=== PATIENT | male | born 1950 | race Caucasian/White ===

== ENCOUNTER 2017-09-15 08:22 | Inpatient (IN) | payer MEDICARE, OTHER ==
[2017-09-15] VITALS (14 sets, daily range): BP systolic 97–122; BP diastolic 41–81; PULSE 80–102; RESP 16–24; TEMP 98.3; O2SAT 91–99
[~2017-09-15] VITALS: Ht 172.7 cm; Wt 63.8 kg
[2017-09-15] MEDS ORDERED: SODIUM CHLORIDE 0.9% FLUSH 10 ML FLUSH IVF PRN (09:00)
[2017-09-15] MEDS ORDERED: methylPREDNISolone SOD SUCC 125 MG/2 ML VIAL IV PUSH ONE (09:00)
[2017-09-15] MEDS: RESP: ALBUTEROL 2.5 MG/3 ML NEB (SCH) INH ×2 (09:00→09:15)
[2017-09-15] MEDS ORDERED: RESP: ALBUTEROL 2.5 MG/IPRATROPIUM 0.5 MG NEB (SCH) INH ONE (09:00)
--- NOTE | 2017-09-15 09:21 | PD ---
HPI Chief Complaint: Respiratory Symptoms Time Seen by Provider: 08:40 Travel History International Travel<30 days: No Contact w/Intl Traveler<30days: No Traveled to known affect area: No History of Present Illness HPI This is a 67-year-old male with a history of emphysema, presents today with complaints of shortness of breath and wheezing 2 days. The patient denies any fevers, chills. He states that he's had associated cough. He states he coughed so much that at times he gets "blood-tinged sputum". He denies any fevers, chills. He states in the past he was told he had emphysema. He denies any history of intubation. There are no other complaints at the time of my examination. [facility] Past Medical History Diminished Hearing: Yes Respiratory: Yes Past Surgical History Tonsillectomy: Yes Social History Alcohol Use: No Tobacco Use: No (QUITE JUL 2017) Substance Use: No Allergies-Medications (Allergen,Severity, Reaction): Coded Allergies: No Known Allergies (Unverified Allergy, Unknown, 09/15/17) Reported Meds & Prescriptions Reported Meds & Active Scripts Active No Active Prescriptions or Reported Medications Review of Systems Except as stated in HPI: all other systems reviewed are Neg General / Constitutional: No: Fever, Chills HENT: No: Headaches, Lightheadedness, Neck Pain Cardiovascular: No: Chest Pain or Discomfort, Palpitations Respiratory: Positive: Cough, Shortness of Breath, Wheezing Gastrointestinal: No: Nausea, Vomiting, Abdominal Pain Musculoskeletal: No: Weakness, Pain Neurologic: No: Weakness, Dizziness, Syncope Physical Exam Narrative GENERAL: Well-developed well-nourished male in no acute respiratory distress. SKIN: Focused skin assessment warm/dry. HEAD: Atraumatic. Normocephalic. EYES: Pupils equal and round. No scleral icterus. No injection or drainage. ENT: No nasal bleeding or discharge. Mucous membranes pink and moist. NECK: Trachea midline. Supple. CARDIOVASCULAR: Regular rate and rhythm. No murmur appreciated. RESPIRATORY: Bilateral wheezing at the bilateral lung bases. Breath sounds equal bilaterally. No Rales. GASTROINTESTINAL: Abdomen soft, non-tender, nondistended. Hepatic and splenic margins not palpable. MUSCULOSKELETAL: No obvious deformities. No clubbing. No cyanosis. No edema. NEUROLOGICAL: Awake and alert. No obvious cranial nerve deficits. Motor grossly within normal limits. Normal speech. Data Data Last Documented VS Vital Signs Date Time Temp Pulse Resp B/P (MAP) Pulse Ox O2 Delivery O2 Flow Rate FiO2 09/15/17 10:00 80 16 107/55 (72) 95 Nasal Cannula 2.00 Orders Orders Electrocardiogram (09/15/17 ) Iv Access Insert/Monitor (09/15/17 08:47) Ecg Monitoring (09/15/17 08:47) Oximetry (09/15/17 08:47) Oxygen Administration (09/15/17 08:47) Chest, Single Ap (09/15/17 08:47) Sodium Chloride 0.9% Flush (Ns Flush) (09/15/17 09:00) Methylprednisolone So Succ Inj (Solumedr (09/15/17 09:00) Albuterol-Ipratropium Neb (Duoneb Neb) (09/15/17 09:00) Albuterol Neb (Albuterol Neb) (09/15/17 09:00) Complete Blood Count With Diff (09/15/17 09:35) Comprehensive Metabolic Panel (09/15/17 09:35) Ckmb (Isoenzyme) Profile (09/15/17 09:35) Troponin I (09/15/17 09:35) Blood Culture (09/15/17 09:35) Ct Thorax/ Chest W Iv Contrast (09/15/17 09:35) Iohexol 350 Inj (Omnipaque 350 Inj) (09/15/17 10:50) Place In Observation (09/15/17 ) Vital Signs (Adult) Q4H (09/15/17 13:04) Activity Oob With Assistance (09/15/17 13:04) Intake + Output ESTHELA.QSHIFT (09/15/17 13:04) Diet Heart Healthy (09/15/17 Lunch) Sodium Chloride 0.9% Flush (Ns Flush) (09/15/17 13:15) Sodium Chloride 0.9% Flush (Ns Flush) (09/15/17 21:00) Acetaminophen (Tylenol) (09/15/17 13:15) Temazepam (Restoril) (09/15/17 13:15) Basic Metabolic Panel (Bmp) (09/16/17 06:00) Complete Blood Count With Diff (09/16/17 06:00) Pt Request For Service (09/15/17 13:04) Case Management Consult (09/15/17 13:04) Enoxaparin Inj (Lovenox Inj) (09/15/17 13:15) Scd Bilateral/Knee High ESTHELA.BID (09/15/17 13:04) Teddy Bilateral/Knee High ESTHELA.QSHIFT (09/15/17 13:04) Naloxone Inj (Narcan Inj) (09/15/17 13:15) Docusate Sodium-Senna (Abigail-Colace) (09/15/17 21:00) Magnesium Hydroxide Liq (Milk Of Magnesi (09/15/17 13:15) Sennosides (Senokot) (09/15/17 13:15) Bisacodyl Supp (Dulcolax Supp) (09/15/17 13:15) Lactulose Liq (Lactulose Liq) (09/15/17 13:15) Consult Pulmonology (09/15/17 ) Consult Medical Oncology (09/15/17 ) Consult Palliative Care (09/15/17 ) Methylprednisolone So Succ Inj (Solumedr (09/15/17 14:00) Albuterol-Ipratropium Neb (Duoneb Neb) (09/15/17 14:00) Albuterol-Ipratropium Neb (Duoneb Neb) (09/15/17 13:15) Acetamin-Hydrocod 325-5 Mg ([place] 5-325 (09/15/17 13:15) Echo 2d Comp With Doppler (09/15/17 ) Levofloxacin 750 Mg Premix Inj (Levaquin (09/15/17 13:15) Sputum Culture And Gram Stain (09/15/17 13:11) Admit Order (Ed Use Only) (09/15/17 13:13) Labs Laboratory Tests Test 09/15/17 09:45 White Blood Count 11.5 TH/MM3 Red Blood Count 4.42 MIL/MM3 Hemoglobin 12.9 GM/DL Hematocrit 38.2 % Mean Corpuscular Volume 86.3 FL Mean Corpuscular Hemoglobin 29.2 PG Mean Corpuscular Hemoglobin Concent 33.9 % Red Cell Distribution Width 13.1 % Platelet Count 394 TH/MM3 Mean Platelet Volume 7.1 FL Neutrophils (%) (Auto) 83.2 % Lymphocytes (%) (Auto) 8.8 % Monocytes (%) (Auto) 6.4 % Eosinophils (%) (Auto) 1.2 % Basophils (%) (Auto) 0.4 % Neutrophils # (Auto) 9.6 TH/MM3 Lymphocytes # (Auto) 1.0 TH/MM3 Monocytes # (Auto) 0.7 TH/MM3 Eosinophils # (Auto) 0.1 TH/MM3 Basophils # (Auto) 0.0 TH/MM3 CBC Comment DIFF FINAL Differential Comment Blood Urea Nitrogen 16 MG/DL Creatinine 1.01 MG/DL Random Glucose 98 MG/DL Total Protein 7.7 GM/DL Albumin 2.8 GM/DL Calcium Level 8.7 MG/DL Alkaline Phosphatase 82 U/L Aspartate Amino Transf (AST/SGOT) 20 U/L Alanine Aminotransferase (ALT/SGPT) 12 U/L Total Bilirubin 0.4 MG/DL Sodium Level 137 MEQ/L Potassium Level 4.1 MEQ/L Chloride Level 104 MEQ/L Carbon Dioxide Level 26.3 MEQ/L Anion Gap 7 MEQ/L Estimat Glomerular Filtration Rate 73 ML/MIN Total Creatine Kinase 31 U/L Troponin I LESS THAN 0.02 NG/ML MDM Medical Decision Making Medical Screen Exam Complete: Yes Emergency Medical Condition: Yes Differential Diagnosis COPD versus pneumonia versus bronchitis versus pneumothorax Narrative Course [age]-old male who presents today with shortness of breath wheezing and weakness. The patient has a history of emphysema. Patient had audible wheezing on his lungs bilaterally worse on the left than on the right. X-ray showed a right hilar mass. CT scan was ordered which showed a hilar mass that was 6 x 5 cm with what appears to be metastatic disease in both lungs. The patient is still symptomatic despite having nebulizer treatments and Solu- Medrol. I informed the patient of findings on the CT scan and told him we would initiate the workup here in the hospital. He was agreeable and amenable to being admitted. Diagnosis Primary Impression: right hilar mass with diffuse pulmonary metastatic infiltrates. Additional Impressions: COPD exacerbation Pleural effusion Pericardial effusion History of tobacco use Admitting Information Admitting Physician Requests: Observation Scripts No Active Prescriptions or Reported Meds Zeus Espino MD Sep 15, 2017 09:21
--- NOTE | 2017-09-15 09:23 | RADRPT ---
EXAM DATE/TIME: 09/15/2017 09:03 [facility] COMPARISON: No previous studies available for comparison. INDICATIONS : Patient states shortness of breath. MEDICAL HISTORY : None. SURGICAL HISTORY : None. ENCOUNTER: Initial ACUITY: 1 day PAIN SCORE: 0/10 LOCATION: Bilateral chest FINDINGS: Bilateral patchy nearly nodular opacities throughout the mid to lower lung zones. This appears more c onfluent in the right perihilar region. Cardiomediasti contours are within normal limits. Bony thorax is intact. CONCLUSION: Diffuse mid to lower lung zone bilateral patchy nodular opacities, more confluent in the right perihi lar region. Differential considerations include metastatic disease versus atypical/diffuse infection. CT examination may be performed for better characterization. Helder Cabral MD on September 15, 2017 at 9:19 Board Certified Radiologist. This report was verified electronically.
[2017-09-15 10:10] LABS: AUTOMATED NEUTROPHIL # 9.6 TH/MM3 (1.8-7.7); BASOPHIL % 0.4 % (0.0-2.0); EOSINOPHIL # 0.1 TH/MM3 (0-0.4); EOSINOPHIL % 1.2 % (0.0-4.0); HEMATOCRIT 38.2 % (39.0-51.0); HEMO FLAGS DIFF FINAL; LYMPH % 8.8 % (9.0-44.0); MEAN CELL VOLUME 86.3 FL (80.0-100.0); MEAN CORPUSCULAR HEMOGLOBIN 29.2 PG (27.0-34.0); MEAN CORPUSCULAR HGB CONC 33.9 % (32.0-36.0); MONO % 6.4 % (0.0-8.0); NEUT % 83.2 % (16.0-70.0); PLATELET COUNT 394 TH/MM3 (150-450); RED BLOOD COUNT 4.42 MIL/MM3 (4.50-5.90); RED CELL DISTRIBUTION WIDTH 13.1 % (11.6-17.2); WHITE BLOOD COUNT 11.5 TH/MM3 (4.0-11.0)
[2017-09-15 10:24] LABS: ALT (GPT) 12 U/L (12-78); ANION GAP 7 MEQ/L (5-15); AST (GOT) 20 U/L (15-37); BICARBONATE 26.3 MEQ/L (21.0-32.0); BLOOD UREA NITROGEN 16 MG/DL (7-18); CHLORIDE 104 MEQ/L (98-107); GLOMERULAR FILTRATION RATE 73 ML/MIN (>89); POTASSIUM 4.1 MEQ/L (3.5-5.1); SODIUM (NA) 137 MEQ/L (136-145)
[2017-09-15 10:28] LABS: ALKALINE PHOSPHATASE 82 U/L (45-117); TOTAL BILIRUBIN ADULT 0.4 MG/DL (0.2-1.0)
[2017-09-15 10:29] LABS: CREATINE KINASE 31 U/L (39-308)
[2017-09-15] MEDS ORDERED: IOHEXOL 350 MG/ML 10 ML VIAL (for RAD DIAG) IVCONTRAST ONE (10:50)
--- NOTE | 2017-09-15 11:18 | RADRPT ---
EXAM DATE/TIME: 09/15/2017 10:38 [facility] COMPARISON: CHEST SINGLE AP, September 15, 2017, 9:03. INDICATIONS : Shortness of breath. IV CONTRAST: 75 cc Omnipaque 350 (iohexol) IV RADIATION DOSE: 5.1 CTDIvol (mGy) MEDICAL HISTORY : None SURGICAL HISTORY : Tonsillectomy. ENCOUNTER: Initial ACUITY: 1 day PAIN SCALE: 0/10 LOCATION: Bilateral chest TECHNIQUE: Volumetric scanning of the chest was performed. Using automated exposure control and adjustment of t he mA and/or kV according to patient size, radiation dose was kept as low as reasonably achievable to obtain optimal diagnostic quality images. DICOM format image data is available electronically for review and comparison. Follow-up recommendations for detected pulmonary nodules are based at a minimum on nodule size and pa tient risk factors according to Fleischner Society Guidelines. FINDINGS: LUNGS: There is a 6.6 x 5.8 cm right hilar mass with associated mass effect on the right middle lobe bronchu s. There are numerous bilateral lung masses consistent with diffuse metastatic disease. Moderate uppe r lobe predominant centrilobular emphysema. PLEURA: Trace right-sided pleural effusion. MEDIASTINUM: Prominent mediastinal adenopathy. Large anterior carinal node measuring up to 3.2 cm. Subcarinal node measuring up to 3.4 cm. Small to moderate sized pericardial effusion measuring up to 1.8 cm. Central pulmonary arteries are patent. AXILLAE: Within normal limits. No lymphadenopathy. SKELETAL: No definite focal lytic or blastic bony lesions. MISCELLANEOUS: No adrenal mass. Partially imaged cysts in the left kidney. CONCLUSION: 1. 6.6 x 5.8 cm right hilar mass with associated mediastinal adenopathy and diffuse bilateral pulmona ry metastatic disease. 2. Trace right-sided pleural effusion and small to moderate sized pericardial effusion. Helder Cabral MD on September 15, 2017 at 11:04 Board Certified Radiologist. This report was verified electronically.
--- NOTE | 2017-09-15 12:16 | EKG ---
Date Performed: 09/15/2017 Time Performed: 08:45:56 PTAGE: 67 years EKG: Sinus rhythm POSSIBLE RIGHT ATRIAL ENLARGEMENT LOW QRS VOLTAGE IN EXTREMITY LEADS BORDERLINE ECG NO PREVIOUS TRACING DOCTOR: Rashard Maguire Interpretating Date/Time 09/15/2017 12:13:03
[2017-09-15] MEDS ORDERED: MAGNESIUM HYDROXIDE SUSP 30 ML CUP PO PRN (13:15)
[2017-09-15] MEDS ORDERED: SODIUM CHLORIDE 0.9% FLUSH 10 ML FLUSH IV FLUSH PRN (13:15)
[2017-09-15] MEDS ORDERED: ACETAMINOPHEN 325 MG TAB PO PRN (13:15)
[2017-09-15] MEDS ORDERED: RESP: ALBUTEROL 2.5 MG/IPRATROPIUM 0.5 MG NEB (PRN) NEB (13:15)
[2017-09-15] MEDS ORDERED: BISACODYL 10 MG SUPP RECTAL PRN (13:15)
[2017-09-15] MEDS ORDERED: SENNOSIDES 8.6 MG TAB PO PRN (13:15)
[2017-09-15] MEDS ORDERED: LACTULOSE SYRUP 20 GM/30 ML CUP PO PRN (13:15)
[2017-09-15] MEDS ORDERED: NALOXONE HCL 0.4 MG/ML AMP IV PUSH PRN (13:15)
[2017-09-15] MEDS ORDERED: ACETAMINOPHEN/HYDROcodone 325 MG/5 MG TAB PO PRN (13:15)
[2017-09-15] MEDS ORDERED: ENOXAPARIN SODIUM 40 MG/0.4 ML SYRINGE SQ SCH (13:15)
--- NOTE | 2017-09-15 13:20 | HHI.HP ---
HPI Service [facility] Primary Care Physician No Primary Care Physician Admission Diagnosis Diagnoses: Chief Complaint: cough, shortness of breath Travel History International Travel<30 Days: No Contact w/Intl Traveler <30 Da: No Traveled to Known Affected Are: No History of Present Illness Written by Penny Esteban, acting as scribe for Dr. Schwartz on 09/15/17 at 13: 06. 67-year-old male with history of tobacco use presents with over a 1 month history of cough and shortness of breath. The patient has a long tobacco use history, smokes 1.5 PPD since age 15, however quit August 17 after his cough worsened. He reports cough productive of clear to yellow sputum, and has noticed some blood tinged sputum after hacking excessively. He believes he's also lost some weight but cannot quantify how much. He has felt generally weak and tired. Denies any fevers or chills, chest pain, palpitations, abdominal pain , nausea/vomiting, diarrhea/constipation, or urinary complaints. He does not have a PCP as he recently moved from the [facility] 3 months ago. He does not take any medications on a regular basis. Denies any family history of cancer. He has no other medical complaints to report at this time. Review of Systems Except as stated in HPI: all other systems reviewed are Neg Past Family Social History Past Medical History Denies any significant medical problems Past Surgical History Tonsillectomy Reported Medications No Active Prescriptions or Reported Medications Allergies: Coded Allergies: No Known Allergies (Unverified Allergy, Unknown, 09/15/17) Active Ordered Medications Current Medications Medications (Trade) Dose Ordered Sig/Gabriele Route Start Time Stop Time Status Last Admin (NS Flush) 2 ml UNSCH PRN IVF 09/15/17 09:00 09/15/17 09:00 Family History Denies any family history of lung cancer. Father with polio, age 55 Mother fairly healthy, age 92 Social History Smoked tobacco since age 15, 1.5 PPD, quit smoking 08/17/17 Denies any alcohol or illicit drug use Physical Exam Vital Signs Vital Signs Date Time Temp Pulse Resp B/P (MAP) Pulse Ox O2 Delivery O2 Flow Rate FiO2 09/15/17 10:00 80 16 107/55 (72) 95 Nasal Cannula 2.00 09/15/17 09:38 99 Nasal Cannula 2.00 09/15/17 09:00 82 20 103/64 (77) 96 Nasal Cannula 2.00 09/15/17 08:50 92 24 107/65 (79) 96 Room Air 09/15/17 08:49 Nasal Cannula 2.00 09/15/17 08:49 97 Room Air 09/15/17 08:26 102 18 106/81 (89) 91 Physical Exam GENERAL: Well-developed, well-nourished male patient in [facility]. SKIN: Warm and dry. HEAD: Atraumatic. Normocephalic. EYES: Pupils equal and round. No scleral icterus. No injection or drainage. ENT: No nasal bleeding or discharge. Mucous membranes pink and moist. NECK: Trachea midline. No JVD. CARDIOVASCULAR: Regular rate and rhythm. No murmur appreciated. RESPIRATORY: No accessory muscle use. Clear to auscultation. Breath sounds equal bilaterally. GASTROINTESTINAL: Abdomen soft, non-tender, nondistended. Hepatic and splenic margins not palpable. MUSCULOSKELETAL: Extremities without clubbing, cyanosis, or edema. No obvious deformities. NEUROLOGICAL: Awake and alert. No obvious cranial nerve deficits. Motor grossly within normal limits. 5/5 muscle strength in the arms and legs. Bilateral Patellar DTRs 2+. Normal speech. PSYCHIATRIC: Appropriate mood and affect; insight and judgment normal. Laboratory Laboratory Tests Test 09/15/17 09:45 White Blood Count 11.5 Red Blood Count 4.42 Hemoglobin 12.9 Hematocrit 38.2 Mean Corpuscular Volume 86.3 Mean Corpuscular Hemoglobin 29.2 Mean Corpuscular Hemoglobin Concent 33.9 Red Cell Distribution Width 13.1 Platelet Count 394 Mean Platelet Volume 7.1 Neutrophils (%) (Auto) 83.2 Lymphocytes (%) (Auto) 8.8 Monocytes (%) (Auto) 6.4 Eosinophils (%) (Auto) 1.2 Basophils (%) (Auto) 0.4 Neutrophils # (Auto) 9.6 Lymphocytes # (Auto) 1.0 Monocytes # (Auto) 0.7 Eosinophils # (Auto) 0.1 Basophils # (Auto) 0.0 CBC Comment DIFF FINAL Differential Comment Blood Urea Nitrogen 16 Creatinine 1.01 Random Glucose 98 Total Protein 7.7 Albumin 2.8 Calcium Level 8.7 Alkaline Phosphatase 82 Aspartate Amino Transf (AST/SGOT) 20 Alanine Aminotransferase (ALT/SGPT) 12 Total Bilirubin 0.4 Sodium Level 137 Potassium Level 4.1 Chloride Level 104 Carbon Dioxide Level 26.3 Anion Gap 7 Estimat Glomerular Filtration Rate 73 Total Creatine Kinase 31 Troponin I LESS THAN 0.02 Date/Time Source Procedure Growth Status 09/15/17 09:50 Blood Peripheral Aerobic Blood Culture Pending Received 09/15/17 09:50 Blood Peripheral Anaerobic Blood Culture Pending Received Result Diagram: 09/15/[id number] Imaging Last Impressions Chest CT 09/15/17934 Signed Impressions: Service Date/Time: Friday, September 15, 2017 10:38 - CONCLUSION: 1. 6.6 x 5.8 cm right hilar mass with associated mediastinal adenopathy and diffuse bilateral pulmonary metastatic disease. 2. Trace right-sided pleural effusion and small to moderate sized pericardial effusion. Helder Cabral MD Chest X-Ray 09/15/1747 Signed Impressions: Service Date/Time: Friday, September 15, 2017 09:03 - CONCLUSION: Diffuse mid to lower lung zone bilateral patchy nodular opacities, more confluent in the right perihilar region. Differential considerations include metastatic disease versus atypical/diffuse infection. CT examination may be performed for better characterization. MD Lizbeth Urban VTE Risk Assessment Caprini VTE Risk Assessment: Mod/High Risk (score >= 2) Caprini Risk Assessment Model Point Value = 1 Point Value = 2 Point Value = 3 Point Value = 5 Age 41-60 Minor surgery BMI > 25 kg/m2 Swollen legs Varicose veins or History of unexplained or recurrent spontaneous Oral contraceptives or hormone replacement Sepsis (< 1 month) Serious lung disease, including pneumonia (< 1 month) Abnormal pulmonary function Acute myocardial infarction Congestive heart failure (< 1 month) History of inflammatory bowel disease Medical patient at bed rest Age 61-74 Arthroscopic surgery Major open surgery (> 45 min) Laparoscopic surgery (> 45 min) Malignancy Confined to bed (> 72 hours) Immobilizing plaster cast Central venous access Age >= 75 History of VTE Family history of VTE Factor V Leiden Prothrombin [id number] Lupus anticoagulant Anticardiolipin antibodies Elevated serum homocysteine Heparin-induced thrombocytopenia Other congenital or acquired thrombophilia Stroke (< 1 month) Elective arthroplasty Hip, pelvis, or leg fracture Acute spinal cord injury (< 1 month) Prophylaxis Regimen Total Risk Factor Score Risk Level Prophylaxis Regimen 0-1 Low Early ambulation 2 Moderate Order ONE of the following: *Sequential Compression Device (SCD) *Heparin 5000 units SQ BID 3-4 Higher Order ONE of the following medications: *Heparin 5000 units SQ TID *Enoxaparin/Lovenox 40 mg SQ daily (WT < 150 kg, CrCl > 30 mL/min) *Enoxaparin/Lovenox 30 mg SQ daily (WT < 150 kg, CrCl > 10-29 mL/min) *Enoxaparin/Lovenox 30 mg SQ BID (WT < 150 kg, CrCl > 30 mL/min) AND/OR *Sequential Compression Device (SCD) 5 or more Highest Order ONE of the following medications: *Heparin 5000 units SQ TID (Preferred with Epidurals) *Enoxaparin/Lovenox 40 mg SQ daily (WT < 150 kg, CrCl > 30 mL/min) *Enoxaparin/Lovenox 30 mg SQ daily (WT < 150 kg, CrCl > 10-29 mL/min) *Enoxaparin/Lovenox 30 mg SQ BID (WT < 150 kg, CrCl > 30 mL/min) AND *Sequential Compression Device (SCD) Assessment and Plan Problem List: (1) Lung mass ICD Code: R91.8 - Other nonspecific abnormal finding of lung field (2) Lung metastasis ICD Code: C78.00 - Secondary malignant neoplasm of unspecified lung (3) COPD exacerbation ICD Code: J44.1 - Chronic obstructive pulmonary disease with (acute) exacerbation (4) Pneumonia ICD Code: J18.9 - Pneumonia, unspecified organism (5) Pericardial effusion ICD Code: I31.3 - Pericardial effusion (noninflammatory) Status: Acute (6) History of tobacco use ICD Code: Z87.891 - Personal history of nicotine dependence Assessment and Plan 67-year-old male with history of tobacco use presents with over a 1 month history of cough and shortness of breath. Lung Mass with Metastases: +tobacco use, 1.5 PPD x [address] images reviewed showed 6.6 x 5.8cm right hilar mass with associated mediastinal adenopathy and diffuse bilateral pulmonary metastatic disease; trace right pleural effusion; small-mod pericardial effusion. -Consult palliative care to assist with goals of care -Consult pulmonary -Consult oncology Suspected Community Acquired Pneumonia: patient with leukocytosis WBC 11.5, tachycardia HR 102, and productive cough. CXR images reviewed, showed diffuse mid to lower lung bilateral patchy nodular opacities. -Start on antibiotics with IV Levaquin -Check sputum and blood cultures -O2 as needed COPD Exacerbation: CXR and CT chest images reviewed as above. S/p IV Solumedrol 125mg x1 in the ED. -Continue duonebs q6h gabriele and prn -Continue steroids with IV Solumedrol Pericardial Effusion: Chest CT images showed small to moderate sized pericardial effusion. Suspect secondary to metastases vs infection. -Check echocardiogram -Continue antibiotics as above -Monitor BP Tobacco Use: reportedly quit smoking on 08/17/17. -counseled on continuing tobacco cessation DVT Prophylaxis: teds/SCDs, avoid chemoprophylaxis for now as patient may need biopsy This note was transcribed by PATRICIA Cruz . I, Dr. Felicity Schwartz personally performed the history, physical exam, and medical decision making; and confirmed the accuracy of the information in the transcribed note. Authenticated by Dr. Felicity Schwartz on 09/15/17 at 13:06. Discussed Condition With Patient, ER Penny Lopez PA-C Sep 15, 2017 13:20 Felicity Schwartz MD Sep 16, 2017 07:35
[2017-09-15] MEDS: RESP: ALBUTEROL 2.5 MG/IPRATROPIUM 0.5 MG NEB (SCH) NEB ×2 (13:36→19:45)
[2017-09-15] MEDS: LEVOFLOXACIN 750 MG PREMIX INJ 150 ML IV SCH (15:01)
--- NOTE | 2017-09-15 16:09 | PD.CONS ---
Consult Service Palliative Care Consult Requested By Dr. Schwartz Primary Care Physician No Primary Care Physician Reason for Consultation a. To assist with evaluation and management of symptoms including: dyspnea , cough b. To assist medical decision maker(s) with: better understanding of current medical conditions; weighing benefits/burdens of medical treatment options; making medical treatment decisions. HPI History of Present Illness This 67-year-old patient presented to the ED 09/15/17 with complaints of shortness of breath and wheezing 2 days. He denied fevers, chills. He also reported a cough. He reports coughing so much that he gets "blood-tinged sputum ". He indicated in the past he's been told he has emphysema. No prior intubations. He also indicated feeling generally weak and tired. No chest pain , palpitations, abdominal pain nausea vomiting, diarrhea/constipation or urinary complaints. He reports he does not have a primary care provider as he recently moved here from [facility] about 3 months ago. * ED course: CXR notable for right hilar mass CT scan = 6 x 5 cm hilar mass with what appears to be metastatic disease in both lungs. Patient treated with nebulizers, Solu-Medrol still wheezing despite treatments. CT scan findings were discussed by ED physician with patient who agreed to proceed with further workup and admission. * Pulmonary consulted. Consult pending at time of my chart review. Oncology consulted, consult pending at time of my chart review. Palliative care consulted to assist with clarification of goals of treatment. * Patient started on treatment for suspected CAP; leukocytosis 11.5, and productive cough. IV Levaquin initiated, cultures pending. * CT chest shows small to moderate size pericardial effusion suspected to be secondary to metastasis versus infection//echocardiogram pending Patient seen in the ED room present at bedside. Alert and oriented, pleasant and appropriate. Appears to have good insight and understanding. Still awaiting pulmonology, oncology consult. ROS essentially negative at this time except for wheezing, cough which she endorses has gotten better during his course thus far. Endorses feeling of generalized fatigue and weakness for about the past 1 month. Also endorses generalized decreased appetite maybe 6 months or so though no weight loss that he is noticed. Intermittent cough; more so in the past 1 month with sputum at times, he initially thought this was " just a bronchitis " Otherwise no GI complaints, no urinary complaints. . Function/Cognitive Trajectory Lives at home with his independent with ADLs no cognitive or functional deficits Review of Systems Constitutional: COMPLAINS OF: Fatigue (1 month), Change in appetite (slight decrease), Generalized weakness, DENIES: Fever, Weight loss, Chills, Pain Eyes: DENIES: Blurred vision, Vision loss Ears, nose, mouth, throat: DENIES: Vertigo, Oral lesions, Throat pain, Hoarseness, Sinus Pain Respiratory: COMPLAINS OF: Cough (1 month), Wheezing (few days), Hemoptysis ( intermittent for a few days), Sputum production, Shortness of breath, DENIES: Apneas Cardiovascular: COMPLAINS OF: Dyspnea on Exertion, DENIES: Chest pain, Palpitations, Syncope, Lower Extremity Edema, Orthopnea Gastrointestinal: DENIES: Abdominal pain, Constipation, Diarrhea, Nausea, Vomiting, Difficulty Swallowing Genitourinary: DENIES: Urinary frequency, Urinary incontinence, Urgency, Hematuria, Dysuria Musculoskeletal: DENIES: Muscle aches, Joint Swelling, Back pain Integumentary: DENIES: Rash Hematologic/Lymphatics: DENIES: Bruising Neurologic: DENIES: Headache Past Family Social History Coded Allergies: No Known Allergies (Unverified Allergy, Unknown, 09/15/17) Past Medical History Emphysema . Past Surgical History Tonsillectomy Reported Medications None . Current Medications Medications (Trade) Dose Ordered Sig/Gabriele Route Start Time Stop Time Status Last Admin (NS Flush) 2 ml UNSCH PRN IV FLUSH 09/15/17 13:15 (NS Flush) 2 ml BID IV FLUSH 09/15/17 21:00 (Tylenol) 650 mg Q4H PRN PO 09/15/17 13:15 (Restoril) 15 mg HS PRN PO 09/15/17 21:00 (Lovenox Inj) 40 mg Q24H SQ 09/15/17 13:15 Future Hold (Narcan Inj) 0.4 mg UNSCH PRN IV PUSH 09/15/17 13:15 (Abigail-Colace) 1 tab BID PO 09/15/17 21:00 (Milk Of Magnesia Liq) 30 ml Q12H PRN PO 09/15/17 13:15 (Senokot) 17.2 mg Q12H PRN PO 09/15/17 13:15 (Dulcolax Supp) 10 mg DAILY PRN RECTAL 09/15/17 13:15 (Lactulose Liq) 30 ml DAILY PRN PO 09/15/17 13:15 (SoluMEDROL INJ) 40 mg Q8H IV PUSH 09/15/17 17:00 (Duoneb Neb) 1 ampule Q6HR WHILE AWAKE NEB NEB 09/15/17 14:00 09/15/17 13:36 (Duoneb Neb) 1 ampule Q2HR NEB PRN NEB 09/15/17 13:15 ([place] 5-325 Mg) 1 tab Q6H PRN PO 09/15/17 13:15 Levofloxacin/ Dextrose 150 ml @ 100 mls/hr Q24H IV 09/15/17 14:00 09/15/17 15:01 Family History Denies any family history of lung cancer. Father with polio, age 55 Mother lived until age 92 Substance Use Tobacco: smoked 1.5 PPD since age 15,Quit smoking July 2017 Alcohol: None Prescription med abuse: None Illicits: None . Psychosocial History Originally from [place], and [place] area moved to [place] about 3 years ago. 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 . Has several children who live in various places around the country. Spiritual/Cultural Factors Yazidi, no particular local affiliation would appreciate convenience visit from speech therapist/pharmacist technician Living Will: Never completed Health Care Surrogate: Never completed Durable Power of Design Engineer Agricultural Equipment: Never completed Ethical and Legal Issues Patient is currently capacitated and able to make his own decisions. He is supported by his who would be appropriate legal proxy should he become incapacitated. Physical Exam Vital Signs Date Time Temp Pulse Resp B/P (MAP) Pulse Ox O2 Delivery O2 Flow Rate FiO2 09/15/17 14:58 92 18 102/64 (77) 93 09/15/17 10:00 80 16 107/55 (72) 95 Nasal Cannula 2.00 09/15/17 09:38 99 Nasal Cannula 2.00 09/15/17 09:00 82 20 103/64 (77) 96 Nasal Cannula 2.00 09/15/17 08:50 92 24 107/65 (79) 96 Room Air 09/15/17 08:49 Nasal Cannula 2.00 09/15/17 08:49 97 Room Air 09/15/17 08:26 102 18 106/81 (89) 91 Exam CONSTITUTIONAL/GENERAL: Thin male, in no apparent distress. TUBES/LINES/DRAINS: Peripheral IV upper extremity, nasal cannula O2 SKIN: No jaundice, rashes, or lesions. No wounds seen anteriorly. Skin warm, dry HEAD: Atraumatic. Normocephalic. EYES: Pupils equal and round and reactive.+ Glasses in place .Extraocular motions intact. No scleral icterus. No injection or drainage. Fundi not examined. ENT: Hearing grossly normal. Nose without bleeding or purulent drainage. Throat without visible erythema, exudates, masses, or lesions. NECK: Trachea midline. Supple, nontender. No palpable thyroid enlargement or nodularity. CARDIOVASCULAR: Regular rate and rhythm without murmur. No JVD. Peripheral pulses symmetric. No peripheral edema. RESPIRATORY/CHEST: Symmetric, unlabored respirations. On 2 L nasal cannula. Clear to auscultation. Breath sounds equal bilaterally. GASTROINTESTINAL: Abdomen soft, non-tender, nondistended. No hepato-splenomegaly , or palpable masses. No guarding. Bowel sounds present. GENITOURINARY: Without palpable bladder distension. MUSCULOSKELETAL: Extremities without clubbing, cyanosis, or edema. No joint tenderness or effusion noted. No calf tenderness. LYMPHATICS: No palpable cervical or supraclavicular adenopathy. NEUROLOGICAL: Awake and alert. Oriented 3. Appropriate, appears to have good insight. Motor and sensory grossly within normal limits. Follows commands. Cognitively sharp. Moves all extremities. PSYCHIATRIC: No obvious anxiety/depression. no apparent hallucinations or other psychotic thought process. Diagnostic Tests Laboratory Laboratory Tests Test 09/15/17 09:45 White Blood Count 11.5 TH/MM3 (4.0-11.0) Red Blood Count 4.42 MIL/MM3 (4.50-5.90) Hemoglobin 12.9 GM/DL (13.0-17.0) Hematocrit 38.2 % (39.0-51.0) Mean Corpuscular Volume 86.3 FL (80.0-100.0) Mean Corpuscular Hemoglobin 29.2 PG (27.0-34.0) Mean Corpuscular Hemoglobin Concent 33.9 % (32.0-36.0) Red Cell Distribution Width 13.1 % (11.6-17.2) Platelet Count 394 TH/MM3 (150-450) Mean Platelet Volume 7.1 FL (7.0-11.0) Neutrophils (%) (Auto) 83.2 % (16.0-70.0) Lymphocytes (%) (Auto) 8.8 % (9.0-44.0) Monocytes (%) (Auto) 6.4 % (0.0-8.0) Eosinophils (%) (Auto) 1.2 % (0.0-4.0) Basophils (%) (Auto) 0.4 % (0.0-2.0) Neutrophils # (Auto) 9.6 TH/MM3 (1.8-7.7) Lymphocytes # (Auto) 1.0 TH/MM3 (1.0-4.8) Monocytes # (Auto) 0.7 TH/MM3 (0-0.9) Eosinophils # (Auto) 0.1 TH/MM3 (0-0.4) Basophils # (Auto) 0.0 TH/MM3 (0-0.2) CBC Comment DIFF FINAL Differential Comment Blood Urea Nitrogen 16 MG/DL (7-18) Creatinine 1.01 MG/DL (0.60-1.30) Random Glucose 98 MG/DL (74-106) Total Protein 7.7 GM/DL (6.4-8.2) Albumin 2.8 GM/DL (3.4-5.0) Calcium Level 8.7 MG/DL (8.5-10.1) Alkaline Phosphatase 82 U/L (45-117) Aspartate Amino Transf (AST/SGOT) 20 U/L (15-37) Alanine Aminotransferase (ALT/SGPT) 12 U/L (12-78) Total Bilirubin 0.4 MG/DL (0.2-1.0) Sodium Level 137 MEQ/L (136-145) Potassium Level 4.1 MEQ/L (3.5-5.1) Chloride Level 104 MEQ/L (98-107) Carbon Dioxide Level 26.3 MEQ/L (21.0-32.0) Anion Gap 7 MEQ/L (5-15) Estimat Glomerular Filtration Rate 73 ML/MIN (>89) Total Creatine Kinase 31 U/L (39-308) Troponin I LESS THAN 0.02 NG/ML Result Diagram: 09/15/17 0945 09/15/17 0945 Microbiology Microbiology Date/Time Source Procedure Growth Status 09/15/17 09:50 Blood Peripheral Aerobic Blood Culture Pending Received 09/15/17 09:50 Blood Peripheral Anaerobic Blood Culture Pending Received 09/15/17 09:45 Blood Peripheral Aerobic Blood Culture Pending Received 09/15/17 09:45 Blood Peripheral Anaerobic Blood Culture Pending Received Imaging Last Impressions Chest CT 09/15/1735 Signed Impressions: Service Date/Time: Friday, September 15, 2017 10:38 - CONCLUSION: 1. 6.6 x 5.8 cm right hilar mass with associated mediastinal adenopathy and diffuse bilateral pulmonary metastatic disease. 2. Trace right-sided pleural effusion and small to moderate sized pericardial effusion. Helder Cabral MD Chest X-Ray 09/15/17 0847 Signed Impressions: Service Date/Time: Friday, September 15, 2017 09:03 - CONCLUSION: Diffuse mid to lower lung zone bilateral patchy nodular opacities, more confluent in the right perihilar region. Differential considerations include metastatic disease versus atypical/diffuse infection. CT examination may be performed for better characterization. Helder Cabral MD Patient/Family Conference Present at Family Conference: patient, Family Conference Time (mins): 25 Family Conference Location: Bedside Issues Discussed: Met with patient and his at bedside, discussion included the following: * Palliative care role, purpose, approach * Additional medical, psychosocial, and spiritual history * Patients general health, functional status, in the months leading up to the current hospitalization * Patient/family understanding of the current medical problems * Patient/family understanding of prognosis--further prognostication depending oncology workup; review of potential treatment options or potential limitations such as chemotherapy, radiation, pending staging etc. per oncology * Patients goals of care as best understood from advance directives and/or conversations and/or values * Current medical treatment options and benefits/burdens of those options-- review of potential diagnostics going forward including additional imaging, possible biopsy, additional lab work etc.--Pt amenable to continuing diagnostic workup to obtain confirmatory diagnosis before making decisions. * Questions answered to the best of my ability * Palliative care contact information provided . Assessment and Plan Disease Oriented Problem List: (1) Pleural effusion (2) Pericardial effusion (3) History of tobacco use (4) Lung mass (5) Pneumonia (6) Lung metastasis Symptom Scale: (1) Dyspnea (2) Fatigue Pertinent Non-Medical Issues Psychosocial:Originally from [place], [facility] area moved to [place] about 3 years ago. 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 . Has several children who live in various places around the country. Spiritual: Yazidi, no particular local affiliation. Would like convenience fish hatchery superintendent/speech therapist visitation Legal:Patient is currently capacitated and able to make his own decisions. He is supported by his who would be appropriate legal proxy should he become incapacitated. Palliative will offer to assist patient with advanced directives during hospital course should he desire. Ethical issues impacting care: No ethical issues identified Important Contacts Abigail Silva [phone] . Prognosis This patient denies any significant medical history, may have been told he had emphysema at one point. He is admitted with large lung mass further diagnostics pending, multiple other nodules likely metastatic. Further prognostication pending oncology workup. . Code Status: Full Code Plan * Legal decision maker:Patient is currently capacitated and able to make his own decisions. He is supported by his who would be appropriate legal proxy should he become incapacitated. Palliative will offer to assist patient with advanced directives during hospital course should he desire. * Goals: Goals at this time are aggressive; patient wishes to pursue further diagnostic workup to determine cancer/treatment options. Further decisions to be made pending diagnoses. * CODE STATUS: * SYMPTOMS: --Dyspnea/wheezing- resented with significant wheezing and dyspnea; has resolved during ER course after multiple nebulizer treatments as well as IV steroid--new findings of 6 cm hilar mass. Oncology consultation and further diagnostics pending. Currently breathing comfortably and no distress. Will continue to evaluate. --Cough-interment cough for a month or so most recently productive of blood- tinged sputum at times, plus wheezing, +CAP, new malignancy findings --Generalized weakness/fatigue-reports a feeling of generalized weakness over the past 1 month and feeling overall "tired ". Likely secondary to disease process. Still able to complete ADLs, prop maker etc. * Palliative care will continue to follow during hospital course as condition evolves, to assist patient/decision-maker with understanding of medical conditions, weighing benefits/burdens of treatment options, for clarification of goals of treatment. Additionally will assist with any symptoms of palliative concern . Time Spent Total Floor Time (mins): 50 (chart review, PE, meeting w pt/) Thank you for the opportunity to participate in the care of Mr. Ricardo. Attestation To help prompt me to consider important information that might be impacting today's encounter and assessment, information from prior notes written by myself or my colleagues may have been "brought forward" into today's note. My signature on this note, however, is an attestation that I personally performed the exam, history, and/or decision-making noted today, and, unless otherwise indicated, the interactions with patient, family, and staff as well as the review of records all occurred today. I also attest that the listed assessment and stated plan reflect my best clinical judgment today based on the combination of historical information, prior notes, and today's exam/ interactions. When time spent is documented, it refers only to time spent today by the signer, or if indicated, combined time spent today by collaborating physician/nurse practitioner. Romana Nguyễn Sep 15, 2017 16:09
[2017-09-15] MEDS: methylPREDNISolone SOD SUCC 40 MG/1 ML VIAL IV PUSH SCH ×2 (17:18→23:55)
--- NOTE | 2017-09-15 17:34 | ECHRPT ---
Indication: rule out pericardial eff CONCLUSIONS The left ventricular systolic function is low normal with an estimated ejection fraction in the rang e of 50- 55%. Normal left ventricular size. Mild mitral valve regurgitation. No aortic valve regurgitation. There is mild tricuspid valve regurgitation. The estimated pulmonary arterial pressure is 41.6 mmHg. Pericardial effusion 1.9 cm. No physiologic signs tamponade BP: / HR: Rhythm: MEASUREMENTS (Male / Female) Normal Values Technical Quality:Good 2D ECHO LV Diastolic Diameter PLAX 3.5 cm 4.2 - 5.9 / 3.9 - 5.3 cm LV Systolic Diameter PLAX 2.7 cm IVS Diastolic Thickness 1.0 cm 0.6 - 1.0 / 0.6 - 0.9 cm LVPW Diastolic Thickness 0.7 cm 0.6 - 1.0 / 0.6 - 0.9 cm LV Relative Wall Thickness 0.5 RV Internal Dim ED PLAX 2.3 cm M-MODE Aortic Root Diameter MM 3.3 cm LA Systolic Diameter MM 4.4 cm LA Ao Ratio MM 1.3 AV Cusp Separation MM 2.3 cm DOPPLER Mitral E Point Velocity 56.3 cm/s Mitral A Point Velocity 95.8 cm/s Mitral E to A Ratio 0.6 LV E' Lateral Velocity 7.7 cm/s Mitral E to LV E' Lateral Ratio 7.3 LV E' Septal Velocity 5.8 cm/s Mitral E to LV E' Septal Ratio 9.8 TR Peak Velocity 281.0 cm/s TR Peak Gradient 31.6 mmHg Right Atrial Pressure 10.0 mmHg Pulmonary Artery Systolic Pressu 41.6 mmHg Right Ventricular Systolic Press 41.6 mmHg FINDINGS LEFT VENTRICLE The left ventricular systolic function is low normal with an estimated ejection fraction in the rang e of 50- 55%. Normal left ventricular size. RIGHT VENTRICLE Normal right ventricular size and systolic function. LEFT ATRIUM The left atrial size is normal. RIGHT ATRIUM The right atrial size is normal. ATRIAL SEPTUM Normal atrial septal thickness without atrial level shunting by limited color doppler interrogation. AORTA The aortic root and proximal ascending aorta are normal in size on limited imaging. MITRAL VALVE Structurally normal mitral valve. Mild mitral valve regurgitation. AORTIC VALVE Trileaflet aortic valve. No aortic valve regurgitation. TRICUSPID VALVE Structurally normal tricuspid valve. There is mild tricuspid valve regurgitation. The estimated pulmonary arterial pressure is 41.6 mmHg. PULMONARY VALVE No pulmonary valve regurgitation or stenosis. VESSELS The inferior vena cava is normal in size. PERICARDIUM pericardial effusion 1.9 cm Jona Seymour MD (Electronically Signed) Final Date:15 September 2017 17:33
[2017-09-15 20:51] LABS: APTT (PATIENT) 28.3 SEC (24.3-30.1); INTERNATIONAL NORMALIZED RATIO 1.1 RATIO; PROTHROMBIN TIME - PATIENT 12.2 SEC (9.8-11.6)
[2017-09-15] MEDS: SODIUM CHLORIDE 0.9% FLUSH 10 ML FLUSH IV FLUSH SCH (21:00)
[2017-09-15] MEDS ORDERED: TEMAZEPAM 15 MG CAP PO PRN (21:00)
[2017-09-15] MEDS: DOCUSATE SODIUM 50 MG/SENNA 8.6 MG TAB PO SCH (21:00)
[2017-09-16] VITALS (12 sets, daily range): BP systolic 96–124; BP diastolic 57–77; PULSE 67–100; RESP 16–20; TEMP 97.3–97.7; O2SAT 92–98
[2017-09-16 06:54] LABS: AUTOMATED NEUTROPHIL # 20.3 TH/MM3 (1.8-7.7); BASOPHIL % 0.1 % (0.0-2.0); HEMATOCRIT 36.8 % (39.0-51.0); HEMO FLAGS DIFF FINAL; LYMPH % 3.7 % (9.0-44.0); LYMPHOCYTE # 0.8 TH/MM3 (1.0-4.8); MEAN CELL VOLUME 86.8 FL (80.0-100.0); MEAN CORPUSCULAR HEMOGLOBIN 28.7 PG (27.0-34.0); MONO % 0.9 % (0.0-8.0); NEUT % 95.3 % (16.0-70.0); PLATELET COUNT 405 TH/MM3 (150-450); RED BLOOD COUNT 4.24 MIL/MM3 (4.50-5.90); RED CELL DISTRIBUTION WIDTH 13.2 % (11.6-17.2); WHITE BLOOD COUNT 21.3 TH/MM3 (4.0-11.0)
--- NOTE | 2017-09-16 07:07 | MB ---
cc: SCOTTIE JUAN M.D. DATE OF CONSULTATION 09/15/2017 REASON FOR CONSULTATION Consult requested by [facility] hospitalist for evaluation of right hilar mass. HISTORY OF PRESENT ILLNESS Onesimo is a 67-year-old male. He has a history of COPD that was diagnosed six years ago, but he is not on any medications. He also has a history of heavy cigarette smoking. He used to smoke cigarettes one and a half packs a day since she was a teen. However, he quit about a month ago when he started having cough. He stated that the cough was getting worse. Lately he noticed hemoptysis also. The patient does not have any primary doctor locally. He moved to this area from [place] three years ago. The patient went online and was trying to find a lung doctor. He called Dr. Leland Bettencourt's office to get an appointment, however with his symptoms, he was advised that he should report to the emergency room. The patient came into the emergency room complaining of cough and hemoptysis. He underwent a CT scan of the chest which showed a 6.6 x 5.8 cm right hilar mass with associated mass effect on the right middle lobe bronchus. There were numerous bilateral lung masses consistent with diffuse metastatic disease noted. There is moderate upper lobe predominant essentially lobular emphysema noted. There is a trace of right sided pleural effusion noted. He also has prominent mediastinal lymphadenopathy. The large anterior carinal node measuring up to 3.2 cm, subcarinal lymph node measuring up to 3.4 cm, and a small to moderate size pericardial effusion measuring up to 1.8 cm. There are no adrenal gland masses noted. The visualized skeletal does not show any bone lesions. The patient is admitted to the hospital. I have been asked to see the patient for further evaluation. The patient's appetite is good. He is not losing weight. He denies any headaches or dizziness. He denies any bone pain. He has been complaining of a hacking cough with shortness of breath and lately he is noticing a blood tinged sputum and a really hacking cough. The rest of the review of systems is negative. PAST MEDICAL HISTORY COPD diagnosed six years ago. PAST SURGICAL HISTORY Tonsillectomy during childhood. ALLERGIES None MEDICATIONS Prior to the current hospital admission, none. FAMILY HISTORY Father from complication of polio. Mother from natural causes in her 80s. The patient does not have any brothers. She has one sisters, six sons and one daughter all alive and well except one of the sons from a motor vehicle accident. SOCIAL HISTORY The patient is , lives with his . He used to smoke cigarettes one and a half packs a day since he was a teen, quit about a month ago. Does not drink alcohol. 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 Denies any asbestos exposure. He used to live in [place] and moved to [place] about three years ago. PHYSICAL EXAM This is a well-developed, well-nourished white male in no apparent distress. VITAL SIGNS: Heart rate is 92, blood pressure is 118/71, O2 saturation 94% on room air. HEENT: PERRLA, EOMI, anicteric. No oral lesions are noted. NECK: No lymphadenopathy noted. LUNGS: Clear. No wheezing, rhonchi or rales. HEART: Regular rate and rhythm. ABDOMEN: Abdomen is soft and nontender. No hepatosplenomegaly. EXTREMITIES: No pedal edema. NEUROLOGIC: Awake, alert, and oriented times three. SKIN: No significant lesions are noted. LABORATORY DATA CBC showed a white count of 11.5, hemoglobin 12.9, hematocrit 38.2, platelet count is 394. Comprehensive metabolic profile is normal except GFR is 73 and albumin is 2.8. ASSESSMENT 1. A 6.6 x 5.8 cm right hilar mass with extensive mediastinal lymphadenopathy and bilateral multiple lung masses consistent with a diffuse metastatic disease until proven otherwise. 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 2. History of heavy cigarette smoking, quit last month. 3. History of COPD not on any medications. PLAN I have reviewed his available records and I had an extensive discussion with the patient regarding my clinical suspicion of stage IV bronchogenic carcinoma. We discussed that we need to get the biopsy to establish a tissue diagnosis to come up with a treatment plan which will be the chemotherapy. Given that he has bilateral masses in both lungs, he is not a candidate for any surgery or radiation treatment. We also discussed that if this turned out to be non-small cell lung cancer, then we will order the biomarkers and see if he is a candidate for any biological oral therapy. If he does not have any biomarkers, then we will treat him with palliative chemotherapy. However, if this turned out to be small cell lung cancer, then he will be treated with chemotherapy, carboplatin and etoposide. I will get an MRI of the brain to evaluate for any brain metastasis. I will consult interventional radiologist for CT-guided core needle biopsy of the right hilar mass to establish the tissue diagnosis. After the biopsy, the patient could be discharged to home and I can follow up in our office to discuss further treatment plan. The patient has asked several questions in the presence of his nurse. We had a very long talk. We discussed about two options, one is supportive care with hospice. The second option is chemotherapy or biological therapy. The patient stated that most likely his children will push him into the treatment. At this time, we will wait to establish the diagnosis of lung cancer and the type of lung cancer before we go into further details about the treatment. The patient agreed with that. His was not present at this time. But I will speak to her and the rest of the family when the patient will come to our office to discuss biopsy results. The patient most likely will need a PET scan as an outpatient for further staging of lung cancer. Thank you for asking my opinion. MD ALEXANDRA Mccormick/CAITLYN /7:26 PM /6:50 AM JOE
[2017-09-16] MEDS: RESP: ALBUTEROL 2.5 MG/IPRATROPIUM 0.5 MG NEB (SCH) NEB ×3 (07:47→19:27)
--- NOTE | 2017-09-16 07:51 | MB ---
cc: JASON NUR DATE OF CONSULTATION 09/15/[address] Hernandez REASON FOR CONSULTATION COPD and lung mass. HISTORY OF PRESENT ILLNESS Onesimo Silva is a 67-year-old pleasant male who has not seen a physician for a long period of time. He came to the hospital with worsening of his cough going on for one month. He has blood tinged sputum production. Did not have fever or chills. No night sweat. He has lost some weight. Because of this, he was brought to the hospital. He had a CT scan of the chest done which shows 6.6 x 5.8 cm right hilar mass and he has mediastinal diffuse bilateral pulmonary metastatic disease with a trace of pleural effusion. CBC showed a WBC count of 11.5, hemoglobin 12.9, hematocrit 38.1, MCV 86, platelet count 394, his INR is pending. Sodium 137, potassium 4.1, chloride 104, CO2 26, BUN 16, creatinine 1.01, calcium 8.7. PAST MEDICAL HISTORY Unremarkable. MEDICATIONS He is currently takin. Solu-Medrol 40 mg q8-hour 2. Restoril 15 mg at night time 3. Albuterol/Atrovent nebulizer treatment 4. Levaquin 750 mg a day ALLERGIES NO KNOWN DRUG ALLERGIES. SOCIAL HISTORY He is . He used to work before. He is retired. He has a long history of smoking most of his life one and a half packs a day and quit one month ago. FAMILY HISTORY He had seven children, one in a motor vehicle accident. REVIEW OF SYSTEMS He has lost some weight. No fever or chills. No night sweats. No DVT or pulmonary embolism. No seizure, stroke or epilepsy. PHYSICAL EXAM Physical examination reveals a thinly built elderly male not in any acute distress. VITAL SIGNS: His blood pressure is 118/71, heart rate is 72, respirations 24. HEENT: Pupils are equal and reactive to light. He has bilateral cataracts. Oral mucosa and nasal mucosa normal. NECK: JVP not raised. CHEST: Equal bilaterally. Has had hyperresonant chest. No rhonchi. CARDIOVASCULAR: S1 and S2 normal. ABDOMEN: Soft, nondistended. Bowel sounds are present. EXTREMITIES: No edema. IMPRESSION 1. Multiple lung masses with multiple mets. 2. Lung mass with multiple masses likely metastatic disease. 3. Small pleural effusion. 4. COPD and emphysema. 5. Weight loss PLAN I discussed with the patient he is scheduled for CT-guided lung biopsy. We will review the result of that and check his pulmonary function study. Palliative Care is also consulted. Further treatment will dependent upon the course in the hospital. Thank you Dr. Hernandez for this consultation. MD FLORENTIN Turner/CAITLYN /8:17 PM /7:38 AM
--- NOTE | 2017-09-16 08:42 | HHI.PR ---
Subjective Remarks This is a pleasant 67 y/o Male with history of Tobacco dependence, who came with cough and shortness of breath, found with a 6.6 x 5.8 cm right hilar mass extensive to mediastinal lymphadenopathy and bilateral multiple lung masses consistent with diffuse metastatic disease until proven otherwise, consistent with IV Bronchogenic Carcinoma, Oncology and internet marketing specialist following, ordered biomarkers, palliative care consult, evaluation for brain metastasis, CT guided core needle biopsy, PET scan as outpatient. Objective Vital Signs Date Time Temp Pulse Resp B/P (MAP) Pulse Ox O2 Delivery O2 Flow Rate FiO2 09/16/17 05:10 97.3 77 16 109/63 (78) 93 09/16/17 04:07 86 09/16/17 00:16 88 09/16/17 00:00 97.6 67 18 124/77 (93) 98 09/15/17 20:30 97 09/15/17 20:00 98.3 98 16 110/66 (81) 99 09/15/17 19:45 95 21 09/15/17 18:05 09/15/17 17:00 92 24 118/71 (87) 94 Room Air 09/15/17 16:00 18 114/71 (85) 93 Room Air 09/15/17 15:00 92 97/60 (72) 93 Room Air 09/15/17 14:58 92 18 102/64 (77) 93 09/15/17 14:00 122/76 (91) 09/15/17 10:00 80 16 107/55 (72) 95 Nasal Cannula 2.00 09/15/17 09:38 99 Nasal Cannula 2.00 09/15/17 09:00 82 20 103/64 (77) 96 Nasal Cannula 2.00 09/15/17 08:50 92 24 107/65 (79) 96 Room Air 09/15/17 08:49 Nasal Cannula 2.00 09/15/17 08:49 97 Room Air I/O 09/15/17 09/15/17 09/15/17 09/16/17 09/16/17 09/16/17 07:00 15:00 23:00 07:00 15:00 23:00 # Voids 1 2 Result Diagram: 09/16/17 0508 09/16/17 0508 Imaging Last Impressions Chest CT 09/15/17 0943 Signed Impressions: Service Date/Time: Friday, September 15, 2017 10:38 - CONCLUSION: 1. 6.6 x 5.8 cm right hilar mass with associated mediastinal adenopathy and diffuse bilateral pulmonary metastatic disease. 2. Trace right-sided pleural effusion and small to moderate sized pericardial effusion. Helder Cabral MD Chest X-Ray 09/15/17 0847 Signed Impressions: Service Date/Time: Friday, September 15, 2017 09:03 - CONCLUSION: Diffuse mid to lower lung zone bilateral patchy nodular opacities, more confluent in the right perihilar region. Differential considerations include metastatic disease versus atypical/diffuse infection. CT examination may be performed for better characterization. Helder Cabral MD Procedures Lung biopsy Other Results Laboratory Tests Test 09/15/17 09:45 09/15/17 20:05 09/16/17 05:08 Blood Urea Nitrogen 16 MG/DL 23 MG/DL Creatinine 1.01 MG/DL 1.02 MG/DL Random Glucose 98 MG/DL 128 MG/DL Total Protein 7.7 GM/DL Albumin 2.8 GM/DL Calcium Level 8.7 MG/DL 9.3 MG/DL Alkaline Phosphatase 82 U/L Aspartate Amino Transf (AST/SGOT) 20 U/L Alanine Aminotransferase (ALT/SGPT) 12 U/L Total Bilirubin 0.4 MG/DL Sodium Level 137 MEQ/L 134 MEQ/L Potassium Level 4.1 MEQ/L 4.0 MEQ/L Chloride Level 104 MEQ/L 101 MEQ/L Carbon Dioxide Level 26.3 MEQ/L 22.0 MEQ/L Total Creatine Kinase 31 U/L Troponin I LESS THAN 0.02 NG/ML Prothrombin Time 12.2 SEC Prothromb Time International Ratio 1.1 RATIO Activated Partial Thromboplast Time 28.3 SEC White Blood Count 21.3 TH/MM3 Red Blood Count 4.24 MIL/MM3 Hemoglobin 12.1 GM/DL Hematocrit 36.8 % Mean Corpuscular Volume 86.8 FL Mean Corpuscular Hemoglobin 28.7 PG Mean Corpuscular Hemoglobin Concent 33.0 % Red Cell Distribution Width 13.2 % Platelet Count 405 TH/MM3 Mean Platelet Volume 7.7 FL Neutrophils (%) (Auto) 95.3 % Lymphocytes (%) (Auto) 3.7 % Monocytes (%) (Auto) 0.9 % Eosinophils (%) (Auto) 0.0 % Basophils (%) (Auto) 0.1 % Neutrophils # (Auto) 20.3 TH/MM3 Lymphocytes # (Auto) 0.8 TH/MM3 Monocytes # (Auto) 0.2 TH/MM3 Eosinophils # (Auto) 0.0 TH/MM3 Basophils # (Auto) 0.0 TH/MM3 CBC Comment DIFF FINAL Differential Comment Anion Gap 11 MEQ/L Estimat Glomerular Filtration Rate 73 ML/MIN Objective Remarks GENERAL: Well-developed, well-nourished male patient in NAD. SKIN: Warm and dry. HEAD: Atraumatic. Normocephalic. EYES: Pupils equal and round. No scleral icterus. No injection or drainage. ENT: No nasal bleeding or discharge. Mucous membranes pink and moist. NECK: Trachea midline. No JVD. CARDIOVASCULAR: Regular rate and rhythm. No murmur appreciated. RESPIRATORY: No accessory muscle use. Clear to auscultation. Breath sounds equal bilaterally. GASTROINTESTINAL: Abdomen soft, non-tender, nondistended. Hepatic and splenic margins not palpable. MUSCULOSKELETAL: Extremities without clubbing, cyanosis, or edema. No obvious deformities. NEUROLOGICAL: Awake and alert. No obvious cranial nerve deficits. Motor grossly within normal limits. 5/5 muscle strength in the arms and legs. Bilateral Patellar DTRs 2+. Normal speech. PSYCHIATRIC: Appropriate mood and affect; insight and judgment normal. Medications and IVs Current Medications Medications (Trade) Dose Ordered Sig/Gabriele Route Start Time Stop Time Status Last Admin (NS Flush) 2 ml UNSCH PRN IV FLUSH 09/15/17 13:15 (NS Flush) 2 ml BID IV FLUSH 09/15/17 21:00 09/15/17 21:00 (Tylenol) 650 mg Q4H PRN PO 09/15/17 13:15 (Restoril) 15 mg HS PRN PO 09/15/17 21:00 (Lovenox Inj) 40 mg Q24H SQ 09/15/17 13:15 Future Hold (Narcan Inj) 0.4 mg UNSCH PRN IV PUSH 09/15/17 13:15 (Abigail-Colace) 1 tab BID PO 09/15/17 21:00 (Milk Of Magnesia Liq) 30 ml Q12H PRN PO 09/15/17 13:15 (Senokot) 17.2 mg Q12H PRN PO 09/15/17 13:15 (Dulcolax Supp) 10 mg DAILY PRN RECTAL 09/15/17 13:15 (Lactulose Liq) 30 ml DAILY PRN PO 09/15/17 13:15 (SoluMEDROL INJ) 40 mg Q8H IV PUSH 09/15/17 17:00 09/15/17 23:55 (Duoneb Neb) 1 ampule Q6HR WHILE AWAKE NEB NEB 09/15/17 14:00 09/16/17 07:47 (Duoneb Neb) 1 ampule Q2HR NEB PRN NEB 09/15/17 13:15 ([place] 5-325 Mg) 1 tab Q6H PRN PO 09/15/17 13:15 Levofloxacin/ Dextrose 150 ml @ 100 mls/hr Q24H IV 09/15/17 14:00 09/15/17 15:01 A/P Assessment and Plan 67-year-old male with history of tobacco use presents with over a 1 month history of cough and shortness of breath. Lung Mass with Metastases: +tobacco use, 1.5 PPD x [address] images reviewed showed 6.6 x 5.8cm right hilar mass with associated mediastinal adenopathy and diffuse bilateral pulmonary metastatic disease; trace right pleural effusion; small-mod pericardial effusion. -Status post Brain MRI no mets, asked by online banking specialist to follow this Friday09/19/17 to arrange for PET scan internet marketing specialist following will continue as outpatient, status post Lung Biopsy. stable no Pneumothorax. Suspected Community Acquired Pneumonia: patient with leukocytosis WBC 11.5, tachycardia HR 102, and productive cough. CXR images reviewed, showed diffuse mid to lower lung bilateral patchy nodular opacities. -Continue by mouth antibiotics complete five days and steroids titrated dosages. COPD Exacerbation: CXR and CT chest images reviewed as above. S/p IV Solumedrol 125mg x1 in the ED. -Improving continue steroids as outpatient and antibiotics, bronchodilators. Pericardial Effusion: Chest CT images showed small to moderate sized pericardial effusion. Suspect secondary to metastases vs infection. Tobacco Use: reportedly quit smoking on 08/17/17. -counseled on continuing tobacco cessation DVT Prophylaxis: teds/SCD Discharge Planning Expected by tomorrow. Harley Avelar MD Sep 16, 2017 08:42
[2017-09-16] MEDS: DOCUSATE SODIUM 50 MG/SENNA 8.6 MG TAB PO SCH ×2 (09:00→20:18)
[2017-09-16] MEDS: SODIUM CHLORIDE 0.9% FLUSH 10 ML FLUSH IV FLUSH SCH ×2 (09:00→20:18)
[2017-09-16] MEDS: methylPREDNISolone SOD SUCC 40 MG/1 ML VIAL IV PUSH SCH ×2 (09:05→17:43)
[2017-09-16] MEDS ORDERED: GADODIAMIDE PF 287 MG/ML 5 ML VIAL (for RAD MRI) IV PUSH ONE (11:22)
--- NOTE | 2017-09-16 12:15 | RADRPT ---
EXAM DATE/TIME: 09/16/2017 11:12 [facility] COMPARISON: No previous studies available for comparison. INDICATIONS : Metastatic disease. CONTRAST: 12 cc Omniscan (gadodiamide) IV MEDICAL HISTORY : Carcinoma, lung. SURGICAL HISTORY : Tonsillectomy. ENCOUNTER: Initial ACUITY: 2 day PAIN SCORE: 0/10 LOCATION: head TECHNIQUE: Multiplanar, multisequence MRI of the brain was performed both prior to and following the administrat ion of paramagnetic contrast. FINDINGS: MRI of the brain is performed in sagittal, axial and coronal planes. The craniocervical junction and midline structures are unremarkable. Diffusion weighted images demonstrate no abnormality. There is n o evidence of acute cortical infarction, acute hemorrhage, mass effect or midline shift is seen. Post erior fossa structures are unremarkable. CONCLUSION: 1. No evidence of metastatic disease. Rashard Doyle MD on September 16, 2017 at 12:07 Board Certified Radiologist. This report was verified electronically.
--- NOTE | 2017-09-16 12:49 | PD.ONC.PN ---
Subjective Subjective Remarks Afebrile overnight. Patient resting in room in nad. Waiting to go down for CT guided biopsy. Objective Data Date Time Temp Pulse Resp B/P (MAP) Pulse Ox O2 Delivery O2 Flow Rate FiO2 09/16/17 09:03 97.7 93 16 101/60 (74) 94 09/16/17 08:00 88 09/16/17 05:10 97.3 77 16 109/63 (78) 93 09/16/17 04:07 86 09/16/17 00:16 88 09/16/17 00:00 97.6 67 18 124/77 (93) 98 09/15/17 20:30 97 09/15/17 20:00 98.3 98 16 110/66 (81) 99 09/15/17 19:45 95 21 09/15/17 18:05 09/15/17 17:00 92 24 118/71 (87) 94 Room Air 09/15/17 16:00 18 114/71 (85) 93 Room Air 09/15/17 15:00 92 97/60 (72) 93 Room Air 09/15/17 14:58 92 18 102/64 (77) 93 09/15/17 14:00 122/76 (91) Result Diagram: 09/16/17 0508 09/16/17 0508 Laboratory Results Laboratory Tests Test 09/15/17 20:05 09/16/17 05:08 Prothrombin Time 12.2 SEC Prothromb Time International Ratio 1.1 RATIO Activated Partial Thromboplast Time 28.3 SEC White Blood Count 21.3 TH/MM3 Red Blood Count 4.24 MIL/MM3 Hemoglobin 12.1 GM/DL Hematocrit 36.8 % Mean Corpuscular Volume 86.8 FL Mean Corpuscular Hemoglobin 28.7 PG Mean Corpuscular Hemoglobin Concent 33.0 % Red Cell Distribution Width 13.2 % Platelet Count 405 TH/MM3 Mean Platelet Volume 7.7 FL Neutrophils (%) (Auto) 95.3 % Lymphocytes (%) (Auto) 3.7 % Monocytes (%) (Auto) 0.9 % Eosinophils (%) (Auto) 0.0 % Basophils (%) (Auto) 0.1 % Neutrophils # (Auto) 20.3 TH/MM3 Lymphocytes # (Auto) 0.8 TH/MM3 Monocytes # (Auto) 0.2 TH/MM3 Eosinophils # (Auto) 0.0 TH/MM3 Basophils # (Auto) 0.0 TH/MM3 CBC Comment DIFF FINAL Differential Comment Blood Urea Nitrogen 23 MG/DL Creatinine 1.02 MG/DL Random Glucose 128 MG/DL Calcium Level 9.3 MG/DL Sodium Level 134 MEQ/L Potassium Level 4.0 MEQ/L Chloride Level 101 MEQ/L Carbon Dioxide Level 22.0 MEQ/L Anion Gap 11 MEQ/L Estimat Glomerular Filtration Rate 73 ML/MIN Culture Results Microbiology Date/Time Source Procedure Growth Status 09/15/17 09:50 Blood Peripheral Aerobic Blood Culture - Preliminary NO GROWTH IN 1 DAY Resulted 09/15/17 09:50 Blood Peripheral Anaerobic Blood Culture - Preliminary NO GROWTH IN 1 DAY Resulted 09/15/17 09:45 Blood Peripheral Aerobic Blood Culture - Preliminary NO GROWTH IN 1 DAY Resulted 09/15/17 09:45 Blood Peripheral Anaerobic Blood Culture - Preliminary NO GROWTH IN 1 DAY Resulted 09/16/17 06:30 Sputum Expectorated Sputum Gram Stain Pending Received 09/16/17 06:30 Sputum Expectorated Sputum Sputum Culture Pending Received Imaging Studies Last 24 hours Impressions Brain MRI 09/16/17 0000 Signed Impressions: Service Date/Time: Saturday, September 16, 2017 11:12 - CONCLUSION: 1. No evidence of metastatic disease. Rashard Doyle MD Administered Medications Medications (Trade) Dose Ordered Sig/Gabriele Route PRN Reason Start Time Stop Time Status Last Admin Dose Admin Sodium Chloride (NS Flush) 2 ml BID IV FLUSH 09/15/17 21:00 09/16/17 09:00 Methylprednisolone Sodium Succinate (SoluMEDROL INJ) 40 mg Q8H IV PUSH 09/15/17 17:00 09/16/17 09:05 Albuterol/ Ipratropium (Duoneb Neb) 1 ampule Q6HR WHILE AWAKE NEB NEB 09/15/17 14:00 09/16/17 07:47 Levofloxacin/ Dextrose 150 ml @ 100 mls/hr Q24H IV 09/15/17 14:00 09/15/17 15:01 Objective Remarks GENERAL: Middle aged male upright in bed in nad. SKIN: Warm and dry. HEAD: Normocephalic. EYES: No injection or drainage. NECK: Supple, trachea midline. CARDIOVASCULAR: Regular rate and rhythm RESPIRATORY: diminished at bases, anterior schmitz clear GASTROINTESTINAL: Abdomen soft, non-tender, nondistended. EXTREMITIES: No cyanosis NEUROLOGICAL: awake and alert, normal speech. Assessment/Plan Problem List: (1) Lung mass ICD Codes: R91.8 - Other nonspecific abnormal finding of lung field Plan: 09/16: going for CT guided lung biopsy and MRI brain today. fs faxed to new patient referrals for follow up. --6.6 x 5.8 cm right hilar mass with extensive mediastinal lymphadenopathy and bilateral multiple lung masses consistent with a diffuse metastatic disease until proven otherwise. --most likely consistent with stage IV bronchogenic carcinoma. --ok to d/c home after lung biopsy barring any complications Assessment 67y/o male with right hilar mass. h/o COPD diagnosed six years ago. Attending Statement wants to go home MRI brain = no mets Had bx today. Tolerated well he is stable. again had lot of questions which i answered. Clear to d/c appt to see me this friday to arrange PET scan for staging. The exam, history, and the medical decision-making described in the above note were completed with the assistance of the mid-level provider. I reviewed and agree with the findings presented. I attest that I had a [id number] encounter with the patient on the same day, and personally performed and documented my assessment and findings in the medical record. Marlys Sloan Sep 16, 2017 12:49 Sridhar Willams MD Sep 16, 2017 20:40
--- NOTE | 2017-09-16 13:01 | HHI.HCPN ---
Reason for visit a. To assist with evaluation and management of symptoms including: dyspnea , cough b. To assist medical decision maker(s) with: better understanding of current medical conditions; weighing benefits/burdens of medical treatment options; making medical treatment decisions. Subjective/Interval History Pt seen today to follow-up on comfort, goals. Oncology evaluated yesterday, as well as pulmonology. Further diagnostics pending, planned for CT-guided biopsy today. Further CT imaging for staging etc. plan for outpatient, patient to follow-up with oncology. oncology notes suspects stage IV bronchogenic carcinoma. Due to bilateral masses in both lungs, he is not a candidate for any surgery or radiation treatment. if is non-small cell lung cancer, then plan to obtain biomarkers and see if he is a candidate for any biological oral therapy. If he does not have any biomarkers, then oncology can treat him with palliative chemotherapy. However, if this turned out to be small cell lung cancer, then could be treated with chemotherapy ,carboplatin and etoposide. Possible discharge today or tomorrow after biopsy. Pulmonology following, continue medical management further treatments pending oncology workup. Patient stable overnight continues to tolerate nasal cannula O2. WBC up likely secondary to steroids. Patient seen in room as oncology PA completing exam in visit today. Patient is alert, oriented and appropriate. Pleasant. Good insight to current clinical course and pending diagnostics. He has questions about if he should seek a second opinion outpt, which was recommended by his sister who works in healthcare, advise that he can absolutely seek other opinions, and those providers would submit records requests here. Recommend if he does so, to pursue quickly as to not diminish potential time for effectiveness of possible treatments. He expresses he is still not certain if he would proceed with any treatment at all, advise he wait further prognostication from oncology regarding possible benefits of chemotherapy. Alternatively explore with him that if he is not amenable to pursuing chemotherapy or aggressive treatments then at that point he can request hospice services to ensure that his disease process symptoms are managed as the disease will be expected to progress and hospice can ensure comfort and end-of-life. Additionally explore with him advance directive, healthcare surrogate, 5 wishes. He indicates he and his have been thinking about working on a will etc. that they actually had gotten down to do any of these things. Explore with him HCS designation, CODE STATUS and what a living will can designate in terms of his wishes; no decisions made at this time though he is going to discuss with his . Upon exploration of CODE STATUS and what resuscitation entails and risks/benefits/limitations; he understands he would remain a full code by default is not ready to make any decisions at this time. He has palliative contact information indicates he will update his and they will call if they have any further questions. . Advance Directives Living Will: Never completed Health Care Surrogate: Never completed Durable Power of Sheet Metal Contractor: Never completed Objective Vital Signs Date Time Temp Pulse Resp B/P (MAP) Pulse Ox O2 Delivery O2 Flow Rate FiO2 09/16/17 09:03 97.7 93 16 101/60 (74) 94 09/16/17 08:00 88 09/16/17 05:10 97.3 77 16 109/63 (78) 93 09/16/17 04:07 86 09/16/17 00:16 88 09/16/17 00:00 97.6 67 18 124/77 (93) 98 09/15/17 20:30 97 09/15/17 20:00 98.3 98 16 110/66 (81) 99 09/15/17 19:45 95 21 09/15/17 18:05 09/15/17 17:00 92 24 118/71 (87) 94 Room Air 09/15/17 16:00 18 114/71 (85) 93 Room Air 09/15/17 15:00 92 97/60 (72) 93 Room Air 09/15/17 14:58 92 18 102/64 (77) 93 09/15/17 14:00 122/76 (91) Intake & Output 09/16/17 09/16/17 07:00 19:00 # Voids 2 Physical Exam CONSTITUTIONAL/GENERAL: Thin male, in no apparent distress. Up in chair at bedside TUBES/LINES/DRAINS: Peripheral IV upper extremity, nasal cannula O2 SKIN: No jaundice, rashes, or lesions. No wounds seen anteriorly. Skin warm, dry CARDIOVASCULAR: Regular rate and rhythm without murmur. Peripheral pulses symmetric. No peripheral edema. RESPIRATORY/CHEST: Symmetric, unlabored respirations. On 2 L nasal cannula. Clear to auscultation. Breath sounds equal bilaterally. GASTROINTESTINAL: Abdomen soft,flat, non-tender, nondistended. No hepato- splenomegaly, or palpable masses. Bowel sounds present. GENITOURINARY: Without palpable bladder distension. LYMPHATICS: No palpable cervical or supraclavicular adenopathy. NEUROLOGICAL: Awake and alert. Oriented 3. Appropriate, appears to have good insight. Motor and sensory grossly within normal limits. Follows commands. Cognitively sharp. Moves all extremities. PSYCHIATRIC: No obvious anxiety/depression. no apparent hallucinations or other psychotic thought process. Diagnostic Tests Laboratory Laboratory Tests Test 09/15/17 09:45 09/15/17 20:05 09/16/17 05:08 White Blood Count 11.5 TH/MM3 (4.0-11.0) 21.3 TH/MM3 (4.0-11.0) Red Blood Count 4.42 MIL/MM3 (4.50-5.90) 4.24 MIL/MM3 (4.50-5.90) Hemoglobin 12.9 GM/DL (13.0-17.0) 12.1 GM/DL (13.0-17.0) Hematocrit 38.2 % (39.0-51.0) 36.8 % (39.0-51.0) Mean Corpuscular Volume 86.3 FL (80.0-100.0) 86.8 FL (80.0-100.0) Mean Corpuscular Hemoglobin 29.2 PG (27.0-34.0) 28.7 PG (27.0-34.0) Mean Corpuscular Hemoglobin Concent 33.9 % (32.0-36.0) 33.0 % (32.0-36.0) Red Cell Distribution Width 13.1 % (11.6-17.2) 13.2 % (11.6-17.2) Platelet Count 394 TH/MM3 (150-450) 405 TH/MM3 (150-450) Mean Platelet Volume 7.1 FL (7.0-11.0) 7.7 FL (7.0-11.0) Neutrophils (%) (Auto) 83.2 % (16.0-70.0) 95.3 % (16.0-70.0) Lymphocytes (%) (Auto) 8.8 % (9.0-44.0) 3.7 % (9.0-44.0) Monocytes (%) (Auto) 6.4 % (0.0-8.0) 0.9 % (0.0-8.0) Eosinophils (%) (Auto) 1.2 % (0.0-4.0) 0.0 % (0.0-4.0) Basophils (%) (Auto) 0.4 % (0.0-2.0) 0.1 % (0.0-2.0) Neutrophils # (Auto) 9.6 TH/MM3 (1.8-7.7) 20.3 TH/MM3 (1.8-7.7) Lymphocytes # (Auto) 1.0 TH/MM3 (1.0-4.8) 0.8 TH/MM3 (1.0-4.8) Monocytes # (Auto) 0.7 TH/MM3 (0-0.9) 0.2 TH/MM3 (0-0.9) Eosinophils # (Auto) 0.1 TH/MM3 (0-0.4) 0.0 TH/MM3 (0-0.4) Basophils # (Auto) 0.0 TH/MM3 (0-0.2) 0.0 TH/MM3 (0-0.2) CBC Comment DIFF FINAL DIFF FINAL Differential Comment Blood Urea Nitrogen 16 MG/DL (7-18) 23 MG/DL (7-18) Creatinine 1.01 MG/DL (0.60-1.30) 1.02 MG/DL (0.60-1.30) Random Glucose 98 MG/DL (74-106) 128 MG/DL (74-106) Total Protein 7.7 GM/DL (6.4-8.2) Albumin 2.8 GM/DL (3.4-5.0) Calcium Level 8.7 MG/DL (8.5-10.1) 9.3 MG/DL (8.5-10.1) Alkaline Phosphatase 82 U/L (45-117) Aspartate Amino Transf (AST/SGOT) 20 U/L (15-37) Alanine Aminotransferase (ALT/SGPT) 12 U/L (12-78) Total Bilirubin 0.4 MG/DL (0.2-1.0) Sodium Level 137 MEQ/L (136-145) 134 MEQ/L (136-145) Potassium Level 4.1 MEQ/L (3.5-5.1) 4.0 MEQ/L (3.5-5.1) Chloride Level 104 MEQ/L (98-107) 101 MEQ/L (98-107) Carbon Dioxide Level 26.3 MEQ/L (21.0-32.0) 22.0 MEQ/L (21.0-32.0) Anion Gap 7 MEQ/L (5-15) 11 MEQ/L (5-15) Estimat Glomerular Filtration Rate 73 ML/MIN (>89) 73 ML/MIN (>89) Total Creatine Kinase 31 U/L (39-308) Troponin I LESS THAN 0.02 NG/ML Prothrombin Time 12.2 SEC (9.8-11.6) Prothromb Time International Ratio 1.1 RATIO Activated Partial Thromboplast Time 28.3 SEC (24.3-30.1) Result Diagram: 09/16/17 0508 09/16/17 0508 Microbiology Microbiology Date/Time Source Procedure Growth Status 09/15/17 09:50 Blood Peripheral Aerobic Blood Culture - Preliminary NO GROWTH IN 1 DAY Resulted 09/15/17 09:50 Blood Peripheral Anaerobic Blood Culture - Preliminary NO GROWTH IN 1 DAY Resulted 09/15/17 09:45 Blood Peripheral Aerobic Blood Culture - Preliminary NO GROWTH IN 1 DAY Resulted 09/15/17 09:45 Blood Peripheral Anaerobic Blood Culture - Preliminary NO GROWTH IN 1 DAY Resulted 09/16/17 06:30 Sputum Expectorated Sputum Gram Stain Pending Received 09/16/17 06:30 Sputum Expectorated Sputum Sputum Culture Pending Received Assessment and Plan Disease Oriented Problem List: (1) Pleural effusion (2) Pericardial effusion (3) History of tobacco use (4) Lung mass (5) Pneumonia (6) Lung metastasis Symptom Scale: (1) Dyspnea (2) Fatigue Pertinent Non-Medical Issues Psychosocial:Originally from [place], and [place] area moved to [place] about 3 years ago. 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 . Has several children who live in various places around the country. Spiritual: Adventism, no particular local affiliation. Would like convenience emergency detail driver/buying intern visitation Legal:Patient is currently capacitated and able to make his own decisions. He is supported by his who would be appropriate legal proxy should he become incapacitated. Palliative will offer to assist patient with advanced directives during hospital course should he desire. Ethical issues impacting care: No ethical issues identified Important Contacts Abigail Silva [phone] . Prognosis This patient denies any significant medical history, may have been told he had emphysema at one point. He is admitted with large lung mass further diagnostics pending, multiple other nodules likely metastatic. Further prognostication pending oncology workup. . Code Status: Full Code Plan * Legal decision maker:Patient is currently capacitated and able to make his own decisions. He is supported by his who would be appropriate legal proxy should he become incapacitated. Palliative has offered assistance with advanced directives, he will review documents and discuss with his . * Goals: Goals at this time are aggressive; patient wishes to pursue further diagnostic workup to determine cancer/treatment options. Further decisions to be made pending bx/diagnoses. * CODE STATUS: Full code * SYMPTOMS: --Dyspnea/wheezing- resented with significant wheezing and dyspnea; has resolved during ER course after multiple nebulizer treatments as well as IV steroid--new findings of 6 cm hilar mass. Oncology consultation and further diagnostics pending. Currently breathing comfortably and no distress. Will continue to evaluate. --Cough-interment cough for a month or so most recently productive of blood- tinged sputum at times, plus wheezing, +CAP, new malignancy findings --Generalized weakness/fatigue-reports a feeling of generalized weakness over the past 1 month and feeling overall "tired ". Likely secondary to disease process. 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 * Palliative care will continue to follow during hospital course as condition evolves, to assist patient/decision-maker with understanding of medical conditions, weighing benefits/burdens of treatment options, for clarification of goals of treatment. Additionally will assist with any symptoms of palliative concern . Time Spent Total Floor Time (mins): 30 (PE, chart review, discussion with oncology PATRICIA Sloan) Attestation To help prompt me to consider important information that might be impacting today's encounter and assessment, information from prior notes written by myself or my colleagues may have been "brought forward" into today's note. My signature on this note, however, is an attestation that I personally performed the exam, history, and/or decision-making noted today, and, unless otherwise indicated, the interactions with patient, family, and staff as well as the review of records all occurred today. I also attest that the listed assessment and stated plan reflect my best clinical judgment today based on the combination of historical information, prior notes, and today's exam/ interactions. When time spent is documented, it refers only to time spent today by the signer, or if indicated, combined time spent today by collaborating physician/nurse practitioner. Romana Nguyễn Sep 16, 2017 13:01
[2017-09-16] MEDS ORDERED: LIDOCAINE 1%/EPINEPHrine 1:100,000 SOLN 20 ML VIAL ONE (13:52)
[2017-09-16] MEDS ORDERED: MIDAZOLAM HCL 2 MG/2 ML VIAL ONE (14:25)
--- NOTE | 2017-09-16 15:20 | RADRPT ---
EXAM DATE/TIME: 09/16/2017 15:02 [facility] COMPARISON: No previous studies available for comparison. INDICATIONS : Post right lung biopsy. Evaluate for pneumothorax MEDICAL HISTORY : Metastatic disease. Carcinoma, lung. SURGICAL HISTORY : Tonsillectomy. ENCOUNTER: Initial ACUITY: 1 day PAIN SCORE: 0/10 LOCATION: Right chest FINDINGS: There is no evidence of pneumothorax status post right lung biopsy. Extensive pulmonary masses are ag ain noted bilaterally. Underlying emphysematous changes are also again noted. The heart is stable. CONCLUSION: No pneumothorax status post right lung biopsy. Kehinde Echevarria MD on September 16, 2017 at 15:18 Board Certified Radiologist. This report was verified electronically.
--- NOTE | 2017-09-16 16:42 | RADRPT ---
EXAM DATE/TIME: 09/16/2017 14:28 [facility] COMPARISON: No previous studies available for comparison. INDICATIONS : Right lung mass. SEDATION TIME: 10 minutes BIOPSY SITE: Right lower lobe MEDICATION(S): 1.) 2 mg midazolam (Versed) IV 2.) 100 mcg fentanyl (Sublimaze) IV DEVICE(S): 1.) 20 gauge Temno core biopsy needle 6cm MEDICAL HISTORY : Smoker, lung masses SURGICAL HISTORY : None. ENCOUNTER: Initial ACUITY: 1 day PAIN SCORE: 0/10 LOCATION: Right lung A total of one core specimen(s) were obtained and sent to the laboratory for pathologic evaluation. PROCEDURE: 1. CT guided lung biopsy. 2. Conscious sedation with continuous EKG and oximetry monitoring. Prior to the procedure informed consent was obtained. Any appropriate prior imaging studies were rev iewed. Using automated exposure control and adjustment of the mA and/or kV according to patient size, radiation dose was kept as low as reasonably achievable to obtain optimal diagnostic quality images. DICOM format image data is available electronically for review and comparison. The site was prepped in a sterile fashion. Full sterile technique was used, including cap, mask, aminata rile gloves and gown and a large sterile sheet. Hand hygiene and 2% chlorhexidine and/or betadine/al cohol prep was utilized per protocol for cutaneous antisepsis. The skin and subcutaneous tissues wer e infiltrated with local anesthetic solution. With CT guidance the previously identified target was localized. Biopsy was performed using the presc ribed needle as above. Adequate hemostasis was obtained with compression at the puncture site. Follow-up CT scan reveals no pneumothorax. Conscious sedation was performed with the prescribed dosages and duration as above in the presence of an independent trained radiology nurse to assist in the monitoring of the patient. EKG and oximetry remained stable throughout the procedure. The patient tolerated the procedure well and there were no complications. The patient was sent to Radiology Outpatient Unit in stable condition. CONCLUSION: Uncomplicated CT guided biopsy. Kehinde Echevarria MD on September 16, 2017 at 16:40 Board Certified Radiologist. This report was verified electronically.
[2017-09-16] MEDS: LEVOFLOXACIN 750 MG PREMIX INJ 150 ML IV SCH (17:43)
--- NOTE | 2017-09-16 19:48 | HHI.PR ---
Subjective Remarks 67 YOWm with lung mass multiple lesions Had CT Guided ling bx Feels well Denies sob Objective Vital Signs Vital Signs Date Time Temp Pulse Resp B/P (MAP) Pulse Ox O2 Delivery O2 Flow Rate FiO2 09/16/17 17:36 97.6 94 16 100/60 (73) 94 09/16/17 15:43 92 20 96/57 (70) 93 09/16/17 15:13 97.6 96 20 115/63 (80) 92 09/16/17 13:43 97.6 90 16 114/67 (83) 93 09/16/17 09:03 97.7 93 16 101/60 (74) 94 09/16/17 08:00 88 09/16/17 05:10 97.3 77 16 109/63 (78) 93 09/16/17 04:07 86 09/16/17 00:16 88 09/16/17 00:00 97.6 67 18 124/77 (93) 98 09/15/17 20:30 97 09/15/17 20:00 98.3 98 16 110/66 (81) 99 I/O 09/15/17 09/15/17 09/15/17 09/16/17 09/16/17 09/16/17 07:00 15:00 23:00 07:00 15:00 23:00 Intake Total 720 ml Balance 720 ml Intake Oral 720 ml # Voids 1 2 4 # Bowel Movements 1 Result Diagram: 09/16/17 0508 09/16/17 0508 Objective Remarks GENERAL: Thin built wm,NAD SKIN: Warm and dry. HEAD: Normocephalic. EYES: No scleral icterus. No injection or drainage. NECK: Supple, trachea midline. No JVD or lymphadenopathy. CARDIOVASCULAR: Regular rate and rhythm without murmurs, gallops, or rubs. RESPIRATORY: Breath sounds equal bilaterally. No accessory muscle use. GASTROINTESTINAL: Abdomen soft, non-tender, nondistended. MUSCULOSKELETAL: No cyanosis, or edema. BACK: Nontender without obvious deformity. No CVA tenderness. A/P Assessment and Plan Lung mass, multiple mets COPD Wt loss Pl eff small PLAN: Check Lung bx result PFT Cont Abx Aerosol Abiel Kirkland MD Sep 16, 2017 19:48
[2017-09-17] VITALS: BP 91/54; PULSE 78; RESP 17; TEMP 97.7; O2SAT 93
[2017-09-17] MEDS: methylPREDNISolone SOD SUCC 40 MG/1 ML VIAL IV PUSH SCH ×2 (00:19→08:20)
[2017-09-17 04:00] VITALS: BP 91/58; PULSE 79; RESP 18; TEMP 97.7; O2SAT 93
[2017-09-17 07:47] VITALS: BP 101/71; PULSE 77; RESP 18; TEMP 97.7; O2SAT 92
[2017-09-17 08:05] VITALS: O2SAT 96
[2017-09-17] MEDS: RESP: ALBUTEROL 2.5 MG/IPRATROPIUM 0.5 MG NEB (SCH) NEB (08:05)
[2017-09-17] MEDS: DOCUSATE SODIUM 50 MG/SENNA 8.6 MG TAB PO SCH (08:14)
[2017-09-17 08:16] VITALS: PULSE 83
[2017-09-17] MEDS: SODIUM CHLORIDE 0.9% FLUSH 10 ML FLUSH IV FLUSH SCH (08:22)
--- NOTE | 2017-09-17 11:42 | HHI.PR ---
Subjective Remarks This is a pleasant 67 y/o Male with history of Tobacco dependence, who came with cough and shortness of breath, found with a 6.6 x 5.8 cm right hilar mass extensive to mediastinal lymphadenopathy and bilateral multiple lung masses consistent with diffuse metastatic disease until proven otherwise, consistent with IV Bronchogenic Carcinoma, Oncology and field identification specialist following, ordered biomarkers, palliative care consult, evaluation for brain metastasis, CT guided core needle biopsy, PET scan as outpatient. 09/17: stable in his bedroom, discussed with nurse Miss Elias patient ready for discharge, no nausea, vomit or diarrhea will optimize respiratory therapy Objective Vital Signs Date Time Temp Pulse Resp B/P (MAP) Pulse Ox O2 Delivery O2 Flow Rate FiO2 09/17/17 08:16 83 09/17/17 08:05 96 21 09/17/17 07:47 97.7 77 18 101/71 (81) 92 09/17/17 04:00 97.7 79 18 91/58 (69) 93 09/17/17 00:00 97.7 78 17 91/54 (66) 93 09/16/17 20:18 100 09/16/17 20:00 97.3 91 18 100/65 (77) 94 09/16/17 17:36 97.6 94 16 100/60 (73) 94 09/16/17 15:43 92 20 96/57 (70) 93 09/16/17 15:13 97.6 96 20 115/63 (80) 92 09/16/17 13:43 97.6 90 16 114/67 (83) 93 I/O 09/16/17 09/16/17 09/16/17 09/17/17 09/17/17 09/17/17 07:00 15:00 23:00 07:00 15:00 23:00 Intake Total 720 ml 480 ml Balance 720 ml 480 ml Intake Oral 720 ml 480 ml # Voids 2 4 2 # Bowel Movements 1 Result Diagram: 09/16/17 0508 09/16/17 0508 Imaging Last Impressions Chest X-Ray 09/16/17 0000 Signed Impressions: Service Date/Time: Saturday, September 16, 2017 15:02 - CONCLUSION: No pneumothorax status post right lung biopsy. Kehinde Echevarria MD Brain MRI 09/16/17 0000 Signed Impressions: Service Date/Time: Saturday, September 16, 2017 11:12 - CONCLUSION: 1. No evidence of metastatic disease. Rashard Doyle MD Chest CT 09/15/17 0935 Signed Impressions: Service Date/Time: Friday, September 15, 2017 10:38 - CONCLUSION: 1. 6.6 x 5.8 cm right hilar mass with associated mediastinal adenopathy and diffuse bilateral pulmonary metastatic disease. 2. Trace right-sided pleural effusion and small to moderate sized pericardial effusion. Helder Cabral MD Lung Biopsy CT 09/15/17 0000 Signed Impressions: Service Date/Time: Saturday, September 16, 2017 14:28 - CONCLUSION: Uncomplicated CT guided biopsy. Kehinde Echevarria MD Procedures Lung biopsy Other Results Laboratory Tests Test 09/15/17 09:45 09/15/17 20:05 09/16/17 05:08 Blood Urea Nitrogen 16 MG/DL 23 MG/DL Creatinine 1.01 MG/DL 1.02 MG/DL Random Glucose 98 MG/DL 128 MG/DL Total Protein 7.7 GM/DL Albumin 2.8 GM/DL Calcium Level 8.7 MG/DL 9.3 MG/DL Alkaline Phosphatase 82 U/L Aspartate Amino Transf (AST/SGOT) 20 U/L Alanine Aminotransferase (ALT/SGPT) 12 U/L Total Bilirubin 0.4 MG/DL Sodium Level 137 MEQ/L 134 MEQ/L Potassium Level 4.1 MEQ/L 4.0 MEQ/L Chloride Level 104 MEQ/L 101 MEQ/L Carbon Dioxide Level 26.3 MEQ/L 22.0 MEQ/L Total Creatine Kinase 31 U/L Troponin I LESS THAN 0.02 NG/ML Prothrombin Time 12.2 SEC Prothromb Time International Ratio 1.1 RATIO Activated Partial Thromboplast Time 28.3 SEC White Blood Count 21.3 TH/MM3 Red Blood Count 4.24 MIL/MM3 Hemoglobin 12.1 GM/DL Hematocrit 36.8 % Mean Corpuscular Volume 86.8 FL Mean Corpuscular Hemoglobin 28.7 PG Mean Corpuscular Hemoglobin Concent 33.0 % Red Cell Distribution Width 13.2 % Platelet Count 405 TH/MM3 Mean Platelet Volume 7.7 FL Neutrophils (%) (Auto) 95.3 % Lymphocytes (%) (Auto) 3.7 % Monocytes (%) (Auto) 0.9 % Eosinophils (%) (Auto) 0.0 % Basophils (%) (Auto) 0.1 % Neutrophils # (Auto) 20.3 TH/MM3 Lymphocytes # (Auto) 0.8 TH/MM3 Monocytes # (Auto) 0.2 TH/MM3 Eosinophils # (Auto) 0.0 TH/MM3 Basophils # (Auto) 0.0 TH/MM3 CBC Comment DIFF FINAL Differential Comment Anion Gap 11 MEQ/L Estimat Glomerular Filtration Rate 73 ML/MIN Objective Remarks GENERAL: Well-developed, well-nourished male patient in NAD. SKIN: Warm and dry. HEAD: Atraumatic. Normocephalic. EYES: Pupils equal and round. No scleral icterus. No injection or drainage. ENT: No nasal bleeding or discharge. Mucous membranes pink and moist. NECK: Trachea midline. No JVD. CARDIOVASCULAR: Regular rate and rhythm. No murmur appreciated. RESPIRATORY: No accessory muscle use. Clear to auscultation. Breath sounds equal bilaterally. GASTROINTESTINAL: Abdomen soft, non-tender, nondistended. Hepatic and splenic margins not palpable. MUSCULOSKELETAL: Extremities without clubbing, cyanosis, or edema. No obvious deformities. NEUROLOGICAL: Awake and alert. No obvious cranial nerve deficits. Motor grossly within normal limits. 5/5 muscle strength in the arms and legs. Bilateral Patellar DTRs 2+. Normal speech. PSYCHIATRIC: Appropriate mood and affect; insight and judgment normal. Medications and IVs Current Medications Medications (Trade) Dose Ordered Sig/Gabriele Route Start Time Stop Time Status Last Admin (NS Flush) 2 ml UNSCH PRN IV FLUSH 09/15/17 13:15 (NS Flush) 2 ml BID IV FLUSH 09/15/17 21:00 09/17/17 08:22 (Tylenol) 650 mg Q4H PRN PO 09/15/17 13:15 (Restoril) 15 mg HS PRN PO 09/15/17 21:00 (Lovenox Inj) 40 mg Q24H SQ 09/15/17 13:15 Future Hold (Narcan Inj) 0.4 mg UNSCH PRN IV PUSH 09/15/17 13:15 (Abigail-Colace) 1 tab BID PO 09/15/17 21:00 (Milk Of Magnesia Liq) 30 ml Q12H PRN PO 09/15/17 13:15 (Senokot) 17.2 mg Q12H PRN PO 09/15/17 13:15 (Dulcolax Supp) 10 mg DAILY PRN RECTAL 09/15/17 13:15 (Lactulose Liq) 30 ml DAILY PRN PO 09/15/17 13:15 (SoluMEDROL INJ) 40 mg Q8H IV PUSH 09/15/17 17:00 09/17/17 08:20 (Duoneb Neb) 1 ampule Q6HR WHILE AWAKE NEB NEB 09/15/17 14:00 09/17/17 08:05 (Duoneb Neb) 1 ampule Q2HR NEB PRN NEB 09/15/17 13:15 ([place] 5-325 Mg) 1 tab Q6H PRN PO 09/15/17 13:15 Levofloxacin/ Dextrose 150 ml @ 100 mls/hr Q24H IV 09/15/17 14:00 09/16/17 17:43 A/P Assessment and Plan 67-year-old male with history of tobacco use presents with over a 1 month history of cough and shortness of breath. Lung Mass with Metastases: +tobacco use, 1.5 PPD x [address] images reviewed showed 6.6 x 5.8cm right hilar mass with associated mediastinal adenopathy and diffuse bilateral pulmonary metastatic disease; trace right pleural effusion; small-mod pericardial effusion. -Status post Brain MRI no mets, asked by delivery specialist to follow this Friday09/19/17 to arrange for PET scan field identification specialist following will continue as outpatient, status post Lung Biopsy. stable no Pneumothorax. Suspected Community Acquired Pneumonia: patient with leukocytosis WBC 11.5, tachycardia HR 102, and productive cough. CXR images reviewed, showed diffuse mid to lower lung bilateral patchy nodular opacities. -Continue by mouth antibiotics complete five days and steroids titrated dosages. COPD Exacerbation: CXR and CT chest images reviewed as above. S/p IV Solumedrol 125mg x1 in the ED. -Improving continue steroids as outpatient and antibiotics, bronchodilators. Pericardial Effusion: Chest CT images showed small to moderate sized pericardial effusion. Suspect secondary to metastases vs infection. Tobacco Use: reportedly quit smoking on 08/17/17. -counseled on continuing tobacco cessation DVT Prophylaxis: teds/SCD Discharge Planning Discharge today. Harley Avelar MD Sep 17, 2017 11:42
[2017-09-17] MEDS ORDERED: LEVA750T9 PO (11:46)
[2017-09-17] MEDS ORDERED: SYMB160A INH (11:46)
[2017-09-17] MEDS ORDERED: HYDR-3516 PO (11:46)
[2017-09-17] MEDS ORDERED: PRED20 PO (11:46)
--- NOTE | 2017-09-17 11:49 | HHI.DS ---
Discharge Summary Admission Date Sep 16, 2017 at 09:55 Discharge Date: Sep 17, 2017 Admitting Diagnosis (1) Lung mass ICD Code: R91.8 - Other nonspecific abnormal finding of lung field Diagnosis: Principal (2) Lung metastasis ICD Code: C78.00 - Secondary malignant neoplasm of unspecified lung Diagnosis: Principal (3) COPD exacerbation ICD Code: J44.1 - Chronic obstructive pulmonary disease with (acute) exacerbation Diagnosis: Principal (4) Pneumonia ICD Code: J18.9 - Pneumonia, unspecified organism Diagnosis: Principal (5) Pericardial effusion ICD Code: I31.3 - Pericardial effusion (noninflammatory) Diagnosis: Principal Status: Acute (6) History of tobacco use ICD Code: Z87.891 - Personal history of nicotine dependence Diagnosis: Principal Procedures LUNG BIOPSY Brief History - From Admission Written by Penny Esteban, acting as scribe for Dr. Schwartz on 09/15/17 at 13: 06. 67-year-old male with history of tobacco use presents with over a 1 month history of cough and shortness of breath. The patient has a long tobacco use history, smokes 1.5 PPD since age 15, however quit August 17 after his cough worsened. He reports cough productive of clear to yellow sputum, and has noticed some blood tinged sputum after hacking excessively. He believes he's also lost some weight but cannot quantify how much. He has felt generally weak and tired. Denies any fevers or chills, chest pain, palpitations, abdominal pain , nausea/vomiting, diarrhea/constipation, or urinary complaints. He does not have a PCP as he recently moved from the [facility] 3 months ago. He does not take any medications on a regular basis. Denies any family history of cancer. He has no other medical complaints to report at this time. CBC/BMP: 09/16/17 0508 09/16/17 0508 Significant Findings Laboratory Tests Test 09/15/17 09:45 09/15/17 20:05 09/16/17 05:08 White Blood Count 11.5 TH/MM3 (4.0-11.0) 21.3 TH/MM3 (4.0-11.0) Red Blood Count 4.42 MIL/MM3 (4.50-5.90) 4.24 MIL/MM3 (4.50-5.90) Hemoglobin 12.9 GM/DL (13.0-17.0) 12.1 GM/DL (13.0-17.0) Hematocrit 38.2 % (39.0-51.0) 36.8 % (39.0-51.0) Neutrophils (%) (Auto) 83.2 % (16.0-70.0) 95.3 % (16.0-70.0) Lymphocytes (%) (Auto) 8.8 % (9.0-44.0) 3.7 % (9.0-44.0) Neutrophils # (Auto) 9.6 TH/MM3 (1.8-7.7) 20.3 TH/MM3 (1.8-7.7) Albumin 2.8 GM/DL (3.4-5.0) Estimat Glomerular Filtration Rate 73 ML/MIN (>89) 73 ML/MIN (>89) Total Creatine Kinase 31 U/L (39-308) Troponin I LESS THAN 0.02 NG/ML Prothrombin Time 12.2 SEC (9.8-11.6) Lymphocytes # (Auto) 0.8 TH/MM3 (1.0-4.8) Blood Urea Nitrogen 23 MG/DL (7-18) Random Glucose 128 MG/DL (74-106) Sodium Level 134 MEQ/L (136-145) Imaging Last Impressions Chest X-Ray 09/16/17 0000 Signed Impressions: Service Date/Time: Saturday, September 16, 2017 15:02 - CONCLUSION: No pneumothorax status post right lung biopsy. Kehinde Echevarria MD Brain MRI 09/16/17 0000 Signed Impressions: Service Date/Time: Saturday, September 16, 2017 11:12 - CONCLUSION: 1. No evidence of metastatic disease. Rashard Doyle MD Chest CT 09/15/17 0935 Signed Impressions: Service Date/Time: Friday, September 15, 2017 10:38 - CONCLUSION: 1. 6.6 x 5.8 cm right hilar mass with associated mediastinal adenopathy and diffuse bilateral pulmonary metastatic disease. 2. Trace right-sided pleural effusion and small to moderate sized pericardial effusion. Helder Cabral MD Lung Biopsy CT 09/15/17 0000 Signed Impressions: Service Date/Time: Saturday, September 16, 2017 14:28 - CONCLUSION: Uncomplicated CT guided biopsy. Kehinde Echevarria MD PE at Discharge GENERAL: Well-developed, well-nourished male patient in NAD. SKIN: Warm and dry. HEAD: Atraumatic. Normocephalic. EYES: Pupils equal and round. No scleral icterus. No injection or drainage. ENT: No nasal bleeding or discharge. Mucous membranes pink and moist. NECK: Trachea midline. No JVD. CARDIOVASCULAR: Regular rate and rhythm. No murmur appreciated. RESPIRATORY: No accessory muscle use. Clear to auscultation. Breath sounds equal bilaterally. GASTROINTESTINAL: Abdomen soft, non-tender, nondistended. Hepatic and splenic margins not palpable. MUSCULOSKELETAL: Extremities without clubbing, cyanosis, or edema. No obvious deformities. NEUROLOGICAL: Awake and alert. No obvious cranial nerve deficits. Motor grossly within normal limits. 5/5 muscle strength in the arms and legs. Bilateral Patellar DTRs 2+. Normal speech. PSYCHIATRIC: Appropriate mood and affect; insight and judgment normal. Hospital Course This is a pleasant 67 y/o Male with history of Tobacco dependence, who came with cough and shortness of breath, found with a 6.6 x 5.8 cm right hilar mass extensive to mediastinal lymphadenopathy and bilateral multiple lung masses consistent with diffuse metastatic disease until proven otherwise, consistent with IV Bronchogenic Carcinoma, Oncology and compliance specialist following, ordered biomarkers, palliative care consult, evaluation for brain metastasis, CT guided core needle biopsy, PET scan as outpatient. 09/17: stable in his bedroom, discussed with nurse Jada patient ready for discharge, no nausea, vomit or diarrhea will optimize respiratory therapy Assessment and Plan 67-year-old male with history of tobacco use presents with over a 1 month history of cough and shortness of breath. Lung Mass with Metastases: +tobacco use, 1.5 PPD x [address] images reviewed showed 6.6 x 5.8cm right hilar mass with associated mediastinal adenopathy and diffuse bilateral pulmonary metastatic disease; trace right pleural effusion; small-mod pericardial effusion. -Status post Brain MRI no mets, asked by orientation & mobility specialist to follow this Friday09/19/17 to arrange for PET scan compliance specialist following will continue as outpatient, status post Lung Biopsy. stable no Pneumothorax. Suspected Community Acquired Pneumonia: patient with leukocytosis WBC 11.5, tachycardia HR 102, and productive cough. CXR images reviewed, showed diffuse mid to lower lung bilateral patchy nodular opacities. -Continue by mouth antibiotics complete five days and steroids titrated dosages. COPD Exacerbation: CXR and CT chest images reviewed as above. S/p IV Solumedrol 125mg x1 in the ED. -Improving continue steroids as outpatient and antibiotics, bronchodilators. Pericardial Effusion: Chest CT images showed small to moderate sized pericardial effusion. Suspect secondary to metastases vs infection. Tobacco Use: reportedly quit smoking on 08/17/17. -counseled on continuing tobacco cessation DVT Prophylaxis: teds/SCD Discharge Planning Discharge today. Pt Condition on Discharge: Stable Discharge Disposition: Discharge Home Discharge Time: <= 30 minutes Discharge Instructions DIET: Follow Instructions for: As Tolerated, No Restrictions Activities you can perform: Regular-No Restrictions Harley Avelar MD Sep 17, 2017 11:49
--- NOTE | 2017-09-17 12:44 | PD.ONC.PN ---
Subjective Subjective Remarks Pt seen and examined earlier this morning Afebrile Excited to be going home today No acute complaints Objective Data Date Time Temp Pulse Resp B/P (MAP) Pulse Ox O2 Delivery O2 Flow Rate FiO2 09/17/17 08:16 83 09/17/17 08:05 96 21 09/17/17 07:47 97.7 77 18 101/71 (81) 92 09/17/17 04:00 97.7 79 18 91/58 (69) 93 09/17/17 00:00 97.7 78 17 91/54 (66) 93 09/16/17 20:18 100 09/16/17 20:00 97.3 91 18 100/65 (77) 94 09/16/17 17:36 97.6 94 16 100/60 (73) 94 09/16/17 15:43 92 20 96/57 (70) 93 09/16/17 15:13 97.6 96 20 115/63 (80) 92 09/16/17 13:43 97.6 90 16 114/67 (83) 93 09/17/17 09/17/17 09/17/17 07:00 15:00 23:00 Intake Total 480 ml Balance 480 ml Result Diagram: 09/16/17 0508 09/16/17 0508 Culture Results Microbiology Date/Time Source Procedure Growth Status 09/15/17 09:50 Blood Peripheral Aerobic Blood Culture - Preliminary NO GROWTH IN 2 DAYS Resulted 09/15/17 09:50 Blood Peripheral Anaerobic Blood Culture - Preliminary NO GROWTH IN 2 DAYS Resulted 09/15/17 09:45 Blood Peripheral Aerobic Blood Culture - Preliminary NO GROWTH IN 2 DAYS Resulted 09/15/17 09:45 Blood Peripheral Anaerobic Blood Culture - Preliminary NO GROWTH IN 2 DAYS Resulted Objective Remarks GENERAL: Middle aged male packing his things in his room in no acute distress. SKIN: Warm and dry. HEAD: Normocephalic. EYES: No injection or drainage. NECK: Supple, trachea midline. CARDIOVASCULAR: Regular rate and rhythm RESPIRATORY: diminished at bases, anterior schmitz clear GASTROINTESTINAL: Abdomen soft, non-tender, nondistended. EXTREMITIES: No cyanosis NEUROLOGICAL: Awake and alert, normal speech. Assessment/Plan Problem List: (1) Lung mass ICD Codes: R91.8 - Other nonspecific abnormal finding of lung field Plan: 09/17: OK for discharge from oncology standpoint. Discussed with NPR, pt to have followup on Friday this week. --6.6 x 5.8 cm right hilar mass with extensive mediastinal lymphadenopathy and bilateral multiple lung masses consistent with a diffuse metastatic disease until proven otherwise. --most likely consistent with stage IV bronchogenic carcinoma. --ok to d/c home after lung biopsy barring any complications Assessment 67y/o male with right hilar mass. h/o COPD diagnosed six years ago. Attending Statement No new complaints Wants to go home Stable After lung biopsy Patient is clear to discharge home I will see him in the office this Friday The exam, history, and the medical decision-making described in the above note were completed with the assistance of the mid-level provider. I reviewed and agree with the findings presented. I attest that I had a [id number] encounter with the patient on the same day, and personally performed and documented my assessment and findings in the medical record. Amna Gonsales Sep 17, 2017 12:44 Sridhar Willams MD Sep 17, 2017 23:49
--- NOTE | 2017-09-18 09:03 | RSPPFT ---
DATE OF PROCEDURE: 09/16/17 COMMENTS: Spirometry shows FVC of 2.3 at 62% of predicted, FEV1 of 1.3 at 46%, FEV1/FVC ratio is decreased. Flow is decreased at FEF 25, FEF 50, FEF 75 and FEF 25-75. There is no response after acutely inhaled bronchodilator treatment. Flow volume loop indicates an obstructive pattern. IMPRESSION: 1. Moderately severe obstructive lung disease. 2. No response after bronchodilator treatment.
== END 2017-09-17 12:17 | disposition home or self-care (01) | DRG 180 ==
LOC: NEPC 08:22 → NEDA 13:16 → HCIS 18:17 → OBSVTOIN 09-16 09:55
PROVIDERS: ADMIT Internal Medicine; ATTEND Internal Medicine
PROC: 0BBF3ZX Excision of Right Lower Lung Lobe, Percutaneous Approach, Diagnostic (ICD-10-PCS; principal; 2017-09-16)
DX: C34.31 Malignant neoplasm of lower lobe, right bronchus or lung (principal); J18.9 Pneumonia, unspecified organism; C78.01 Secondary malignant neoplasm of right lung; C78.02 Secondary malignant neoplasm of left lung; J44.0 Chronic obstructive pulmonary disease with (acute) lower respiratory infection; J90 Pleural effusion, not elsewhere classified; I31.3 Pericardial effusion (noninflammatory); J44.1 Chronic obstructive pulmonary disease with (acute) exacerbation; R04.2 Hemoptysis; H91.90 Unspecified hearing loss, unspecified ear; R63.4 Abnormal weight loss; Z68.21 Body mass index [BMI] 21.0-21.9, adult; Z87.891 Personal history of nicotine dependence
CPT/HCPCS: 32405; 70553; 71010; 71260; 77012; 80048; 80053; 82550; 84484; 85025; 85610; 85730; 87040; 87205; 88305; 88341; 88342; 93005; 93306; 94060; 94640; 94664; 96374; 96375; 96376; A9579; G0378; G8987-GP; G8988-GP; J1956; J2250; J2920; J2930; J3010; J7613; Q9967

== ENCOUNTER 2017-10-08 07:40 | Day surgery (SDC) | payer MEDICARE, OTHER ==
[~2017-10-08] VITALS: Ht 170.2 cm; Wt 63.6 kg
[~2017-10-08 07:40] MED LIST: HYDR-3516 PO; LEVA750T9 PO; PRED20 PO; SYMB160A INH
[2017-10-08 07:58] VITALS: O2SAT 85
[2017-10-08 08:01] VITALS: BP 89/62; PULSE 90; RESP 20; TEMP 97.8; O2SAT 90
[2017-10-08] MEDS ORDERED: ceFAZolin 2 GM PREMIX 50 ML - implanted port/tunneled catheter insertion IV SCH (08:45)
[2017-10-08] MEDS ORDERED: CHLORHEXIDINE GLUCONATE 2 % 1 PACK (2 CLOTHS) TOPICAL SCH (08:45)
[2017-10-08] MEDS ORDERED: VANCOMYCIN 1000 MG/NS 250 ML - implanted port/tunneled catheter IV SCH ×2 (08:45)
[2017-10-08] MEDS ORDERED: POVIDONE IODINE 5% (ANTISEPSIS KIT) 4 APPLICATIONS EACH NARE SCH (08:45)
[2017-10-08] MEDS ORDERED: SODIUM CHLORIDE 0.9% 1000 ML IV SCH (09:00)
[2017-10-08] MEDS ORDERED: LIDOCAINE 1%/EPINEPHrine 1:100,000 SOLN 20 ML VIAL ONE (09:09)
[2017-10-08] MEDS ORDERED: MIDAZOLAM HCL 2 MG/2 ML VIAL ONE (09:36)
[2017-10-08 10:15] VITALS: BP 100/67; PULSE 89; RESP 18; TEMP 97.5; O2SAT 92; O2SAT 93
--- NOTE | 2017-10-08 10:27 | PD.RAD ---
Post Procedure Progress Note Pre Procedure Diagnosis: (1) Lung mass Post Procedure Diagnosis: (1) Lung mass Procedure Date: Oct 08, 2017 Supervising Radiologist: Rashard Doyle Proceduralist/Assist: Dacia Browne, RT(R)(CV), Pilar Yost RT(R) Anesthesia: Conscious Sedation Plan of Activity Patient to Unit: ROPU Patient Condition: Good See PACS Report for procedural detail/treatment Central Venous Access Device Procedure 1 Right Internal Jugular Infusaport Placement single lumen Rashard Doyle MD Oct 08, 2017 10:27
[2017-10-08 10:30] VITALS: BP 96/64; PULSE 86; RESP 18; O2SAT 93
[2017-10-08] MEDS ORDERED: SODIUM CHLORIDE 0.9% FLUSH 5 ML FLUSH IVF PRN (10:30)
--- NOTE | 2017-10-08 10:38 | RADRPT ---
EXAM DATE/TIME: 10/08/2017 10:44 [facility] COMPARISON: No previous studies available for comparison. INDICATIONS : Patient presents with lung mass and in need of a port placement. MEDICAL HISTORY : COPD SURGICAL HISTORY : Tonsillectomy ENCOUNTER: Initial ACUITY: 1 month PAIN SCORE: 0/10 FLUORO TIME: 0.4 minutes IMAGE SERIES: 1 SEDATION TIME: 30 minutes ACCESS: Right internal jugular vein SEDATION: 1.) 1.5 mg midazolam (Versed) IV 2.) 50 mcg fentanyl (Sublimaze) IV Prophylactic antibiotics were administered with appropriate pre-procedure timing. Vancomycin within 2 hours of procedure, Ancef (or alternative) within 1 hour of procedure. DEVICE: 1. 8 [place] single lumen [id number] PROCEDURE : 1. Continuous pulse oximetry and EKG monitoring. 2. Intravenous conscious sedation. 3. Ultrasound guidance for venous access. 4. Fluoroscopic guided implantable central venous port placement. The patient was placed supine. The neck was prepped in sterile fashion. Full sterile technique was u sed, including cap, mask, sterile gloves and gown, and a large sterile sheet. Hand hygiene and 2% ch lorhexidine Betadine was utilized per protocol for cutaneous antisepsis with appropriate dry time for site. Sterile gel and sterile probe cover were utilized for ultrasound guidance. The skin and sub cutaneous tissues were infiltrated with local anesthetic solution. Under direct ultrasound guidance, central venous access was accomplished in the targeted vessel. The ultrasound images depicting access guidance were stored and saved to PACS for permanent record. A s ubcutaneous pocket was created using blunt dissection. The port was introduced to the pocket. The c atheter tubing was fed through a subcutaneous tunnel to the venotomy site. The catheter tubing was c ut to a suitable length and then was introduced through a valved Peel-Away sheath and positioned with catheter tubing tip at the cavo-atrial junction level. The pocket incision was closed with subcutic ular Vicryl suture. Steri-Strips were applied. The port was flushed and locked with heparin solutio n per protocol. Sterile dressing was applied to the site. The patient tolerated the procedure well. Conscious sedation was performed with the prescribed dosages and duration as above in the presence of an independent trained radiology nurse to assist in the monitoring of the patient. EKG and oximetry remained stable throughout the procedure. The patient tolerated the procedure well and there were no complications. The patient was sent to post anesthesia recovery in stable condition. CONCLUSION: Uncomplicated ultrasound and fluoroscopic guided implanted central venous port catheter placement as described in detail above. An 8 [place] Power port was placed. Rashard Doyle MD on October 08, 2017 at 10:36 Board Certified Radiologist. This report was verified electronically.
[2017-10-08 11:00] VITALS: BP 98/67; PULSE 88; RESP 18; O2SAT 91
[2017-10-09] MEDS ORDERED: ALBU0.08 NEB (12:59)
[2017-10-09] MEDS ORDERED: COMPRESSOR NEBU1 MIS (12:59)
[2017-10-09] MEDS ORDERED: MEDR4PAK PO (12:59)
[2017-10-09] MEDS ORDERED: NEBUKIT5 (12:59)
[2017-10-09] MEDS ORDERED: ALBU6.7H INH (13:04)
== END 2017-10-08 12:45 | disposition home or self-care (01) ==
LOC: HROP 07:40 → HRIP 07:43 → HROP 12:45
PROVIDERS: ATTEND Internal Medicine Hematology & Oncology
DX: C34.31 Malignant neoplasm of lower lobe, right bronchus or lung (principal); J44.9 Chronic obstructive pulmonary disease, unspecified
CPT/HCPCS: 36561; 76937; 77001; 99152; 99153; C1788; J0690; J1642; J2250; J3010; J3370; J7030; J7050

== ENCOUNTER 2017-10-08 12:52 | Inpatient (IN) | payer MEDICARE, OTHER ==
[~2017-10-08] VITALS: Ht 170.2 cm; Wt 63.4 kg
[2017-10-08] VITALS (7 sets, daily range): BP systolic 95–111; BP diastolic 56–62; PULSE 85–114; RESP 18–20; TEMP 97.8–98.7; O2SAT 92–94
--- NOTE | 2017-10-08 13:05 | PD ---
HPI Chief Complaint: Respiratory Symptoms Time Seen by Provider: 13:02 Travel History International Travel<30 days: No Contact w/Intl Traveler<30days: No Traveled to known affect area: No History of Present Illness HPI 67-year-old male patient with recent diagnosis of COPD, non-small cell lung cancer stage IV currently evaluated for chemotherapy, had his right chest port placed by interventional radiology today, was brought down to the ER by radiology nurse because they have noted upstairs that he is fairly short of breath with a saturation of 85%. Patient has no oxygen at home and states that he has been having some dyspnea on exertion recently and feeling more tired. He denies any fevers or any other issues. Modifying Factors: None Associated Signs & Symptoms: Shortness of breath, feeling tired, hypoxia Risk Factors: Lung cancer, recent port placement PFSH Past Medical History Autoimmune Disease: No Cancer: Yes (New diagnosis) Cardiovascular Problems: No Diabetes: No Diminished Hearing: Yes Endocrine: No Genitourinary: No Hiatal Hernia: No Immune Disorder: No Musculoskeletal: No Neurologic: No Psychiatric: No Reproductive: No Respiratory: Yes Sickle Cell Disease: No Thyroid Disease: No Past Surgical History Abdominal Surgery: No AICD: No Cardiac Surgery: No Ear Surgery: No Endocrine Surgery: No Eye Surgery: No Genitourinary Surgery: No Gynecologic Surgery: No Joint Replacement: No Oral Surgery: Yes (Tonsillectomy) Pacemaker: No Thoracic Surgery: No Tonsillectomy: Yes Social History Alcohol Use: No Tobacco Use: No (QUITE JUL 2017) Substance Use: No Allergies-Medications (Allergen,Severity, Reaction): Coded Allergies: No Known Allergies (Verified Allergy, Unknown, 10/08/17) Reported Meds & Prescriptions Reported Meds & Active Scripts Active Symbicort Inh (Budesonide/Formoterol Fumarate) 160-4.5 Mcg/Act Aero 1 Puff INH Q12HR Review of Systems Except as stated in HPI: all other systems reviewed are Neg Physical Exam Narrative GENERAL: Well-developed elderly white male patient currently in mild distress. Awake and oriented 3. SKIN: Focused skin assessment warm/dry. HEAD: Atraumatic. Normocephalic. EYES: Pupils equal and round. No scleral icterus. No injection or drainage. ENT: No nasal bleeding or discharge. Mucous membranes pink and moist. NECK: Trachea midline. No JVD. CARDIOVASCULAR: Regular rate and rhythm. No murmur appreciated. RESPIRATORY: Mild accessory muscle use. Wheezing throughout. Breath sounds equal bilaterally. GASTROINTESTINAL: Abdomen soft, non-tender, nondistended. Hepatic and splenic margins not palpable. MUSCULOSKELETAL: No obvious deformities. No clubbing. No cyanosis. No edema. NEUROLOGICAL: Awake and alert. No obvious cranial nerve deficits. Motor grossly within normal limits. Normal speech. PSYCHIATRIC: Appropriate mood and affect; insight and judgment normal. Data Data Last Documented VS Vital Signs Date Time Temp Pulse Resp B/P (MAP) Pulse Ox O2 Delivery O2 Flow Rate FiO2 10/08/17 13:14 92 Nasal Cannula 2.00 10/08/17 12:53 97.8 99 18 105/62 (76) Orders Orders Complete Blood Count With Diff (10/08/17 13:02) Comprehensive Metabolic Panel (10/08/17 13:02) B-Type Natriuretic Peptide (10/08/17 13:02) Act Partial Throm Time (Ptt) (10/08/17 13:02) Prothrombin Time / Inr (Pt) (10/08/17 13:02) Ckmb (Isoenzyme) Profile (10/08/17 13:02) Troponin I (10/08/17 13:02) Blood Culture (10/08/17 13:02) Iv Access Insert/Monitor (10/08/17 13:02) Electrocardiogram (10/08/17 13:02) Ecg Monitoring (10/08/17 13:02) Oximetry (10/08/17 13:02) Oxygen Administration (10/08/17 13:02) Chest, Single Ap (10/08/17 13:02) Sodium Chloride 0.9% Flush (Ns Flush) (10/08/17 13:15) Methylprednisolone So Succ Inj (Solumedr (10/08/17 13:15) Albuterol-Ipratropium Neb (Duoneb Neb) (10/08/17 13:15) Labs Laboratory Tests Test 10/08/17 13:30 White Blood Count 11.5 TH/MM3 Red Blood Count 4.11 MIL/MM3 Hemoglobin 12.0 GM/DL Hematocrit 35.7 % Mean Corpuscular Volume 86.8 FL Mean Corpuscular Hemoglobin 29.1 PG Mean Corpuscular Hemoglobin Concent 33.6 % Red Cell Distribution Width 13.6 % Platelet Count 449 TH/MM3 Mean Platelet Volume 7.2 FL Neutrophils (%) (Auto) 75.7 % Lymphocytes (%) (Auto) 13.6 % Monocytes (%) (Auto) 8.6 % Eosinophils (%) (Auto) 1.6 % Basophils (%) (Auto) 0.5 % Neutrophils # (Auto) 8.7 TH/MM3 Lymphocytes # (Auto) 1.6 TH/MM3 Monocytes # (Auto) 1.0 TH/MM3 Eosinophils # (Auto) 0.2 TH/MM3 Basophils # (Auto) 0.1 TH/MM3 CBC Comment DIFF FINAL Differential Comment Prothrombin Time 11.6 SEC Prothromb Time International Ratio 1.0 RATIO Activated Partial Thromboplast Time 27.4 SEC Blood Urea Nitrogen 15 MG/DL Creatinine 0.89 MG/DL Random Glucose 82 MG/DL Total Protein 6.9 GM/DL Albumin 2.3 GM/DL Calcium Level 8.5 MG/DL Alkaline Phosphatase 80 U/L Aspartate Amino Transf (AST/SGOT) 17 U/L Alanine Aminotransferase (ALT/SGPT) 16 U/L Total Bilirubin 0.2 MG/DL Sodium Level 137 MEQ/L Potassium Level 4.0 MEQ/L Chloride Level 104 MEQ/L Carbon Dioxide Level 24.8 MEQ/L Anion Gap 8 MEQ/L Estimat Glomerular Filtration Rate 85 ML/MIN Total Creatine Kinase 41 U/L Troponin I LESS THAN 0.02 NG/ML B-Type Natriuretic Peptide 16 PG/ML MDM Medical Decision Making Medical Screen Exam Complete: Yes Emergency Medical Condition: Yes Medical Record Reviewed: Yes Interpretation(s) EKG shows NSR, no ST elevation or depression, and no arrhythmias. No significant T-wave inversions. Laboratory Tests Test 10/08/17 13:30 White Blood Count 11.5 TH/MM3 (4.0-11.0) Red Blood Count 4.11 MIL/MM3 (4.50-5.90) Hemoglobin 12.0 GM/DL (13.0-17.0) Hematocrit 35.7 % (39.0-51.0) Neutrophils (%) (Auto) 75.7 % (16.0-70.0) Monocytes (%) (Auto) 8.6 % (0.0-8.0) Neutrophils # (Auto) 8.7 TH/MM3 (1.8-7.7) Monocytes # (Auto) 1.0 TH/MM3 (0-0.9) Albumin 2.3 GM/DL (3.4-5.0) Estimat Glomerular Filtration Rate 85 ML/MIN (>89) Troponin I LESS THAN 0.02 NG/ML Last 24 hours Impressions Chest X-Ray 10/08/17 1302 Signed Impressions: Service Date/Time: Friday, October 08, 2017 13:20 - CONCLUSION: Stable patchy basilar infiltrates and right hilar mass. New RIGHT IJ infusaport with tip overlies the SVC. Jerzy Bach MD Differential Diagnosis Shortness of breath, wheezing, hypoxia: Pneumonia versus pneumothorax versus CHF versus COPD exacerbation Narrative Course Appears that the port is in place on chest x-ray and there is a right hilar mass with findings unchanged from previous chest x-ray. Patient was given Solu- Medrol and nebulizers in the ER with some improvement symptoms at rest but becomes fairly symptomatic with walking with saturations in the mid 80s with walking. At this point, it does appear that he is doing well at home and symptoms of been worsening, my plan would be to admit him for further treatment. Case was discussed with Dr. Garcia for admission. Diagnosis Primary Impression: COPD exacerbation Additional Impressions: Dyspnea Lung mass Admitting Information Admitting Physician Requests: Admit Bakari Pascual MD Oct 08, 2017 13:05
[2017-10-08] MEDS: RESP: ALBUTEROL 2.5 MG/IPRATROPIUM 0.5 MG NEB (SCH) INH ×2 (13:12→13:13)
[2017-10-08] MEDS ORDERED: methylPREDNISolone SOD SUCC 125 MG/2 ML VIAL IV PUSH ONE (13:15)
[2017-10-08] MEDS ORDERED: SODIUM CHLORIDE 0.9% FLUSH 10 ML FLUSH IVF PRN (13:15)
[2017-10-08 13:51] LABS: AUTOMATED NEUTROPHIL # 8.7 TH/MM3 (1.8-7.7); BASOPHIL # 0.1 TH/MM3 (0-0.2); BASOPHIL % 0.5 % (0.0-2.0); EOSINOPHIL # 0.2 TH/MM3 (0-0.4); EOSINOPHIL % 1.6 % (0.0-4.0); HEMATOCRIT 35.7 % (39.0-51.0); HEMO FLAGS DIFF FINAL; LYMPH % 13.6 % (9.0-44.0); LYMPHOCYTE # 1.6 TH/MM3 (1.0-4.8); MEAN CELL VOLUME 86.8 FL (80.0-100.0); MEAN CORPUSCULAR HEMOGLOBIN 29.1 PG (27.0-34.0); MEAN CORPUSCULAR HGB CONC 33.6 % (32.0-36.0); MONO % 8.6 % (0.0-8.0); NEUT % 75.7 % (16.0-70.0); PLATELET COUNT 449 TH/MM3 (150-450); RED BLOOD COUNT 4.11 MIL/MM3 (4.50-5.90); RED CELL DISTRIBUTION WIDTH 13.6 % (11.6-17.2); WHITE BLOOD COUNT 11.5 TH/MM3 (4.0-11.0)
--- NOTE | 2017-10-08 13:57 | RADRPT ---
EXAM DATE/TIME: 10/08/2017 13:20 [facility] COMPARISON: No previous studies available for comparison. INDICATIONS : Short of breath, Right side infusaport. MEDICAL HISTORY : Carcinoma, lung. SURGICAL HISTORY : Infusaport right ENCOUNTER: Initial ACUITY: 1 day PAIN SCORE: 0/10 LOCATION: Bilateral chest FINDINGS: A single view of the chest demonstrates a 5.7 cm right hilar mass is unchanged. Stable patchy infilt rates in the lung bases. Right sided infusaport. The cardiomediastinal contours are unremarkable . Osseous structures are intact. CONCLUSION: Stable patchy basilar infiltrates and right hilar mass. New RIGHT IJ infusaport with tip overlies the SVC. Jerzy Bach MD on October 08, 2017 at 13:50 Board Certified Radiologist. This report was verified electronically.
[2017-10-08 13:59] LABS: APTT (PATIENT) 27.4 SEC (24.3-30.1); PROTHROMBIN TIME - PATIENT 11.6 SEC (9.8-11.6)
[2017-10-08 14:07] LABS: ALT (GPT) 16 U/L (12-78); ANION GAP 8 MEQ/L (5-15); AST (GOT) 17 U/L (15-37); BICARBONATE 24.8 MEQ/L (21.0-32.0); BLOOD UREA NITROGEN 15 MG/DL (7-18); CHLORIDE 104 MEQ/L (98-107); GLOMERULAR FILTRATION RATE 85 ML/MIN (>89); SODIUM (NA) 137 MEQ/L (136-145)
[2017-10-08 14:10] LABS: ALKALINE PHOSPHATASE 80 U/L (45-117); TOTAL BILIRUBIN ADULT 0.2 MG/DL (0.2-1.0)
[2017-10-08 14:23] LABS: CREATINE KINASE 41 U/L (39-308)
[2017-10-08] MEDS ORDERED: SODIUM CHLORIDE 0.9% FLUSH 10 ML FLUSH IV FLUSH PRN (16:00)
[2017-10-08] MEDS ORDERED: ONDANSETRON HCL 4 MG/2 ML VIAL IVP PRN (16:00)
[2017-10-08] MEDS ORDERED: LACTULOSE SYRUP 20 GM/30 ML CUP PO PRN (16:00)
[2017-10-08] MEDS ORDERED: SENNOSIDES 8.6 MG TAB PO PRN (16:00)
[2017-10-08] MEDS ORDERED: ACETAMINOPHEN 325 MG TAB PO PRN (16:00)
[2017-10-08] MEDS ORDERED: MAGNESIUM HYDROXIDE SUSP 30 ML CUP PO PRN (16:00)
[2017-10-08] MEDS ORDERED: NALOXONE HCL 0.4 MG/ML AMP IV PUSH PRN (16:00)
[2017-10-08] MEDS ORDERED: BISACODYL 10 MG SUPP RECTAL PRN (16:00)
[2017-10-08] MEDS ORDERED: RESP: ALBUTEROL 2.5 MG/3 ML NEB (PRN) NEB (16:30)
--- NOTE | 2017-10-08 17:23 | HHI.HP ---
[facility] Service [facility] Primary Care Physician No Primary Care Physician Admission Diagnosis lung cancer/worsening respiratory distress Diagnoses: Chief Complaint: Hypoxia and shortness of breathing Travel History International Travel<30 Days: No Contact w/Intl Traveler <30 Da: No Traveled to Known Affected Are: No History of Present Illness This is a 87-year-old male with a recent diagnosis of COPD and non-small cell lung cancer stage IV. Patient was discharged from the hospital about 22 days ago and he stated that he had gradual shortness of breathing that worsen drastically the last few days. 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 Patient then had a right port placement tdone today in radiology and he was found very be very dyspneic and hypoxic so was sent to the emergency department after the port placement. Patient stated that with oxygen his shortness of breathing has improved drastically. He also admits for the past few weeks having bloody sputum. Patient stated that he gets very short of breath just walking to the bathroom. He denies any fevers or chills. Positive for cough. Emergency department patient was given a nebulizer treatment for mild wheezing. All other review of system reviewed and negative. Past Family Social History Past Medical History Recent diagnosis of COPD, non-small cell lung cancer stage IV Past Surgical History Tonsillectomy Right port placement done today. Lung biopsy Reported Medications Symbicort Inh (Budesonide/Formoterol Fumarate) 160-4.5 Mcg/Act Aero 1 Puff INH Q12HR Allergies: Coded Allergies: No Known Allergies (Verified Allergy, Unknown, 10/08/17) Active Ordered Medications Current Medications Sodium Chloride (NS Flush) 2 ml UNSCH PRN IVF FLUSH AFTER USING IV ACCESS; Start 10/08/17 at 13:15; Stop 10/08/17 at 16:27; Status DC Methylprednisolone Sodium Succinate (SoluMEDROL INJ) 125 mg ONCE ONCE IV PUSH Last administered on 10/08/17t 13:35; Start 10/08/17 at 13:15; Stop 10/08/17 at 13:16; Status DC Albuterol/ Ipratropium (Duoneb Neb) 1 ampule Q15M INH Last administered on t 13:13; Start 10/08/17 at 13:15; Stop 10/08/17 at 13:31; Status DC Sodium Chloride (NS Flush) 2 ml UNSCH PRN IV FLUSH FLUSH AFTER USING IV ACCESS ; Start 10/08/17 at 16:00 Sodium Chloride (NS Flush) 2 ml BID IV FLUSH ; Start 10/08/17 at 21:00 Acetaminophen (Tylenol) 650 mg Q4H PRN PO TEMP > 100.4; Start 10/08/17 at 16: 00 Ondansetron HCl (Zofran Inj) 4 mg Q6H PRN IVP NAUSEA OR VOMITING; Start at 16:00 Naloxone HCl (Narcan Inj) 0.4 mg UNSCH PRN IV PUSH SEE LABEL COMMENTS; Start 10/08/17 at 16:00 Senna/Docusate Sodium (Abigail-Colace) 1 tab BID PO ; Start 10/08/17 at 21:00 Magnesium Hydroxide (Milk Of Magnesia Liq) 30 ml Q12H PRN PO Mild constipation ; Start 10/08/17 at 16:00 Sennosides (Senokot) 17.2 mg Q12H PRN PO Moderate constipation; Start at 16:00 Bisacodyl (Dulcolax Supp) 10 mg DAILY PRN RECTAL SEVERE CONSITIPATION; Start 10/08/17 at 16:00 Lactulose (Lactulose Liq) 30 ml DAILY PRN PO SEVERE CONSITIPATION; Start 10/08 at 16:00 Albuterol/ Ipratropium (Duoneb Neb) 1 ampule Q4HR NEB NEB ; Start 10/08/17 at 20:00 Albuterol Sulfate (Albuterol Neb) 2.5 mg Q8HR NEB PRN NEB SOB/wheezing; Start 10/08/17 at 16:30 Family History Denies any family history of lung cancer. Father with polio, age 55 Mother fairly healthy, age 92 Social History Smoked tobacco since age 15, 1.5 PPD, quit smoking 08/17/17 Denies any alcohol or illicit drug use Physical Exam Vital Signs Vital Signs Date Time Temp Pulse Resp B/P (MAP) Pulse Ox O2 Delivery O2 Flow Rate FiO2 11/22/17 16:19 85 18 104/59 (74) 92 Nasal Cannula 2.00 10/08/17 13:14 92 Nasal Cannula 2.00 10/08/17 13:06 92 Nasal Cannula 10/08/17 13:01 Nasal Cannula 2.00 10/08/17 12:53 97.8 99 18 105/62 (76) 94 Nasal Cannula 2.00 Physical Exam GENERAL: This is a well-nourished, well-developed patient, in no apparent distress. SKIN: Right port placement. HEAD: Atraumatic. Normocephalic. No temporal or scalp tenderness. EYES: Pupils equal round and reactive. Extraocular motions intact. No scleral icterus. No injection or drainage. ENT: Nose without bleeding, purulent drainage or septal hematoma. Throat without erythema, tonsillar hypertrophy or exudate. Uvula midline. Airway patent. NECK: Trachea midline. No JVD or lymphadenopathy. Supple, nontender, no meningeal signs. CARDIOVASCULAR: Regular rate and rhythm without murmurs, gallops, or rubs. RESPIRATORY: Clear to auscultation. Breath sounds equal bilaterally. No wheezes , rales, or rhonchi. GASTROINTESTINAL: Abdomen soft, non-tender, nondistended. No hepato-splenomegaly , or palpable masses. No guarding. MUSCULOSKELETAL: Extremities without clubbing, cyanosis, or edema. No joint tenderness, effusion, or edema noted. No calf tenderness. Negative Homans sign bilaterally. NEUROLOGICAL: Awake and alert. Cranial nerves II through XII intact. Motor and sensory grossly within normal limits. Five out of 5 muscle strength in all muscle groups. Normal speech. Laboratory Laboratory Tests Test 10/08/17 13:30 White Blood Count 11.5 Red Blood Count 4.11 Hemoglobin 12.0 Hematocrit 35.7 Mean Corpuscular Volume 86.8 Mean Corpuscular Hemoglobin 29.1 Mean Corpuscular Hemoglobin Concent 33.6 Red Cell Distribution Width 13.6 Platelet Count 449 Mean Platelet Volume 7.2 Neutrophils (%) (Auto) 75.7 Lymphocytes (%) (Auto) 13.6 Monocytes (%) (Auto) 8.6 Eosinophils (%) (Auto) 1.6 Basophils (%) (Auto) 0.5 Neutrophils # (Auto) 8.7 Lymphocytes # (Auto) 1.6 Monocytes # (Auto) 1.0 Eosinophils # (Auto) 0.2 Basophils # (Auto) 0.1 CBC Comment DIFF FINAL Differential Comment Prothrombin Time 11.6 Prothromb Time International Ratio 1.0 Activated Partial Thromboplast Time 27.4 Blood Urea Nitrogen 15 Creatinine 0.89 Random Glucose 82 Total Protein 6.9 Albumin 2.3 Calcium Level 8.5 Alkaline Phosphatase 80 Aspartate Amino Transf (AST/SGOT) 17 Alanine Aminotransferase (ALT/SGPT) 16 Total Bilirubin 0.2 Sodium Level 137 Potassium Level 4.0 Chloride Level 104 Carbon Dioxide Level 24.8 Anion Gap 8 Estimat Glomerular Filtration Rate 85 Total Creatine Kinase 41 Troponin I LESS THAN 0.02 B-Type Natriuretic Peptide 16 Date/Time Source Procedure Growth Status 10/08/17 13:30 Blood Peripheral Aerobic Blood Culture Pending Received 10/08/17 13:30 Blood Peripheral Anaerobic Blood Culture Pending Received Result Diagram: 10/08/17 1330 10/08/17 1330 Imaging Last Impressions Chest X-Ray 10/08/17 1302 Signed Impressions: Service Date/Time: Friday, October 08, 2017 13:20 - CONCLUSION: Stable patchy basilar infiltrates and right hilar mass. New RIGHT IJ infusaport with tip overlies the SVC. MD Lizbeth Mcbride VTE Risk Assessment Caprini VTE Risk Assessment: Mod/High Risk (score >= 2) Caprini Risk Assessment Model Point Value = 1 Point Value = 2 Point Value = 3 Point Value = 5 Age 41-60 Minor surgery BMI > 25 kg/m2 Swollen legs Varicose veins or History of unexplained or recurrent spontaneous Oral contraceptives or hormone replacement Sepsis (< 1 month) Serious lung disease, including pneumonia (< 1 month) Abnormal pulmonary function Acute myocardial infarction Congestive heart failure (< 1 month) History of inflammatory bowel disease Medical patient at bed rest Age 61-74 Arthroscopic surgery Major open surgery (> 45 min) Laparoscopic surgery (> 45 min) Malignancy Confined to bed (> 72 hours) Immobilizing plaster cast Central venous access Age >= 75 History of VTE Family history of VTE Factor V Leiden Prothrombin [id number] Lupus anticoagulant Anticardiolipin antibodies Elevated serum homocysteine Heparin-induced thrombocytopenia Other congenital or acquired thrombophilia Stroke (< 1 month) Elective arthroplasty Hip, pelvis, or leg fracture Acute spinal cord injury (< 1 month) Prophylaxis Regimen Total Risk Factor Score Risk Level Prophylaxis Regimen 0-1 Low Early ambulation 2 Moderate Order ONE of the following: *Sequential Compression Device (SCD) *Heparin 5000 units SQ BID 3-4 Higher Order ONE of the following medications: *Heparin 5000 units SQ TID *Enoxaparin/Lovenox 40 mg SQ daily (WT < 150 kg, CrCl > 30 mL/min) *Enoxaparin/Lovenox 30 mg SQ daily (WT < 150 kg, CrCl > 10-29 mL/min) *Enoxaparin/Lovenox 30 mg SQ BID (WT < 150 kg, CrCl > 30 mL/min) AND/OR *Sequential Compression Device (SCD) 5 or more Highest Order ONE of the following medications: *Heparin 5000 units SQ TID (Preferred with Epidurals) *Enoxaparin/Lovenox 40 mg SQ daily (WT < 150 kg, CrCl > 30 mL/min) *Enoxaparin/Lovenox 30 mg SQ daily (WT < 150 kg, CrCl > 10-29 mL/min) *Enoxaparin/Lovenox 30 mg SQ BID (WT < 150 kg, CrCl > 30 mL/min) AND *Sequential Compression Device (SCD) Assessment and Plan Assessment and Plan 67-year-old male with newly diagnosed COPD and stage IV small cell lung cancer whose presented with gradual increase in dyspnea Respiratory failure with hypoxia -Chest x-ray showed stable bibasilar infiltrate and right hilar mass. -Most likely symptoms are secondary to lung cancer. -Has drastic improvement in symptoms. -He will most likely need home oxygen. Will do a walk test. 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 Small cell lung cancer stage IV -Patient is currently seeing Dr. Willams. He had a port placement today. He scheduled for chemotherapy on Friday. Will consult his oncologist. Hemoptysis -This has been occurring the past few weeks. It has not worsened. -Most likely secondary to lung cancer. -Continue to monitor hemoglobin and clinically. COPD -Per ER physician he has some mild wheezing. During my clinical assessment there has been no wheezing in lungs are clear. -Will schedule duonebs. -Monitor clinically. DVT prophylaxis -Encourage ambulation. Discussed Condition With patient Physician Certification 2 Midnight Certification Type: Admission for Inpatient Services Order for Inpatient Services The services are ordered in accordance with Medicare regulations or non- Medicare payer requirements, as applicable. In the case of services not specified as inpatient-only, they are appropriately provided as inpatient services in accordance with the 2-midnight benchmark. Estimated LOS (days): 2 2 days is the estimated time the patient will need to remain in the hospital, assuming treatment plan goals are met and no additional complications. Post-Hospital Plan: Wendy Gabriel MD Oct 08, 2017 17:23
[2017-10-08] MEDS: RESP: ALBUTEROL 2.5 MG/IPRATROPIUM 0.5 MG NEB (SCH) NEB (20:06)
[2017-10-08] MEDS: SODIUM CHLORIDE 0.9% FLUSH 10 ML FLUSH IV FLUSH SCH (20:30)
[2017-10-08] MEDS: DOCUSATE SODIUM 50 MG/SENNA 8.6 MG TAB PO SCH (20:30)
[2017-10-09] VITALS (8 sets, daily range): BP systolic 92–99; BP diastolic 55–58; PULSE 87–102; RESP 18–20; TEMP 97.8–98.2; O2SAT 91–94
[2017-10-09] MEDS: RESP: ALBUTEROL 2.5 MG/IPRATROPIUM 0.5 MG NEB (SCH) NEB ×4 (00:21→13:29)
[2017-10-09 04:24] LABS: HEMATOCRIT 33.1 % (39.0-51.0); MEAN CELL VOLUME 85.8 FL (80.0-100.0); MEAN CORPUSCULAR HEMOGLOBIN 28.9 PG (27.0-34.0); MEAN CORPUSCULAR HGB CONC 33.7 % (32.0-36.0); PLATELET COUNT 442 TH/MM3 (150-450); RED BLOOD COUNT 3.86 MIL/MM3 (4.50-5.90); RED CELL DISTRIBUTION WIDTH 13.7 % (11.6-17.2); REVIEW FLAG FINAL; WHITE BLOOD COUNT 10.6 TH/MM3 (4.0-11.0)
[2017-10-09 04:47] LABS: POTASSIUM 3.8 MEQ/L (3.5-5.1)
[2017-10-09] MEDS: DOCUSATE SODIUM 50 MG/SENNA 8.6 MG TAB PO SCH (07:56)
[2017-10-09] MEDS: SODIUM CHLORIDE 0.9% FLUSH 10 ML FLUSH IV FLUSH SCH (07:56)
--- NOTE | 2017-10-09 10:46 | EKG ---
Date Performed: 10/08/2017 Time Performed: 13:27:49 PTAGE: 67 years EKG: Sinus rhythm LOW QRS VOLTAGE IN EXTREMITY LEADS BORDERLINE ECG PREVIOUS TRACING : 09/15/2017 08.45 DOCTOR: Jona Seymour Interpretating Date/Time 10/09/2017 10:44:47
--- NOTE | 2017-10-09 11:28 | MB ---
cc: MARIA DE JESUS TINEO DATE OF CONSULTATION: 10/08/2017 REASON FOR CONSULTATION: Patient with a with a diagnosis of lung cancer. She was admitted with dyspnea. HISTORY OF PRESENT ILLNESS: This is a 67-year-old male who has a history of chronic obstructive pulmonary disease. He has a longstanding history of tobacco abuse. He presented to the emergency room in early September. He with complaints of cough and hemoptysis. A CT scan of the chest showed a 6.6 x 5.8 cm of right hilar mass with associated mass effect on the right middle lobe bronchus. There were numerous bilateral lung masses consistent with diffuse metastatic disease. There was faint right-sided pleural effusion. He also have prominent mediastinal lymphadenopathy. The patient underwent a CT-guided biopsy of the lung mass. This confirmed invasive poorly differentiated adenocarcinoma consistent with lung primary. The patient was seen in the oncology clinic by my associated Dr. Willams. A PET scan was ordered for the patient, additionally biomolecular studies were ordered to test for EGFR mutation, alk. Mutation, BRAF mutation, PDL1 <<3:29>> . I reviewed the pathology results and the results from these tests have not been reported. According to the patient he was found to have molecular aberration and he will be treated with immunotherapy. However, I confirmed this on his pathology results or Dr. Willams notes. The patient was sedated, brought into the hospital for port placement. He has been progressively getting dyspneic over the past several days. 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 The patient is now being admitted to the hospital with COPD exacerbation. He has received breathing treatments and has been placed on supplemental oxygen. He is endorsing improvement in his symptoms. He currently appears comfortable. He denies any fevers or chills. He does not have any cough. He denies any chest pain. No hemoptysis. No abdominal pain. No lower extremity edema or pain. REVIEW OF SYSTEMS A comprehensive 14-point review of systems was completed which is negative except as described in history of present illness. PAST MEDICAL HISTORY: History of [id number] lung cancer stage IV Biopsy consistent with adenocarcinoma History of chronic obstructive pulmonary disease. Tobacco abuse. PAST SURGICAL HISTORY CT guided biopsy of the lung mass Tonsillectomy Port placement. MEDICATIONS Home medications were reviewed. 1. Symbacort. 2. Inpatient medications include; Senna 3. Colace. 4. DuoNeb's 5. Tylenol as needed 6. Zofran as needed 7. Milk of Magnesia 8. <<5:51>> 9. Lactulose as needed ALLERGIES He does not have a no known allergies. FAMILY HISTORY His father from complications of [place] of mother from natural causes in the 80s and does not have any brothers he has one sister [id number] daughter and they are all eye. SOCIAL HISTORY and lives with his . He has more than 50 pack-year smoking history. He quit approximately 2 months ago he does not drink alcohol. No illicit drug use. EOMI mental exposures. He moved to [place] from the [facility] approximately 3 years ago. PHYSICAL EXAMINATION VITAL SIGNS: Blood pressure is 111/56, pulse is in the 90s, temperature is 98.7, respiratory rate 16, O2 sats are 94% on 2 liters nasal cannula. IN GENERAL: Thin male in no apparent distress. HEAD, EYES, EARS, NOSE, AND THROAT: Pupils are equal, round, reactive to light. Extraocular movement. No oral thrush. No oral lesions. NECK: Neck is supple. No JVD, no bruits. No lymphadenopathy. CHEST: Chest is clear to auscultation bilaterally. CARDIOVASCULAR SYSTEM: S1, S2, regular rate and rhythm. ABDOMEN: Soft, nontender, nondistended. Bowel sounds are present. EXTREMITIES: Without any edema, erythema or cyanosis. SKIN: Without any petechiae lesion or bruises. NEUROLOGIC: No focal deficits. PSYCHIATRIC: Psychiatric mood and affect is appropriate. LABORATORY DATA WBCs 11.5, hemoglobin is 12, platelet count is 449 Serum chemistries show sodium of 137, potassium four, chloride 104, CO2 24.8, BUN is 15, creatinine is 0.89, calcium is 8.5, total bilirubin is 0.2 AST 17, ALT 69 phos is 80, total of 41, troponin is less 7.02, total protein 6.9, albumin is 2.3. Chest x-ray Was reviewed at this shows stable patchy basilar infiltrates and right hilar mass. Right IJ [id number] is in place. ASSESSMENT/PLAN This is a 67-year-old male who has a diagnosis of stage IV adenocarcinoma of the lung. He was brought into the hospital today for port placement. Subsequently he became acutely dyspneic. He is he was admitted to the hospital. 1. Acute respiratory distress with increasing oxygen requirement. He appears to be having COPD exacerbation due to lung cancer. This has likely effected his lung capacity. He is doing well after receiving breathing treatments. I would recommend a home O2 evaluation for this patient. He may require supplemental oxygen at home. There does not appear to be any pneumonia based on his x-ray. I would recommend continued treatment with Duoneb and steroids. It appears that the primary team has consulted with fig bar machine operator. Once his respiratory status improves and we have made arrangements for home oxygen (if needed after the walk test), he can be discharged from the hospital. 2. Small cell lung cancer stage IV-- he was scheduled to receive treatment beginning Friday. He will follow up with Dr. Willams. Thank you for allowing me to participate in the care of this patient. MD SB Justin/lakeshia /2:37 AM /10:40 AM JOE
[2017-10-09] MEDS ORDERED: methylPREDNISolone SOD SUCC 125 MG/2 ML VIAL IV PUSH ONE (11:45)
[2017-10-09] MEDS ORDERED: MEDR4PAK PO (12:59)
[2017-10-09] MEDS ORDERED: COMPRESSOR NEBU1 MIS (12:59)
[2017-10-09] MEDS ORDERED: NEBUKIT5 (12:59)
[2017-10-09] MEDS ORDERED: ALBU0.08 NEB (12:59)
--- NOTE | 2017-10-09 12:59 | HHI.DCPOC ---
Discharge Care Plan Diagnosis: (1) COPD exacerbation (2) Lung mass Goals to Promote Your Health * To prevent worsening of your condition and complications * To maintain your health at the optimal level Directions to Meet Your Goals Take your medications as prescribed Follow your dietary instruction Follow activity as directed Keep your appointments as scheduled Take your immunizations and boosters as scheduled If your symptoms worsen call your PCP, if no PCP go to Urgent Care Center or Emergency Room Smoking is Dangerous to Your Health. Avoid second hand smoke Call the 24-hour hour crisis hotline for domestic abuse at Kush Graham MD Oct 09, 2017 12:59
--- NOTE | 2017-10-09 13:03 | HHI.PR ---
Subjective Remarks No deterioration since last night. Patient states he feels well. Wants to go home. No shortness of breath today. Objective Vital Signs Date Time Temp Pulse Resp B/P (MAP) Pulse Ox O2 Delivery O2 Flow Rate FiO2 10/09/17 08:47 94 21 10/09/17 08:40 94 Nasal Cannula 1.00 10/09/17 08:17 97 10/09/17 07:44 98.2 100 20 96/58 (71) 93 10/09/17 05:35 93 Nasal Cannula 1.00 10/09/17 04:00 97.8 87 18 92/58 (69) 92 10/09/17 00:00 97.8 102 18 95/55 (68) 92 10/08/17 20:36 114 10/08/17 20:20 98.0 93 19 95/58 (70) 92 10/08/17 20:06 94 Nasal Cannula 2.00 10/08/17 18:21 98.7 94 20 111/56 (74) 94 10/08/17 18:07 10/08/17 16:19 85 18 104/59 (74) 92 Nasal Cannula 2.00 10/08/17 13:14 92 Nasal Cannula 2.00 10/08/17 13:06 92 Nasal Cannula I/O 10/08/17 10/08/17 10/08/17 10/09/17 10/09/17 10/09/17 07:00 15:00 23:00 07:00 15:00 23:00 Intake Total 591 ml Output Total 275 ml Balance 316 ml Intake Oral 591 ml Output Urine Total 275 ml # Voids 1 Result Diagram: 10/09/17 0335 10/09/17 0335 Objective Remarks no wheezing today, unlabored breathing, ambulating w/o difficulty A/P Assessment and Plan 67-year-old male with newly diagnosed COPD and stage IV small cell lung cancer whose presented with gradual increase in dyspnea Respiratory failure with hypoxia -Chest x-ray showed stable bibasilar infiltrate and right hilar mass. -Most likely symptoms are secondary to lung cancer. -Patient is essentially asymptomatic today with complete resolution. Past his walk test saturating at 94%. Small cell lung cancer stage IV -Follow up with oncology outpatient as scheduled treatment session for Friday. Hemoptysis -no recurrence, stable h/h. 2/2 lung cancer COPD -resolved clinically. will d/c on medrol dos clemente with albuterol and budesonide - stable for discharge from pulmonology standpoint. DVT prophylaxis -Encourage ambulation. Discussed Condition With patient Kush Graham MD Oct 09, 2017 13:03
[2017-10-09] MEDS ORDERED: ALBU6.7H INH (13:04)
--- NOTE | 2017-10-09 13:38 | MB ---
cc: JASON NUR HAMMAD DATE OF CONSULTATION: 10/09/2017 HISTORY Mr. Mcknight is a 67-year-old white male, lifelong smoker only quit smoking a few weeks ago when he presented to the emergency room September 15. He was short of breath and a chest x-ray at that time was abnormal CT scan revealed a right hilar mass and several pulmonary nodules. He had a lung biopsy which revealed adenocarcinoma and he is being seen by Dr. Willams now. He came in as an outpatient yesterday for a port placement and was hypoxic lying flat on the table, he was in the mid 80s. He was somewhat short of breath. He has been taking Symbicort 1 puff twice a day and had been stable since his discharge. He had no cough or congestion. No chest pain. He does have intermittent blood streaked sputum, probably from his underlying malignancy but was otherwise fairly asymptomatic. The procedure was completed but he was still hypoxic so he was referred to the emergency room. After several aerosol treatments. He was still dyspneic O2 saturations were still low and the 80s so he was admitted overnight. He feels much better today. No hemoptysis overnight no chest pain. He has been afebrile. O2 saturations now have been in the 90s and in fact he had an O2 walk test this morning, and he was still 94% on room air. PAST MEDICAL HISTORY: Past medical history and really has not seen doctors regularly but he has had no major prior illnesses. No prior history of lung disease until the recent diagnosis of emphysema. No prior cardiovascular history. PAST SURGICAL HISTORY: Tonsillectomy SOCIAL HISTORY living with his . Retired 50+ pack-year smoking history, quit last month. No alcohol use. ALLERGIES NO KNOWN DRUG ALLERGIES. MEDICATIONS medication at home with Symbicort. Current medications reviewed in the EMR. REVIEW OF SYSTEMS No chest pain. No swelling in his legs. No orthopnea or PND. He does have chronic dyspnea on exertion which had been stable until yesterday. PHYSICAL EXAMINATION VITAL SIGNS: Thin white male no distress at rest on room air sat 94% 98 degrees 96/58, pulse 90, respirations 18. HEAD, EYES, EARS, NOSE, AND THROAT: Sclerae anicteric. NECK: Neck veins are flat. CHEST: Diminished but clear. No wheezes, rales or congestion. HEART: Regular rhythm. No harsh murmur. EXTREMITIES: No edema or cyanosis. ASSESSMENT: Mr. Silva presented yesterday for an outpatient procedure and was desaturating. The patient has recovered remarkably overnight really just with aerosol therapy. He did receive one dose of Solu-Medrol in the ER. PLAN: I would suggest increasing his Symbicort to 2 puffs twice a day and making arrangements for a nebulizer with albuterol and Atrovent home at home for p.r.n. use. The patient at this point does not need oxygen based on the walk test. He is scheduled to see his oncologist on Friday to begin therapy. He will follow up with pulmonary as well for the underlying emphysema and if his breathing deteriorates prior to that I have suggested he returned to the emergency room. I also spoke to Dr. Graham the hospitalist who will arrange his discharge. R. MD KYLE Mckeon/lakeshia /12:08 PM /1:04 PM
[2017-10-09] MEDS ORDERED: methylPREDNISolone SOD SUCC 125 MG/2 ML VIAL IV PUSH SCH (21:00)
== END 2017-10-09 14:26 | disposition home or self-care (01) | DRG 190 ==
LOC: NEPC 12:52 → NEDA 15:49 → HCIN 17:57
PROVIDERS: ADMIT Hospitalist; ATTEND Hospitalist
DX: J44.1 Chronic obstructive pulmonary disease with (acute) exacerbation (principal); J96.91 Respiratory failure, unspecified with hypoxia; C78.00 Secondary malignant neoplasm of unspecified lung; C34.92 Malignant neoplasm of unspecified part of left bronchus or lung; C34.91 Malignant neoplasm of unspecified part of right bronchus or lung; R04.2 Hemoptysis; Z87.891 Personal history of nicotine dependence
CPT/HCPCS: 71010; 80048; 80053; 82550; 83880; 84484; 85025; 85027; 85610; 85730; 87040; 93005; 94620; 94640; 94664; 96374; J2930

== ENCOUNTER 2017-10-31 12:33 | Inpatient (IN) | payer MEDICARE, OTHER ==
[~2017-10-31] VITALS: Ht 170.2 cm; Wt 63.8 kg
[2017-10-31] VITALS (9 sets, daily range): BP systolic 103–154; BP diastolic 65–81; PULSE 66–107; RESP 18–24; TEMP 97.6–98.1; O2SAT 93–98
[~2017-10-31 12:33] MED LIST changes: +ALBU0.08 NEB; +ALBU6.7H INH; +COMPRESSOR NEBU1 MIS; -HYDR-3516 PO; -LEVA750T9 PO; +MEDR4PAK PO; +NEBUKIT5; -PRED20 PO
--- NOTE | 2017-10-31 12:57 | PD ---
HPI Chief Complaint: Respiratory Distress Time Seen by Provider: 12:49 Travel History International Travel<30 days: No Contact w/Intl Traveler<30days: No Traveled to known affect area: No History of Present Illness HPI 67-year-old male patient with history of lung cancer, COPD, presents to the ER today because he is having worsening dyspnea on exertion and shortness of breath over last few days. He has been using his inhalers without significant relief. He denies any fevers or any other issues. He was seen today by his oncologist and was sent in for PE study. Modifying Factors: None Associated Signs & Symptoms: Worsening shortness of breath, dyspnea on exertion Risk Factors: Lung cancer, COPD PFSH Past Medical History Autoimmune Disease: No Cancer: Yes (New diagnosis to lung) Cardiovascular Problems: No Chemotherapy: Yes (1 ROUND 10/13/17 ) COPD: Yes Diabetes: No Diminished Hearing: Yes Endocrine: No Genitourinary: No Hiatal Hernia: No Immune Disorder: No Implanted Vascular Access Dvce: Yes (RIGHT CHEST PORT) Musculoskeletal: No Neurologic: No Psychiatric: No Reproductive: No Respiratory: Yes (COPD, LUNG CA ) Sickle Cell Disease: No Thyroid Disease: No Past Surgical History Abdominal Surgery: No AICD: No Cardiac Surgery: No Ear Surgery: No Endocrine Surgery: No Eye Surgery: No Genitourinary Surgery: No Gynecologic Surgery: No Joint Replacement: No Oral Surgery: Yes Pacemaker: No Thoracic Surgery: No Tonsillectomy: Yes Social History Alcohol Use: No Tobacco Use: No (QUITE JUL 2017) Substance Use: No Allergies-Medications (Allergen,Severity, Reaction): Coded Allergies: No Known Allergies (Verified Allergy, Unknown, 10/08/17) Reported Meds & Prescriptions Reported Meds & Active Scripts Active Proventil Hfa 6.7 GM Inh (Albuterol Sulfate) 90 Mcg/Act Aer 2 Puff INH Q4-6H PRN Medrol Dosepak (Methylprednisolone) 4 Mg Dspk 4 Mg PO DIRECTED Per Pharmacist direction Albuterol Neb (Albuterol Sulfate) 2.5 Mg/3 Ml Neb 2.5 Mg NEB Q6HR PRN Compressor Nebulizer 1 Mis Mis Ea .ROUTE DIRECTED PRN every 6 hours as needed Nebulizer Kit/Tubing/Mout (N/A) 1 Kit Kit Kit .ROUTE DIRECTED PRN every 6 hours as needed for shortness of breath Symbicort Inh (Budesonide/Formoterol Fumarate) 160-4.5 Mcg/Act Aero 1 Puff INH Q12HR Review of Systems Except as stated in HPI: all other systems reviewed are Neg Physical Exam Narrative GENERAL: Well-developed thin elderly white male patient who is in mild respiratory distress at rest. SKIN: Focused skin assessment warm/dry. HEAD: Atraumatic. Normocephalic. EYES: Pupils equal and round. No scleral icterus. No injection or drainage. ENT: No nasal bleeding or discharge. Mucous membranes pink and moist. NECK: Trachea midline. No JVD. CARDIOVASCULAR: Regular rate and rhythm. No murmur appreciated. RESPIRATORY: Mild accessory muscle use. Bilateral wheezing. Breath sounds equal bilaterally. GASTROINTESTINAL: Abdomen soft, non-tender, nondistended. Hepatic and splenic margins not palpable. MUSCULOSKELETAL: No obvious deformities. No clubbing. No cyanosis. No edema. NEUROLOGICAL: Awake and alert. No obvious cranial nerve deficits. Motor grossly within normal limits. Normal speech. PSYCHIATRIC: Appropriate mood and affect; insight and judgment normal. Data Data Last Documented VS Vital Signs Date Time Temp Pulse Resp B/P (MAP) Pulse Ox O2 Delivery O2 Flow Rate FiO2 10/31/17 12:56 89 24 97 Nasal Cannula 3.50 10/31/17 12:56 125/74 (91) 10/31/17 12:36 97.9 Orders Orders Complete Blood Count With Diff (10/31/17 12:53) Comprehensive Metabolic Panel (10/31/17 12:53) B-Type Natriuretic Peptide (10/31/17 12:53) Act Partial Throm Time (Ptt) (10/31/17 12:53) Prothrombin Time / Inr (Pt) (10/31/17 12:53) Troponin I (10/31/17 12:53) Iv Access Insert/Monitor (10/31/17 12:53) Electrocardiogram (10/31/17 12:53) Ecg Monitoring (10/31/17 12:53) Oximetry (10/31/17 12:53) Oxygen Administration (10/31/17 12:53) Chest, Single Ap (10/31/17 12:53) Ct Pulmonary Angiogram (10/31/17 12:53) Sodium Chloride 0.9% Flush (Ns Flush) (10/31/17 13:00) Iohexol 350 Inj (Omnipaque 350 Inj) (10/31/17 14:14) Labs Laboratory Tests Test 10/31/17 13:01 White Blood Count 14.6 TH/MM3 Red Blood Count 5.01 MIL/MM3 Hemoglobin 14.3 GM/DL Hematocrit 43.6 % Mean Corpuscular Volume 87.0 FL Mean Corpuscular Hemoglobin 28.6 PG Mean Corpuscular Hemoglobin Concent 32.9 % Red Cell Distribution Width 15.0 % Platelet Count 415 TH/MM3 Mean Platelet Volume 7.1 FL Neutrophils (%) (Auto) 88.9 % Lymphocytes (%) (Auto) 5.6 % Monocytes (%) (Auto) 4.7 % Eosinophils (%) (Auto) 0.5 % Basophils (%) (Auto) 0.3 % Neutrophils # (Auto) 13.0 TH/MM3 Lymphocytes # (Auto) 0.8 TH/MM3 Monocytes # (Auto) 0.7 TH/MM3 Eosinophils # (Auto) 0.1 TH/MM3 Basophils # (Auto) 0.0 TH/MM3 CBC Comment DIFF FINAL Differential Comment Prothrombin Time 10.5 SEC Prothromb Time International Ratio 1.0 RATIO Activated Partial Thromboplast Time 24.9 SEC Blood Urea Nitrogen 13 MG/DL Creatinine 0.94 MG/DL Random Glucose 109 MG/DL Total Protein 7.4 GM/DL Albumin 2.9 GM/DL Calcium Level 9.1 MG/DL Alkaline Phosphatase 88 U/L Aspartate Amino Transf (AST/SGOT) 16 U/L Alanine Aminotransferase (ALT/SGPT) 16 U/L Total Bilirubin 0.3 MG/DL Sodium Level 134 MEQ/L Potassium Level 4.3 MEQ/L Chloride Level 101 MEQ/L Carbon Dioxide Level 25.8 MEQ/L Anion Gap 7 MEQ/L Estimat Glomerular Filtration Rate 80 ML/MIN Troponin I 0.08 NG/ML B-Type Natriuretic Peptide 24 PG/ML MDM Medical Decision Making Medical Screen Exam Complete: Yes Emergency Medical Condition: Yes Medical Record Reviewed: Yes Interpretation(s) EKG shows normal sinus rhythm at a rate of 80 bpm with no signs of acute ST-T elevations or depressions. Laboratory Tests Test 10/31/17 13:01 White Blood Count 14.6 TH/MM3 (4.0-11.0) Neutrophils (%) (Auto) 88.9 % (16.0-70.0) Lymphocytes (%) (Auto) 5.6 % (9.0-44.0) Neutrophils # (Auto) 13.0 TH/MM3 (1.8-7.7) Lymphocytes # (Auto) 0.8 TH/MM3 (1.0-4.8) Random Glucose 109 MG/DL (74-106) Albumin 2.9 GM/DL (3.4-5.0) Sodium Level 134 MEQ/L (136-145) Estimat Glomerular Filtration Rate 80 ML/MIN (>89) Troponin I 0.08 NG/ML (0.02-0.05) Last 24 hours Impressions Chest X-Ray 10/31/17 1253 Signed Impressions: Service Date/Time: Tuesday, October 31, 2017 13:26 - CONCLUSION: 1. Large right hilar mass with numerous metastatic lesions bilaterally. 2. Small right basilar effusion. 3. COPD changes. 4. Similar findings compared to previous. Benny Mandel MD CT Angiography 10/31/17 1253 Signed Impressions: Service Date/Time: Tuesday, October 31, 2017 13:51 - CONCLUSION: 1. No evidence of pulmonary embolism. 2. Diffuse bilateral lung metastatic disease with a large mass in the right hilar area. 3. Diffuse mediastinal and hilar adenopathy. 4. Small bilateral effusions. George Joseph MD Differential Diagnosis Shortness of breath, dyspnea on exertion: Worsening lung cancer versus COPD exacerbation versus pneumonia Narrative Course Patient was given Solu-Medrol and nebulizers. He did report feeling improved. However, he is quite tachypneic. Chest x-ray and CAT scan did not show any signs of acute processes. His troponins are mildly elevated. My plan would be to admit him for further evaluation. Case was discussed with Dr. Sarmiento for admission. Diagnosis Primary Impression: Dyspnea Additional Impressions: COPD exacerbation Elevated troponin Admitting Information Admitting Physician Requests: Admit Bakari Pascual MD Oct 31, 2017 12:57
[2017-10-31] MEDS ORDERED: SODIUM CHLORIDE 0.9% FLUSH 10 ML FLUSH IVF PRN (13:00)
[2017-10-31 13:27] LABS: BASOPHIL % 0.3 % (0.0-2.0); EOSINOPHIL # 0.1 TH/MM3 (0-0.4); EOSINOPHIL % 0.5 % (0.0-4.0); HEMATOCRIT 43.6 % (39.0-51.0); HEMO FLAGS DIFF FINAL; LYMPH % 5.6 % (9.0-44.0); LYMPHOCYTE # 0.8 TH/MM3 (1.0-4.8); MEAN CORPUSCULAR HEMOGLOBIN 28.6 PG (27.0-34.0); MEAN CORPUSCULAR HGB CONC 32.9 % (32.0-36.0); MONO % 4.7 % (0.0-8.0); NEUT % 88.9 % (16.0-70.0); PLATELET COUNT 415 TH/MM3 (150-450); RED BLOOD COUNT 5.01 MIL/MM3 (4.50-5.90); WHITE BLOOD COUNT 14.6 TH/MM3 (4.0-11.0)
[2017-10-31 13:30] LABS: APTT (PATIENT) 24.9 SEC (24.3-30.1); PROTHROMBIN TIME - PATIENT 10.5 SEC (9.8-11.6)
[2017-10-31 13:41] LABS: ALT (GPT) 16 U/L (12-78); ANION GAP 7 MEQ/L (5-15); AST (GOT) 16 U/L (15-37); BICARBONATE 25.8 MEQ/L (21.0-32.0); BLOOD UREA NITROGEN 13 MG/DL (7-18); CHLORIDE 101 MEQ/L (98-107); GLOMERULAR FILTRATION RATE 80 ML/MIN (>89); POTASSIUM 4.3 MEQ/L (3.5-5.1); SODIUM (NA) 134 MEQ/L (136-145)
[2017-10-31 13:44] LABS: ALKALINE PHOSPHATASE 88 U/L (45-117); TOTAL BILIRUBIN ADULT 0.3 MG/DL (0.2-1.0)
--- NOTE | 2017-10-31 13:45 | RADRPT ---
EXAM DATE/TIME: 10/31/2017 13:26 [facility] COMPARISON: CT THORAX W CONTRAST, September 15, 2017, 10:38. CT NEEDLE BIOPSY LUNG, RIGHT, September 16, 2017, 14:28 . CHEST SINGLE AP, October 08, 2017, 13:20. INDICATIONS : Short of breath MEDICAL HISTORY : Carcinoma, lung. Chronic obstructive pulmonary disease. SURGICAL HISTORY : Infusaport placement ENCOUNTER: Initial ACUITY: 1 day PAIN SCORE: 0/10 LOCATION: Bilateral chest FINDINGS: The heart is mildly enlarged. There is extensive bilateral infiltrate and a right hilar mass. There a re numerous other peripheral masses seen throughout the pulmonary parenchyma bilaterally. There is ad vanced COPD. These findings are similar to previous exam. The [id number] in excellent position The osseous structures are intact. CONCLUSION: 1. Large right hilar mass with numerous metastatic lesions bilaterally. 2. Small right basilar effusion. 3. COPD changes. 4. Similar findings compared to previous. Benny Mandel MD on October 31, 2017 at 13:38 Board Certified Radiologist. This report was verified electronically.
[2017-10-31] MEDS ORDERED: IOHEXOL 350 MG/ML 10 ML VIAL (for RAD DIAG) IVCONTRAST ONE (14:14)
--- NOTE | 2017-10-31 14:31 | RADRPT ---
EXAM DATE/TIME: 10/31/2017 13:51 [facility] COMPARISON: CHEST SINGLE AP, October 31, 2017, 13:26. INDICATIONS : Increasing shortness of breath for one week. IV CONTRAST: 75 cc Omnipaque 350 (iohexol) IV RADIATION DOSE: 7.58 CTDIvol (mGy) MEDICAL HISTORY : Chronic obstructive pulmonary disease. Hypertension. SURGICAL HISTORY : None. ENCOUNTER: Initial ACUITY: 1 day PAIN SCALE: 5/10 LOCATION: Bilateral chest TECHNIQUE: Volumetric scanning of the chest was performed using a pulmonary embolism protocol MIP images were re constructed. Using automated exposure control and adjustment of the mA and/or kV according to patien t size, radiation dose was kept as low as reasonably achievable to obtain optimal diagnostic quality images. DICOM format image data is available electronically for review and comparison. Follow-up recommendations for detected pulmonary nodules are based at a minimum on nodule size and pa tient risk factors according to Fleischner Society Guidelines. FINDINGS: PULMONARY ARTERIES: No filling defects are seen in the pulmonary arteries through the segmental level. LUNGS: There is severe bullous emphysema with a large mass in the right hilar region measuring nearly 7.2 x 5.4 cm. There are bilateral pulmonary nodules suspicious for bilateral lung metastatic disease. This is especially evident in both lung bases. PLEURAE: There are small bilateral pleural effusions. MEDIASTINUM: There is diffuse mediastinal and hilar adenopathy. MUSCULOSKELETAL: Within normal limits for patient age. MISCELLANEOUS: The visualized upper abdominal organs demonstrate no acute abnormality. CONCLUSION: 1. No evidence of pulmonary embolism. 2. Diffuse bilateral lung metastatic disease with a large mass in the right hilar area. 3. Diffuse mediastinal and hilar adenopathy. 4. Small bilateral effusions. George Joseph MD on October 31, 2017 at 14:25 Board Certified Radiologist. This report was verified electronically.
--- NOTE | 2017-10-31 15:03 | EKG ---
Date Performed: 10/31/2017 Time Performed: 12:57:31 PTAGE: 67 years EKG: Sinus rhythm LOW QRS VOLTAGE IN EXTREMITY LEADS BORDERLINE ECG PREVIOUS TRACING : 10/08/2017 13.27 No significant change from previous tracing noted. DOCTOR: Tigre Escobedo Interpretating Date/Time 10/31/2017 15:01:23
[2017-10-31] MEDS ORDERED: SODIUM CHLORIDE 0.9% FLUSH 10 ML FLUSH IV FLUSH PRN ×2 (15:30)
[2017-10-31] MEDS ORDERED: MORPHINE SULFATE 4 MG/ML INJ IV PUSH PRN ×3 (15:30)
[2017-10-31] MEDS ORDERED: LACTULOSE SYRUP 20 GM/30 ML CUP PO PRN (15:30)
[2017-10-31] MEDS ORDERED: oxyCODONE/ACETAMINOPHEN 5 MG/325 MG TAB PO PRN (15:30)
[2017-10-31] MEDS ORDERED: BISACODYL 10 MG SUPP RECTAL PRN (15:30)
[2017-10-31] MEDS ORDERED: ACETAMINOPHEN 325 MG TAB PO PRN ×2 (15:30)
[2017-10-31] MEDS ORDERED: oxyCODONE/ACETAMINOPHEN 10 MG/325 MG TAB PO PRN (15:30)
[2017-10-31] MEDS ORDERED: cloNIDine HCL 0.1 MG TAB PO PRN (15:30)
[2017-10-31] MEDS ORDERED: GLUCAGON 1 MG/ML VIAL OTHER PRN (15:30)
[2017-10-31] MEDS ORDERED: SENNOSIDES 8.6 MG TAB PO PRN (15:30)
[2017-10-31] MEDS ORDERED: DEXTROSE 50% IN WATER 50 ML VIAL(D50) IV PUSH PRN (15:30)
[2017-10-31] MEDS ORDERED: MAGNESIUM HYDROXIDE SUSP 30 ML CUP PO PRN (15:30)
[2017-10-31] MEDS ORDERED: RESP: ALBUTEROL 2.5 MG/3 ML NEB (PRN) INH (15:30)
[2017-10-31] MEDS ORDERED: ONDANSETRON HCL 4 MG/2 ML VIAL IVP PRN (15:30)
[2017-10-31] MEDS ORDERED: NALOXONE HCL 0.4 MG/ML AMP IV PUSH PRN (15:30)
[2017-10-31] MEDS ORDERED: PROCHLORPERAZINE 25 MG SUPP RECTAL PRN (15:30)
--- NOTE | 2017-10-31 15:46 | HHI.HP ---
HPI Service [facility] Hospitalists Primary Care Physician No Primary Care Physician Admission Diagnosis lung cancer/COPD exacerbation/elevated troponin Diagnoses: Chief Complaint: Shortness of breath Travel History International Travel<30 Days: No Contact w/Intl Traveler <30 Da: No Traveled to Known Affected Are: No History of Present Illness This is a 67-year-old male with a past medical history significant for COPD and lung cancer newly diagnosed who just completed his first round of immunotherapy 10/13/17 who presents to [facility] ED with complaints of worsening shortness of breath past few days with minimal exertion. Patient has been using his home bronchodilators without any relief. He reports tight nonproductive cough and a feeling of a lump in his chest. He denies any associated fever or chills. He denies any chest pain. He states he quit smoking in July. He does not use oxygen at home. He reports weight loss and decreased oral intake. He states he was given the name of a medication to help with his appetite but is not taking it. He cannot recall the name of medication. Patient was seen by his oncologist today and was sent in for a PE study. Review of Systems Constitutional: COMPLAINS OF: Fatigue, Weight loss, Change in appetite, DENIES : Diaphoretic episodes, Fever, Weight gain, Chills, Dizziness, Night Sweats Endocrine: DENIES: Heat/cold intolerance, Polydipsia, Polyuria, Polyphagia Eyes: DENIES: Blurred vision, Diplopia, Eye inflammation, Eye pain, Vision loss , Photosensitivity Ears, nose, mouth, throat: DENIES: Tinnitus, Hearing loss, Vertigo, Nasal discharge Respiratory: COMPLAINS OF: Cough, Wheezing, Sputum production, DENIES: Snoring , Hemoptysis Cardiovascular: DENIES: Chest pain, Palpitations, Syncope, Dyspnea on Exertion , PND Gastrointestinal: DENIES: Abdominal pain, Black stools, Bloody stools, Constipation Musculoskeletal: DENIES: Joint pain, Muscle aches, Stiffness, Joint Swelling, Back pain Integumentary: DENIES: Abnormal pigmentation, Nail changes, Pruritus, Rash Hematologic/lymphatic: DENIES: Bruising, Lymphadenopathy Immunologic/allergic: DENIES: Eczema, Urticaria Neurologic: DENIES: Abnormal gait, Headache, Localized weakness, Paresthesias, Seizures, Speech Problems, Tremor, Poor Balance Psychiatric: DENIES: Anxiety, Confusion, Mood changes, Depression, Hallucinations, Agitation, Suicidal Ideation, Homicidal Ideation Except as stated in HPI: all other systems reviewed are Neg Past Family Social History Past Medical History COPD Non-small cell lung cancer stage IV, newly diagnosed Past Surgical History Right port placement Tonsillectomy Lung biopsy Reported Medications Proventil Hfa 6.7 GM Inh (Albuterol Sulfate) 90 Mcg/Act Aer 2 Puff INH Q4-6H PRN Medrol Dosepak (Methylprednisolone) 4 Mg Dspk 4 Mg PO DIRECTED Per Pharmacist direction Albuterol Neb (Albuterol Sulfate) 2.5 Mg/3 Ml Neb 2.5 Mg NEB Q6HR PRN Compressor Nebulizer 1 Mis Mis Ea .ROUTE DIRECTED PRN every 6 hours as needed Nebulizer Kit/Tubing/Mout (N/A) 1 Kit Kit Kit .ROUTE DIRECTED PRN every 6 hours as needed for shortness of breath Symbicort Inh (Budesonide/Formoterol Fumarate) 160-4.5 Mcg/Act Aero 1 Puff INH Q12HR Allergies: Coded Allergies: No Known Allergies (Verified Allergy, Unknown, 10/08/17) Active Ordered Medications Current Medications Medications (Trade) Dose Ordered Sig/Gabriele Route Start Time Stop Time Status Last Admin (NS Flush) 2 ml UNSCH PRN IVF 10/31/17 13:00 Family History Father, age 55, polio Mother, fairly healthy, age 92 Social History History of tobacco use 1.5 PPD since the age of 15 recently quit in July. Denies any alcohol use or illicit drug use. Physical Exam Vital Signs Vital Signs Date Time Temp Pulse Resp B/P (MAP) Pulse Ox O2 Delivery O2 Flow Rate FiO2 10/31/17 12:56 89 24 97 Nasal Cannula 3.50 10/31/17 12:56 89 24 125/74 (91) 97 Nasal Cannula 3.50 10/31/17 12:54 97 Nasal Cannula 3.50 10/31/17 12:54 96 24 97 Nasal Cannula 3.50 10/31/17 12:49 96 24 125/75 (92) 10/31/17 12:36 97.9 107 18 107/67 (80) 93 Physical Exam GENERAL: This is a thin, cachectic male patient, in no apparent distress. Awake and alert. SKIN: No rashes, ecchymoses or lesions. Cool and dry. HEAD: Atraumatic. Normocephalic. No temporal or scalp tenderness. EYES: Pupils equal round and reactive. Extraocular motions intact. No scleral icterus. No injection or drainage. ENT: Nose without bleeding, purulent drainage or septal hematoma. Throat without erythema, tonsillar hypertrophy or exudate. Uvula midline. Airway patent. NECK: Trachea midline. No JVD or lymphadenopathy. Supple, nontender, no meningeal signs. CARDIOVASCULAR: Regular rate and rhythm without murmurs, gallops, or rubs. S1 and S2 no S3 or S4 no heave or thrill RESPIRATORY: Decreased air entry with diffuse rhonchi and wheezing. GASTROINTESTINAL: Abdomen soft, non-tender, nondistended. No hepato-splenomegaly , or palpable masses. No guarding. MUSCULOSKELETAL: Extremities without clubbing, cyanosis, or edema. No joint tenderness, effusion, or edema noted. No calf tenderness. NEUROLOGICAL: Awake and alert. Able to move all extremities. No focal neurologic findings appreciated. Normal speech. PSYCHIATRIC: Appropriate mood and affect. Appropriate insight and judgement. Laboratory Laboratory Tests Test 10/31/17 13:01 White Blood Count 14.6 Red Blood Count 5.01 Hemoglobin 14.3 Hematocrit 43.6 Mean Corpuscular Volume 87.0 Mean Corpuscular Hemoglobin 28.6 Mean Corpuscular Hemoglobin Concent 32.9 Red Cell Distribution Width 15.0 Platelet Count 415 Mean Platelet Volume 7.1 Neutrophils (%) (Auto) 88.9 Lymphocytes (%) (Auto) 5.6 Monocytes (%) (Auto) 4.7 Eosinophils (%) (Auto) 0.5 Basophils (%) (Auto) 0.3 Neutrophils # (Auto) 13.0 Lymphocytes # (Auto) 0.8 Monocytes # (Auto) 0.7 Eosinophils # (Auto) 0.1 Basophils # (Auto) 0.0 CBC Comment DIFF FINAL Differential Comment Prothrombin Time 10.5 Prothromb Time International Ratio 1.0 Activated Partial Thromboplast Time 24.9 Blood Urea Nitrogen 13 Creatinine 0.94 Random Glucose 109 Total Protein 7.4 Albumin 2.9 Calcium Level 9.1 Alkaline Phosphatase 88 Aspartate Amino Transf (AST/SGOT) 16 Alanine Aminotransferase (ALT/SGPT) 16 Total Bilirubin 0.3 Sodium Level 134 Potassium Level 4.3 Chloride Level 101 Carbon Dioxide Level 25.8 Anion Gap 7 Estimat Glomerular Filtration Rate 80 Troponin I 0.08 B-Type Natriuretic Peptide 24 Result Diagram: 10/31/17 1301 10/31/17 1301 Imaging Last Impressions Chest X-Ray 10/31/17 1253 Signed Impressions: Service Date/Time: Tuesday, October 31, 2017 13:26 - CONCLUSION: 1. Large right hilar mass with numerous metastatic lesions bilaterally. 2. Small right basilar effusion. 3. COPD changes. 4. Similar findings compared to previous. Benny Mandel MD CT Angiography 10/31/17 1253 Signed Impressions: Service Date/Time: Tuesday, October 31, 2017 13:51 - CONCLUSION: 1. No evidence of pulmonary embolism. 2. Diffuse bilateral lung metastatic disease with a large mass in the right hilar area. 3. Diffuse mediastinal and hilar adenopathy. 4. Small bilateral effusions. George Joseph MD Capdiannei VTE Risk Assessment Caprini VTE Risk Assessment: Mod/High Risk (score >= 2) Caprini Risk Assessment Model Point Value = 1 Point Value = 2 Point Value = 3 Point Value = 5 Age 41-60 Minor surgery BMI > 25 kg/m2 Swollen legs Varicose veins or History of unexplained or recurrent spontaneous Oral contraceptives or hormone replacement Sepsis (< 1 month) Serious lung disease, including pneumonia (< 1 month) Abnormal pulmonary function Acute myocardial infarction Congestive heart failure (< 1 month) History of inflammatory bowel disease Medical patient at bed rest Age 61-74 Arthroscopic surgery Major open surgery (> 45 min) Laparoscopic surgery (> 45 min) Malignancy Confined to bed (> 72 hours) Immobilizing plaster cast Central venous access Age >= 75 History of VTE Family history of VTE Factor V Leiden Prothrombin [id number] Lupus anticoagulant Anticardiolipin antibodies Elevated serum homocysteine Heparin-induced thrombocytopenia Other congenital or acquired thrombophilia Stroke (< 1 month) Elective arthroplasty Hip, pelvis, or leg fracture Acute spinal cord injury (< 1 month) Prophylaxis Regimen Total Risk Factor Score Risk Level Prophylaxis Regimen 0-1 Low Early ambulation 2 Moderate Order ONE of the following: *Sequential Compression Device (SCD) *Heparin 5000 units SQ BID 3-4 Higher Order ONE of the following medications: *Heparin 5000 units SQ TID *Enoxaparin/Lovenox 40 mg SQ daily (WT < 150 kg, CrCl > 30 mL/min) *Enoxaparin/Lovenox 30 mg SQ daily (WT < 150 kg, CrCl > 10-29 mL/min) *Enoxaparin/Lovenox 30 mg SQ BID (WT < 150 kg, CrCl > 30 mL/min) AND/OR *Sequential Compression Device (SCD) 5 or more Highest Order ONE of the following medications: *Heparin 5000 units SQ TID (Preferred with Epidurals) *Enoxaparin/Lovenox 40 mg SQ daily (WT < 150 kg, CrCl > 30 mL/min) *Enoxaparin/Lovenox 30 mg SQ daily (WT < 150 kg, CrCl > 10-29 mL/min) *Enoxaparin/Lovenox 30 mg SQ BID (WT < 150 kg, CrCl > 30 mL/min) AND *Sequential Compression Device (SCD) Assessment and Plan Assessment and Plan 67-year-old male with a past medical history significant for COPD and lung cancer newly diagnosed who just completed his first round of chemotherapy who presents to [facility] ED with complaints of worsening shortness of breath. Respiratory failure with hypoxia COPD exacerbation - CXR, images personally reviewed, large right hilar mass with numerous metastatic lesions bilaterally. Small right basilar effusion. COPD changes. - CTA negative for PE - BNP 24 - supplemental oxygen to maintain O2 sats >92% - IV Levaquin 750mg daily - IV methylprednisolone 60 mg every 6h - Duonebs scheduled - Guaifenesin ER 600mg BID - resume patients home dose of Symbicort - Consult patients health and safety instructor Dr. Bettencourt, appreciate assistance - PT/OT eval/tx - patient may need home oxygen walk test prior to discharge Elevated troponin - possibly due to demand ischemia - Troponin elevated at 0.08. Continue to trend cardiac enzymes. - continuous cardiac monitoring - IV Morphine prn chest pain - Consult cardiology, appreciate assistance - obtain echocardiogram Leukocytosis - Possible steroid reaction - afebrile - IV Levaquin - monitor CBC Non small cell lung cancer stage IV, recently diagnosed - MRI brain 09/16/17, no evidence of metastatic disease - pathology s/p lung bx 09/16/17 invasive poorly differentiated adenocarcinoma - s/p immunotherapy 10/13/17 - Consult patients oncologist Dr. Willams, appreciate assistance Hyperglycemia - No reported history of diabetes - accucheck and ISS while on IV steroids Decreased po intake Poor appetite - consult splicing machine operator automatic - Ensure TID DVT prophylaxis - Lovenox 40 mg subcutaneous The exam, history, and the medical decision-making described in the above note were completed with the assistance of the mid-level provider. I reviewed and agree with the findings presented. I attest that I had a [id number] encounter with the patient on the same day, and personally performed and documented my assessment and findings in the medical record. Patient seen and examined with physician assistant toddler teacher Code Status Full code Discussed Condition With Discussed with ED physician, patient, nursing staff Physician Certification 2 Midnight Certification Type: Admission for Inpatient Services Order for Inpatient Services The services are ordered in accordance with Medicare regulations or non- Medicare payer requirements, as applicable. In the case of services not specified as inpatient-only, they are appropriately provided as inpatient services in accordance with the 2-midnight benchmark. Estimated LOS (days): 3 3 days is the estimated time the patient will need to remain in the hospital, assuming treatment plan goals are met and no additional complications. Post-Hospital Plan: Not yet determined Neeta Hodges Oct 31, 2017 15:46 Leland Sarmiento DO Oct 31, 2017 18:08
[2017-10-31] MEDS: RESP: ALBUTEROL 2.5 MG/IPRATROPIUM 0.5 MG NEB (SCH) INH ×2 (15:47→22:15)
[2017-10-31] MEDS: INSULIN ASPART SUPPLEMENTAL SCALE SQ SCH ×2 (17:00→21:00)
[2017-10-31] MEDS ORDERED: ENOXAPARIN SODIUM 40 MG/0.4 ML SYRINGE SQ SCH (17:00)
--- NOTE | 2017-10-31 17:48 | MB ---
cc: WILMAN VERDE M.D. DATE OF CONSULTATION: 10/31/2017 REASON FOR CONSULTATION: Abnormal troponin level HISTORY OF PRESENT ILLNESS The patient is 67-year-old white male with a history of COPD, metastatic colon cancer who presented to the hospital with increasing shortness of breath. For the past 3 days his dyspnea has become especially severe. He is barely able to walk across the room without severe shortness of breath. He also notes wheezing and a nonproductive cough. The patient denies chest pain, dizziness, syncope, near-syncope, palpitations, pedal edema, paroxysmal nocturnal dyspnea, fevers. PAST MEDICAL HISTORY 1. COPD. 2. Lung cancer with extensive mediastinal lymphadenopathy. He is currently undergoing immunotherapy CARDIAC MEDICATIONS: His current cardiac medications. Lovenox 40 mg subcutaneously q.24 h ALLERGIES NO KNOWN DRUG ALLERGIES. FAMILY HISTORY There is no significant family history of early myocardial infarction. SOCIAL HISTORY The patient quit smoking about 3 months ago he denies alcohol abuse. REVIEW OF SYSTEMS Review of systems as in the history of present illness otherwise negative or noncontributory. He also denies headache, abdominal pain, melena, dyspepsia, bright red blood per rectum. PHYSICAL EXAMINATION: VITAL SIGNS: On physical examination his blood pressure 154/81 with a pulse of 66, respirations 18. IN GENERAL: He is a well-developed, thin white male in no acute distress. HEAD, EYES, EARS, NOSE, AND THROAT: Jugular venous pressure is normal. Carotid pulses are 2+ bilaterally and without bruits. CHEST: Examination of the chest reveals diminished breath sounds diffusely. There are also scattered expiratory wheezes CARDIAC: On cardiac examination he has a regular rhythm and rate without S3-S4 or murmur. ABDOMEN: On abdominal examination he has a soft, nontender abdomen. Bowel sounds are present. There is no definite hepatosplenomegaly. EXTREMITIES: Examination of extremities reveals no clubbing, cyanosis or edema. LABORATORY DATA: Laboratory data includes WBC 14.6, hemoglobin 14.3, platelets 415, potassium 4.3, BUN 13, creatinine 0.94, troponin 0.08, INR 1.0. RADIOLOGIC: Chest x-ray Shows large right hilar mass with numerous metastatic lesions bilaterally, small right basilar effusion. EKG shows sinus rhythm, low QRS voltage IMPRESSION Slightly abnormal troponin levels in this 67-year-old white male with a history of COPD, metastatic lung cancer. Overall I doubt the slight elevation in troponin is due to acute coronary syndrome. EKG shows no ST-segment or T-wave changes. He has had no chest pain symptoms. His only risk factor for coronary disease in his tobacco abuse. Overall he is also a poor candidate for aggressive invasive cardiac evaluation. Echocardiogram about 6 weeks ago was unremarkable. RECOMMENDATIONS 1. Conservative cardiac evaluation and management. 2. We will repeat his CK level in the morning. 3. Consider daily baby aspirin. MD LALA Mills/lakeshia /5:11 PM /5:41 PM MTDKali
[2017-10-31] MEDS: methylPREDNISolone SOD SUCC 125 MG/2 ML VIAL IV PUSH SCH ×2 (18:24→22:10)
[2017-10-31] MEDS: LEVOFLOXACIN 750 MG PREMIX INJ 150 ML IV SCH (18:25)
[2017-10-31] MEDS: SODIUM CHLOR 0.9% 1000 ML INJ 1,000 ML IV SCH (18:25)
[2017-10-31] MEDS ORDERED: ASPIRIN EC 81 MG TABEC PO SCH (18:30)
[2017-10-31] MEDS: DOCUSATE SODIUM 50 MG/SENNA 8.6 MG TAB PO SCH (21:00)
[2017-10-31] MEDS ORDERED: SODIUM CHLORIDE 0.9% FLUSH 10 ML FLUSH IV FLUSH SCH (21:00)
--- NOTE | 2017-10-31 21:33 | EKG ---
Date Performed: 10/31/2017 Time Performed: 16:13:37 PTAGE: 67 years EKG: SINUS TACHYCARDIA LOW QRS VOLTAGE IN EXTREMITY LEADS ABNORMAL RHYTHM ECG PREVIOUS TRACING : 10/31/2017 12.57 No significant change from previous tracing noted. DOCTOR: Tigre Escobedo Interpretating Date/Time 10/31/2017 21:31:08
--- NOTE | 2017-10-31 21:50 | MB ---
cc: LELAND GILL,SCOTTIE DESOUZA,AMANDA KIM M.D., M.D. DATE OF CONSULTATION: 10/31/17 DATE OF [address] Gill[address] REASON FOR CONS[address]. Gill requested a consultation regarding metastatic non-small cell lung cancer admitted for increasing shortness of breath. HISTORY OF PRESENT ILLNESS Mr. Silva is a 67-year-old man with a long history of COPD, severe emphysema, smoking [id number]-half pack a day since his teens. He is under the care of Dr. Leland Desouza. He presented with cough and hemoptysis. CT scan of the chest shows a 6.6 x 5.8 cm right hilar mass associated with mass effect of the right middle bronchus. He has evidence metastatic disease to the contralateral lung. He has bilateral lung nodules. Staging evaluation including a CT-PET shows evidence of metastatic disease to the liver. Lung biopsy on 09/16/2017 showed an invasive poorly-differentiated adenocarcinoma. Additional testing proved the lung cancer to be PD-L1 positive, ALK and EGFR were negative. The tumor cells were 90% PD-L1 positive which portends excellent response to the checkpoint inhibitor. Mr. Silva received one dose of his checkpoint inhibitor Keytruda. He tolerated treatment well. Staging evaluation showed negative metastatic disease of the brain. He had a PET scan that suggested liver metastatic disease. He was doing well until about three days ago when he developed progressive symptoms with shortness of breath. His coughing is no longer productive. He had difficulty even walking several feet. He was using inhalers without significant relief. He was seen by Dr. Leland Desouza earlier on in the week. He was given new inhalers and oral steroids. He was seen by Dr. Willams on the day of the admission. In light of his shortness of breath and the risk of pneumonitis from the checkpoint inhibitor, he was sent to the emergency room where he was subsequently admitted. CT angiogram in the emergency room showed no evidence of pulmonary embolism. He has diffuse bilateral metastatic disease with a large mass in his right hilar area. There is diffuse mediastinal hilar adenopathy. He has small bilateral effusions which on review of the previous CT scan in August appeared to be worse. He denies any fevers, chills or night sweats. He denies any chest pain. He was seen by Cardiology whose impression was that the slight increase in troponin I noted with no EKG changes. He recommended conservative management. Mr. Silva denies any sick contact. Denies any nausea or vomiting. He has had no changes in bowel habits, no urinary complaints. The rest of his review of systems is negative. PAST MEDICAL HISTORY 1. COPD. 2. Emphysema. 3. Metastatic non-small cell lung cancer PD-L1 positive tumor. PAST SURGICAL HISTORY 1. Tonsillectomy. 2. Port placement. 3. Lung biopsy. FAMILY HISTORY Father at age 55 from polio, mother is of old age at 92. SOCIAL HISTORY He is and lives with his . He smoked dsd-ate-[id number]-half pack a day since . He quit in October. Denies any alcohol or illicit drug use. ALLERGIES NO KNOWN DRUG ALLERGIES. CURRENT MEDICATIONS 1. Nicotine patch. 2. Abigail-Colace. 3. Symbicort. 4. Levofloxacin. 5. Lovenox. 6. Medrol. 7. Duo-Neb. PHYSICAL EXAMINATION VITAL SIGNS: Temperature 98.1, heart rate 95, respiratory rate 20, blood pressure 103/65, saturation 93%. GENERAL: Mr. Silva is a well-developed, cachectic appearing man. He is slender in build. HEAD, EYES, EARS, NOSE AND THROAT: His pupils are round and reactive to light and accommodation. Oropharynx is clear. NECK: Supple. LUNGS: With diminished breath sounds throughout. CARDIOVASCULAR: Reveals tachycardia. ABDOMEN: Benign. LOWER EXTREMITIES: With no edema. LABORATORY DATA Labs show mild leukocytosis, hemoglobin of 14.3, platelet count is normal, BUN of 13, creatinine 0.94, troponin-I 0.08, albumin is 2.9. ASSESSMENT AND PLAN Mr. Silva is a [id number]-man with severe COPD diagnosed with metastatic non-small cell lung cancer with a large right hilar mass. He has had progressive shortness of breath. He has developed now worsening pleural effusion bilaterally. Discussed with Mr. Silva our evaluation so far. He has a very good likelihood of response to the immunotherapy. Our goal is to treat reversible factors contributing to his exacerbation and worsening shortness of breath. Antibiotic therapy is initiated. He is on steroids and respiratory treatment to optimize treatment for his COPD. His rn float, Dr. Desouza, is consulted. We will consult as to the benefits of thoracentesis. He has developed fluid. Cultures could be obtained. I suspect this fluid is reactive effusion. It is difficult to asses if there is enough fluid that would improve his symptoms, his lung functions are marginal at baseline. Aspirin therapy is on hold until after possible thoracentesis. He has been given his low-molecular weight heparin. Additional doses will be placed on hold until after rule out procedure. We will defer to Dr. Desouza ultimately if this could be deferred for other maneuvers. Steroids in general abrogate the effect of the checkpoint inhibitor. Other laboratory evaluation including TSH, cortisol level will be checked. Other immune reactions are possible with checkpoint inhibitor. Amanda Wolf MD RAD/BJF /7:58 PM /8:12 PM
[2017-10-31] MEDS: guaiFENesin E.R. 600 MG TAB PO SCH (22:10)
[2017-10-31] MEDS: SODIUM CHLORIDE 0.9% FLUSH 10 ML FLUSH IV FLUSH SCH (22:11)
[2017-10-31] MEDS: BUDESONIDE-FORMOTEROL 160/4.5 MCG INHALER INH SCH (22:11)
[2017-11-01] VITALS (9 sets, daily range): BP systolic 91–109; BP diastolic 56–69; PULSE 81–108; RESP 16–20; TEMP 97.3–98.3; O2SAT 93–96
[2017-11-01] MEDS: SODIUM CHLOR 0.9% 1000 ML INJ 1,000 ML IV SCH ×2 (01:23→13:53)
[2017-11-01] MEDS: RESP: ALBUTEROL 2.5 MG/IPRATROPIUM 0.5 MG NEB (SCH) INH ×4 (01:25→12:10)
[2017-11-01] MEDS: methylPREDNISolone SOD SUCC 125 MG/2 ML VIAL IV PUSH SCH ×3 (06:24→20:00)
--- NOTE | 2017-11-01 06:45 | EKG ---
Date Performed: 10/31/2017 Time Performed: 23:01:34 PTAGE: 67 years EKG: Sinus rhythm LOW QRS VOLTAGE IN EXTREMITY LEADS BORDERLINE ECG PREVIOUS TRACING : 10/31/2017 16.13 No change from previous tracing noted. DOCTOR: Tigre Escobedo Interpretating Date/Time 11/01/2017 06:43:47
[2017-11-01] MEDS: INSULIN ASPART SUPPLEMENTAL SCALE SQ SCH ×4 (08:00→20:05)
[2017-11-01] MEDS: NICOTINE 21 MG/24 HR PATCH TD SCH (09:00)
[2017-11-01] MEDS: DOCUSATE SODIUM 50 MG/SENNA 8.6 MG TAB PO SCH ×2 (09:00→20:00)
[2017-11-01] MEDS: SODIUM CHLORIDE 0.9% FLUSH 10 ML FLUSH IV FLUSH SCH ×2 (09:00→20:02)
[2017-11-01] MEDS: BUDESONIDE-FORMOTEROL 160/4.5 MCG INHALER INH SCH ×2 (09:04→20:04)
[2017-11-01] MEDS: guaiFENesin E.R. 600 MG TAB PO SCH ×2 (09:04→19:59)
[2017-11-01] MEDS ORDERED: VENTAER INH (09:30)
[2017-11-01] MEDS ORDERED: PRED5TAB PO (09:30)
[2017-11-01] MEDS ORDERED: IPRASOL INH (09:30)
[2017-11-01 11:07] LABS: AUTOMATED NEUTROPHIL # 8.9 TH/MM3 (1.8-7.7); BASOPHIL % 0.1 % (0.0-2.0); HEMATOCRIT 40.8 % (39.0-51.0); HEMO FLAGS DIFF FINAL; LYMPH % 5.3 % (9.0-44.0); LYMPHOCYTE # 0.5 TH/MM3 (1.0-4.8); MEAN CELL VOLUME 87.7 FL (80.0-100.0); MEAN CORPUSCULAR HEMOGLOBIN 28.2 PG (27.0-34.0); MEAN CORPUSCULAR HGB CONC 32.1 % (32.0-36.0); MONO % 0.7 % (0.0-8.0); NEUT % 93.9 % (16.0-70.0); PLATELET COUNT 389 TH/MM3 (150-450); RED BLOOD COUNT 4.65 MIL/MM3 (4.50-5.90); RED CELL DISTRIBUTION WIDTH 15.7 % (11.6-17.2); WHITE BLOOD COUNT 9.5 TH/MM3 (4.0-11.0)
--- NOTE | 2017-11-01 11:13 | PD.CARD.PN ---
Subjective Subjective Remarks Dyspnea improving. No CP, dizziness, palpitations. Objective Medications No cardiac medications Current Medications Medications (Trade) Dose Ordered Sig/Gabriele Route Start Time Stop Time Status Last Admin (Catapres) 0.1 mg Q4H PRN PO 10/31/17 15:30 (NovoLOG SUPPLEMENTAL SCALE) 1 ACHS SLIDING SCALE SQ 10/31/17 17:00 (D50w (Vial) Inj) 50 ml UNSCH PRN IV PUSH 10/31/17 15:30 (Glucagon Inj) 1 mg UNSCH PRN OTHER 10/31/17 15:30 Sodium Chloride 1,000 ml @ 100 mls/hr Q10H IV 10/31/17 15:23 11/01/17 01:23 (Tylenol) 650 mg Q4H PRN PO 10/31/17 15:30 (Zofran Inj) 4 mg Q6H PRN IVP 10/31/17 15:30 (Compazine Supp) 25 mg Q12H PRN RECTAL 10/31/17 15:30 (Lovenox Inj) 40 mg Q24H SQ 10/31/17 17:00 Future hold 10/31/17 18:24 (Tylenol) 650 mg Q6H PRN PO 10/31/17 15:30 (Percocet 5-325 Mg) 1 tab Q6H PRN PO 10/31/17 15:30 (Percocet 10-325 Mg) 1 tab Q6H PRN PO 10/31/17 15:30 (Morphine Inj) 2 mg Q3H PRN IV PUSH 10/31/17 15:30 (Morphine Inj) 4 mg Q3H PRN IV PUSH 10/31/17 15:30 (Morphine Inj) 4 mg Q3H PRN IV PUSH 10/31/17 15:30 (Narcan Inj) 0.4 mg UNSCH PRN IV PUSH 10/31/17 15:30 (Abigail-Colace) 1 tab BID PO 10/31/17 21:00 (Milk Of Magnesia Liq) 30 ml Q12H PRN PO 10/31/17 15:30 (Senokot) 17.2 mg Q12H PRN PO 10/31/17 15:30 (Dulcolax Supp) 10 mg DAILY PRN RECTAL 10/31/17 15:30 (Lactulose Liq) 30 ml DAILY PRN PO 10/31/17 15:30 (NS Flush) 2 ml BID IV FLUSH 10/31/17 21:00 10/31/17 22:11 (NS Flush) 2 ml UNSCH PRN IV FLUSH 10/31/17 15:30 (Albuterol Neb) 2.5 mg Q2HR NEB PRN INH 10/31/17 15:30 (Symbicort 160-4.5 Mcg Inh) 2 puff Q12HR INH 10/31/17 21:00 11/01/17 09:04 (SoluMEDROL INJ) 60 mg Q6H IV PUSH 10/31/17 17:00 11/01/17 06:24 (Habitrol 21 Mg Patch.24 Hr) 1 patch DAILY TD 11/01/17 09:00 Levofloxacin/ Dextrose 150 ml @ 100 mls/hr Q24H IV 10/31/17 18:00 10/31/17 18:25 (Mucinex Er) 600 mg BID PO 10/31/17 21:00 11/01/17 09:04 (Ecotrin Ec) 81 mg DAILY PO 10/31/17 18:30 Future hold (Duoneb Neb) 1 ampule Q4HR WHILE AWAKE NEB INH 11/01/17 08:00 11/01/17 08:00 Vital Signs / I&O Vital Signs Date Time Temp Pulse Resp B/P (MAP) Pulse Ox O2 Delivery O2 Flow Rate FiO2 11/01/17 09:26 93 Nasal Cannula 2.00 11/01/17 08:30 Nasal Cannula 2.00 11/01/17 08:03 97.3 95 20 109/69 (82) 96 11/01/17 08:00 81 11/01/17 04:00 86 11/01/17 04:00 97.9 92 18 94/61 (72) 93 11/01/17 00:00 97.7 88 19 95/61 (72) 96 11/01/17 00:00 93 10/31/17 22:16 94 Nasal Cannula 2.00 10/31/17 20:00 107 10/31/17 20:00 97.6 105 20 120/70 (87) 93 10/31/17 17:30 98.1 95 20 103/65 (78) 93 10/31/17 15:53 66 18 154/81 (105) 98 Nasal Cannula 3.50 10/31/17 15:47 96 Nasal Cannula 3.00 10/31/17 12:56 89 24 97 Nasal Cannula 3.50 10/31/17 12:56 89 24 125/74 (91) 97 Nasal Cannula 3.50 10/31/17 12:54 97 Nasal Cannula 3.50 10/31/17 12:54 96 24 97 Nasal Cannula 3.50 10/31/17 12:49 96 24 125/75 (92) 10/31/17 12:36 97.9 107 18 107/67 (80) 93 I/O 10/31/17 10/31/17 10/31/17 11/01/17 11/01/17 11/01/17 07:00 15:00 23:00 07:00 15:00 23:00 Intake Total 150 ml 1240 ml Output Total 500 ml Balance 150 ml 740 ml Intake Oral 240 ml IV Total 150 ml 1000 ml Output Urine Total 500 ml # Bowel Movements 0 Physical Exam GENERAL: Well developed, thin. No acute distress. HEENT: Jugular venous pressure is normal. CHEST: Scattered expiratory wheezes. Diminished breath sounds diffusely. CARDIAC: Regular rate and rhythm without S3, S4, or murmur. ABDOMEN: Soft, nontender, no hepatosplenomegaly. Bowel sounds present. EXTREMITIES: No clubbing, cyanosis, or edema. Laboratory Laboratory Tests Test 10/31/17 13:01 10/31/17 15:48 11/01/17 09:34 White Blood Count 14.6 TH/MM3 9.5 TH/MM3 Red Blood Count 5.01 MIL/MM3 4.65 MIL/MM3 Hemoglobin 14.3 GM/DL 13.1 GM/DL Hematocrit 43.6 % 40.8 % Mean Corpuscular Volume 87.0 FL 87.7 FL Mean Corpuscular Hemoglobin 28.6 PG 28.2 PG Mean Corpuscular Hemoglobin Concent 32.9 % 32.1 % Red Cell Distribution Width 15.0 % 15.7 % Platelet Count 415 TH/MM3 389 TH/MM3 Mean Platelet Volume 7.1 FL 7.3 FL Neutrophils (%) (Auto) 88.9 % 93.9 % Lymphocytes (%) (Auto) 5.6 % 5.3 % Monocytes (%) (Auto) 4.7 % 0.7 % Eosinophils (%) (Auto) 0.5 % 0.0 % Basophils (%) (Auto) 0.3 % 0.1 % Neutrophils # (Auto) 13.0 TH/MM3 8.9 TH/MM3 Lymphocytes # (Auto) 0.8 TH/MM3 0.5 TH/MM3 Monocytes # (Auto) 0.7 TH/MM3 0.1 TH/MM3 Eosinophils # (Auto) 0.1 TH/MM3 0.0 TH/MM3 Basophils # (Auto) 0.0 TH/MM3 0.0 TH/MM3 CBC Comment DIFF FINAL DIFF FINAL Differential Comment Prothrombin Time 10.5 SEC Prothromb Time International Ratio 1.0 RATIO Activated Partial Thromboplast Time 24.9 SEC Blood Urea Nitrogen 13 MG/DL Creatinine 0.94 MG/DL Random Glucose 109 MG/DL Total Protein 7.4 GM/DL Albumin 2.9 GM/DL Calcium Level 9.1 MG/DL Alkaline Phosphatase 88 U/L Aspartate Amino Transf (AST/SGOT) 16 U/L Alanine Aminotransferase (ALT/SGPT) 16 U/L Total Bilirubin 0.3 MG/DL Sodium Level 134 MEQ/L Potassium Level 4.3 MEQ/L Chloride Level 101 MEQ/L Carbon Dioxide Level 25.8 MEQ/L Anion Gap 7 MEQ/L Estimat Glomerular Filtration Rate 80 ML/MIN Troponin I 0.08 NG/ML 0.08 NG/ML B-Type Natriuretic Peptide 24 PG/ML 28 PG/ML Total Creatine Kinase 39 U/L Imaging Last 24 hours Impressions Chest X-Ray 10/31/17 1253 Signed Impressions: Service Date/Time: Tuesday, October 31, 2017 13:26 - CONCLUSION: 1. Large right hilar mass with numerous metastatic lesions bilaterally. 2. Small right basilar effusion. 3. COPD changes. 4. Similar findings compared to previous. Benny Mandel MD CT Angiography 10/31/17 1253 Signed Impressions: Service Date/Time: Tuesday, October 31, 2017 13:51 - CONCLUSION: 1. No evidence of pulmonary embolism. 2. Diffuse bilateral lung metastatic disease with a large mass in the right hilar area. 3. Diffuse mediastinal and hilar adenopathy. 4. Small bilateral effusions. George Joseph MD Assessment and Plan Problem List: (1) Elevated troponin ICD Codes: R74.8 - Abnormal levels of other serum enzymes Status: Acute Plan: Cardiac status overall stable. Repeat troponin only 0.08, doubt due to ACS. EKG's unremarkable, with nondiagnostic inferior Q waves. Echo 09/16/17 unremarkable. No evidence for pericardial effusion on chest CT. REC no additional cardiac w/u at this time will f/u as needed Code Status full code Discussed Condition With patient Tigre Escobedo MD Nov 01, 2017 11:13
[2017-11-01 11:29] LABS: ALT (GPT) 12 U/L (12-78); ANION GAP 8 MEQ/L (5-15); AST (GOT) 13 U/L (15-37); BICARBONATE 26.8 MEQ/L (21.0-32.0); BLOOD UREA NITROGEN 12 MG/DL (7-18); CHLORIDE 105 MEQ/L (98-107); GLOMERULAR FILTRATION RATE 76 ML/MIN (>89); POTASSIUM 4.6 MEQ/L (3.5-5.1); SODIUM (NA) 140 MEQ/L (136-145)
[2017-11-01 11:38] LABS: ALKALINE PHOSPHATASE 73 U/L (45-117); FREE T4 1.25 NG/DL (0.76-1.46); TOTAL BILIRUBIN ADULT 0.3 MG/DL (0.2-1.0)
[2017-11-01 11:40] LABS: CREATINE KINASE 32 U/L (39-308)
--- NOTE | 2017-11-01 13:13 | PD.ONC.PN ---
Subjective Subjective Remarks Afebrile overnight Reports he is starting to breathe better Currently getting a breathing treatment Objective Data Date Time Temp Pulse Resp B/P (MAP) Pulse Ox O2 Delivery O2 Flow Rate FiO2 11/01/17 12:03 98.3 105 20 95/57 (70) 94 11/01/17 09:26 93 Nasal Cannula 2.00 11/01/17 08:30 Nasal Cannula 2.00 11/01/17 08:03 97.3 95 20 109/69 (82) 96 11/01/17 08:00 81 11/01/17 04:00 86 11/01/17 04:00 97.9 92 18 94/61 (72) 93 11/01/17 00:00 97.7 88 19 95/61 (72) 96 11/01/17 00:00 93 10/31/17 22:16 94 Nasal Cannula 2.00 10/31/17 20:00 107 10/31/17 20:00 97.6 105 20 120/70 (87) 93 10/31/17 17:30 98.1 95 20 103/65 (78) 93 10/31/17 15:53 66 18 154/81 (105) 98 Nasal Cannula 3.50 10/31/17 15:47 96 Nasal Cannula 3.00 11/01/17 11/01/17 11/01/17 07:00 15:00 23:00 Intake Total 1240 ml Output Total 500 ml Balance 740 ml Result Diagram: 11/01/17 0934 11/01/17 0934 Laboratory Results Laboratory Tests Test 10/31/17 13:01 10/31/17 15:48 11/01/17 09:34 White Blood Count 14.6 TH/MM3 9.5 TH/MM3 Red Blood Count 5.01 MIL/MM3 4.65 MIL/MM3 Hemoglobin 14.3 GM/DL 13.1 GM/DL Hematocrit 43.6 % 40.8 % Mean Corpuscular Volume 87.0 FL 87.7 FL Mean Corpuscular Hemoglobin 28.6 PG 28.2 PG Mean Corpuscular Hemoglobin Concent 32.9 % 32.1 % Red Cell Distribution Width 15.0 % 15.7 % Platelet Count 415 TH/MM3 389 TH/MM3 Mean Platelet Volume 7.1 FL 7.3 FL Neutrophils (%) (Auto) 88.9 % 93.9 % Lymphocytes (%) (Auto) 5.6 % 5.3 % Monocytes (%) (Auto) 4.7 % 0.7 % Eosinophils (%) (Auto) 0.5 % 0.0 % Basophils (%) (Auto) 0.3 % 0.1 % Neutrophils # (Auto) 13.0 TH/MM3 8.9 TH/MM3 Lymphocytes # (Auto) 0.8 TH/MM3 0.5 TH/MM3 Monocytes # (Auto) 0.7 TH/MM3 0.1 TH/MM3 Eosinophils # (Auto) 0.1 TH/MM3 0.0 TH/MM3 Basophils # (Auto) 0.0 TH/MM3 0.0 TH/MM3 CBC Comment DIFF FINAL DIFF FINAL Differential Comment Prothrombin Time 10.5 SEC Prothromb Time International Ratio 1.0 RATIO Activated Partial Thromboplast Time 24.9 SEC Blood Urea Nitrogen 13 MG/DL 12 MG/DL Creatinine 0.94 MG/DL 0.98 MG/DL Random Glucose 109 MG/DL 130 MG/DL Total Protein 7.4 GM/DL 6.7 GM/DL Albumin 2.9 GM/DL 2.6 GM/DL Calcium Level 9.1 MG/DL 8.9 MG/DL Alkaline Phosphatase 88 U/L 73 U/L Aspartate Amino Transf (AST/SGOT) 16 U/L 13 U/L Alanine Aminotransferase (ALT/SGPT) 16 U/L 12 U/L Total Bilirubin 0.3 MG/DL 0.3 MG/DL Sodium Level 134 MEQ/L 140 MEQ/L Potassium Level 4.3 MEQ/L 4.6 MEQ/L Chloride Level 101 MEQ/L 105 MEQ/L Carbon Dioxide Level 25.8 MEQ/L 26.8 MEQ/L Anion Gap 7 MEQ/L 8 MEQ/L Estimat Glomerular Filtration Rate 80 ML/MIN 76 ML/MIN Troponin I 0.08 NG/ML 0.08 NG/ML 0.04 NG/ML B-Type Natriuretic Peptide 24 PG/ML 28 PG/ML Total Creatine Kinase 39 U/L 32 U/L Phosphorus Level 3.8 MG/DL Magnesium Level 2.0 MG/DL Free Thyroxine 1.25 NG/DL Thyroid Stimulating Hormone 3rd Gen 0.672 uIU/ML Administered Medications Medications (Trade) Dose Ordered Sig/Gabriele Route PRN Reason Start Time Stop Time Status Last Admin Dose Admin Sodium Chloride 1,000 ml @ 100 mls/hr Q10H IV 12/15/17 15:23 11/01/17 01:23 Enoxaparin Sodium (Lovenox Inj) 40 mg Q24H SQ 10/31/17 17:00 Future hold 10/31/17 18:24 Sodium Chloride (NS Flush) 2 ml BID IV FLUSH 10/31/17 21:00 10/31/17 22:11 Budesonide/ Formoterol Fumarate (Symbicort 160-4.5 Mcg Inh) 2 puff Q12HR INH 10/31/17 21:00 11/01/17 09:04 Methylprednisolone Sodium Succinate (SoluMEDROL INJ) 60 mg Q6H IV PUSH 10/31/17 17:00 11/01/17 11:35 Levofloxacin/ Dextrose 150 ml @ 100 mls/hr Q24H IV 10/31/17 18:00 10/31/17 18:25 Guaifenesin (Mucinex Er) 600 mg BID PO 10/31/17 21:00 11/01/17 09:04 Albuterol/ Ipratropium (Duoneb Neb) 1 ampule Q4HR WHILE AWAKE NEB INH 11/01/17 08:00 11/01/17 12:10 Objective Remarks GENERAL: Older male resting in bed in no acute distress SKIN: Warm and dry. HEAD: Normocephalic. EYES: No injection or drainage. NECK: Supple, trachea midline. CARDIOVASCULAR: Regular rate and rhythm without murmurs. RESPIRATORY: Clear anteriorly. Breathing unlabored at rest. GASTROINTESTINAL: Abdomen soft, non-tender, nondistended. EXTREMITIES: No cyanosis. SCDs to bilateral lower extremities MUSCULOSKELETAL: Adequate muscle tone. NEUROLOGICAL: No obvious focal deficit. Awake, alert, and oriented x3. Assessment/Plan Problem List: (1) Non-small cell lung cancer (NSCLC) ICD Codes: C34.90 - Malignant neoplasm of unspecified part of unspecified bronchus or lung Plan: -- Developed progressive symptoms with shortness of breath 3 days prior to being admitted -- He was sent to the emergency room due to risk of pneumonitis from the checkpoint inhibitor -- CT angiogram showed small bilateral pleural effusion appearing worse from the CT scan in August -- Ultrasound for possible thoracentesis has been ordered and aspirin as well as low molecular weight heparin is on hold Hx/Workup: CT scan of the chest shows a 6.6 x 5.8 cm right hilar mass associated with mass effect of the right middle bronchus. He has evidence metastatic disease to the contralateral lung. He has bilateral lung nodules. Staging evaluation including a CT-PET shows evidence of metastatic disease to the liver. Lung biopsy on 09/16/2017 showed an invasive poorly-differentiated adenocarcinoma. Additional testing proved the lung cancer to be PD-L1 positive , ALK and EGFR were negative. The tumor cells were 90% PD-L1 positive which portends excellent response to the checkpoint inhibitor. He is s/p one dose of his checkpoint inhibitor Keytruda. (2) COPD exacerbation ICD Codes: J44.1 - Chronic obstructive pulmonary disease with (acute) exacerbation Plan: -- On Solu-Medrol, breathing treatments -- On Levaquin Assessment 67-year-old male with non-small cell lung cancer on immune checkpoint inhibitor Keytruda admitted for increasing shortness of breath Plan 1. Continue supportive care with breathing treatments, soluMedrol and Levaquin. 2. Await ultrasound with possible thoracentesis. 3. Plan to hold future targeted immunotherapy until he has recovered from this episode. Attending Statement The exam, history, and the medical decision-making described in the above note were completed with the assistance of the mid-level provider. I reviewed and agree with the findings presented. I attest that I had a [id number] encounter with the patient on the same day, and personally performed and documented my assessment and findings in the medical record. Pt seen and examined, still SOB but better. Discussed w/ radiology thoracentesis on R, R fluid more than left. Reviewed evaluation for culture and if exudative. Amna Gonsales Nov 01, 2017 13:13 Laura Wolf MD Nov 01, 2017 15:11
--- NOTE | 2017-11-01 14:50 | MB ---
cc: Linda DESOUZA M.D. DATE OF CONSULTATION: 11/01/2017. REASON FOR CONSULTATION: HISTORY OF PRESENT ILLNESS: Mr. Silva is a 67-year-old white male known to me, a lifelong smoker with severe COPD, pulmonary functions in the range of 35% to 40%. I recently met him for a hospitalization in early September for COPD exacerbation. 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 I saw him as an outpatient last week and made some adjustments in his bronchodilators, placed him on steroids but he presented to Dr. Willams's office yesterday and then was admitted because he was more short of breath. CT angiogram revealed no evidence of pulmonary embolism but he does have diffuse extensive bilateral metastatic disease along with pleural effusions with a small one on the left and a larger one on the right. This may be contributing to his dyspnea, although this could also be the underlying disease along with his emphysema. The patient does not appear to have any significant new infiltrates. As noted in the consultation by Dr. Wolf, the patient is on a checkpoint inhibitor immunotherapy for his lung cancer now and they can present with pneumonitis but they are usually very responsive to steroids, and he has been placed on those for his underlying COPD. At the time of this interview, the patient is comfortable at rest, O2 sats on 2 liters are 94%. He has had no cough or congestion. No purulent sputum or chest pain. No swelling in his legs. For review of his prior history and social history, please refer my prior notes. He has quit smoking. PHYSICAL EXAMINATION: GENERAL: A thin white male in no distress at rest. VITAL SIGNS: Afebrile. Blood pressure is 100/60, pulse is 100, respirations are 22 and he has an O2 sats 94% on 2 liters. There is no room air sat on presentation. NECK: Neck veins are flat. CHEST: Somewhat diminished at the right base, otherwise fairly clear. No rales or wheezes. CARDIAC: No harsh murmur. No audible S3. No pitting edema or cyanosis. Onesimo presents with increasing shortness of breath which certainly could be related to the effusions which are increasing compared to previous, particularly on the right. He does have underlying COPD of significance as well as fairly significant malignancy in his lung, but I think it is reasonable to drain the right pleural effusion which has already been scheduled with interventional radiology and then will see how he feels after that. If his breathing has improved with the bronchodilators and steroids along with draining the right, I think I would leave the left alone at this point, particularly because he does have very significant underlying COPD / emphysema with multiple bullae and is at increased risk of pneumothorax and persistent air leak. Further diagnostic and/or therapeutic range will depend on his response and ongoing clinical course. R. MD KYLE Mckeon/FILEMON /1:40 PM /2:35 PM
[2017-11-01] MEDS: RESP: IPRATROPIUM 0.5 MG/2.5 ML NEB NEB SCH ×2 (16:00→20:57)
--- NOTE | 2017-11-01 16:09 | RADRPT ---
EXAM DATE/TIME: 11/01/2017 15:34 [facility] COMPARISON: CT THORAX W CONTRAST, September 15, 2017, 10:38. CHEST SINGLE AP, October 31, 2017, 13:26. CHEST EXP IRATION ONLY, September 16, 2017, 15:02. INDICATIONS : Post right thoracentesis. MEDICAL HISTORY : Carcinoma, lung. Chronic obstructive pulmonary disease. SURGICAL HISTORY : Infusaport. ENCOUNTER: Subsequent ACUITY: 2 days PAIN SCORE: 0/10 LOCATION: Bilateral chest FINDINGS: No significant pneumothorax status post right-sided thoracentesis. Redemonstration of numerous bilate ral peripheral lung masses and right hilar mass. Interval development of likely small loculated left pleural effusion. Progression of airspace consolidation at the left lung base. The cardiomediastinal contours are stable. Remainder of the exam is unchanged. CONCLUSION: 1. No significant pneumothorax status post right pleural effusion. 2. Small left pleural effusion. 3. Progression of airspace disease in the left lung base, likely atelectasis. 4. Redemonstration of right hilar mass with diffuse bilateral lung masses. Helder Cabral MD on November 01, 2017 at 16:04 Board Certified Radiologist. This report was verified electronically.
--- NOTE | 2017-11-01 16:25 | HHI.PR ---
Subjective Remarks Follow-up hypoxia. He is breathing better status post thoracentesis. Discussed with RN Objective Vitals Vital Signs Date Time Temp Pulse Resp B/P (MAP) Pulse Ox O2 Delivery O2 Flow Rate FiO2 11/01/17 12:03 98.3 105 20 95/57 (70) 94 11/01/17 12:00 108 11/01/17 09:26 93 Nasal Cannula 2.00 11/01/17 08:30 Nasal Cannula 2.00 11/01/17 08:03 97.3 95 20 109/69 (82) 96 11/01/17 08:00 81 11/01/17 04:00 86 11/01/17 04:00 97.9 92 18 94/61 (72) 93 11/01/17 00:00 97.7 88 19 95/61 (72) 96 11/01/17 00:00 93 10/31/17 22:16 94 Nasal Cannula 2.00 10/31/17 20:00 107 10/31/17 20:00 97.6 105 20 120/70 (87) 93 10/31/17 17:30 98.1 95 20 103/65 (78) 93 I/O 10/31/17 10/31/17 10/31/17 11/01/17 11/01/17 11/01/17 07:00 15:00 23:00 07:00 15:00 23:00 Intake Total 150 ml 1240 ml 1000 ml Output Total 500 ml Balance 150 ml 740 ml 1000 ml Intake Oral 240 ml IV Total 150 ml 1000 ml 1000 ml Output Urine Total 500 ml # Bowel Movements 0 Result Diagram: 11/01/17 0934 11/01/17 0934 Imaging Last Impressions Chest X-Ray 10/31/17 1253 Signed Impressions: Service Date/Time: Tuesday, October 31, 2017 13:26 - CONCLUSION: 1. Large right hilar mass with numerous metastatic lesions bilaterally. 2. Small right basilar effusion. 3. COPD changes. 4. Similar findings compared to previous. Benny Mandel MD CT Angiography 10/31/17 1253 Signed Impressions: Service Date/Time: Tuesday, October 31, 2017 13:51 - CONCLUSION: 1. No evidence of pulmonary embolism. 2. Diffuse bilateral lung metastatic disease with a large mass in the right hilar area. 3. Diffuse mediastinal and hilar adenopathy. 4. Small bilateral effusions. George Joseph MD Objective Remarks GENERAL: This is a thin, cachectic male patient, in no apparent distress. Awake and alert. SKIN: No rashes, ecchymoses or lesions. Cool and dry. CARDIOVASCULAR: Regular rate and rhythm without murmurs, gallops, or rubs. S1 and S2 no S3 or S4 no heave or thrill RESPIRATORY: Decreased air entry left base with rhonchi on the right lung GASTROINTESTINAL: Abdomen soft, non-tender, nondistended. No guarding. MUSCULOSKELETAL: Extremities without clubbing, cyanosis, or edema. No joint tenderness, effusion, or edema noted. No calf tenderness. NEUROLOGICAL: Awake and alert. Able to move all extremities. No focal neurologic findings appreciated. Normal speech. Procedures Right thoracentesis A/P Problem List: (1) COPD exacerbation ICD Code: J44.1 - Chronic obstructive pulmonary disease with (acute) exacerbation (2) Dyspnea ICD Code: R06.00 - Dyspnea, unspecified (3) Elevated troponin ICD Code: R74.8 - Abnormal levels of other serum enzymes Status: Acute Assessment and Plan 67-year-old male with a past medical history significant for COPD and lung cancer newly diagnosed who just completed his first round of chemotherapy who presents to [facility] ED with complaints of worsening shortness of breath. Respiratory failure with hypoxia. Improving status post thoracentesis. Continue to wean oxygen and follow-up pleural fluid studies COPD exacerbation. Improving continue Levaquin, IV steroids. Oxygen walk test in the morning Elevated troponin due to demand ischemia. Denies anginal symptoms. Recent echocardiogram unremarkable. No further cardiac workup per cardiology Leukocytosis. Improving Non small cell lung cancer stage IV, recently diagnosed. Outpatient follow-up with oncology Hyperglycemia. Follow-up A1c DVT prophylaxis. Lovenox 40 mg subcutaneous after thoracentesis Discharge Planning Possible discharge in 1-2 days Yordy Nieto MD Nov 01, 2017 16:25
--- NOTE | 2017-11-01 16:40 | RADRPT ---
EXAM DATE/TIME: 11/01/2017 13:50 [facility] COMPARISON: CT NEEDLE BIOPSY LUNG, RIGHT, September 16, 2017, 14:28. INDICATIONS : Pleural effusion. MEDICAL HISTORY : Hypercholesterolemia. Chronic obstructive pulmonary disease. Dyspnea. Lung cancer. Chemotherapy. SURGICAL HISTORY : Tonsillectomy. Port placement. ENCOUNTER: Initial ACUITY: 2 weeks PAIN SCORE: 1/10 LOCATION: Right chest FLUID: Total volume of 900 cc of clear, yellow fluid was removed. Fluid was sent to lab for ordered studies. TECHNIQUE: 1. Ultrasound guidance for thoracentesis. 2. Thoracentesis. The risks, benefits, and alternatives to ultrasound guided thoracentesis were explained to the patien t in lay simple terms, including the risk of bleeding and infection. Written and verbal informed con sent was obtained. Appropriate area for thoracentesis was marked under ultrasound guidance with the patient in the uprig ht position. Overlying skin was prepped and draped in the usual sterile fashion and with local anest hetic, a dermatotomy was made with an 11 blade scalpel. A 6 [place] thoracentesis catheter was placed in the pleural space and fluid was removed. Catheter was then removed and a sterile dressing applie d. There were no immediate complications. The patient tolerated the procedure well and the left the ultrasound suite in stable condition. Chest radiograph is to be obtained. CONCLUSION: Uncomplicated ultrasound guided thoracentesis. Mansoor Meier MD on November 01, 2017 at 16:37 Board Certified Radiologist. This report was verified electronically.
[2017-11-01] MEDS ORDERED: LEVA750T9 PO (17:29)
[2017-11-01] MEDS ORDERED: PRED20 PO (17:30)
--- NOTE | 2017-11-01 17:30 | HHI.DCPOC ---
Discharge Care Plan Diagnosis: (1) COPD exacerbation Your Health Problems Are: Difficulty with ADL Exercise Tolerance Goals to Promote Your Health * To prevent worsening of your condition and complications * To maintain your health at the optimal level Directions to Meet Your Goals Take your medications as prescribed Follow your dietary instruction Follow activity as directed Keep your appointments as scheduled Take your immunizations and boosters as scheduled If your symptoms worsen call your PCP, if no PCP go to Urgent Care Center or Emergency Room Smoking is Dangerous to Your Health. Avoid second hand smoke Call the 24-hour hour crisis hotline for domestic abuse at Yordy Nieto MD Nov 01, 2017 17:30
[2017-11-01] MEDS ORDERED: OXYGENDME NAS.CANULA (17:31)
[2017-11-01] MEDS: LEVOFLOXACIN 750 MG PREMIX INJ 150 ML IV SCH (17:35)
[2017-11-01 17:36] LABS: TOTAL PROTEIN,PLEURAL FLUID 3.7 GM/DL
[2017-11-01 18:26] LABS: PLEURAL FLUID LYMPHS 15 %
[2017-11-02] VITALS: BP 99/63; PULSE 91; PULSE 93; RESP 16; TEMP 97.4; O2SAT 95
[2017-11-02 04:00] VITALS: BP 96/52; PULSE 84; RESP 17; TEMP 97.2; O2SAT 92
[2017-11-02 07:08] LABS: HEMATOCRIT 36.9 % (39.0-51.0); MEAN CELL VOLUME 86.6 FL (80.0-100.0); MEAN CORPUSCULAR HEMOGLOBIN 28.3 PG (27.0-34.0); MEAN CORPUSCULAR HGB CONC 32.7 % (32.0-36.0); PLATELET COUNT 378 TH/MM3 (150-450); RED BLOOD COUNT 4.26 MIL/MM3 (4.50-5.90); RED CELL DISTRIBUTION WIDTH 15.3 % (11.6-17.2); WHITE BLOOD COUNT 24.4 TH/MM3 (4.0-11.0)
[2017-11-02 07:12] LABS: HEMO FLAGS AUTO DIFF
[2017-11-02 08:00] VITALS: PULSE 77; O2SAT 92
[2017-11-02] MEDS: RESP: IPRATROPIUM 0.5 MG/2.5 ML NEB NEB SCH ×2 (08:00→12:02)
[2017-11-02] MEDS: INSULIN ASPART SUPPLEMENTAL SCALE SQ SCH ×2 (08:00→12:00)
[2017-11-02 08:04] VITALS: BP 94/52; PULSE 82; RESP 19; TEMP 97.6; O2SAT 94
[2017-11-02 08:17] LABS: BANDS 3 % (0-6); NEUTROPHIL # MANUAL DIFF 23.4 TH/MM3 (1.8-7.7); POLYS (SEG NEUTROPHILS) 93 % (16-70); WBC DIFF SAMPLE 100
[2017-11-02 08:18] LABS: PLATELET ESTIMATE SMEAR NORMAL (NORMAL); PLATELET MORPHOLOGY NORMAL (NORMAL); SCAN/DIFF FINAL DIFF MANUAL
[2017-11-02] MEDS: guaiFENesin E.R. 600 MG TAB PO SCH (08:19)
[2017-11-02] MEDS: methylPREDNISolone SOD SUCC 125 MG/2 ML VIAL IV PUSH SCH (08:20)
[2017-11-02] MEDS: NICOTINE 21 MG/24 HR PATCH TD SCH (08:20)
[2017-11-02] MEDS: DOCUSATE SODIUM 50 MG/SENNA 8.6 MG TAB PO SCH (08:20)
[2017-11-02] MEDS: SODIUM CHLORIDE 0.9% FLUSH 10 ML FLUSH IV FLUSH SCH (08:20)
[2017-11-02] MEDS: BUDESONIDE-FORMOTEROL 160/4.5 MCG INHALER INH SCH (08:21)
[2017-11-02] MEDS ORDERED: LEVOFLOXACIN 750 MG TAB PO SCH (09:00)
--- NOTE | 2017-11-02 10:36 | PD.ONC.PN ---
Subjective Subjective Remarks Ambulated in AM several times. 6 min walk without desaturation. Still gets tired. Wants to go home. Objective Data Date Time Temp Pulse Resp B/P (MAP) Pulse Ox O2 Delivery O2 Flow Rate FiO2 11/02/17 08:04 97.6 82 19 94/52 (66) 94 11/02/17 08:00 77 11/02/17 08:00 Room Air 11/02/17 04:00 84 11/02/17 04:00 Nasal Cannula 2.00 11/02/17 04:00 97.2 84 17 96/52 (67) 92 11/02/17 00:00 Nasal Cannula 2.00 11/02/17 00:00 93 11/02/17 00:00 97.4 91 16 99/63 (75) 95 11/01/17 21:00 93 Nasal Cannula 3.00 11/01/17 20:00 97.8 97 16 91/56 (68) 93 11/01/17 20:00 98 11/01/17 20:00 Nasal Cannula 2.00 11/01/17 12:03 98.3 105 20 95/57 (70) 94 11/01/17 12:00 108 11/02/17 11/02/17 11/02/17 07:00 15:00 23:00 Intake Total 720 ml Output Total 350 ml Balance 370 ml Result Diagram: 11/02/17 0650 11/01/17 0934 Laboratory Results Laboratory Tests Test 11/01/17 15:45 11/02/17 06:50 Pleural Fluid WBC 798 /MM3 Pleural Fluid RBC 1844 /MM3 Pleural Fluid Neutrophils 79 % Pleural Fluid Lymphocytes 15 % Pleural Fluid Monocytes 6 % Pleural Fluid Total Protein 3.7 GM/DL Pleural Fluid LDH 500 U/L Pleural Fluid Glucose 158 MG/DL White Blood Count 24.4 TH/MM3 Red Blood Count 4.26 MIL/MM3 Hemoglobin 12.0 GM/DL Hematocrit 36.9 % Mean Corpuscular Volume 86.6 FL Mean Corpuscular Hemoglobin 28.3 PG Mean Corpuscular Hemoglobin Concent 32.7 % Red Cell Distribution Width 15.3 % Platelet Count 378 TH/MM3 Mean Platelet Volume 7.2 FL CBC Comment AUTO DIFF Differential Total Cells Counted 100 Neutrophils % (Manual) 93 % Band Neutrophils % 3 % Lymphocytes % 2 % Monocytes % 2 % Neutrophils # (Manual) 23.4 TH/MM3 Differential Comment FINAL DIFF MANUAL Platelet Estimate NORMAL Platelet Morphology Comment NORMAL Culture Results Microbiology Date/Time Source Procedure Growth Status 11/01/17 15:45 Fluid Pleural Fluid Gram Stain - Final Resulted 11/01/17 15:45 Fluid Pleural Fluid Body Fluid Culture Pending Resulted Administered Medications Medications (Trade) Dose Ordered Sig/Gabriele Route PRN Reason Start Time Stop Time Status Last Admin Dose Admin Enoxaparin Sodium (Lovenox Inj) 40 mg Q24H SQ 10/31/17 17:00 Future hold 10/31/17 18:24 Sodium Chloride (NS Flush) 2 ml BID IV FLUSH 10/31/17 21:00 11/02/17 08:20 Budesonide/ Formoterol Fumarate (Symbicort 160-4.5 Mcg Inh) 2 puff Q12HR INH 10/31/17 21:00 11/02/17 08:21 Guaifenesin (Mucinex Er) 600 mg BID PO 10/31/17 21:00 11/02/17 08:19 Aspirin (Ecotrin Ec) 81 mg DAILY PO 10/31/17 18:30 Future hold 11/02/17 08:19 Methylprednisolone Sodium Succinate (SoluMEDROL INJ) 60 mg BID IV PUSH 11/01/17 21:00 11/02/17 08:20 Ipratropium [place] (Atrovent Neb) 0.5 mg QID NEB NEB 11/01/17 16:00 11/01/17 20:57 Levofloxacin (Levaquin) 750 mg DAILY PO 11/02/17 09:00 11/10/17 08:59 11/02/17 08:19 Objective Remarks GENERAL: Older male resting in bed in no acute distress SKIN: Warm and dry. HEAD: Normocephalic. EYES: No injection or drainage. NECK: Supple, trachea midline. CARDIOVASCULAR: Regular rate and rhythm without murmurs. RESPIRATORY: Diminished breath sounds through out. Breathing unlabored at rest. GASTROINTESTINAL: Abdomen soft, non-tender, nondistended. EXTREMITIES: No cyanosis. SCDs to bilateral lower extremities MUSCULOSKELETAL: Adequate muscle tone. NEUROLOGICAL: No obvious focal deficit. Awake, alert, and oriented x3. Assessment/Plan Problem List: (1) Non-small cell lung cancer (NSCLC) ICD Codes: C34.90 - Malignant neoplasm of unspecified part of unspecified bronchus or lung Plan: -- Developed progressive symptoms with shortness of breath 3 days prior to being admitted -- He was sent to the emergency room due to risk of pneumonitis from the checkpoint inhibitor -- CT angiogram showed small bilateral pleural effusion appearing worse from the CT scan in August -- Ultrasound for possible thoracentesis has been ordered and aspirin as well as low molecular weight heparin is on hold Hx/Workup: CT scan of the chest shows a 6.6 x 5.8 cm right hilar mass associated with mass effect of the right middle bronchus. He has evidence metastatic disease to the contralateral lung. He has bilateral lung nodules. Staging evaluation including a CT-PET shows evidence of metastatic disease to the liver. Lung biopsy on 09/16/2017 showed an invasive poorly-differentiated adenocarcinoma. Additional testing proved the lung cancer to be PD-L1 positive , ALK and EGFR were negative. The tumor cells were 90% PD-L1 positive which portends excellent response to the checkpoint inhibitor. He is s/p one dose of his checkpoint inhibitor Keytruda. 11/02/17. s/p thoracentesis. Response with breathing better. Culture from fluid negative. Suspect reaction to treatment. Disease progression too soon to tell with one dose of Keytruda. (2) COPD exacerbation ICD Codes: J44.1 - Chronic obstructive pulmonary disease with (acute) exacerbation Plan: -- On Solu-Medrol, breathing treatments -- On Levaquin 11/02/17. Cont respiratory tx per pulmonary. Assessment 67-year-old male with non-small cell lung cancer on immune checkpoint inhibitor Keytruda admitted for increasing shortness of breath Plan 1. Ok to DC from heme/onc standpoint 2. Appt for Keytruda tomorrow in clinic in place. 3. Respiratory tx per pulmonary. 4. Cont ASA per cardiology. Laura Wolf MD Nov 02, 2017 10:36
[2017-11-02 10:44] LABS: HEMOGLOBIN A1a 0.9 %; HEMOGLOBIN A1b 2.1 %; HEMOGLOBIN Ao 85.1 %; HEMOGLOBIN LA1C 1.9 %; HEMOGLOBIN P3 5.2 %
[2017-11-02 12:00] VITALS: PULSE 93
[2017-11-02 12:03] VITALS: BP 95/56; PULSE 87; RESP 20; TEMP 97.4; O2SAT 96
--- NOTE | 2017-11-02 13:49 | HHI.PR ---
Subjective Remarks Follow-up respiratory failure. He is feeling much better ambulating on room air. He wants to go home. Discussed with RN Objective Vitals Vital Signs Date Time Temp Pulse Resp B/P (MAP) Pulse Ox O2 Delivery O2 Flow Rate FiO2 11/02/17 12:03 97.4 87 20 95/56 (69) 96 11/02/17 12:00 93 11/02/17 08:04 97.6 82 19 94/52 (66) 94 11/02/17 08:00 77 11/02/17 08:00 Room Air 11/02/17 08:00 92 Nasal Cannula 11/02/17 04:00 84 11/02/17 04:00 Nasal Cannula 2.00 11/02/17 04:00 97.2 84 17 96/52 (67) 92 11/02/17 00:00 Nasal Cannula 2.00 11/02/17 00:00 93 11/02/17 00:00 97.4 91 16 99/63 (75) 95 11/01/17 21:00 93 Nasal Cannula 3.00 11/01/17 20:00 97.8 97 16 91/56 (68) 93 11/01/17 20:00 98 11/01/17 20:00 Nasal Cannula 2.00 I/O 11/01/17 11/01/17 11/01/17 11/02/17 11/02/17 11/02/17 07:00 15:00 23:00 07:00 15:00 23:00 Intake Total 1240 ml 1000 ml 488 ml 720 ml Output Total 500 ml 350 ml Balance 740 ml 1000 ml 488 ml 370 ml Intake Oral 240 ml 240 ml 720 ml IV Total 1000 ml 1000 ml 248 ml Output Urine Total 500 ml 350 ml # Voids 4 2 # Bowel Movements 0 0 Result Diagram: 11/02/17 0650 11/01/17 0934 Imaging Last Impressions Thoracentesis Ultrasound 11/01/17 0000 Signed Impressions: Service Date/Time: Wednesday, November 01, 2017 13:50 - CONCLUSION: Uncomplicated ultrasound guided thoracentesis. Mansoor Meier MD Chest X-Ray 11/01/17 0000 Signed Impressions: Service Date/Time: Wednesday, November 01, 2017 15:34 - CONCLUSION: 1. No significant pneumothorax status post right pleural effusion. 2. Small left pleural effusion. 3. Progression of airspace disease in the left lung base, likely atelectasis. 4. Redemonstration of right hilar mass with diffuse bilateral lung masses. Helder Cabral MD CT Angiography 10/31/17 1415 Signed Impressions: Service Date/Time: Tuesday, October 31, 2017 13:51 - CONCLUSION: 1. No evidence of pulmonary embolism. 2. Diffuse bilateral lung metastatic disease with a large mass in the right hilar area. 3. Diffuse mediastinal and hilar adenopathy. 4. Small bilateral effusions. George Joseph MD Objective Remarks GENERAL: This is a thin, cachectic male patient, in no apparent distress. On room air SKIN: No rashes, ecchymoses or lesions. Cool and dry. CARDIOVASCULAR: Regular rate and rhythm without murmurs, gallops, or rubs. S1 and S2 no S3 or S4 no heave or thrill RESPIRATORY: Decreased air entry left base GASTROINTESTINAL: Abdomen soft, non-tender, nondistended. No guarding. MUSCULOSKELETAL: Extremities without clubbing, cyanosis, or edema. No joint tenderness, effusion, or edema noted. No calf tenderness. NEUROLOGICAL: Awake and alert. Able to move all extremities. No focal neurologic findings appreciated. Normal speech. Procedures Right thoracentesis A/P Problem List: (1) COPD exacerbation ICD Code: J44.1 - Chronic obstructive pulmonary disease with (acute) exacerbation (2) Dyspnea ICD Code: R06.00 - Dyspnea, unspecified (3) Elevated troponin ICD Code: R74.8 - Abnormal levels of other serum enzymes Status: Acute Assessment and Plan 67-year-old male with a past medical history significant for COPD and lung cancer newly diagnosed who just completed his first round of chemotherapy who presents to [facility] ED with complaints of worsening shortness of breath. Respiratory failure with hypoxia. Resolved status post thoracentesis. Pleural fluid culture negative to date. Gram stain with no organism COPD exacerbation. Improving continue Levaquin, switch steroids to by mouth. Passed oxygen walk test. Elevated troponin due to demand ischemia. Denies anginal symptoms. Recent echocardiogram unremarkable. No further cardiac workup per cardiology Leukocytosis. Worse secondary to steroids. Clinically he is stable. Non small cell lung cancer stage IV, recently diagnosed. Outpatient follow-up with oncology Hyperglycemia. A1c 5.4 DVT prophylaxis. Lovenox 40 mg subcutaneous after thoracentesis Discharge Planning Discharge patient to home Condition on discharge: Improved Regular Diet as tolerated Ad Seda activity Rx written: Levaquin and prednisone Follow-up with primary care physician, oncology and pulmonary AbandYordy horvath MD Nov 02, 2017 13:49
--- NOTE | 2017-11-02 17:46 | MD ---
cc: Linda DESOUZA M.D. ADMISSION DATE: 10/31/2017 DISCHARGE DATE: 11/02/2017 HISTORY Mr. Silva is a 67-year-old white male who I met a few weeks ago with severe emphysema but also stage IV lung cancer, adenocarcinoma. He presented back to the emergency room after his initial treatment for his cancer. He is receiving immune modulators, a checkpoint inhibitor. Dr. Wolf saw him as well. His hospital course was uncomplicated. His CT scan did reveal a large right pleural effusion and a smaller left effusion. He had that fluid drained yesterday and they removed 900 mL of clear serous fluid which is exudative by exam. The cytology is pending. The culture is pending but the Gram stain is negative. He feels much better, would like to go home today. His O2 saturation on room air is running 92-96% and he passed a 6-minute walk test. A followup chest x-ray reveals patchy nodular infiltrates in both lungs known to be malignancy, clearing of the right pleural effusion, a small residual left effusion. He is comfortable, afebrile, respirations 18, O2 sat 96%. His chest is much clearer on the right. No rales or wheezes. No harsh murmur and no edema. Onesimo will be going home today. He has [facility]. I did explain to him that he has multiple causes for shortness of breath including his underlying emphysema, his cancer, possible recurrence of fluid as well as potential complications related to his immunotherapy. If he has progressive worsening dyspnea he will report back to the emergency room. He has a scheduled followup with me after the first of the year and of course he will be seeing his oncologist regularly as well. MD KYLE Patterson/KK /12:36 PM /5:37 PM
[2017-11-03] MEDS ORDERED: predniSONE 20 MG TAB PO SCH (09:00)
== END 2017-11-02 15:15 | disposition home or self-care (01) | DRG 190 ==
LOC: NEPC 12:33 → NEDA 15:20 → N04B 16:45
PROVIDERS: ADMIT Internal Medicine; ATTEND Internal Medicine
PROC: 0W993ZZ Drainage of Right Pleural Cavity, Percutaneous Approach (ICD-10-PCS; principal; 2017-11-01)
DX: J44.1 Chronic obstructive pulmonary disease with (acute) exacerbation (principal); J96.91 Respiratory failure, unspecified with hypoxia; C34.91 Malignant neoplasm of unspecified part of right bronchus or lung; I24.8 Other forms of acute ischemic heart disease; J91.0 Malignant pleural effusion; R73.9 Hyperglycemia, unspecified; R63.0 Anorexia; H91.90 Unspecified hearing loss, unspecified ear; Z87.891 Personal history of nicotine dependence
CPT/HCPCS: 32555; 71010; 71275; 80053; 82550; 82945; 82948; 83036; 83615; 83735; 83880; 84100; 84157; 84439; 84443; 84484; 85007; 85025; 85027; 85610; 85730; 87070; 87205; 88112; 88305; 89051; 93005; 94150; 94620; 94640; 94664; C1729; J1650; J1956; J2930; J7030; J7644; Q9967

== ENCOUNTER 2017-11-14 13:33 | Day surgery (SDC) | payer MEDICARE, OTHER ==
[~2017-11-14 13:33] MED LIST changes: -ALBU0.08 NEB; -ALBU6.7H INH; -COMPRESSOR NEBU1 MIS; +IPRASOL INH; +LEVA750T9 PO; -MEDR4PAK PO; -NEBUKIT5; +OXYGENDME NAS.CANULA; +PRED20 PO; +PRED5TAB PO; +VENTAER INH
--- NOTE | 2017-11-14 15:38 | PD.RAD ---
Post US Procedure Prog Note Pre Procedure Diagnosis: (1) Pleural effusion Post Procedure Diagnosis: (1) Pleural effusion Procedure Date: Nov 14, 2017 Supervising Radiologist: Marvel Graf Proceduralist/Assist: Mouna Alejandra RDMS Anesthesia: Local Plan of Activity Patient to Unit: [facility]OPU Patient Condition: Good See PACS Report for procedural detail/treatment Drainage Procedure Procedure 1 Imaging Guidance: Ultrasound Side: Right Procedure Type: Thoracentesis Procedure: Removal Drainage: Suction Fluid Description: Marvel Stanton MD Nov 14, 2017 15:38
[2017-11-14 16:02] VITALS: BP 90/62; PULSE 106; RESP 18; TEMP 97.7; O2SAT 92
--- NOTE | 2017-11-14 16:02 | RADRPT ---
EXAM DATE/TIME: 11/14/2017 15:07 [facility] COMPARISON: US GUIDED THORACENTESIS RIGHT, November 01, 2017, 13:50. INDICATIONS : Right pleural effusion. MEDICAL HISTORY : Hypercholesterolemia. Chronic obstructive pulmonary disease. Carcinoma, lung. Dyspnea. Pleural effusi on. SURGICAL HISTORY : Tonsillectomy. Port placement. Chemtherapy. Thoracentesis. ENCOUNTER: Subsequent ACUITY: 2 weeks PAIN SCORE: 0/10 LOCATION: Right chest FLUID: Total volume of 800 cc of dark yellow fluid was removed. Fluid was discarded. Thoracentesis was therapeutic only. TECHNIQUE: 1. Ultrasound guidance for thoracentesis. 2. Thoracentesis. The risks, benefits, and alternatives to ultrasound guided thoracentesis were explained to the patien t in lay simple terms, including the risk of bleeding and infection. Written and verbal informed con sent was obtained. Appropriate area for thoracentesis was marked under ultrasound guidance with the patient in the uprig ht position. Overlying skin was prepped and draped in the usual sterile fashion and with local anest hetic, a dermatotomy was made with an 11 blade scalpel. A 6 [place] thoracentesis catheter was placed in the pleural space and fluid was removed. Catheter was then removed and a sterile dressing applie d. There were no immediate complications. The patient tolerated the procedure well and the left the ultrasound suite in stable condition. Chest radiograph is to be obtained. CONCLUSION: Uncomplicated ultrasound guided thoracentesis. Marvel Graf MD on November 14, 2017 at 16:00 Board Certified Radiologist. This report was verified electronically.
[2017-11-14 16:15] VITALS: BP 92/53; PULSE 87; RESP 18; O2SAT 92
--- NOTE | 2017-11-14 16:17 | RADRPT ---
EXAM DATE/TIME: 11/14/2017 15:56 [facility] COMPARISON: CHEST EXPIRATION ONLY, November 01, 2017, 15:34. INDICATIONS : Post right side thoracentesis. MEDICAL HISTORY : Carcinoma, lung. Chronic obstructive pulmonary disease. Hypercholesterolemia. SURGICAL HISTORY : infusaport ENCOUNTER: Initial ACUITY: 1 day PAIN SCORE: 0/10 LOCATION: Bilateral chest FINDINGS: Right chest port is stable in position. Patchy bilateral perihilar and basilar airspace and interstit ial disease are again noted, slightly improved from prior exam. Visualized cardiac contours are gross ly stable. CONCLUSION: Stable to slightly improved appearance of the chest. Onesimo Real MD on November 14, 2017 at 16:13 Board Certified Radiologist. This report was verified electronically.
== END 2017-11-14 16:30 | disposition home or self-care (01) ==
LOC: HRAD 13:33 → HRIP 13:33 → HRAD 16:30
PROVIDERS: ATTEND Nurse Practitioner Family
DX: J90 Pleural effusion, not elsewhere classified (principal)
CPT/HCPCS: 32555; 71010; C1729

== ENCOUNTER 2017-11-17 10:45 | Inpatient (IN) | payer MEDICARE, OTHER ==
[~2017-11-17] VITALS: Ht 170.2 cm; Wt 61.8 kg
[2017-11-17 10:48] VITALS: BP 112/68; PULSE 122; RESP 22; TEMP 97.9; O2SAT 92
[2017-11-17 11:00] VITALS: BP 116/41; PULSE 114; RESP 24; O2SAT 93
[2017-11-17] MEDS ORDERED: RESP: ALBUTEROL 2.5 MG/IPRATROPIUM 0.5 MG NEB (SCH) INH ONE (11:00)
[2017-11-17] MEDS ORDERED: SODIUM CHLORIDE 0.9% FLUSH 10 ML FLUSH IVF PRN (11:00)
[2017-11-17] MEDS ORDERED: methylPREDNISolone SOD SUCC 125 MG/2 ML VIAL IV PUSH ONE (11:00)
--- NOTE | 2017-11-17 11:00 | PD ---
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 PFSH Past Medical History Asthma: No Autoimmune Disease: No Anxiety: No Depression: No Heart Rhythm Problems: No Cancer: Yes (New diagnosis to lung) Cardiovascular Problems: No High Cholesterol: Yes Chemotherapy: Yes (1 ROUND 10/13/17 ) Chest Pain: No Congestive Heart Failure: No COPD: Yes Diabetes: No Diminished Hearing: Yes Endocrine: No GERD: No Genitourinary: No Hiatal Hernia: No Immune Disorder: No Implanted Vascular Access Dvce: Yes (RIGHT CHEST PORT) Kidney Stones: No Musculoskeletal: No Neurologic: No Psychiatric: No Reproductive: No Respiratory: Yes (COPD, LUNG CA ) Radiation Therapy: No Renal Failure: No Sickle Cell Disease: No Thyroid Disease: No Ulcer: No Past Surgical History Abdominal Surgery: No AICD: No Cardiac Surgery: No Ear Surgery: No Endocrine Surgery: No Eye Surgery: No Genitourinary Surgery: No Gynecologic Surgery: No Joint Replacement: No Oral Surgery: Yes Pacemaker: No Thoracic Surgery: No Tonsillectomy: Yes Other Surgery: Yes (Tonsillectomy in childhood, port placement) Social History Alcohol Use: No Tobacco Use: No (QUITE JUL 2017) Substance Use: No Allergies-Medications (Allergen,Severity, Reaction): Coded Allergies: No Known Allergies (Verified Allergy, Unknown, 10/08/17) Reported Meds & Prescriptions Reported Meds & Active Scripts Active Oxygen (O2) Device Liter CELSO.CANULA CONTINUOUS Oxygen Concentrator Portable Gaseous 2 L/min via Nasal Canula Continuous For 99 months Symbicort Inh (Budesonide/Formoterol Fumarate) 160-4.5 Mcg/Act Aero 1 Puff INH Q12HR Reported Prednisone 5 Mg Tab 5 Mg PO DAILY start after prednisone 40 mg QD for 4 days Duoneb (Ipratropium-Albuterol Neb) 0.5-2.5 Mg/3 Ml Neb 1 Nebule INH Q6HR NEB Ventolin Hfa 18 GM Inh (Albuterol Sulfate) 90 Mcg/Act Aer 2 Puff INH Q4-6H PRN Review of Systems Except as stated in HPI: all other systems reviewed are Neg General / Constitutional: No: Fever Eyes: No: Visual changes HENT: No: Headaches Cardiovascular: No: Chest Pain or Discomfort Respiratory: Positive: Shortness of Breath Gastrointestinal: No: Abdominal Pain Genitourinary: No: Dysuria Musculoskeletal: No: Pain Skin: No Rash Neurologic: No: Weakness Psychiatric: No: Depression Endocrine: No: Polydipsia Hematologic/Lymphatic: No: Easy Bruising Physical Exam Narrative GENERAL: SKIN: Warm and dry. HEAD: Atraumatic. Normocephalic. EYES: Pupils equal and round. No scleral icterus. No injection or drainage. ENT: No nasal bleeding or discharge. Mucous membranes pink and moist. NECK: Trachea midline. No JVD. CARDIOVASCULAR: Regular rate and rhythm. RESPIRATORY: No accessory muscle use. TACHYPNEIC, 92% ON RA, WHEEZY THROUGHOUT LUNG BERNAL GASTROINTESTINAL: Abdomen soft, non-tender, nondistended. MUSCULOSKELETAL: Extremities without clubbing, cyanosis, or edema. No obvious deformities. NEUROLOGICAL: Awake and alert. No obvious cranial nerve deficits. Motor grossly within normal limits. Five out of 5 muscle strength in the arms and legs. Normal speech. PSYCHIATRIC: Appropriate mood and affect; insight and judgment normal. Data Data Last Documented VS Vital Signs Date Time Temp Pulse Resp B/P (MAP) Pulse Ox O2 Delivery O2 Flow Rate FiO2 11/17/17 11:50 112 27 90/63 (72) 96 Nasal Cannula 3.00 11/17/17 10:48 97.9 Orders Orders Complete Blood Count With Diff (11/17/17 11:00) Comprehensive Metabolic Panel (11/17/17 11:00) B-Type Natriuretic Peptide (11/17/17 11:00) Act Partial Throm Time (Ptt) (11/17/17 11:00) Prothrombin Time / Inr (Pt) (11/17/17 11:00) Troponin I (11/17/17 11:00) Iv Access Insert/Monitor (11/17/17 11:00) Electrocardiogram (11/17/17 11:00) Ecg Monitoring (11/17/17 11:00) Oximetry (11/17/17 11:00) Oxygen Administration (11/17/17 11:00) Chest, Single Ap (11/17/17 11:00) Sodium Chloride 0.9% Flush (Ns Flush) (11/17/17 11:00) Methylprednisolone So Succ Inj (Solumedr (11/17/17 11:00) Albuterol-Ipratropium Neb (Duoneb Neb) (11/17/17 11:00) Labs Laboratory Tests Test 11/17/17 11:08 White Blood Count 19.8 TH/MM3 Red Blood Count 4.68 MIL/MM3 Hemoglobin 13.2 GM/DL Hematocrit 40.2 % Mean Corpuscular Volume 85.9 FL Mean Corpuscular Hemoglobin 28.3 PG Mean Corpuscular Hemoglobin Concent 32.9 % Red Cell Distribution Width 15.1 % Platelet Count 334 TH/MM3 Mean Platelet Volume 6.9 FL Neutrophils (%) (Auto) 89.5 % Lymphocytes (%) (Auto) 4.3 % Monocytes (%) (Auto) 4.8 % Eosinophils (%) (Auto) 0.5 % Basophils (%) (Auto) 0.9 % Neutrophils # (Auto) 17.8 TH/MM3 Lymphocytes # (Auto) 0.9 TH/MM3 Monocytes # (Auto) 0.9 TH/MM3 Eosinophils # (Auto) 0.1 TH/MM3 Basophils # (Auto) 0.2 TH/MM3 CBC Comment DIFF FINAL Differential Comment Prothrombin Time 10.9 SEC Prothromb Time International Ratio 1.1 RATIO Activated Partial Thromboplast Time 25.4 SEC Blood Urea Nitrogen 16 MG/DL Creatinine 0.96 MG/DL Random Glucose 98 MG/DL Total Protein 6.8 GM/DL Albumin 2.4 GM/DL Calcium Level 8.5 MG/DL Alkaline Phosphatase 76 U/L Aspartate Amino Transf (AST/SGOT) 23 U/L Alanine Aminotransferase (ALT/SGPT) 13 U/L Total Bilirubin 0.6 MG/DL Sodium Level 136 MEQ/L Potassium Level 4.2 MEQ/L Chloride Level 101 MEQ/L Carbon Dioxide Level 24.2 MEQ/L Anion Gap 11 MEQ/L Estimat Glomerular Filtration Rate 78 ML/MIN Troponin I LESS THAN 0.02 NG/ML B-Type Natriuretic Peptide 49 PG/ML MDM Medical Decision Making Medical Screen Exam Complete: Yes Emergency Medical Condition: Yes Medical Record Reviewed: Yes Interpretation(s) SINUS TACHY 113, NO STEMI PATTERN, NORMAL INTERVALS Differential Diagnosis COPD V PLEUFAL EFFUSION V STAGE 4 LUNG CA Narrative Course PATIENT IS SCHEDULED TO HAVE LEFT PLEURAL EFFUSION DRAINED TOMORROW IN RADIOLOGY , HOWEVER DUE TO SOB WORSENING PT RETURNS TO ER. Diagnosis Primary Impression: COPD exacerbation Admitting Information Admitting Physician Requests: Observation Marko Jacobs MD Nov 17, 2017 11:00
[2017-11-17 11:24] LABS: AUTOMATED NEUTROPHIL # 17.8 TH/MM3 (1.8-7.7); BASOPHIL # 0.2 TH/MM3 (0-0.2); BASOPHIL % 0.9 % (0.0-2.0); EOSINOPHIL # 0.1 TH/MM3 (0-0.4); EOSINOPHIL % 0.5 % (0.0-4.0); HEMATOCRIT 40.2 % (39.0-51.0); HEMOGLOBIN 13.2 GM/DL (13.0-17.0); LYMPH % 4.3 % (9.0-44.0); LYMPHOCYTE # 0.9 TH/MM3 (1.0-4.8); MEAN CELL VOLUME 85.9 FL (80.0-100.0); MEAN CORPUSCULAR HEMOGLOBIN 28.3 PG (27.0-34.0); MEAN CORPUSCULAR HGB CONC 32.9 % (32.0-36.0); MEAN PLATELET VOLUME 6.9 FL (7.0-11.0); MONO % 4.8 % (0.0-8.0); MONOCYTE # 0.9 TH/MM3 (0-0.9); NEUT % 89.5 % (16.0-70.0); PLATELET COUNT 334 TH/MM3 (150-450); RED BLOOD COUNT 4.68 MIL/MM3 (4.50-5.90); RED CELL DISTRIBUTION WIDTH 15.1 % (11.6-17.2); WHITE BLOOD COUNT 19.8 TH/MM3 (4.0-11.0)
[2017-11-17 11:31] LABS: INTERNATIONAL NORMALIZED RATIO 1.1 RATIO; PROTHROMBIN TIME - PATIENT 10.9 SEC (9.8-11.6)
[2017-11-17 11:43] LABS: ALBUMIN 2.4 GM/DL (3.4-5.0); AST (GOT) 23 U/L (15-37); BICARBONATE 24.2 MEQ/L (21.0-32.0); BLOOD UREA NITROGEN 16 MG/DL (7-18); CALCIUM 8.5 MG/DL (8.5-10.1); CHLORIDE 101 MEQ/L (98-107); CREATININE 0.96 MG/DL (0.60-1.30); GLOMERULAR FILTRATION RATE 78 ML/MIN (>89); GLUCOSE,RANDOM 98 MG/DL (74-106); SODIUM (NA) 136 MEQ/L (136-145)
--- NOTE | 2017-11-17 11:43 | RADRPT ---
EXAM DATE/TIME: 11/17/2017 11:15 [facility] COMPARISON: CT PULMONARY ANGIOGRAM, October 31, 2017, 13:51. CHEST SINGLE AP, October 08, 2017, 13:20. CHEST EXPIRATION ONLY, November 14, 2017, 15:56. CHEST SINGLE AP, October 31, 2017, 13:26. INDICATIONS : Short of breath. MEDICAL HISTORY : Carcinoma, lung. Chronic obstructive pulmonary disease. Hypercholesterolemia. SURGICAL HISTORY : Infusaport. ENCOUNTER: Initial ACUITY: 4 - 6 days PAIN SCORE: 5/10 LOCATION: Bilateral chest FINDINGS: There is [id number] in place in the right chest with the tip overlying the SVC. The heart size is normal. There continues to be a masslike area seen in the right hilar region. There are multiple mass es areas of consolidation seen throughout both lungs. There is a mild left pleural effusion and a min imal right pleural effusion.. CONCLUSION: 1. Right hilar mass. 2. Widespread metastatic disease. 3. Bilateral effusions being greater on the left. Onesimo Carbajal MD on November 17, 2017 at 11:38 Board Certified Radiologist. This report was verified electronically.
[2017-11-17 11:44] LABS: ALT (GPT) 13 U/L (12-78)
[2017-11-17 11:48] LABS: ALKALINE PHOSPHATASE 76 U/L (45-117); TOTAL BILIRUBIN ADULT 0.6 MG/DL (0.2-1.0); TOTAL PROTEIN 6.8 GM/DL (6.4-8.2); TROPONIN I LESS THAN 0.02 NG/ML (0.02-0.05)
[2017-11-17 11:50] VITALS: BP 90/63; PULSE 112; RESP 27; O2SAT 96
[2017-11-17] MEDS ORDERED: NALOXONE HCL 0.4 MG/ML AMP IV PUSH PRN (12:30)
[2017-11-17] MEDS ORDERED: LACTULOSE SYRUP 20 GM/30 ML CUP PO PRN (12:30)
[2017-11-17] MEDS ORDERED: MAGNESIUM HYDROXIDE SUSP 30 ML CUP PO PRN (12:30)
[2017-11-17] MEDS ORDERED: BISACODYL 10 MG SUPP RECTAL PRN (12:30)
[2017-11-17] MEDS ORDERED: ONDANSETRON HCL 4 MG/2 ML VIAL IVP PRN (12:30)
[2017-11-17] MEDS ORDERED: SENNOSIDES 8.6 MG TAB PO PRN (12:30)
[2017-11-17] MEDS ORDERED: SODIUM CHLORIDE 0.9% FLUSH 10 ML FLUSH IV FLUSH PRN (12:30)
--- NOTE | 2017-11-17 13:51 | HHI.HP ---
HPI Service [facility] Primary Care Physician No Primary Care Physician Admission Diagnosis COPD EXACERBATION WITH HYPOXEMIA Diagnoses: Travel History International Travel<30 Days: No Contact w/Intl Traveler <30 Da: No Traveled to Known Affected Are: No History of Present Illness Pt is a 67 yr old male w PMHx of COPD, lung cancer stage IV known to Dr. Bettencourt, procurement representative and Dr. Griffith, oncologist, who presents in the emergency room with worsening shortness of breath. Patient states that he feels "I keep running out of air ". Patient had a thoracentesis on 11/14/17 on the right. He states that they drained about 600 cc at that time. He was told to call on Friday11/18/17 to schedule a thoracentesis on the left. After a couple of days he couldn't even walk 3 steps without feeling SOB. He has received immunotherapy about 3 weeks ago. He complains of wheezing and a dry cough whenever he gets up and moves around. He tells me that he did not qualify for home oxygen however he feels like he needs it. He denies any fevers or chills. He states that coughing makes his chest were hurt. He last saw Dr. Bettencourt a few weeks ago however he has an appointment with him in mid November. He denies any abdominal pain, nausea or vomiting, any burning with urination. He does have some urinary hesitancy but is able to use the restroom. Review of Systems Except as stated in HPI: all other systems reviewed are Neg Past Family Social History Past Medical History COPD, stage IV lung cancer Past Surgical History Right port placement, tonsillectomy, lung biopsy, thoracentesis 2 Reported Medications Reported Meds & Active Scripts Active Oxygen (O2) Device Liter CELSO.CANULA CONTINUOUS Oxygen Concentrator Portable Gaseous 2 L/min via Nasal Canula Continuous For 99 months Symbicort Inh (Budesonide/Formoterol Fumarate) 160-4.5 Mcg/Act Aero 1 Puff INH Q12HR Reported Prednisone 5 Mg Tab 5 Mg PO DAILY start after prednisone 40 mg QD for 4 days Duoneb (Ipratropium-Albuterol Neb) 0.5-2.5 Mg/3 Ml Neb 1 Nebule INH Q6HR NEB Ventolin Hfa 18 GM Inh (Albuterol Sulfate) 90 Mcg/Act Aer 2 Puff INH Q4-6H PRN Allergies: Coded Allergies: No Known Allergies (Verified Allergy, Unknown, 10/08/17) Family History Father had polio, mother was healthy but at age 92 Social History Quit smoking in July. [place] 17. Used to smoke 1.5 pack a day since the age of 15. Denies any illegal drug use or alcohol use. Physical Exam Vital Signs Vital Signs Date Time Temp Pulse Resp B/P (MAP) Pulse Ox O2 Delivery O2 Flow Rate FiO2 11/17/17 12:53 11/17/17 11:50 112 27 90/63 (72) 96 Nasal Cannula 3.00 11/17/17 11:03 98 Nasal Cannula 3.00 11/17/17 11:00 114 24 116/41 (66) 93 Nasal Cannula 3.00 11/17/17 10:56 92 Room Air 11/17/17 10:48 97.9 122 22 112/68 (83) 92 Room Air Physical Exam GENERAL: Cachectic male, laying in bed with nasal cannula in place. Call. SKIN: Cool and dry. HEAD: Atraumatic. Normocephalic. EYES: Pupils equal round and reactive. Extraocular motions intact. No scleral icterus. No injection or drainage. ENT: Nose without drainage. Airway patent. NECK: Trachea midline. No cervical lymphadenopathy. CARDIOVASCULAR: Mildly tachycardic however regular rate and rhythm no murmurs RESPIRATORY: Expiratory wheezes auscultated throughout. There are decreased lung sounds on the left compared to the right GASTROINTESTINAL: Abdomen soft, non-tender, nondistended. No guarding. MUSCULOSKELETAL: Extremities without edema. No joint tenderness, effusion, or edema noted. No calf tenderness. Negative Homans sign bilaterally. NEUROLOGICAL: Awake and alert. Cranial nerves II through XII intact. Motor and sensory grossly within normal limits. Five out of 5 muscle strength in all muscle groups. Normal speech. Laboratory Laboratory Tests Test 11/17/17 11:08 White Blood Count 19.8 Red Blood Count 4.68 Hemoglobin 13.2 Hematocrit 40.2 Mean Corpuscular Volume 85.9 Mean Corpuscular Hemoglobin 28.3 Mean Corpuscular Hemoglobin Concent 32.9 Red Cell Distribution Width 15.1 Platelet Count 334 Mean Platelet Volume 6.9 Neutrophils (%) (Auto) 89.5 Lymphocytes (%) (Auto) 4.3 Monocytes (%) (Auto) 4.8 Eosinophils (%) (Auto) 0.5 Basophils (%) (Auto) 0.9 Neutrophils # (Auto) 17.8 Lymphocytes # (Auto) 0.9 Monocytes # (Auto) 0.9 Eosinophils # (Auto) 0.1 Basophils # (Auto) 0.2 CBC Comment DIFF FINAL Differential Comment Prothrombin Time 10.9 Prothromb Time International Ratio 1.1 Activated Partial Thromboplast Time 25.4 Blood Urea Nitrogen 16 Creatinine 0.96 Random Glucose 98 Total Protein 6.8 Albumin 2.4 Calcium Level 8.5 Alkaline Phosphatase 76 Aspartate Amino Transf (AST/SGOT) 23 Alanine Aminotransferase (ALT/SGPT) 13 Total Bilirubin 0.6 Sodium Level 136 Potassium Level 4.2 Chloride Level 101 Carbon Dioxide Level 24.2 Anion Gap 11 Estimat Glomerular Filtration Rate 78 Troponin I LESS THAN 0.02 B-Type Natriuretic Peptide 49 Result Diagram: 11/17/17 1108 11/17/17 1108 Imaging Last Impressions Chest X-Ray 11/17/17 1100 Signed Impressions: Service Date/Time: Friday, November 17, 2017 11:15 - CONCLUSION: 1. Right hilar mass. 2. Widespread metastatic disease. 3. Bilateral effusions being greater on the left. MD Lizbeth Muñiz VTE Risk Assessment Capdiannei VTE Risk Assessment: Mod/High Risk (score >= 2) Caprini Risk Assessment Model Point Value = 1 Point Value = 2 Point Value = 3 Point Value = 5 Age 41-60 Minor surgery BMI > 25 kg/m2 Swollen legs Varicose veins or History of unexplained or recurrent spontaneous Oral contraceptives or hormone replacement Sepsis (< 1 month) Serious lung disease, including pneumonia (< 1 month) Abnormal pulmonary function Acute myocardial infarction Congestive heart failure (< 1 month) History of inflammatory bowel disease Medical patient at bed rest Age 61-74 Arthroscopic surgery Major open surgery (> 45 min) Laparoscopic surgery (> 45 min) Malignancy Confined to bed (> 72 hours) Immobilizing plaster cast Central venous access Age >= 75 History of VTE Family history of VTE Factor V Leiden Prothrombin 82302G Lupus anticoagulant Anticardiolipin antibodies Elevated serum homocysteine Heparin-induced thrombocytopenia Other congenital or acquired thrombophilia Stroke (< 1 month) Elective arthroplasty Hip, pelvis, or leg fracture Acute spinal cord injury (< 1 month) Prophylaxis Regimen Total Risk Factor Score Risk Level Prophylaxis Regimen 0-1 Low Early ambulation 2 Moderate Order ONE of the following: *Sequential Compression Device (SCD) *Heparin 5000 units SQ BID 3-4 Higher Order ONE of the following medications: *Heparin 5000 units SQ TID *Enoxaparin/Lovenox 40 mg SQ daily (WT < 150 kg, CrCl > 30 mL/min) *Enoxaparin/Lovenox 30 mg SQ daily (WT < 150 kg, CrCl > 10-29 mL/min) *Enoxaparin/Lovenox 30 mg SQ BID (WT < 150 kg, CrCl > 30 mL/min) AND/OR *Sequential Compression Device (SCD) 5 or more Highest Order ONE of the following medications: *Heparin 5000 units SQ TID (Preferred with Epidurals) *Enoxaparin/Lovenox 40 mg SQ daily (WT < 150 kg, CrCl > 30 mL/min) *Enoxaparin/Lovenox 30 mg SQ daily (WT < 150 kg, CrCl > 10-29 mL/min) *Enoxaparin/Lovenox 30 mg SQ BID (WT < 150 kg, CrCl > 30 mL/min) AND *Sequential Compression Device (SCD) Assessment and Plan Assessment and Plan COPD exacerbation/Stage IV lung cancer/pleural effusions: Patient presents with difficulty breathing with sats 92 on room air however patient states he feels very uncomfortable and has difficulty breathing. He had a thoracentesis done on 11/14/17 and they removed 600 mL's. Patient was instructed to call and make an appointment to drain the left side. Chest x-ray reviewed by me which showed metastatic disease in lung mass with effusion bilaterally R>L. I will check an ultrasound of the chest to see if patient has enough fluid to drain. If there is enough fluid, will consult IR for thoracentesis. INR 1.1. Patient is wheezing on exam, I will start him on scheduled DuoNeb treatments and as needed. I will start IV Solu-Medrol 40 mg IV every 6 hours and taper down. continue supplemental oxygen to maintain O2 sats 89-92% Pulm consulted, pt known to Dr. Bettencourt. Encourage use of IS q1hr while awake. Leukocytosis: most likely from his malignancy. No signs of infection. Monitor for fevers I had a discussion w patient regarding code status, he wishes to be DNR. He is nervous about what his will think. He tells me that he doesn't want to be a "burden" to his and he feels that his condition is worsening. I offered him a palliative care consult and pt is agreeable to this and wishes to speak w them regarding goals of care. DVT proph: lovenox Code Status Pt wishes to be DNR. Discussed Condition With ER physician and patient. Chiara Bishop MD Nov 17, 2017 13:51
[2017-11-17] MEDS ORDERED: RESP: ALBUTEROL 2.5 MG/IPRATROPIUM 0.5 MG NEB (PRN) NEB (14:00)
[2017-11-17] MEDS ORDERED: RESP: ALBUTEROL 2.5 MG/IPRATROPIUM 0.5 MG NEB (PRN) INH (14:15)
[2017-11-17] MEDS: ENOXAPARIN SODIUM 40 MG/0.4 ML SYRINGE SQ SCH (15:00)
[2017-11-17] MEDS: RESP: ALBUTEROL 2.5 MG/IPRATROPIUM 0.5 MG NEB (SCH) INH ×2 (15:21→20:26)
[2017-11-17 15:52] VITALS: BP 102/63; PULSE 110; RESP 19; TEMP 98.2; O2SAT 92
--- NOTE | 2017-11-17 16:35 | RADRPT ---
EXAM DATE/TIME: 11/17/2017 14:58 [facility] COMPARISON: No previous studies available for comparison. INDICATIONS : Right pleural effusion. MEDICAL HISTORY : Hypercholesterolemia. Chemtherapy. Chronic obstructive pulmonary disease. Carcinoma lung. Dyspnea. Pl eural effusion. SURGICAL HISTORY : Tonsillectomy. Port placement. Thoracentesis. ENCOUNTER: Subsequent ACUITY: 2 days PAIN SCORE: 1/10 LOCATION: Left chest MEASUREMENTS: SKIN TO PARIETAL PLEURA: 1.4 cm SKIN TO MAX SAFE DEPTH: 3.5 cm ESTIMATED FLUID VOLUME: 1118 cc FLUID COMPOSITION: simple FINDINGS: Pleural effusion as above. A cindy was placed on the skin surface superficial to the pleural fluid col lection. CONCLUSION: Pleural effusion marked. KObey Limon MD on November 17, 2017 at 16:33 Board Certified Radiologist. This report was verified electronically.
[2017-11-17] MEDS: LEVOFLOXACIN 500 MG TAB PO SCH (16:42)
--- NOTE | 2017-11-17 16:52 | MB ---
cc: JASON NUR DATE OF CONSULTATION 11/17/[address] Bishop. REASON FOR CONSULTATION Pulmonary management and pleural effusion. HISTORY OF THE PRESENT ILLNESS Mr. Silva is a 67-year-old male with metastatic adenocarcinoma of the lung stage IV. He has history of immunotherapy, follows with Dr. Bull and Dr. Wolf. He has history of pleural effusion, was seen by oncologist last week on Friday and was found to have pleural effusion. He had a right thoracentesis done, 600 cc of fluid was removed. He continues to have worsening of his shortness of breath. Has no cough or sputum production. No fever or chills. No night sweats. With these symptoms he came to the hospital. He had a chest x-ray done which shows he has right hilar mass, widespread metastatic disease and bilateral pleural effusions greater on the left than on the right. His CBC showed a WBC count of 19.8, hemoglobin 13.2, hematocrit 40.2, MCV 85, platelet count 334. His sodium is 136, potassium 4.2, chloride 101, CO2 24, BUN 16, creatinine 0.96. INR is 1.1. PAST MEDICAL HISTORY Significant for: 1. Metastatic adenocarcinoma of the lungs stage IV. 2. COPD. 3. Pleural effusion status post thoracentesis. MEDICATIONS He is currently takin. Solu-Medrol 40 mg q.6h. 2. Albuterol/Atrovent nebulizer treatment. 3. Lovenox 40 mg a day. ALLERGIES NO KNOWN DRUG ALLERGIES. SOCIAL HISTORY He is . He used to work before, he is retired. He has a long history of smoking most of his life, 1-1/2 packs a day. FAMILY HISTORY He has seven children, one in a motor vehicle accident. REVIEW OF SYSTEMS Feels weak and tired, has shortness of breath. Denies any weight loss. No hemoptysis. No DVT or pulmonary embolism. PHYSICAL EXAMINATION GENERAL: Elderly, frail male, mildly short of breath. VITAL SIGNS: Blood pressure 116/41, heart rate 114, respirations 20, temperature 97.9. HEENT: Examination pupils are equal and reactive to light. Oral mucosa, nasal mucosa normal. NECK: Supple. Jugular venous pulse is not raised. CHEST: He has basal rales. Slightly decreased breath sounds to the left base. CARDIOVASCULAR: S1-S2 normal. ABDOMEN: Benign. EXTREMITIES: No edema. IMPRESSION 1. Worsening of shortness of breath with bilateral pleural effusion. His pleural effusion on the left is rather small. He recently had a right thoracentesis done. 2. COPD. 3. Adenocarcinoma of the lung stage IV. PLAN We will get ultrasound of the chest. If he has significant effusion on the left he will need thoracentesis. Supplement his oxygen. Continue aerosol treatment. Continue IV steroids. I will also start him on Levaquin 500 milligrams a day. The patient is known to Dr. Leland Bettencourt who will follow him from tomorrow. Further treatment will depend on the course in the hospital. Thank you Dr. Bishop for this consultation. MD FLORENTIN Turner/SOY /2:41 PM /4:19 PM
--- NOTE | 2017-11-17 16:55 | PD.CONS ---
Consult Service Palliative Care . Consult Requested By Dr. Bishop . Primary Care Physician No Primary Care Physician . Reason for Consultation a. To assist with evaluation and management of symptoms including: Decreased appetite, debility, dyspnea b. To assist medical decision maker(s) with: better understanding of current medical conditions; weighing benefits/burdens of medical treatment options; making medical treatment decisions. . HPI History of Present Illness Mr. Silva is a 67-year-old male with COPD and newly diagnosed stage IV metastatic lung cancer who is known to Dr. Bettencourt (pulmonology) and Dr. Willams (oncology). He presented to [facility] ED on 11/17/2017 with complaints of progressively worsening shortness of breath s/p right-sided thoracentesis on with 600ml he moved. The patient stated he was told to call on Friday11/18/2017 to schedule a thoracentesis on the left but his shortness became so severe he came into the ED. Patient reported he becomes SOB after only a few steps and it feels like he is "running out of air." He endorsed wheezing and a dry cough. Patient received immunotherapy about 3 weeks ago. Of note, a CAT scan of the chest in August, showed a 6.6 x 5.8 cm right hilar mass with multiple bilateral lung masses as well as extensive mediastinal lymphadenopathy and a small precordial effusion; a lung biopsy showed poorly differentiated adenocarcinoma consistent with lung primary. Staging evaluation including CT-PET showed evidence of metastatic disease to the liver. Lung biopsy on 09/16/2017 showed an invasive poorly differentiated adenocarcinoma. Additional testing proved the lung cancer to be PD-L1 positive; ALK and EGFR were negative. The tumor cells were 90% PD-L1 positive and the patient was started on Keytruda. Status post thoracentesis on 11/02/2017 and 11/14/2017. Additional diagnostic data: = Pulse: 122, respirations 22, BP 112/68, oxygen saturation 92% on room air and oral temperature of 97.9 =WBC: 19.8, hemoglobin 13.2, hematocrit 40.2, platelets 334, neutrophils 89.5% =Sodium: 136, potassium 4.2, chloride 101, carbon dioxide 24.2, glucose 98, calcium 8.5 urine: 16, creatinine 0.96, GFR 78 total bilirubin: 0.6, AST 23, ALT 13, alkaline phosphatase 76 =Troponin: <0.02 =BNP: 49 =Total protein: 6.8, albumin 2.4 =PT: 10.9, INR 1.1, APTT 25.4 =Chest x-ray showing right hilar mass with widespread metastatic disease; bilateral effusions. Patient was wheezing on exam, started scheduled and PRN DuoNeb treatments and IV Solu-Medrol 40 mg every 6 hours with taper. Pulmonology was consulted. An ultrasound of the left chest showed approximately 1118 mL's of fluid; IR was consulted for thoracentesis tomorrow 11/18/2017. Patient was started on Levaquin as well. Dr. Bishop spoke with the patient about CODE STATUS. The patient indicated he wished to be a DNR but was concerned about what his would think. He stated he did not want to be a "burden" to his and he feels that his condition is worsening. Per agents request, Palliative Care was consulted to assist with symptom management and to discuss with the patient/family the benefits and burdens of his current illnesses and the options regarding future care. . Function/Cognitive Trajectory Patient with newly diagnosed stage IV metastatic lung cancer in August,. Patient's major complaint is progressively worsening dyspnea. He states he can only walk a few feet before becoming short of breath but he has not qualified for and home oxygen. Patient also reports a 40 pound weight loss in the past 3 months associated diminished appetite. . Review of Systems Constitutional: COMPLAINS OF: Fatigue, Weight loss (40 pound weight loss reported in the past 3 months), Change in appetite (diminished appetite), Generalized weakness Ears, nose, mouth, throat: DENIES: Hearing loss Respiratory: COMPLAINS OF: Cough (dry cough), Wheezing, Shortness of breath Cardiovascular: COMPLAINS OF: Dyspnea on Exertion (dyspnea with minimal exertion), DENIES: Chest pain Gastrointestinal: DENIES: Constipation, Diarrhea, Nausea Psychiatric: COMPLAINS OF: Anxiety Past Family Social History Coded Allergies: No Known Allergies (Verified Allergy, Unknown, 10/08/17) Past Medical History COPD Stage IV lung cancer . Past Surgical History Right port placement Tonsillectomy Lung biopsy Thoracentesis 2 . Reported Medications Prednisone 5 Mg Tab 5 Mg PO DAILY start after prednisone 40 mg QD for 4 days Duoneb (Ipratropium-Albuterol Neb) 0.5-2.5 Mg/3 Ml Neb 1 Nebule INH Q6HR NEB Ventolin Hfa 18 GM Inh (Albuterol Sulfate) 90 Mcg/Act Aer 2 Puff INH Q4-6H PRN . Current Medications Medications (Trade) Dose Ordered Sig/Gabriele Route Start Time Stop Time Status Last Admin (NS Flush) 2 ml UNSCH PRN IV FLUSH 11/17/17 12:30 (NS Flush) 2 ml BID IV FLUSH 11/17/17 21:00 (Zofran Inj) 4 mg Q6H PRN IVP 11/17/17 12:30 (Narcan Inj) 0.4 mg UNSCH PRN IV PUSH 11/17/17 12:30 (Abigail-Colace) 1 tab BID PO 11/17/17 21:00 (Milk Of Magnesia Liq) 30 ml Q12H PRN PO 11/17/17 12:30 (Senokot) 17.2 mg Q12H PRN PO 11/17/17 12:30 (Dulcolax Supp) 10 mg DAILY PRN RECTAL 11/17/17 12:30 (Lactulose Liq) 30 ml DAILY PRN PO 11/17/17 12:30 (Duoneb Neb) 1 ampule Q6HR NEB INH 11/17/17 16:00 11/17/17 15:21 (Lovenox Inj) 40 mg Q24H SQ 11/17/17 15:00 (Duoneb Neb) 1 ampule Q2HR NEB PRN INH 11/17/17 14:15 (SoluMEDROL INJ) 40 mg Q6H IV PUSH 11/17/17 17:00 (Levaquin) 500 mg DAILY PO 11/17/17 15:00 Family History Father at the age of 55 from complications related to polio. Mother from natural causes at age 92. . Substance Use Tobacco: Smoked 1.5 PPD since age 15,Quit smoking July 2017 Alcohol: None known Prescription med abuse: None known Illicits: None known . Psychosocial History Originally from [place], and [place] area moved to [place] about 3 years ago. 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 . Has several children (six sons and 1 daughter) who live in various places around the country ; one son in a motor vehicle accident. . Spiritual/Cultural Factors Jainism tiffanie . Living Will: Never completed Health Care Surrogate: Never completed Durable Power of Detailer: Never completed Health Care Surrogate(s): Never completed . Documented care wishes: Never completed . Today's verbally stated goals: Goals remain aggressive up to the point of cardiopulmonary resuscitation. Patient states he does not want to be a "burden"to his and he feels that his disease is progressing. Patient is requesting more information about his overall prognosis. He would like to weigh benefits vs. burdens of ongoing palliative treatment. . Family/friends goals: No family present. . Ethical and Legal Issues Patient is currently capacitated and able to make his own decisions. He is supported by his who would be appropriate legal proxy should he become incapacitated. . Physical Exam Vital Signs Date Time Temp Pulse Resp B/P (MAP) Pulse Ox O2 Delivery O2 Flow Rate FiO2 11/17/17 15:52 98.2 110 19 102/63 (76) 92 11/17/17 12:53 11/17/17 11:50 112 27 90/63 (72) 96 Nasal Cannula 3.00 11/17/17 11:03 98 Nasal Cannula 3.00 11/17/17 11:00 114 24 116/41 (66) 93 Nasal Cannula 3.00 11/17/17 10:56 92 Room Air 11/17/17 10:48 97.9 122 22 112/68 (83) 92 Room Air . Exam CONSTITUTIONAL/GENERAL: This is an adequately nourished patient, in no apparent distress. TUBES/LINES/DRAINS: Implanted VAD SKIN: No jaundice, rashes, or lesions. No wounds seen anteriorly. Skin temperature appropriate. Not diaphoretic. HEAD: Atraumatic. Normocephalic. EYES: Pupils equal and round and reactive. Extraocular motions intact. No scleral icterus. No injection or drainage. Fundi not examined. ENT: Hearing grossly normal. Nose without bleeding or purulent drainage. NECK: Trachea midline. Supple, nontender. No palpable thyroid enlargement or nodularity. CARDIOVASCULAR: Regular rate and rhythm without murmurs, gallops, or rubs. No JVD. Peripheral pulses symmetric. RESPIRATORY/CHEST: Symmetric, unlabored respirations. Breath sounds diminished bilaterally. + Wheezing. GASTROINTESTINAL: Abdomen soft, non-tender, nondistended. No hepato-splenomegaly , or palpable masses. No guarding. Bowel sounds present. GENITOURINARY: Without palpable bladder distension. MUSCULOSKELETAL: Extremities without clubbing, cyanosis, or edema. . No mottling or clubbing. LYMPHATICS: No palpable cervical or supraclavicular adenopathy. NEUROLOGICAL: Awake and alert. Motor and sensory grossly within normal limits. Follows commands. Cognitively sharp. Moves all extremities. PSYCHIATRIC: No obvious anxiety/depression. No apparent hallucinations or other psychotic thought process. . Diagnostic Tests Laboratory Laboratory Tests Test 11/17/17 11:08 White Blood Count 19.8 TH/MM3 (4.0-11.0) Red Blood Count 4.68 MIL/MM3 (4.50-5.90) Hemoglobin 13.2 GM/DL (13.0-17.0) Hematocrit 40.2 % (39.0-51.0) Mean Corpuscular Volume 85.9 FL (80.0-100.0) Mean Corpuscular Hemoglobin 28.3 PG (27.0-34.0) Mean Corpuscular Hemoglobin Concent 32.9 % (32.0-36.0) Red Cell Distribution Width 15.1 % (11.6-17.2) Platelet Count 334 TH/MM3 (150-450) Mean Platelet Volume 6.9 FL (7.0-11.0) Neutrophils (%) (Auto) 89.5 % (16.0-70.0) Lymphocytes (%) (Auto) 4.3 % (9.0-44.0) Monocytes (%) (Auto) 4.8 % (0.0-8.0) Eosinophils (%) (Auto) 0.5 % (0.0-4.0) Basophils (%) (Auto) 0.9 % (0.0-2.0) Neutrophils # (Auto) 17.8 TH/MM3 (1.8-7.7) Lymphocytes # (Auto) 0.9 TH/MM3 (1.0-4.8) Monocytes # (Auto) 0.9 TH/MM3 (0-0.9) Eosinophils # (Auto) 0.1 TH/MM3 (0-0.4) Basophils # (Auto) 0.2 TH/MM3 (0-0.2) CBC Comment DIFF FINAL Differential Comment Prothrombin Time 10.9 SEC (9.8-11.6) Prothromb Time International Ratio 1.1 RATIO Activated Partial Thromboplast Time 25.4 SEC (24.3-30.1) Blood Urea Nitrogen 16 MG/DL (7-18) Creatinine 0.96 MG/DL (0.60-1.30) Random Glucose 98 MG/DL (74-106) Total Protein 6.8 GM/DL (6.4-8.2) Albumin 2.4 GM/DL (3.4-5.0) Calcium Level 8.5 MG/DL (8.5-10.1) Alkaline Phosphatase 76 U/L (45-117) Aspartate Amino Transf (AST/SGOT) 23 U/L (15-37) Alanine Aminotransferase (ALT/SGPT) 13 U/L (12-78) Total Bilirubin 0.6 MG/DL (0.2-1.0) Sodium Level 136 MEQ/L (136-145) Potassium Level 4.2 MEQ/L (3.5-5.1) Chloride Level 101 MEQ/L (98-107) Carbon Dioxide Level 24.2 MEQ/L (21.0-32.0) Anion Gap 11 MEQ/L (5-15) Estimat Glomerular Filtration Rate 78 ML/MIN (>89) Troponin I LESS THAN 0.02 NG/ML B-Type Natriuretic Peptide 49 PG/ML (0-100) .. Result Diagram: 11/17/17 1108 11/17/17 1108 Imaging Last 72 hours Impressions Chest Ultrasound 11/17/17 1551 Signed Impressions: Service Date/Time: Friday, November 17, 2017 14:58 - CONCLUSION: Pleural effusion marked. K. Roland Limon MD Chest X-Ray 11/17/17 1100 Signed Impressions: Service Date/Time: Friday, November 17, 2017 11:15 - CONCLUSION: 1. Right hilar mass. 2. Widespread metastatic disease. 3. Bilateral effusions being greater on the left. Onesimo Carbajal MD . Patient/Family Conference Present at Family Conference: Spoke with patient at bedside. . Family Conference Location: Bedside Issues Discussed: * Palliative care role, purpose, approach * Additional medical, psychosocial, and spiritual history * Patients general health, functional status, and cognitive changes in the months leading up to the current hospitalization * Patient/family understanding of the current medical problems * Patient/family understanding of prognosis * Patients goals of care as best understood from advance directives and/or conversations and/or values * Current medical treatment options and benefits/burdens of those options * Likely scenarios comparing ongoing aggressive care with a transition to comfort measures only * Questions answered to the best of my ability * Palliative care contact information provided * . Assessment and Plan Disease Oriented Problem List: (1) Non-small cell carcinoma of lung, stage 4 (2) Leukocytosis (3) Pleural effusion (4) COPD (chronic obstructive pulmonary disease) (5) Pleural effusion Symptom Scale: (1) Dyspnea (2) Decrease in appetite (3) Debility Pertinent Non-Medical Issues Psychosocial:Originally from [place], and [place] area moved to [place] about 3 years ago. 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 . Has several children who live in various places around the country. Spiritual: Jainism, no particular local affiliation. Legal:Patient is currently capacitated and able to make his own decisions. He is supported by his who would be appropriate legal proxy should he become incapacitated. Palliative will offer to assist patient with advanced directives during hospital course should he desire. Ethical issues impacting care: No ethical issues identified . Important Contacts Abigail Silva, : [phone] . Prognosis Patient has stage IV metastatic non-small cell lung cancer that was diagnosed in August, on Keytruda. He has declined in the last 3 months as evidenced by a reported weight loss of 40 pounds, decreased appetite, debility and worsening dyspnea with minimal exertion. The patient has recurrent pleural effusions requiring multiple thoracentesis. Patient would be hospice appropriate if and/or when his medical treatment goals become comfort oriented. . Code Status: No Code Plan * NO CODE-DNR/DNI * Decision-making: Patient has insight and judgment related to his medical conditions and is therefore capacitated make his own decisions. He is supported by his who would be appropriate legal proxy should he become incapacitated. * Goals remain aggressive up to the point of cardiopulmonary resuscitation. Patient states he does not want to be a "burden"to his and he feels that his disease is progressing. Per patient's request, Palliative Care was consulted to assist with symptom management and to discuss with the family/ agents the benefits and burdens of his current illnesses and the options regarding future care. Patient is requesting more information about his overall prognosis. * Symptom management - dyspnea: Patient with newly diagnosed stage IV metastatic non-small cell lung cancer having worsening dyspnea with minimal exertion. Patient states he is only able to walk a few feet and feels like he can't catch his breath. Having recurrent pleural effusions requiring thoracentesis. Status post thoracentesis on 11/02/2017 and 11/14/2017. Started on scheduled and PRN DuoNeb treatments and IV Solu-Medrol 40 mg every 6 hours with taper. Pulmonology was consulted. An ultrasound of the left chest showed approximately 1118 mL's of fluid; IR was consulted for thoracentesis tomorrow 11/18/2017. Patient also started on Levaquin. * Symptom management - decreased appetite: Patient reporting decreased appetite with associated weight loss of 40 pounds in the past 3 months. He states he had been started on a medication to stimulate his appetite but he cannot remember what it was. Consider starting the patient on Megace 400mg PO daily to stimulate appetite, may increase up to 800 mg daily. Corticosteroids may so have beneficial effects on appetite and and overall well-being. * Palliative Care contact information was provided to the patient. * Palliative care will continue to follow this patient throughout his hospitalization to establish trust, assist with symptom management and clarification of medical treatment goals. . Thank you for the opportunity to participate in the care of Mr. Silva. . Attestation To help prompt me to consider important information that might be impacting today's encounter and assessment, information from prior notes written by myself or my colleagues may have been "brought forward" into today's note. My signature on this note, however, is an attestation that I personally performed the exam, history, and/or decision-making noted today, and, unless otherwise indicated, the interactions with patient, family, and staff as well as the review of records all occurred today. I also attest that the listed assessment and stated plan reflect my best clinical judgment today based on the combination of historical information, prior notes, and today's exam/ interactions. When time spent is documented, it refers only to time spent today by the signer, or if indicated, combined time spent today by collaborating physician/nurse practitioner. . Ronit Mckenzie Nov 17, 2017 16:55
[2017-11-17] MEDS: methylPREDNISolone SOD SUCC 40 MG/1 ML VIAL IV PUSH SCH (17:00)
[2017-11-17 19:32] VITALS: BP 106/66; PULSE 106; RESP 18; TEMP 98.3; O2SAT 94
[2017-11-17] MEDS: DOCUSATE SODIUM 50 MG/SENNA 8.6 MG TAB PO SCH ×2 (21:00→21:10)
[2017-11-17] MEDS: SODIUM CHLORIDE 0.9% FLUSH 10 ML FLUSH IV FLUSH SCH (21:10)
[2017-11-18] VITALS (12 sets, daily range): BP systolic 80–108; BP diastolic 48–72; PULSE 87–94; RESP 17–20; TEMP 96.1–98; O2SAT 94–98
[2017-11-18] MEDS: methylPREDNISolone SOD SUCC 40 MG/1 ML VIAL IV PUSH SCH ×5 (00:19→22:02)
[2017-11-18] MEDS: RESP: ALBUTEROL 2.5 MG/IPRATROPIUM 0.5 MG NEB (SCH) INH ×4 (02:53→20:29)
[2017-11-18 06:23] LABS: AUTOMATED NEUTROPHIL # 16.8 TH/MM3 (1.8-7.7); BASOPHIL % 0.1 % (0.0-2.0); HEMATOCRIT 35.6 % (39.0-51.0); HEMOGLOBIN 11.8 GM/DL (13.0-17.0); LYMPH % 2.8 % (9.0-44.0); LYMPHOCYTE # 0.5 TH/MM3 (1.0-4.8); MEAN CELL VOLUME 85.8 FL (80.0-100.0); MEAN CORPUSCULAR HEMOGLOBIN 28.4 PG (27.0-34.0); MEAN CORPUSCULAR HGB CONC 33.1 % (32.0-36.0); MEAN PLATELET VOLUME 6.9 FL (7.0-11.0); MONO % 1.1 % (0.0-8.0); MONOCYTE # 0.2 TH/MM3 (0-0.9); PLATELET COUNT 331 TH/MM3 (150-450); RED BLOOD COUNT 4.15 MIL/MM3 (4.50-5.90); RED CELL DISTRIBUTION WIDTH 15.2 % (11.6-17.2); WHITE BLOOD COUNT 17.5 TH/MM3 (4.0-11.0)
[2017-11-18 06:42] LABS: BICARBONATE 27.1 MEQ/L (21.0-32.0); CALCIUM 8.5 MG/DL (8.5-10.1); CREATININE 0.8 MG/DL (0.60-1.30)
[2017-11-18] MEDS: LEVOFLOXACIN 500 MG TAB PO SCH (08:45)
[2017-11-18] MEDS: DOCUSATE SODIUM 50 MG/SENNA 8.6 MG TAB PO SCH ×2 (08:45→22:02)
[2017-11-18] MEDS: SODIUM CHLORIDE 0.9% FLUSH 10 ML FLUSH IV FLUSH SCH ×2 (08:46→22:01)
--- NOTE | 2017-11-18 10:25 | RADRPT ---
EXAM DATE/TIME: 11/18/2017 10:01 [facility] COMPARISON: CHEST EXPIRATION ONLY, November 14, 2017, 15:56. INDICATIONS : Post left thoracentesis. MEDICAL HISTORY : Hypercholesterolemia. Chronic obstructive pulmonary disease. Dyspnea. Lung cancer. Chemotherapy. SURGICAL HISTORY : Tonsillectomy. Port placement. ENCOUNTER: Initial ACUITY: 1 day PAIN SCORE: 0/10 LOCATION: Left chest FINDINGS: The cardiac silhouette is normal in transverse diameter. [id number] is in place via right internal jugular approach with its tip in the superior vena cava. There is patchy alveolar disease bilaterall y compatible with edema or pneumonia. There has been no significant change when compared to the prior exam. Following left thoracentesis no pneumothorax is identified. There is significant reduction in the previously seen effusion. CONCLUSION: No evidence of pneumothorax following thoracentesis. Rashard Doyle MD on November 18, 2017 at 10:21 Board Certified Radiologist. This report was verified electronically.
--- NOTE | 2017-11-18 13:24 | RADRPT ---
EXAM DATE/TIME: 11/18/2017 09:02 [facility] COMPARISON: No previous studies available for comparison. INDICATIONS : Left pleural effusion. MEDICAL HISTORY : Hypercholesterolemia. Chronic obstructive pulmonary disease. Carcinoma, lung. Dyspnea. Pleural effusi on. SURGICAL HISTORY : Tonsillectomy. Port placement. Thoracentesis. Chemotherapy. ENCOUNTER: Subsequent ACUITY: 1 week PAIN SCORE: 0/10 LOCATION: Left chest FLUID: Total volume of 850 cc of dark yellow/dolly fluid was removed. Fluid was discarded. Thoracentesis was therapeutic only. TECHNIQUE: 1. Ultrasound guidance for thoracentesis. 2. Thoracentesis. The risks, benefits, and alternatives to ultrasound guided thoracentesis were explained to the patien t in lay simple terms, including the risk of bleeding and infection. Written and verbal informed con sent was obtained. Appropriate area for thoracentesis was marked under ultrasound guidance with the patient in the uprig ht position. Overlying skin was prepped and draped in the usual sterile fashion and with local anest hetic, a dermatotomy was made with an 11 blade scalpel. A 6 Bulgarian thoracentesis catheter was placed in the pleural space and fluid was removed. Catheter was then removed and a sterile dressing applie d. There were no immediate complications. The patient tolerated the procedure well and the left the ultrasound suite in stable condition. Chest radiograph is to be obtained. CONCLUSION: Uncomplicated ultrasound guided left thoracentesis. Kehinde Echevarria MD on November 18, 2017 at 13:22 Board Certified Radiologist. This report was verified electronically.
[2017-11-18] MEDS: ENOXAPARIN SODIUM 40 MG/0.4 ML SYRINGE SQ SCH (15:00)
--- NOTE | 2017-11-18 16:38 | HHI.HCPN ---
Reason for visit a. To assist with evaluation and management of symptoms including: Decreased appetite, debility, dyspnea b. To assist medical decision maker(s) with: better understanding of current medical conditions; weighing benefits/burdens of medical treatment options; making medical treatment decisions. . Subjective/Interval History Mr. Silva is a 67-year-old male with COPD and newly diagnosed stage IV metastatic lung cancer who is known to Dr. Bettencourt (pulmonology) and Dr. Willams (oncology). He presented to [facility] ED on 11/17/2017 with complaints of progressively worsening shortness of breath status post right-sided thoracentesis on 11/14/2017 with 600ml he moved. Patient has had recurrent pleural effusions requiring thoracentesis; the patient stated he was told to call on Friday11/18/2017 to schedule a thoracentesis on the left-5 but his shortness became so severe he to come to the ED. An ultrasound of the left chest showed approximately 1118 mL's of fluid; patient had an ultrasound guided thoracentesis this morning 11/18/2017 with 850ml of dark yellow/dolly fluid removed. Follow up chest x-ray showed significant reduction in the previously seen effusion, no evidence of pneumothorax. Patient reports shortness of breath has resolved since the procedure, he does endorse shortness of breath with conversation. Oxygen saturations in the high 90s on room air. He remains on scheduled/PRN whenever treatments and IV Solu-Medrol taper. Patient is also on Levaquin. Pulmonology is following. 11/18/2017 Lab Work: =WBC: 17.5, hemoglobin 11.8, hematocrit 35.6, platelets 331, neutrophils 96.0% =Sodium: 136, potassium 4.0, chloride 102, carbon dioxide 27.1, glucose 135, calcium 8.5 =BUN: 19, creatinine 0.80, GFR 96 Dr. Bishop discussed CODE STATUS with the patient upon admission. The patient indicated he wished to be a DNR but was concerned about what his would think. He stated he did not want to be a "burden" to his and he feels that his condition is worsening. Palliative Care was consulted to assist with symptom management and to discuss with the patient/family the benefits and burdens of his current illnesses and the options regarding future care. . Advance Directives Living Will: Never completed Health Care Surrogate: Never completed Durable Power of Canoe Maker: Never completed Advance Directive Specifics Health Care Surrogate(s): Never completed . Documented care wishes: Never completed . Objective Vital Signs Date Time Temp Pulse Resp B/P (MAP) Pulse Ox O2 Delivery O2 Flow Rate FiO2 11/18/17 12:00 96.1 90 18 92/61 (71) 97 11/18/17 10:25 89 20 94/65 (75) 98 11/18/17 10:10 97.7 87 20 81/64 (70) 97 11/18/17 09:35 98.0 93 20 104/61 (75) 96 11/18/17 08:00 96.7 89 17 80/57 (65) 96 11/18/17 04:20 96.7 88 18 83/48 (60) 97 11/18/17 01:13 96.5 90 18 87/64 (72) 94 11/18/17 00:57 95 Nasal Cannula 3.00 11/17/17 19:32 98.3 106 18 106/66 (79) 94 Intake & Output 11/18/17 11/18/17 07:00 19:00 Intake Total 800 ml Balance 800 ml Intake Oral 800 ml # Voids 2 # Bowel Movements 0 . Physical Exam CONSTITUTIONAL/GENERAL: This is an adequately nourished patient, in no apparent distress. TUBES/LINES/DRAINS: Implanted VAD SKIN: No jaundice, rashes, or lesions. No wounds seen anteriorly. Skin temperature appropriate. Not diaphoretic. HEAD: Atraumatic. Normocephalic. EYES: Pupils equal and round and reactive. No scleral icterus. No injection or drainage. ENT: Hearing grossly normal. Nose without bleeding or purulent drainage. NECK: Trachea midline. Supple, nontender. No palpable thyroid enlargement or nodularity. CARDIOVASCULAR: Regular rate and rhythm without murmurs, gallops, or rubs. No JVD. Peripheral pulses symmetric. RESPIRATORY/CHEST: Breath sounds diminished bilaterally; dyspneic with conversation. Oxygen saturation in the high 90s on room air. GASTROINTESTINAL: Abdomen soft, non-tender, nondistended. No hepato-splenomegaly , or palpable masses. No guarding. Bowel sounds present. GENITOURINARY: Without palpable bladder distension. MUSCULOSKELETAL: Extremities without clubbing, cyanosis, or edema. No mottling or clubbing. LYMPHATICS: No palpable cervical or supraclavicular adenopathy. NEUROLOGICAL: Awake and alert. Motor and sensory grossly within normal limits. Follows commands. Cognitively sharp. Moves all extremities. PSYCHIATRIC: No obvious anxiety/depression. No apparent hallucinations or other psychotic thought process. . Diagnostic Tests Laboratory Laboratory Tests Test 11/17/17 11:08 11/18/17 05:09 White Blood Count 19.8 TH/MM3 (4.0-11.0) 17.5 TH/MM3 (4.0-11.0) Red Blood Count 4.68 MIL/MM3 (4.50-5.90) 4.15 MIL/MM3 (4.50-5.90) Hemoglobin 13.2 GM/DL (13.0-17.0) 11.8 GM/DL (13.0-17.0) Hematocrit 40.2 % (39.0-51.0) 35.6 % (39.0-51.0) Mean Corpuscular Volume 85.9 FL (80.0-100.0) 85.8 FL (80.0-100.0) Mean Corpuscular Hemoglobin 28.3 PG (27.0-34.0) 28.4 PG (27.0-34.0) Mean Corpuscular Hemoglobin Concent 32.9 % (32.0-36.0) 33.1 % (32.0-36.0) Red Cell Distribution Width 15.1 % (11.6-17.2) 15.2 % (11.6-17.2) Platelet Count 334 TH/MM3 (150-450) 331 TH/MM3 (150-450) Mean Platelet Volume 6.9 FL (7.0-11.0) 6.9 FL (7.0-11.0) Neutrophils (%) (Auto) 89.5 % (16.0-70.0) 96.0 % (16.0-70.0) Lymphocytes (%) (Auto) 4.3 % (9.0-44.0) 2.8 % (9.0-44.0) Monocytes (%) (Auto) 4.8 % (0.0-8.0) 1.1 % (0.0-8.0) Eosinophils (%) (Auto) 0.5 % (0.0-4.0) 0.0 % (0.0-4.0) Basophils (%) (Auto) 0.9 % (0.0-2.0) 0.1 % (0.0-2.0) Neutrophils # (Auto) 17.8 TH/MM3 (1.8-7.7) 16.8 TH/MM3 (1.8-7.7) Lymphocytes # (Auto) 0.9 TH/MM3 (1.0-4.8) 0.5 TH/MM3 (1.0-4.8) Monocytes # (Auto) 0.9 TH/MM3 (0-0.9) 0.2 TH/MM3 (0-0.9) Eosinophils # (Auto) 0.1 TH/MM3 (0-0.4) 0.0 TH/MM3 (0-0.4) Basophils # (Auto) 0.2 TH/MM3 (0-0.2) 0.0 TH/MM3 (0-0.2) CBC Comment DIFF FINAL DIFF FINAL Differential Comment Prothrombin Time 10.9 SEC (9.8-11.6) Prothromb Time International Ratio 1.1 RATIO Activated Partial Thromboplast Time 25.4 SEC (24.3-30.1) Blood Urea Nitrogen 16 MG/DL (7-18) 19 MG/DL (7-18) Creatinine 0.96 MG/DL (0.60-1.30) 0.80 MG/DL (0.60-1.30) Random Glucose 98 MG/DL (74-106) 135 MG/DL (74-106) Total Protein 6.8 GM/DL (6.4-8.2) Albumin 2.4 GM/DL (3.4-5.0) Calcium Level 8.5 MG/DL (8.5-10.1) 8.5 MG/DL (8.5-10.1) Alkaline Phosphatase 76 U/L (45-117) Aspartate Amino Transf (AST/SGOT) 23 U/L (15-37) Alanine Aminotransferase (ALT/SGPT) 13 U/L (12-78) Total Bilirubin 0.6 MG/DL (0.2-1.0) Sodium Level 136 MEQ/L (136-145) 136 MEQ/L (136-145) Potassium Level 4.2 MEQ/L (3.5-5.1) 4.0 MEQ/L (3.5-5.1) Chloride Level 101 MEQ/L (98-107) 102 MEQ/L (98-107) Carbon Dioxide Level 24.2 MEQ/L (21.0-32.0) 27.1 MEQ/L (21.0-32.0) Anion Gap 11 MEQ/L (5-15) 7 MEQ/L (5-15) Estimat Glomerular Filtration Rate 78 ML/MIN (>89) 96 ML/MIN (>89) Troponin I LESS THAN 0.02 NG/ML B-Type Natriuretic Peptide 49 PG/ML (0-100) . Result Diagram: 11/18/17 0509 11/18/17 0509 Imaging Last 72 hours Impressions Thoracentesis Ultrasound 11/18/17 0000 Signed Impressions: Service Date/Time: Saturday, November 18, 2017 09:02 - CONCLUSION: Uncomplicated ultrasound guided left thoracentesis. Kehinde Echevarria MD Chest X-Ray 11/18/17 0000 Signed Impressions: Service Date/Time: Saturday, November 18, 2017 10:01 - CONCLUSION: No evidence of pneumothorax following thoracentesis. Rashard Doyle MD Chest Ultrasound 11/17/17 1551 Signed Impressions: Service Date/Time: Friday, November 17, 2017 14:58 - CONCLUSION: Pleural effusion marked. K. Roland Limon MD Chest X-Ray 11/17/17 1100 Signed Impressions: Service Date/Time: Friday, November 17, 2017 11:15 - CONCLUSION: 1. Right hilar mass. 2. Widespread metastatic disease. 3. Bilateral effusions being greater on the left. Onesimo Carbajal MD . Procedures 11/18/2017: Ultrasound-guided thoracentesis . Assessment and Plan Disease Oriented Problem List: (1) Non-small cell carcinoma of lung, stage 4 (2) Leukocytosis (3) Pleural effusion (4) COPD (chronic obstructive pulmonary disease) (5) Pleural effusion Symptom Scale: (1) Dyspnea (2) Decrease in appetite (3) Debility Pertinent Non-Medical Issues Psychosocial:Originally from [place], and [place] area moved to [place] about 3 years ago. 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 . Has several children who live in various places around the country. Spiritual: Congregation, no particular local affiliation. Legal:Patient is currently capacitated and able to make his own decisions. He is supported by his who would be appropriate legal proxy should he become incapacitated. Palliative will offer to assist patient with advanced directives during hospital course should he desire. Ethical issues impacting care: No ethical issues identified . Important Contacts Abigail Silva, : [phone] . Prognosis Patient has stage IV metastatic non-small cell lung cancer that was diagnosed in August, on Keytruda. He has declined in the last 3 months as evidenced by a reported weight loss of 40 pounds, decreased appetite, debility and worsening dyspnea with minimal exertion. The patient has recurrent pleural effusions requiring multiple thoracentesis. Patient would be hospice appropriate if and/or when his medical treatment goals become comfort oriented. . Code Status: No Code Plan * NO CODE-DNR/DNI * Decision-making: Patient has insight and judgment related to his medical conditions and is therefore capacitated make his own decisions. He is supported by his who would be appropriate legal proxy should he become incapacitated. * Goals remain aggressive up to the point of cardiopulmonary resuscitation. Patient states he does not want to be a "burden"to his and he feels that his disease is progressing. Per patient's request, Palliative Care was consulted to assist with symptom management and to discuss with the family/ agents the benefits and burdens of his current illnesses and the options regarding future care. Patient is requesting more information about his overall prognosis. * Oncology consult pending. * Discussed patient with Radha Sloan (oncology PA), Dr. Siddiqui and bedside nurse (John). * Symptom management - dyspnea: Patient with newly diagnosed stage IV metastatic non-small cell lung cancer having recurrent pleural effusion requiring thoracentesis. Patient had right-sided thoracentesis on 11/14/17 with 600 mL's of fluid removed. Patient came to the hospital on 11/17/2017 with severe dyspnea. Pulmonology was consulted. An ultrasound of the left chest showed approximately 1118 mL's of fluid; IR was consulted and the patient had a thoracentesis this morning with 850 mL of dark yellow/dolly fluid removed. Patient is scheduled and PRN DuoNeb treatments, IV Solu-Medrol 40 mg every 6 hours with taper and Levaquin. * Symptom management - decreased appetite: Patient reporting decreased appetite with associated weight loss of 40 pounds in the past 3 months. He states he had been started on a medication to stimulate his appetite but he cannot remember what it was. Consider starting the patient on Megace 400mg PO daily to stimulate appetite, may increase up to 800 mg daily. Corticosteroids may so have beneficial effects on appetite and and overall well-being. * Palliative Care contact information was provided to the patient. * Palliative care will continue to follow this patient throughout his hospitalization to establish trust, assist with symptom management and clarification of medical treatment goals. . Attestation To help prompt me to consider important information that might be impacting today's encounter and assessment, information from prior notes written by myself or my colleagues may have been "brought forward" into today's note. My signature on this note, however, is an attestation that I personally performed the exam, history, and/or decision-making noted today, and, unless otherwise indicated, the interactions with patient, family, and staff as well as the review of records all occurred today. I also attest that the listed assessment and stated plan reflect my best clinical judgment today based on the combination of historical information, prior notes, and today's exam/ interactions. When time spent is documented, it refers only to time spent today by the signer, or if indicated, combined time spent today by collaborating physician/nurse practitioner. Ronit Mckenzie Nov 18, 2017 16:38
--- NOTE | 2017-11-18 16:45 | HHI.PR ---
Subjective Remarks Patient states sob is much improved, gets sob when he talks. Denies chest pain. Case discussed with RN reports the patient has being ambulating the hallways. Afebrile. Denies dizziness, nausea, vomiting or abdominal pain. Once to go home. Objective Vitals Vital Signs Date Time Temp Pulse Resp B/P (MAP) Pulse Ox O2 Delivery O2 Flow Rate FiO2 11/18/17 12:00 96.1 90 18 92/61 (71) 97 11/18/17 10:25 89 20 94/65 (75) 98 11/18/17 10:10 97.7 87 20 81/64 (70) 97 11/18/17 09:35 98.0 93 20 104/61 (75) 96 11/18/17 08:00 96.7 89 17 80/57 (65) 96 11/18/17 04:20 96.7 88 18 83/48 (60) 97 11/18/17 01:13 96.5 90 18 87/64 (72) 94 11/18/17 00:57 95 Nasal Cannula 3.00 11/17/17 19:32 98.3 106 18 106/66 (79) 94 I/O 11/17/17 11/17/17 11/17/17 11/18/17 11/18/17 11/18/17 07:00 15:00 23:00 07:00 15:00 23:00 Intake Total 800 ml 0 ml Balance 800 ml 0 ml Intake Oral 800 ml 0 ml # Voids 2 0 # Bowel Movements 0 0 Result Diagram: 11/18/17 0509 11/18/17 0509 Imaging Last Impressions Thoracentesis Ultrasound 11/18/17 0000 Signed Impressions: Service Date/Time: Saturday, November 18, 2017 09:02 - CONCLUSION: Uncomplicated ultrasound guided left thoracentesis. Kehinde Echevarria MD Chest X-Ray 11/18/17 0000 Signed Impressions: Service Date/Time: Saturday, November 18, 2017 10:01 - CONCLUSION: No evidence of pneumothorax following thoracentesis. Rashard Doyle MD Chest Ultrasound 11/17/17 1551 Signed Impressions: Service Date/Time: Friday, November 17, 2017 14:58 - CONCLUSION: Pleural effusion marked. K. Roland Limon MD Objective Remarks AAox3 Mild scattered wheezing on BL lung schmitz, no rales or wheezing auscultated. Bs are present, abdomen soft, non tender to plapation no edema in lower extremities S1S2 RRR Medications and IVs Current Medications Medications (Trade) Dose Ordered Sig/Gabriele Route Start Time Stop Time Status Last Admin (NS Flush) 2 ml UNSCH PRN IV FLUSH 11/17/17 12:30 (NS Flush) 2 ml BID IV FLUSH 11/17/17 21:00 11/18/17 08:46 (Zofran Inj) 4 mg Q6H PRN IVP 11/17/17 12:30 (Narcan Inj) 0.4 mg UNSCH PRN IV PUSH 11/17/17 12:30 (Abigail-Colace) 1 tab BID PO 11/17/17 21:00 (Milk Of Magnesia Liq) 30 ml Q12H PRN PO 11/17/17 12:30 (Senokot) 17.2 mg Q12H PRN PO 11/17/17 12:30 (Dulcolax Supp) 10 mg DAILY PRN RECTAL 11/17/17 12:30 (Lactulose Liq) 30 ml DAILY PRN PO 11/17/17 12:30 (Duoneb Neb) 1 ampule Q6HR NEB INH 11/17/17 16:00 11/18/17 08:23 (Lovenox Inj) 40 mg Q24H SQ 11/17/17 15:00 (Duoneb Neb) 1 ampule Q2HR NEB PRN INH 11/17/17 14:15 (SoluMEDROL INJ) 40 mg Q6H IV PUSH 11/17/17 17:00 11/18/17 11:21 (Levaquin) 500 mg DAILY PO 11/17/17 15:00 11/18/17 08:45 A/P Problem List: (1) COPD exacerbation ICD Code: J44.1 - Chronic obstructive pulmonary disease with (acute) exacerbation Plan: The patient has been admitted to the medical floor. Chest x-ray on admission and reviewed them me showed metastatic disease and lung mass with bilateral pleural effusion left more than right. Continue IV Solu-Medrol, will decrease dose to 40 mg IV every 8 hours. Continue supplemental oxygen to keep oxygen saturation sats between 89 and 92%. Pulmonary consulted. Recommended thoracentesis. Continue IV Levaquin. We'll order a walk test. (2) Non-small cell lung cancer (NSCLC) ICD Code: C34.90 - Malignant neoplasm of unspecified part of unspecified bronchus or lung Plan: Consult medical oncology. Management as above. (3) Pleural effusion ICD Code: J90 - Pleural effusion, not elsewhere classified Plan: He had a thoracentesis done on 11/14/17 and they removed 600 mL's. Patient was instructed to call and make an appointment to drain the left side, however patient states he could not tolerate shortness of breath and came to the hospital. The patient status post ultrasound with left sided thoracentesis. (4) Leukocytosis ICD Code: D72.829 - Elevated white blood cell count, unspecified Plan: Patient meets sepsis criteria on presentation. Patient with leukocytosis and increased heart rate. Sepsis secondary to COPD exacerbation. WBC trending down, continue to monitor CBC with differential. Assessment and Plan DVT prophylaxis: SCDs, Lovenox subcutaneously. GI prophylaxis: PPI since patient is on IV steroids. Discharge Planning Continue to monitor in the medical floor. Possible discharge in a.m. pending her story walk test, pulmonology clearance and oncology evaluation. Problem Qualifiers (1) Leukocytosis: Qualified Codes: D72.829 - Elevated white blood cell count, unspecified Moe Regan MD Nov 18, 2017 16:45
--- NOTE | 2017-11-18 17:33 | EKG ---
Date Performed: 11/17/2017 Time Performed: 11:01:54 PTAGE: 67 years EKG: SINUS TACHYCARDIA LOW QRS VOLTAGE IN EXTREMITY LEADS ABNORMAL RHYTHM ECG INTERPRETATION BAS ED ON A DEFAULT AGE OF 40 YEARS PREVIOUS TRACING 10/31/17 Compared to prior tracing no significant change DOCTOR: Lakshmi Carmona Interpretating Date/Time 11/18/2017 17:31:42
--- NOTE | 2017-11-18 18:42 | HHI.PR ---
Subjective Remarks 67 YOWM with Stage 4 Adenocarcinoma lung, COPD,Pl eff Had Left TC 850 cc fluid removed Feels much better Weaned to RA Up in chair Objective Vital Signs Vital Signs Date Time Temp Pulse Resp B/P (MAP) Pulse Ox O2 Delivery O2 Flow Rate FiO2 11/18/17 16:52 95 21 11/18/17 16:00 96.2 94 18 93/72 (79) 94 11/18/17 12:00 96.1 90 18 92/61 (71) 97 11/18/17 10:25 89 20 94/65 (75) 98 11/18/17 10:10 97.7 87 20 81/64 (70) 97 11/18/17 09:35 98.0 93 20 104/61 (75) 96 11/18/17 08:00 96.7 89 17 80/57 (65) 96 11/18/17 04:20 96.7 88 18 83/48 (60) 97 11/18/17 01:13 96.5 90 18 87/64 (72) 94 11/18/17 00:57 95 Nasal Cannula 3.00 11/17/17 19:32 98.3 106 18 106/66 (79) 94 I/O 11/17/17 11/17/17 11/17/17 11/18/17 11/18/17 11/18/17 07:00 15:00 23:00 07:00 15:00 23:00 Intake Total 800 ml 0 ml 500 ml Balance 800 ml 0 ml 500 ml Intake Oral 800 ml 0 ml 500 ml # Voids 2 0 2 # Bowel Movements 0 0 0 Result Diagram: 11/18/17 0509 11/18/17 0509 Objective Remarks GENERAL: MBMN WM,NAD SKIN: Warm and dry. HEAD: Normocephalic. EYES: No scleral icterus. No injection or drainage. NECK: Supple, trachea midline. No JVD or lymphadenopathy. CARDIOVASCULAR: Regular rate and rhythm without murmurs, gallops, or rubs. RESPIRATORY: Breath sounds equal bilaterally. No accessory muscle use. GASTROINTESTINAL: Abdomen soft, non-tender, nondistended. MUSCULOSKELETAL: No cyanosis, or edema. BACK: Nontender without obvious deformity. No CVA tenderness. A/P Assessment and Plan Pleural effusion, s/p TC COPD Bronchitis Adenocarcinoma lung, stage 4 PLAN: Aerosol nebs IV Solumedrol Cont Abx 02 walk twst will FU in AM Abiel Greene MD Nov 18, 2017 18:42
[2017-11-19] VITALS: BP 94/65; PULSE 94; RESP 18; TEMP 97.2; O2SAT 94
[2017-11-19] MEDS: RESP: ALBUTEROL 2.5 MG/IPRATROPIUM 0.5 MG NEB (SCH) INH ×3 (04:08→16:00)
[2017-11-19 04:10] VITALS: BP 94/56; PULSE 85; RESP 18; TEMP 97; O2SAT 95
[2017-11-19] MEDS: methylPREDNISolone SOD SUCC 40 MG/1 ML VIAL IV PUSH SCH (05:21)
[2017-11-19 08:00] VITALS: BP 97/61; PULSE 85; RESP 17; TEMP 95.9; O2SAT 95
[2017-11-19] MEDS: DOCUSATE SODIUM 50 MG/SENNA 8.6 MG TAB PO SCH (08:12)
[2017-11-19] MEDS: LEVOFLOXACIN 500 MG TAB PO SCH (08:12)
[2017-11-19] MEDS: SODIUM CHLORIDE 0.9% FLUSH 10 ML FLUSH IV FLUSH SCH (08:31)
[2017-11-19 10:33] LABS: AUTOMATED NEUTROPHIL # 26.3 TH/MM3 (1.8-7.7); BASOPHIL # 0.1 TH/MM3 (0-0.2); BASOPHIL % 0.2 % (0.0-2.0); HEMATOCRIT 36.3 % (39.0-51.0); HEMOGLOBIN 11.7 GM/DL (13.0-17.0); LYMPH % 1.6 % (9.0-44.0); LYMPHOCYTE # 0.4 TH/MM3 (1.0-4.8); MEAN CELL VOLUME 86.2 FL (80.0-100.0); MEAN CORPUSCULAR HEMOGLOBIN 27.8 PG (27.0-34.0); MEAN CORPUSCULAR HGB CONC 32.2 % (32.0-36.0); MONO % 1.3 % (0.0-8.0); MONOCYTE # 0.3 TH/MM3 (0-0.9); NEUT % 96.9 % (16.0-70.0); PLATELET COUNT 341 TH/MM3 (150-450); RED BLOOD COUNT 4.21 MIL/MM3 (4.50-5.90); RED CELL DISTRIBUTION WIDTH 15.5 % (11.6-17.2); WHITE BLOOD COUNT 27.1 TH/MM3 (4.0-11.0)
[2017-11-19 10:50] LABS: ALBUMIN 2.4 GM/DL (3.4-5.0); ALT (GPT) 11 U/L (12-78); AST (GOT) 16 U/L (15-37); BICARBONATE 25.2 MEQ/L (21.0-32.0); BLOOD UREA NITROGEN 22 MG/DL (7-18); CALCIUM 8.9 MG/DL (8.5-10.1); CHLORIDE 100 MEQ/L (98-107); CREATININE 0.99 MG/DL (0.60-1.30); GLOMERULAR FILTRATION RATE 75 ML/MIN (>89); GLUCOSE,RANDOM 176 MG/DL (74-106); PHOSPHORUS 2.3 MG/DL (2.5-4.9); SODIUM (NA) 136 MEQ/L (136-145)
[2017-11-19 10:53] LABS: ALKALINE PHOSPHATASE 86 U/L (45-117); TOTAL BILIRUBIN ADULT 0.1 MG/DL (0.2-1.0); TOTAL PROTEIN 6.2 GM/DL (6.4-8.2)
[2017-11-19 12:00] VITALS: BP 97/62; PULSE 97; RESP 19; TEMP 96.5; O2SAT 96
[2017-11-19] MEDS ORDERED: PRED20 PO (13:01)
[2017-11-19] MEDS ORDERED: LEVA500T33 PO (13:01)
--- NOTE | 2017-11-19 13:02 | HHI.DCPOC ---
Discharge Care Plan Diagnosis: (1) Non-small cell carcinoma of lung, stage 4 (2) Debility (3) Pleural effusion (4) Leukocytosis (5) COPD exacerbation (6) Dyspnea Goals to Promote Your Health * To prevent worsening of your condition and complications * To maintain your health at the optimal level Directions to Meet Your Goals Take your medications as prescribed Follow your dietary instruction Follow activity as directed Keep your appointments as scheduled Take your immunizations and boosters as scheduled If your symptoms worsen call your PCP, if no PCP go to Urgent Care Center or Emergency Room Smoking is Dangerous to Your Health. Avoid second hand smoke Call the 24-hour hour crisis hotline for domestic abuse at Moe Regan MD Nov 19, 2017 13:02
--- NOTE | 2017-11-19 13:06 | HHI.FF ---
Face to Face Verification Diagnosis: (1) COPD exacerbation (2) Non-small cell carcinoma of lung, stage 4 (3) Dyspnea (4) Debility Physical Therapy Order: Improve ambulation, Strength and gait training Home Health Nursing Order: Nursing assessment with vital signs I have seen patient Onesimo Silva on 11/19/17. My clinical findings support the need for the requested home health care services because: Deconditioned w/ increased weakness Limited ability to care for self Need for psychosocial assistance Infection w/ risk of complications I certify that my clinical findings support that this patient is homebound because: Hx COPD- exertion dyspnea/weakness Unsafe to leave home unassisted Unable to use public transportation Moe Regan MD Nov 19, 2017 13:06
--- NOTE | 2017-11-19 13:31 | HHI.DS ---
Discharge Summary Admission Date Nov 17, 2017 at 13:59 Discharge Date: Nov 19, 2017 Admitting Diagnosis COPD EXACERBATION WITH HYPOXEMIA (1) COPD exacerbation ICD Code: J44.1 - Chronic obstructive pulmonary disease with (acute) exacerbation Diagnosis: Principal (2) Non-small cell lung cancer (NSCLC) ICD Code: C34.90 - Malignant neoplasm of unspecified part of unspecified bronchus or lung Diagnosis: Principal (3) Pleural effusion ICD Code: J90 - Pleural effusion, not elsewhere classified (4) Leukocytosis ICD Code: D72.829 - Elevated white blood cell count, unspecified Brief History - From Admission Pt is a 67 yr old male w PMHx of COPD, lung cancer stage IV known to Dr. Bettencourt, therapist's assistant and Dr. Griffith, oncologist, who presents in the emergency room with worsening shortness of breath. Patient states that he feels "I keep running out of air ". Patient had a thoracentesis on 11/14/17 on the right. He states that they drained about 600 cc at that time. He was told to call on Friday11/18/17 to schedule a thoracentesis on the left. After a couple of days he couldn't even walk 3 steps without feeling SOB. He has received immunotherapy about 3 weeks ago. He complains of wheezing and a dry cough whenever he gets up and moves around. He tells me that he did not qualify for home oxygen however he feels like he needs it. He denies any fevers or chills. He states that coughing makes his chest were hurt. He last saw Dr. Bettencourt a few weeks ago however he has an appointment with him in mid November. He denies any abdominal pain, nausea or vomiting, any burning with urination. He does have some urinary hesitancy but is able to use the restroom. CBC/BMP: 11/19/17 1003 11/19/17 1003 Significant Findings Laboratory Tests Test 11/17/17 11:08 11/18/17 05:09 11/19/17 10:03 White Blood Count 19.8 TH/MM3 (4.0-11.0) 17.5 TH/MM3 (4.0-11.0) 27.1 TH/MM3 (4.0-11.0) Mean Platelet Volume 6.9 FL (7.0-11.0) 6.9 FL (7.0-11.0) Neutrophils (%) (Auto) 89.5 % (16.0-70.0) 96.0 % (16.0-70.0) 96.9 % (16.0-70.0) Lymphocytes (%) (Auto) 4.3 % (9.0-44.0) 2.8 % (9.0-44.0) 1.6 % (9.0-44.0) Neutrophils # (Auto) 17.8 TH/MM3 (1.8-7.7) 16.8 TH/MM3 (1.8-7.7) 26.3 TH/MM3 (1.8-7.7) Lymphocytes # (Auto) 0.9 TH/MM3 (1.0-4.8) 0.5 TH/MM3 (1.0-4.8) 0.4 TH/MM3 (1.0-4.8) Albumin 2.4 GM/DL (3.4-5.0) 2.4 GM/DL (3.4-5.0) Estimat Glomerular Filtration Rate 78 ML/MIN (>89) 75 ML/MIN (>89) Troponin I LESS THAN 0.02 NG/ML Red Blood Count 4.15 MIL/MM3 (4.50-5.90) 4.21 MIL/MM3 (4.50-5.90) Hemoglobin 11.8 GM/DL (13.0-17.0) 11.7 GM/DL (13.0-17.0) Hematocrit 35.6 % (39.0-51.0) 36.3 % (39.0-51.0) Blood Urea Nitrogen 19 MG/DL (7-18) 22 MG/DL (7-18) Random Glucose 135 MG/DL (74-106) 176 MG/DL (74-106) Total Protein 6.2 GM/DL (6.4-8.2) Phosphorus Level 2.3 MG/DL (2.5-4.9) Alanine Aminotransferase (ALT/SGPT) 11 U/L (12-78) Total Bilirubin 0.1 MG/DL (0.2-1.0) Imaging Last Impressions Thoracentesis Ultrasound 11/18/17 0000 Signed Impressions: Service Date/Time: Saturday, November 18, 2017 09:02 - CONCLUSION: Uncomplicated ultrasound guided left thoracentesis. Kehinde Echevarria MD Chest X-Ray 11/18/17 0000 Signed Impressions: Service Date/Time: Saturday, November 18, 2017 10:01 - CONCLUSION: No evidence of pneumothorax following thoracentesis. Rashard Doyle MD Chest Ultrasound 11/17/17 1551 Signed Impressions: Service Date/Time: Friday, November 17, 2017 14:58 - CONCLUSION: Pleural effusion marked. K. Roland Limon MD PE at Discharge AAox3 Mild scattered wheezing on BL lung schmitz, no rales or wheezing auscultated. Bs are present, abdomen soft, non tender to plapation no edema in lower extremities S1S2 RRR Pt Condition on Discharge: Stable Discharge Disposition: Discharge Home Discharge Time: > 30 minutes Discharge Instructions DIET: Follow Instructions for: As Tolerated, No Restrictions Activities you can perform: Regular-No Restrictions Activities to Avoid: Prolonged Standing, Strenuous Activity Follow up Referrals: Pulmonology with Linda Bettencourt MD New Medications: Prednisone (Prednisone) 20 Mg Tab 20 MG PO DIRECTED for Inflammation, #15 TAB 0 Refills Take 40mg daily for 3 days, 20mg daily for 3 days, 10mg daily for 3 days, 5 mg daily for 3 days, then stop. Levofloxacin (Levaquin) 500 Mg Tablet 500 MG PO DAILY for Infection, #10 TAB-CAP Continued Medications: Albuterol 18 GM Inh (Ventolin Hfa 18 GM Inh) 90 Mcg/Act Aer 2 PUFF INH Q4-6H PRN for SHORTNESS OF BREATH, #1 INHALER 0 Refills Budesonide-Formoterol Inh (Symbicort Inh) 160-4.5 Mcg/Act Aero 1 PUFF INH Q12HR, #1 INHALER 0 Refills Ipratropium-Albuterol Neb (Duoneb) 0.5-2.5 Mg/3 Ml Neb 1 NEBULE INH Q6HR NEB for Breathing Treatment, #120 NEBULE 0 Refills Discontinued Medications: Prednisone (Prednisone) 5 Mg Tab 5 MG PO DAILY, TAB 0 Refills start after prednisone 40 mg QD for 4 days Moe Regan MD Nov 19, 2017 13:31
[2017-11-19 15:00] VITALS: BP 105/75; PULSE 98; RESP 18; TEMP 96.2; O2SAT 96
[2017-11-19] MEDS: ENOXAPARIN SODIUM 40 MG/0.4 ML SYRINGE SQ SCH (15:00)
--- NOTE | 2017-11-19 15:02 | HHI.HCPN ---
Reason for visit a. To assist with evaluation and management of symptoms including: Decreased appetite, debility, dyspnea b. To assist medical decision maker(s) with: better understanding of current medical conditions; weighing benefits/burdens of medical treatment options; making medical treatment decisions. . Subjective/Interval History Mr. Silva is a 67-year-old male with COPD and newly diagnosed stage IV metastatic lung cancer who is known to Dr. Bettencourt (pulmonology) and Dr. Willams (oncology). He presented to [facility] ED on 11/17/2017 with complaints of progressively worsening shortness of breath status post right-sided thoracentesis on 11/14/2017 with 600ml he moved. Patient has had recurrent pleural effusions requiring thoracentesis; the patient stated he was told to call on Friday11/18/2017 to schedule a thoracentesis on the left but his shortness became so severe he to come to the ED. An ultrasound of the left chest showed approximately 1118 mL's of fluid; patient had an ultrasound guided thoracentesis on 11/18/2017 with 850ml of dark yellow/dolly fluid removed. Follow up chest x- ray showed significant reduction in the previously seen effusion, no evidence of pneumothorax. Patient reports shortness of breath has resolved somewhat status post thoracentesis yesterday 11/18/2017. Patient continues to be short of breath with minimal exertion. Home oxygen walk test was completed earlier; patient maintained an oxygen saturation of 91% while on RA with exertion -walking for 6 minutes. However patient became very short of breath with exertion and was tachycardic with a heart rate in the 120s. He remains on scheduled/PRN whenever treatments and Levaquin; IV Solu-Medrol was discontinued and the patient was started on prednisone 20 mg PO 2 times daily. 11/19/2017 Lab Work: = WBC: 27.1, hemoglobin 11.7, hematocrit 36.3, platelets 341, neutrophils 96.9% = Sodium: 136, potassium 3.8, chloride 100, carbon dioxide 25.2, glucose 176, calcium 8.9, phosphorus 2.3, magnesium 2.0 = BUN: 22, creatinine 0.99, GFR 75 = Total bilirubin: 0.1, AST 16, ALT 11, alkaline phosphatase 86 Patient reports a 40 pound weight loss in recent months due to his diminished appetite; he also associates decreased oral intake with episodes of severe dyspnea which also limits is activity significantly. = Total protein 6.2, albumin 2.4 Dr. Bishop discussed CODE STATUS with the patient upon admission.The patient indicated he wished to be a DNR but was concerned about what his would think. He stated he did not want to be a "burden" to his and he feels that his condition is worsening. Palliative Care was consulted to assist with symptom management and to discuss with the patient/family the benefits and burdens of his current illnesses and the options regarding future care. 11/19/2017: Patient indicating he feels he is almost ready for hospice. Discussed aggressive vs. comfort focused care. Patient did not want to speak with anyone from hospice at this time because he has not yet communicated his feelings with his and does not want to do so until after an event this weekend with his grandchild. Patient did not wish to complete a [facility] DNR for the same reason. Information on "5 wishes" was provided to the patient. . Advance Directives Living Will: Never completed Health Care Surrogate: Never completed Durable Power of Rn Pain Management: Never completed Advance Directive Specifics Health Care Surrogate(s): Never completed . Documented care wishes: Never completed . Significant change in goals: Discharge home. Patient in sitting transitioning to comfort focused care in the near future wants to talk with his about it and "some things organized. " . Objective Vital Signs Date Time Temp Pulse Resp B/P (MAP) Pulse Ox O2 Delivery O2 Flow Rate FiO2 11/19/17 12:00 96.5 97 19 97/62 (74) 96 11/19/17 08:00 95.9 85 17 97/61 (73) 95 11/19/17 04:10 97.0 85 18 94/56 (69) 95 11/19/17 00:00 97.2 94 18 94/65 (75) 94 11/18/17 20:31 95 21 11/18/17 20:00 97.4 94 18 108/63 (78) 96 11/18/17 16:52 95 21 11/18/17 16:00 96.2 94 18 93/72 (79) 94 Intake & Output 11/19/17 11/19/17 07:00 19:00 Intake Total 460 ml Output Total 300 ml Balance 160 ml Intake Oral 460 ml Output Urine Total 300 ml # Voids 1 # Bowel Movements 0 . Physical Exam CONSTITUTIONAL/GENERAL: This is a thin male patient, in no apparent distress. TUBES/LINES/DRAINS: Implanted VAD SKIN: No jaundice, rashes, or lesions. No wounds seen anteriorly. Skin temperature appropriate. Not diaphoretic. HEAD: Atraumatic. Normocephalic. EYES: Pupils equal and round and reactive. No scleral icterus. No injection or drainage. ENT: Hearing grossly normal. Nose without bleeding or purulent drainage. NECK: Trachea midline. Supple, nontender. No palpable thyroid enlargement or nodularity. CARDIOVASCULAR: Regular rate and rhythm without murmurs, gallops, or rubs. No JVD. Peripheral pulses symmetric. Patient becomes tachycardic with exertion. RESPIRATORY/CHEST: Breath sounds diminished bilaterally. Oxygen saturation in the mid 90s on room air. GASTROINTESTINAL: Abdomen soft, non-tender, nondistended. No hepato-splenomegaly , or palpable masses. No guarding. Bowel sounds present. GENITOURINARY: Without palpable bladder distension. MUSCULOSKELETAL: Extremities without clubbing, cyanosis, or edema. No mottling or clubbing. LYMPHATICS: No palpable cervical or supraclavicular adenopathy. NEUROLOGICAL: Awake and alert. Motor and sensory grossly within normal limits. Follows commands. Cognitively sharp. Moves all extremities. PSYCHIATRIC: No obvious anxiety/depression. No apparent hallucinations or other psychotic thought process. . Diagnostic Tests Laboratory Laboratory Tests Test 11/17/17 11:08 11/18/17 05:09 11/19/17 10:03 White Blood Count 19.8 TH/MM3 (4.0-11.0) 17.5 TH/MM3 (4.0-11.0) 27.1 TH/MM3 (4.0-11.0) Red Blood Count 4.68 MIL/MM3 (4.50-5.90) 4.15 MIL/MM3 (4.50-5.90) 4.21 MIL/MM3 (4.50-5.90) Hemoglobin 13.2 GM/DL (13.0-17.0) 11.8 GM/DL (13.0-17.0) 11.7 GM/DL (13.0-17.0) Hematocrit 40.2 % (39.0-51.0) 35.6 % (39.0-51.0) 36.3 % (39.0-51.0) Mean Corpuscular Volume 85.9 FL (80.0-100.0) 85.8 FL (80.0-100.0) 86.2 FL (80.0-100.0) Mean Corpuscular Hemoglobin 28.3 PG (27.0-34.0) 28.4 PG (27.0-34.0) 27.8 PG (27.0-34.0) Mean Corpuscular Hemoglobin Concent 32.9 % (32.0-36.0) 33.1 % (32.0-36.0) 32.2 % (32.0-36.0) Red Cell Distribution Width 15.1 % (11.6-17.2) 15.2 % (11.6-17.2) 15.5 % (11.6-17.2) Platelet Count 334 TH/MM3 (150-450) 331 TH/MM3 (150-450) 341 TH/MM3 (150-450) Mean Platelet Volume 6.9 FL (7.0-11.0) 6.9 FL (7.0-11.0) 7.0 FL (7.0-11.0) Neutrophils (%) (Auto) 89.5 % (16.0-70.0) 96.0 % (16.0-70.0) 96.9 % (16.0-70.0) Lymphocytes (%) (Auto) 4.3 % (9.0-44.0) 2.8 % (9.0-44.0) 1.6 % (9.0-44.0) Monocytes (%) (Auto) 4.8 % (0.0-8.0) 1.1 % (0.0-8.0) 1.3 % (0.0-8.0) Eosinophils (%) (Auto) 0.5 % (0.0-4.0) 0.0 % (0.0-4.0) 0.0 % (0.0-4.0) Basophils (%) (Auto) 0.9 % (0.0-2.0) 0.1 % (0.0-2.0) 0.2 % (0.0-2.0) Neutrophils # (Auto) 17.8 TH/MM3 (1.8-7.7) 16.8 TH/MM3 (1.8-7.7) 26.3 TH/MM3 (1.8-7.7) Lymphocytes # (Auto) 0.9 TH/MM3 (1.0-4.8) 0.5 TH/MM3 (1.0-4.8) 0.4 TH/MM3 (1.0-4.8) Monocytes # (Auto) 0.9 TH/MM3 (0-0.9) 0.2 TH/MM3 (0-0.9) 0.3 TH/MM3 (0-0.9) Eosinophils # (Auto) 0.1 TH/MM3 (0-0.4) 0.0 TH/MM3 (0-0.4) 0.0 TH/MM3 (0-0.4) Basophils # (Auto) 0.2 TH/MM3 (0-0.2) 0.0 TH/MM3 (0-0.2) 0.1 TH/MM3 (0-0.2) CBC Comment DIFF FINAL DIFF FINAL DIFF FINAL Differential Comment Prothrombin Time 10.9 SEC (9.8-11.6) Prothromb Time International Ratio 1.1 RATIO Activated Partial Thromboplast Time 25.4 SEC (24.3-30.1) Blood Urea Nitrogen 16 MG/DL (7-18) 19 MG/DL (7-18) 22 MG/DL (7-18) Creatinine 0.96 MG/DL (0.60-1.30) 0.80 MG/DL (0.60-1.30) 0.99 MG/DL (0.60-1.30) Random Glucose 98 MG/DL (74-106) 135 MG/DL (74-106) 176 MG/DL (74-106) Total Protein 6.8 GM/DL (6.4-8.2) 6.2 GM/DL (6.4-8.2) Albumin 2.4 GM/DL (3.4-5.0) 2.4 GM/DL (3.4-5.0) Calcium Level 8.5 MG/DL (8.5-10.1) 8.5 MG/DL (8.5-10.1) 8.9 MG/DL (8.5-10.1) Alkaline Phosphatase 76 U/L (45-117) 86 U/L (45-117) Aspartate Amino Transf (AST/SGOT) 23 U/L (15-37) 16 U/L (15-37) Alanine Aminotransferase (ALT/SGPT) 13 U/L (12-78) 11 U/L (12-78) Total Bilirubin 0.6 MG/DL (0.2-1.0) 0.1 MG/DL (0.2-1.0) Sodium Level 136 MEQ/L (136-145) 136 MEQ/L (136-145) 136 MEQ/L (136-145) Potassium Level 4.2 MEQ/L (3.5-5.1) 4.0 MEQ/L (3.5-5.1) 3.8 MEQ/L (3.5-5.1) Chloride Level 101 MEQ/L (98-107) 102 MEQ/L (98-107) 100 MEQ/L (98-107) Carbon Dioxide Level 24.2 MEQ/L (21.0-32.0) 27.1 MEQ/L (21.0-32.0) 25.2 MEQ/L (21.0-32.0) Anion Gap 11 MEQ/L (5-15) 7 MEQ/L (5-15) 11 MEQ/L (5-15) Estimat Glomerular Filtration Rate 78 ML/MIN (>89) 96 ML/MIN (>89) 75 ML/MIN (>89) Troponin I LESS THAN 0.02 NG/ML B-Type Natriuretic Peptide 49 PG/ML (0-100) Phosphorus Level 2.3 MG/DL (2.5-4.9) Magnesium Level 2.0 MG/DL (1.5-2.5) . Result Diagram: 11/19/17 1003 11/19/17 1003 Imaging Last 72 hours Impressions Thoracentesis Ultrasound 11/18/17 0000 Signed Impressions: Service Date/Time: Saturday, November 18, 2017 09:02 - CONCLUSION: Uncomplicated ultrasound guided left thoracentesis. Kehinde Echevarria MD Chest X-Ray 11/18/17 0000 Signed Impressions: Service Date/Time: Saturday, November 18, 2017 10:01 - CONCLUSION: No evidence of pneumothorax following thoracentesis. Rashard Doyle MD Chest Ultrasound 11/17/17 1551 Signed Impressions: Service Date/Time: Friday, November 17, 2017 14:58 - CONCLUSION: Pleural effusion marked. K. Roland Limon MD Chest X-Ray 11/17/17 1100 Signed Impressions: Service Date/Time: Friday, November 17, 2017 11:15 - CONCLUSION: 1. Right hilar mass. 2. Widespread metastatic disease. 3. Bilateral effusions being greater on the left. Onesimo Carbajal MD . Procedures 11/18/2017: Ultrasound-guided thoracentesis . Assessment and Plan Disease Oriented Problem List: (1) Non-small cell carcinoma of lung, stage 4 (2) Leukocytosis (3) Pleural effusion (4) COPD (chronic obstructive pulmonary disease) (5) Pleural effusion Symptom Scale: (1) Dyspnea (2) Decrease in appetite (3) Debility Pertinent Non-Medical Issues Psychosocial:Originally from [place], and [place] area moved to [place] about 3 years ago. 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 . Has several children who live in various places around the country. Spiritual: Je[employer], no particular local affiliation. Legal:Patient is currently capacitated and able to make his own decisions. He is supported by his who would be appropriate legal proxy should he become incapacitated. Palliative will offer to assist patient with advanced directives during hospital course should he desire. Ethical issues impacting care: No ethical issues identified . Important Contacts Abigail Silva, : [phone] . Prognosis Patient has stage IV metastatic non-small cell lung cancer that was diagnosed in August, on Keytruda. He has declined in the last 3 months as evidenced by a reported weight loss of 40 pounds, decreased appetite, debility and worsening dyspnea with minimal exertion. The patient has recurrent pleural effusions requiring multiple thoracentesis. Patient would be hospice appropriate if and/or when his medical treatment goals become comfort oriented. . Code Status: No Code Plan * NO CODE-DNR/DNI * Decision-making: Patient has insight and judgment related to his medical conditions and is therefore capacitated make his own decisions. He is supported by his who would be appropriate legal proxy should he become incapacitated. * Patient indicating he feels he is almost ready for hospice. Discussed aggressive vs. comfort focused care. Patient did not want to speak with anyone from hospice at this time because he has not yet communicated his feelings with his and does not want to do so until after an event this weekend with his grandchild. Patient did not wish to complete a [facility] DNR for the same reason. Information on "5 wishes" was provided to the patient. * Oncology was consulted * Discussed patient with Dr. Siddiqui and bedside nurse (John). * Symptom management - dyspnea: Patient with newly diagnosed stage IV metastatic non-small cell lung cancer having recurrent pleural effusion requiring thoracentesis Patient had right-sided thoracentesis on 11/14/17 with 600 mL's of fluid removed; left-sided thoracentesis this 11/18/2017 with 850 mL of dark yellow/dolly fluid removed. Home oxygen walk test 11/19/2017: patient maintained an oxygen saturation of 91% while on RA with exertion -walking for 6 minutes. However, patient became very short of breath with exertion and was tachycardic with a heart rate in the 120s. Patient remains on scheduled/PRN DuoNeb treatments and Levaquin; IV Solu-Medrol was discontinued and the patient was started on oral prednisone. * Symptom management - decreased appetite: Patient reporting decreased appetite with associated weight loss of 40 pounds in the past 3 months. He states he had been started on a medication to stimulate his appetite but he cannot remember what it was. Consider starting the patient on Megace 400mg PO daily to stimulate appetite, may increase up to 800 mg daily. Corticosteroids may so have beneficial effects on appetite and and overall well-being. * Palliative care will continue to follow this patient throughout his hospitalization to establish trust, assist with symptom management and clarification of medical treatment goals. . Attestation To help prompt me to consider important information that might be impacting today's encounter and assessment, information from prior notes written by myself or my colleagues may have been "brought forward" into today's note. My signature on this note, however, is an attestation that I personally performed the exam, history, and/or decision-making noted today, and, unless otherwise indicated, the interactions with patient, family, and staff as well as the review of records all occurred today. I also attest that the listed assessment and stated plan reflect my best clinical judgment today based on the combination of historical information, prior notes, and today's exam/ interactions. When time spent is documented, it refers only to time spent today by the signer, or if indicated, combined time spent today by collaborating physician/nurse practitioner. . Ronit Mckenzie Nov 19, 2017 15:02
[2017-11-19] MEDS ORDERED: predniSONE 20 MG TAB PO SCH (21:00)
== END 2017-11-19 16:26 | disposition home health service (06) | DRG 872 ==
LOC: NEPE 10:45 → NEDA 12:28 → NEPFCDU 13:02 → OBSVTOIN 13:59 → N06A 11-18 01:18
PROVIDERS: ADMIT Hospitalist; ATTEND Hospitalist
PROC: 0W9B3ZZ Drainage of Left Pleural Cavity, Percutaneous Approach (ICD-10-PCS; principal; 2017-11-18)
DX: A41.9 Sepsis, unspecified organism (principal); J90 Pleural effusion, not elsewhere classified; C77.1 Secondary and unspecified malignant neoplasm of intrathoracic lymph nodes; C78.7 Secondary malignant neoplasm of liver and intrahepatic bile duct; J44.0 Chronic obstructive pulmonary disease with (acute) lower respiratory infection; C34.11 Malignant neoplasm of upper lobe, right bronchus or lung; C34.91 Malignant neoplasm of unspecified part of right bronchus or lung; J44.1 Chronic obstructive pulmonary disease with (acute) exacerbation; J40 Bronchitis, not specified as acute or chronic; R09.02 Hypoxemia; R39.11 Hesitancy of micturition; Z66 Do not resuscitate; E78.00 Pure hypercholesterolemia, unspecified; H91.90 Unspecified hearing loss, unspecified ear; R00.0 Tachycardia, unspecified; R63.4 Abnormal weight loss; Z87.891 Personal history of nicotine dependence; Z51.11 Encounter for antineoplastic chemotherapy; Z79.899 Other long term (current) drug therapy
CPT/HCPCS: 32555; 71045; 76604; 80048; 80053; 83735; 83880; 84100; 84484; 85025; 85610; 85730; 93005; 94150; 94618; 94640; 94664; 96374; C1729; J2920; J2930

== ENCOUNTER → 2017-11-28 | Outpatient (CLI) | payer MEDICARE, OTHER ==
[~2017-11-28] MED LIST changes: +ASPI325T33 PO; +Albuterol-Ipratropium Neb NEB; +LEVA500T33 PO; +METO25TA3 PO; +PRED10PA2 PO; -PRED5TAB PO; +TAMS5CAP PO; +guaiFENesin ER PO
[2017-11-28 14:37] VITALS: BP 105/69; PULSE 125; RESP 24; TEMP 98; O2SAT 90
--- NOTE | 2017-11-28 15:25 | PD.RAD ---
Post US Procedure Prog Note Pre Procedure Diagnosis: (1) Lung mass (2) COPD (chronic obstructive pulmonary disease) (3) Pleural effusion Post Procedure Diagnosis: (1) Pleural effusion Procedure Date: Nov 28, 2017 Supervising Radiologist: Onesimo Barrios Estimated blood loss: none Plan of Activity Patient to Unit: ROPU Patient Condition: Fair See PACS Report for procedural detail/treatment Drainage Procedure Procedure 1 Imaging Guidance: Ultrasound Side: Right Procedure Type: Thoracentesis Fluid Removal (CCs): 300 Fluid Description: Cloudy, Yellow Plan to ROPU then discharge once chest xray is read as negative. Onesimo Barrios MD Nov 28, 2017 15:24
[2017-11-28 15:40] VITALS: BP 90/67; PULSE 113; RESP 24; TEMP 98; O2SAT 92
--- NOTE | 2017-11-28 15:46 | RADRPT ---
EXAM DATE/TIME: 11/28/2017 15:27 [facility] COMPARISON: CHEST EXPIRATION ONLY, November 18, 2017, 10:01. INDICATIONS : Evaluate for pneumothorax. Status post thoracentesis. MEDICAL HISTORY : Hypercholesterolemia. Chronic obstructive pulmonary disease. Dyspnea. Lung cancer. Chemotherapy. SURGICAL HISTORY : Tonsillectomy. Port placement. ENCOUNTER: Subsequent ACUITY: 1 day PAIN SCORE: 0/10 LOCATION: chest FINDINGS: Portable AP upright expiratory view of the chest demonstrates no pneumothorax following right thorace ntesis. There is masslike opacity the right midlung zone with chronic air space consolidation in the right lower lung zone. There is severe airspace consolidation in the left mid and lower lungs and, in creased from the prior study. There is a left pleural-based opacity. Right chest wall [id number] r emains present. Bones demonstrate no acute finding. CONCLUSION: 1. No pneumothorax following recent right thoracentesis. 2. Worsening airspace consolidation in the left mid and lower lung zone. 3. Increased left pleural fluid. Onesimo Barrios MD on November 28, 2017 at 15:42 Board Certified Radiologist. This report was verified electronically.
[2017-11-28 15:55] VITALS: BP 121/85; PULSE 113; RESP 24; TEMP 98; O2SAT 93
--- NOTE | 2017-11-28 16:12 | RADRPT ---
EXAM DATE/TIME: 11/28/2017 14:35 [facility] COMPARISON: US GUIDED THORACENTESIS RIGHT, November 14, 2017, 15:07. INDICATIONS : Pleural effusion. MEDICAL HISTORY : Carcinoma, lung. Hypercholesterolemia. Chronic obstructive pulmonary disease. Chemotherapy. SURGICAL HISTORY : Tonsillectomy. Right chest port. ENCOUNTER: Sequela ACUITY: 2 weeks PAIN SCORE: 2/10 LOCATION: Right chest FLUID: Total volume of 300 cc of clear, yellow fluid was removed. Fluid was sent to lab for ordered studies. TECHNIQUE: 1. Ultrasound guidance for thoracentesis. 2. Thoracentesis. The risks, benefits, and alternatives to ultrasound guided thoracentesis were explained to the patien t in lay simple terms, including the risk of bleeding and infection. Written and verbal informed con sent was obtained. Appropriate area for thoracentesis was marked under ultrasound guidance with the patient in the uprig ht position. Overlying skin was prepped and draped in the usual sterile fashion and with local anest hetic, a dermatotomy was made with an 11 blade scalpel. A 6 Cypriot thoracentesis catheter was placed in the pleural space and fluid was removed. Catheter was then removed and a sterile dressing applie d. There were no immediate complications. The patient tolerated the procedure well and the left the ultrasound suite in stable condition. Chest radiograph is to be obtained. CONCLUSION: Uncomplicated ultrasound guided right thoracentesis. Onesimo Barrios MD on November 28, 2017 at 16:09 Board Certified Radiologist. This report was verified electronically.
[2017-11-28 16:54] LABS: TOTAL PROTEIN,PLEURAL FLUID 3.3 GM/DL
[2017-11-28 18:48] LABS: PLEURAL FLUID LYMPHS 44 %; PLEURAL FLUID MONOS 2 %; PLEURAL FLUID POLYS (SEGS) 54 %
[2017-11-28 18:49] LABS: PLEURAL FLUID RBC 2787 /MM3 (0-0); PLEURAL FLUID WBC 1660 /MM3 (0-10)
== END ==
LOC: HRAD 14:15
PROVIDERS: ATTEND Internal Medicine Hematology & Oncology
DX: J90 Pleural effusion, not elsewhere classified (principal); B95.7 Other staphylococcus as the cause of diseases classified elsewhere
CPT/HCPCS: 32555; 71045; 82945; 83615; 84157; 87070; 87205; 88112; 88305; 89051; C1729

== ENCOUNTER 2017-11-29 14:54 | Inpatient (IN) | payer MEDICARE, OTHER ==
[~2017-11-29] VITALS: Ht 172.7 cm; Wt 68.0 kg
[2017-11-29] VITALS (8 sets, daily range): BP systolic 93–134; BP diastolic 54–82; PULSE 106–133; RESP 16–34; TEMP 97.6–98.5; O2SAT 87–96
[~2017-11-29 14:54] MED LIST changes: -ASPI325T33 PO; -Albuterol-Ipratropium Neb NEB; -LEVA750T9 PO; -METO25TA3 PO; -PRED10PA2 PO; -TAMS5CAP PO; -guaiFENesin ER PO
[2017-11-29] MEDS ORDERED: SODIUM CHLORID 0.9% 500 ML INJ 500 ML IV ONE (15:30)
[2017-11-29] MEDS ORDERED: methylPREDNISolone SOD SUCC 125 MG/2 ML VIAL IV PUSH ONE (15:30)
[2017-11-29] MEDS: RESP: ALBUTEROL 2.5 MG/3 ML NEB (SCH) INH (15:46)
--- NOTE | 2017-11-29 15:56 | PD ---
HPI Chief Complaint: Respiratory Distress Time Seen by Provider: 15:12 Travel History International Travel<30 days: No Contact w/Intl Traveler<30days: No Traveled to known affect area: No History of Present Illness HPI 67-year-old male with metastatic stage IV lung cancer with liver metastases presents emergency department with increased shortness of breath since yesterday. Patient states that he received a thoracentesis yesterday and felt good for couple of hours but started having shortness of breath again last night. Patient states he is unable to take 2 steps before feeling out of breath. Patient does not use oxygen at home and states that he does not qualify for oxygen. Patient states he tried to call Dr. Huynh wasn't unsuccessful regarding this call. 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 FORMERLY [facility] Past Medical History Asthma: No Autoimmune Disease: No Anxiety: No Depression: No Heart Rhythm Problems: No Cancer: Yes (STAGE 4 LUNG) Cardiovascular Problems: No High Cholesterol: Yes Chemotherapy: Yes (1 ROUND 10/13/17 - IMMUNOTHERAPY) Chest Pain: No Congestive Heart Failure: No COPD: Yes Diabetes: No Diminished Hearing: Yes Endocrine: No GERD: No Genitourinary: No Hiatal Hernia: No Immune Disorder: No Implanted Vascular Access Dvce: Yes (RIGHT CHEST PORT) Kidney Stones: No Musculoskeletal: No Neurologic: No Psychiatric: No Reproductive: No Respiratory: Yes Radiation Therapy: No Renal Failure: No Sickle Cell Disease: No Thyroid Disease: No Ulcer: No Past Surgical History Abdominal Surgery: No AICD: No Cardiac Surgery: No Ear Surgery: No Endocrine Surgery: No Eye Surgery: No Genitourinary Surgery: No Gynecologic Surgery: No Joint Replacement: No Oral Surgery: Yes Pacemaker: No Thoracic Surgery: No Tonsillectomy: Yes Other Surgery: Yes ( port placement) Social History Alcohol Use: No Tobacco Use: No (QUITE JUL 2017) Substance Use: No Allergies-Medications (Allergen,Severity, Reaction): Coded Allergies: No Known Allergies (Verified Allergy, Unknown, 10/08/17) Reported Meds & Prescriptions Reported Meds & Active Scripts Active Prednisone 20 Mg Tab 20 Mg PO DIRECTED Take 40mg daily for 3 days, 20mg daily for 3 days, 10mg daily for 3 days, 5 mg daily for 3 days, then stop. Symbicort Inh (Budesonide/Formoterol Fumarate) 160-4.5 Mcg/Act Aero 1 Puff INH Q12HR Reported Duoneb (Ipratropium-Albuterol Neb) 0.5-2.5 Mg/3 Ml Neb 1 Nebule INH Q6HR NEB Ventolin Hfa 18 GM Inh (Albuterol Sulfate) 90 Mcg/Act Aer 2 Puff INH Q4-6H PRN Review of Systems Except as stated in HPI: all other systems reviewed are Neg Physical Exam Narrative GENERAL: Well-developed well-nourished sitting upright in bed, 3 word dyspnea SKIN: Warm and dry. HEAD: Atraumatic. Normocephalic. EYES: Pupils equal and round. No scleral icterus. No injection or drainage. ENT: No nasal bleeding or discharge. Mucous membranes pink and moist. NECK: Trachea midline. No JVD. No lymphadenopathy CARDIOVASCULAR: Regular rate and rhythm. RESPIRATORY: No accessory muscle use. Diffuse wheezing Breath sounds equal bilaterally. GASTROINTESTINAL: Abdomen soft, non-tender, nondistended. MUSCULOSKELETAL: Extremities without clubbing, cyanosis, or edema. No obvious deformities. NEUROLOGICAL: Awake and alert. No obvious cranial nerve deficits. Motor grossly within normal limits. Five out of 5 muscle strength in the arms and legs. Normal speech. PSYCHIATRIC: Appropriate mood and affect; insight and judgment normal. Data Data Last Documented VS Vital Signs Date Time Temp Pulse Resp B/P (MAP) Pulse Ox O2 Delivery O2 Flow Rate FiO2 11/29/17 15:50 96 Nasal Cannula 4.00 11/29/17 15:50 11/29/17 15:05 128 32 11/29/17 15:01 98.0 Orders Orders Complete Blood Count With Diff (11/29/17 15:23) Comprehensive Metabolic Panel (11/29/17 15:23) Act Partial Throm Time (Ptt) (11/29/17 15:23) Prothrombin Time / Inr (Pt) (11/29/17 15:23) Magnesium (Mg) (11/29/17 15:23) Ckmb (Isoenzyme) Profile (11/29/17 15:23) Troponin I (11/29/17 15:23) Urinalysis - C+S If Indicated (11/29/17 15:23) Iv Access Insert/Monitor (11/29/17 15:23) Electrocardiogram (11/29/17 15:23) Ecg Monitoring (11/29/17 15:23) Oximetry (11/29/17 15:23) Oxygen Administration (11/29/17 15:23) Chest, Pa & Lat (11/29/17 15:23) Methylprednisolone So Succ Inj (Solumedr (11/29/17 15:30) Albuterol Neb (Albuterol Neb) (11/29/17 15:30) Sodium Chlorid 0.9% 500 Ml Inj (Ns 500 M (11/29/17 15:30) Levofloxacin 750 Mg Premix Inj (Levaquin (11/29/17 16:30) Lactic Acid (11/29/17 17:00) Admit Order (Ed Use Only) (11/29/17 17:18) Labs Laboratory Tests Test 11/29/17 15:30 White Blood Count 22.8 TH/MM3 Red Blood Count 4.98 MIL/MM3 Hemoglobin 14.2 GM/DL Hematocrit 42.8 % Mean Corpuscular Volume 86.0 FL Mean Corpuscular Hemoglobin 28.6 PG Mean Corpuscular Hemoglobin Concent 33.3 % Red Cell Distribution Width 15.8 % Platelet Count 355 TH/MM3 Mean Platelet Volume 7.6 FL Neutrophils (%) (Auto) 86.6 % Lymphocytes (%) (Auto) 5.4 % Monocytes (%) (Auto) 6.6 % Eosinophils (%) (Auto) 1.0 % Basophils (%) (Auto) 0.4 % Neutrophils # (Auto) 19.8 TH/MM3 Lymphocytes # (Auto) 1.2 TH/MM3 Monocytes # (Auto) 1.5 TH/MM3 Eosinophils # (Auto) 0.2 TH/MM3 Basophils # (Auto) 0.1 TH/MM3 CBC Comment DIFF FINAL Differential Comment Prothrombin Time 10.8 SEC Prothromb Time International Ratio 1.1 RATIO Activated Partial Thromboplast Time 24.9 SEC Blood Urea Nitrogen 13 MG/DL Creatinine 0.90 MG/DL Random Glucose 108 MG/DL Total Protein 6.6 GM/DL Albumin 2.5 GM/DL Calcium Level 8.4 MG/DL Magnesium Level 2.0 MG/DL Alkaline Phosphatase 81 U/L Aspartate Amino Transf (AST/SGOT) 18 U/L Alanine Aminotransferase (ALT/SGPT) 10 U/L Total Bilirubin 0.5 MG/DL Sodium Level 136 MEQ/L Potassium Level 3.7 MEQ/L Chloride Level 101 MEQ/L Carbon Dioxide Level 25.8 MEQ/L Anion Gap 9 MEQ/L Estimat Glomerular Filtration Rate 84 ML/MIN Total Creatine Kinase 29 U/L Troponin I LESS THAN 0.02 NG/ML MDM Medical Decision Making Medical Screen Exam Complete: Yes Emergency Medical Condition: Yes Differential Diagnosis COPD exacerbation, pneumonia, pleural effusion Narrative Course 67-year-old male with metastatic stage IV lung cancer with liver metastases presents emergency department with increased shortness of breath since yesterday. Patient states that he received a thoracentesis yesterday and felt good for couple of hours but started having shortness of breath again last night. Patient states he is unable to take 2 steps before feeling out of breath. Patient does not use oxygen at home and states that he does not qualify for oxygen. Patient states he tried to call Dr. Huynh wasn't unsuccessful regarding this contact. Denies chest pain, abdominal pain. 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 Last Impressions Chest X-Ray 11/29/17 1523 Signed Impressions: Service Date/Time: Friday, November 29, 2017 15:42 - CONCLUSION: 1. Interval improvement in consolidation in the left lung. Diffuse infiltrates remain. 2. Large mass again noted the right hilar region. 3. Left effusion again noted. Nithin Nolan MD CBC & BMP Diagram 11/29/17 15:30 Total Protein 6.6, Albumin 2.5 L, Calcium Level 8.4 L, Magnesium Level 2.0, Alkaline Phosphatase 81, Aspartate Amino Transf (AST/SGOT) 18, Alanine Aminotransferase (ALT/SGPT) 10 L, Total Bilirubin 0.5 Administered NS 500CC NS bolus, Levaquin 750mg IV started. In addition, albuterol nebs 2 and Solu-Medrol 125 mg administered. Oxygen saturation upon arrival was in the 80s and improved to 97% with oxygen NC 2LPM. States he also feels significantly better. It appears that patient has had numerous pleural effusions in the last month with multiple thoracentesis procedures removing a significant amount of fluid. He says that he has multiple areas of loculations of fluid which mas made complete resolution of his effusions difficult. There was a concern for Pulmonary embolism in October but a scan was completed and without evidence of this. Patient will be admitted for pneumonia, pleural effusion, COPD exacerbation. Diagnosis Primary Impression: COPD (chronic obstructive pulmonary disease) Qualified Codes: J44.1 - Chronic obstructive pulmonary disease with (acute) exacerbation Additional Impressions: Pleural effusion Pneumonia Qualified Codes: J18.1 - Lobar pneumonia, unspecified organism Admitting Information Admitting Physician Requests: Admit Condition: Stable Mary Choi Nov 29, 2017 15:56
--- NOTE | 2017-11-29 15:58 | RADRPT ---
EXAM DATE/TIME: 11/29/2017 15:42 [facility] COMPARISON: CT PULMONARY ANGIOGRAM, October 31, 2017, 13:51. CHEST EXPIRATION ONLY, November 28, 2017, 15:27. INDICATIONS : Short of breath. MEDICAL HISTORY : Carcinoma, lung. Chronic obstructive pulmonary disease. Hypercholesterolemia. SURGICAL HISTORY : Tonsillectomy. Infusa port. ENCOUNTER: Sequela ACUITY: 2 days PAIN SCORE: 0/10 LOCATION: Bilateral chest FINDINGS: AP and lateral views of the chest were obtained the heart and demonstrates an interval improvement in the consolidative infiltrate in the left perihilar region and left lung base. Diffuse patchy infiltr ate remains in both lungs with milder consolidation at the right lung base. There is a large mass aga in noted in the right perihilar region. There is persistent blunting of the left costophrenic angle c onsistent with the known effusion. The right-sided implantable port catheter remains in place with th e tip in the superior vena cava. CONCLUSION: 1. Interval improvement in consolidation in the left lung. Diffuse infiltrates remain. 2. Large mass again noted the right hilar region. 3. Left effusion again noted. Nithin Nolan MD on November 29, 2017 at 15:54 Board Certified Radiologist. This report was verified electronically.
[2017-11-29 16:02] LABS: INTERNATIONAL NORMALIZED RATIO 1.1 RATIO; PROTHROMBIN TIME - PATIENT 10.8 SEC (9.8-11.6)
[2017-11-29 16:05] LABS: AUTOMATED NEUTROPHIL # 19.8 TH/MM3 (1.8-7.7); BASOPHIL # 0.1 TH/MM3 (0-0.2); BASOPHIL % 0.4 % (0.0-2.0); EOSINOPHIL # 0.2 TH/MM3 (0-0.4); HEMATOCRIT 42.8 % (39.0-51.0); HEMOGLOBIN 14.2 GM/DL (13.0-17.0); LYMPH % 5.4 % (9.0-44.0); LYMPHOCYTE # 1.2 TH/MM3 (1.0-4.8); MEAN CORPUSCULAR HEMOGLOBIN 28.6 PG (27.0-34.0); MEAN CORPUSCULAR HGB CONC 33.3 % (32.0-36.0); MEAN PLATELET VOLUME 7.6 FL (7.0-11.0); MONO % 6.6 % (0.0-8.0); MONOCYTE # 1.5 TH/MM3 (0-0.9); NEUT % 86.6 % (16.0-70.0); PLATELET COUNT 355 TH/MM3 (150-450); RED BLOOD COUNT 4.98 MIL/MM3 (4.50-5.90); RED CELL DISTRIBUTION WIDTH 15.8 % (11.6-17.2); WHITE BLOOD COUNT 22.8 TH/MM3 (4.0-11.0)
[2017-11-29 16:09] LABS: ALBUMIN 2.5 GM/DL (3.4-5.0); AST (GOT) 18 U/L (15-37); BICARBONATE 25.8 MEQ/L (21.0-32.0); BLOOD UREA NITROGEN 13 MG/DL (7-18); CALCIUM 8.4 MG/DL (8.5-10.1); CHLORIDE 101 MEQ/L (98-107); GLOMERULAR FILTRATION RATE 84 ML/MIN (>89); GLUCOSE,RANDOM 108 MG/DL (74-106); SODIUM (NA) 136 MEQ/L (136-145)
[2017-11-29 16:15] LABS: ALKALINE PHOSPHATASE 81 U/L (45-117); ALT (GPT) 10 U/L (12-78); TOTAL BILIRUBIN ADULT 0.5 MG/DL (0.2-1.0); TOTAL PROTEIN 6.6 GM/DL (6.4-8.2); TROPONIN I LESS THAN 0.02 NG/ML (0.02-0.05)
[2017-11-29] MEDS ORDERED: LEVOFLOXACIN 750 MG PREMIX INJ 150 ML IV ONE (16:30)
--- NOTE | 2017-11-29 17:27 | PD ---
Physical Exam Date Seen by Provider: Nov 29, 2017 Time Seen by Provider: 16:30 Narrative I, Dr. Pascual, have reviewed the advance practice practitioner's documentation and am in agreement, met with the patient face to face, made the diagnosis, and the medical decision making was done by me. *My assessment and Findings: Patient seen and evaluated with PA, please see PA note for further details. He has history of lung cancer, had drainage of pleural effusion recently, here with worsening and shortness of breath. Laboratory Tests Test 11/29/17 15:30 White Blood Count 22.8 TH/MM3 (4.0-11.0) Neutrophils (%) (Auto) 86.6 % (16.0-70.0) Lymphocytes (%) (Auto) 5.4 % (9.0-44.0) Neutrophils # (Auto) 19.8 TH/MM3 (1.8-7.7) Monocytes # (Auto) 1.5 TH/MM3 (0-0.9) Random Glucose 108 MG/DL (74-106) Albumin 2.5 GM/DL (3.4-5.0) Calcium Level 8.4 MG/DL (8.5-10.1) Alanine Aminotransferase (ALT/SGPT) 10 U/L (12-78) Estimat Glomerular Filtration Rate 84 ML/MIN (>89) Total Creatine Kinase 29 U/L (39-308) Troponin I LESS THAN 0.02 NG/ML Last 24 hours Impressions Chest X-Ray 11/29/17 1523 Signed Impressions: Service Date/Time: Wednesday, November 29, 2017 15:42 - CONCLUSION: 1. Interval improvement in consolidation in the left lung. Diffuse infiltrates remain. 2. Large mass again noted the right hilar region. 3. Left effusion again noted. Nithin Nolan MD Chest x-rays showing worsening and effusion again. Patient was wheezing and was initially given some Solu-Medrol and nebulizers with some improvement symptoms especially after being giving oxygen. At this point considering his symptoms and worsening in pulmonary issues, plan would be to admit him for further evaluation and treatment. Data Data Last Documented VS Vital Signs Date Time Temp Pulse Resp B/P (MAP) Pulse Ox O2 Delivery O2 Flow Rate FiO2 11/29/17 15:50 96 Nasal Cannula 4.00 11/29/17 15:50 11/29/17 15:05 128 32 11/29/17 15:01 98.0 Orders Orders Complete Blood Count With Diff (11/29/17:) Comprehensive Metabolic Panel (11/29/17:) Act Partial Throm Time (Ptt) (11/29/17:) Prothrombin Time / Inr (Pt) (11/29/17:23) Magnesium (Mg) (11/29/17:) Ckmb (Isoenzyme) Profile (11/29/17:) Troponin I (11/29/17:) Urinalysis - C+S If Indicated (11/29/17:) Iv Access Insert/Monitor (11/29/17:) Electrocardiogram (11/29/17) Ecg Monitoring (11/29/17:) Oximetry (11/29/17:) Oxygen Administration (11/29/17:) Chest, Pa & Lat (11/29/17:) Methylprednisolone So Succ Inj (Solumedr (11/29/17 15:30) Albuterol Neb (Albuterol Neb) (11/29/17 15:30) Sodium Chlorid 0.9% 500 Ml Inj (Ns 500 M (11/29/17 15:30) Levofloxacin 750 Mg Premix Inj (Levaquin (11/29/17 16:30) Lactic Acid (11/29/17 17:00) Admit Order (Ed Use Only) (11/29/17 17:18) Labs Laboratory Tests Test 11/29/17 15:30 White Blood Count 22.8 TH/MM3 Red Blood Count 4.98 MIL/MM3 Hemoglobin 14.2 GM/DL Hematocrit 42.8 % Mean Corpuscular Volume 86.0 FL Mean Corpuscular Hemoglobin 28.6 PG Mean Corpuscular Hemoglobin Concent 33.3 % Red Cell Distribution Width 15.8 % Platelet Count 355 TH/MM3 Mean Platelet Volume 7.6 FL Neutrophils (%) (Auto) 86.6 % Lymphocytes (%) (Auto) 5.4 % Monocytes (%) (Auto) 6.6 % Eosinophils (%) (Auto) 1.0 % Basophils (%) (Auto) 0.4 % Neutrophils # (Auto) 19.8 TH/MM3 Lymphocytes # (Auto) 1.2 TH/MM3 Monocytes # (Auto) 1.5 TH/MM3 Eosinophils # (Auto) 0.2 TH/MM3 Basophils # (Auto) 0.1 TH/MM3 CBC Comment DIFF FINAL Differential Comment Prothrombin Time 10.8 SEC Prothromb Time International Ratio 1.1 RATIO Activated Partial Thromboplast Time 24.9 SEC Blood Urea Nitrogen 13 MG/DL Creatinine 0.90 MG/DL Random Glucose 108 MG/DL Total Protein 6.6 GM/DL Albumin 2.5 GM/DL Calcium Level 8.4 MG/DL Magnesium Level 2.0 MG/DL Alkaline Phosphatase 81 U/L Aspartate Amino Transf (AST/SGOT) 18 U/L Alanine Aminotransferase (ALT/SGPT) 10 U/L Total Bilirubin 0.5 MG/DL Sodium Level 136 MEQ/L Potassium Level 3.7 MEQ/L Chloride Level 101 MEQ/L Carbon Dioxide Level 25.8 MEQ/L Anion Gap 9 MEQ/L Estimat Glomerular Filtration Rate 84 ML/MIN Total Creatine Kinase 29 U/L Troponin I LESS THAN 0.02 NG/ML [facility] Medical Record Reviewed: Yes Supervised Visit with ALICJA: Yes Diagnosis Primary Impression: COPD (chronic obstructive pulmonary disease) Qualified Codes: J44.1 - Chronic obstructive pulmonary disease with (acute) exacerbation Additional Impressions: Pleural effusion Pneumonia Qualified Codes: J18.1 - Lobar pneumonia, unspecified organism Admitting Information Admitting Physician Requests: Admit Condition: Stable Bakari Pascual MD Nov 29, 2017 17:27
--- NOTE | 2017-11-29 17:32 | HHI.HP ---
[facility] No Primary Care Physician Admission Diagnosis SOB, COPD, PNA, Pleural effusion Diagnoses: (1) Dyspnea Diagnosis: Principal (2) Leukocytosis Diagnosis: Principal (3) COPD (chronic obstructive pulmonary disease) Diagnosis: Principal (4) Non-small cell carcinoma of lung, stage 4 Diagnosis: Principal Chief Complaint: SOB Travel History International Travel<30 Days: No Contact w/Intl Traveler <30 Da: No Traveled to Known Affected Are: No History of Present Illness 67-year-old male with past medical history significant for COPD emphysema, 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 Patient reports that he recently underwent right-sided thoracentesis yesterday. He states that he went home and was feeling a little better, but then 1 hr later had SOB. Was not able to sleep due to SOB and this morning was not able to take more than two steps without having to stop due to severe SOB. Complains of cough but only in the morning, this is dry and non-productive. Cough only last momentarily in the morning and then clears throughout the day. Denies any fevers or chills. Denies any nausea, vomiting or diarrhea. Reports that he has been eating and drinking without any issues although does report some weight loss with's in appetite. He reports using duo nebs at home and does feel as that they will provide relief with breathing. He tells me that he has been on prednisone taper and today began day 1 out of 7 in his prednisone taper with 5 mg. Denies any chest pain, headaches, or heart palpitations. He also states that he has been on by mouth Levaquin basically following every thoracentesis. Patient also reports he has experienced some hesitancy with urination with weak flow. Denies any dysuria or hematuria. At the time of my examination patient is resting comfortably in bed and states that his shortness of breath is much improved with the use of oxygen. He states that he has been in the hospital multiple times but every time that he is discharged he does not qualify for home oxygen use. He is hoping that during this hospitalization he will be able to go home with oxygen. Currently he denies any chest pain, or heart palpitations. Review of EMR. Patient recently underwent right-sided thoracentesis yesterday 300 mL's of clear yellow fluid removed. Was seen in office by Dr. Willams on 10/31/17, patient had ongoing breathing problems then. It appears that Dr. Menjivar was thinking he might be having COPD exacerbation, versus progression of lung cancer versus Keytruda associated pneumonitis or effusion. During that visit oncology mentions the possibility of pulmonary embolism and does recommend patient get a CT scan of the chest for definitive cause of respiratory distress. CT of the chest was done here at [facility] and did not show any sign of pulmonary embolism. It did show diffuse bilateral lung metastases disease with a large mass in the right hilar area. It also demonstrated diffuse mediastinal and hilar adenopathy, small bilateral effusions. Patient reports that he has received a total of 3 rounds of Keytruda. I discussed with patient that we will be admitting due to his requirements of oxygenation, we will also do a CT scan to rule out any kind of blood clot. We will continue his steroids along with Levaquin antibiotics, patient is agreeable to plan. Review of Systems Respiratory: COMPLAINS OF: Cough, Shortness of breath Cardiovascular: DENIES: Chest pain, Palpitations, Syncope, Lower Extremity Edema Except as stated in HPI: all other systems reviewed are Neg Past Family Social History Past Medical History COPD Non-small cell lung cancer stage IV Past Surgical History Tonsillectomy Right upper chest [id number]-Xrip placement Lung biopsy Multiple thoracentesis Reported Medications Reported Meds & Active Scripts Active Prednisone 20 Mg Tab 20 Mg PO DIRECTED Take 40mg daily for 3 days, 20mg daily for 3 days, 10mg daily for 3 days, 5 mg daily for 3 days, then stop. Symbicort Inh (Budesonide/Formoterol Fumarate) 160-4.5 Mcg/Act Aero 1 Puff INH Q12HR Reported Duoneb (Ipratropium-Albuterol Neb) 0.5-2.5 Mg/3 Ml Neb 1 Nebule INH Q6HR NEB Ventolin Hfa 18 GM Inh (Albuterol Sulfate) 90 Mcg/Act Aer 2 Puff INH Q4-6H PRN Allergies: Coded Allergies: No Known Allergies (Verified Allergy, Unknown, 10/08/17) Active Ordered Medications Current Medications Medications (Trade) Dose Ordered Sig/Gabriele Route Start Time Stop Time Status Last Admin Levofloxacin/ Dextrose 150 ml @ 100 mls/hr ONCE ONCE IV 11/29/17 16:30 11/29/17 17:59 (NS Flush) 2 ml UNSCH PRN IV FLUSH 11/29/17 17:45 UNV (NS Flush) 2 ml BID IV FLUSH 11/29/17 21:00 UNV (Tylenol) 650 mg Q4H PRN PO 11/29/17 17:45 (Zofran Inj) 4 mg Q6H PRN IVP 11/29/17 17:45 UNV (Lovenox Inj) 40 mg Q24H SQ 11/29/17 18:00 (Narcan Inj) 0.4 mg UNSCH PRN IV PUSH 11/29/17 17:45 UNV (Abigail-Colace) 1 tab BID PO 11/29/17 21:00 UNV (Milk Of Magnesia Liq) 30 ml Q12H PRN PO 11/29/17 17:45 UNV (Senokot) 17.2 mg Q12H PRN PO 11/29/17 17:45 UNV (Dulcolax Supp) 10 mg DAILY PRN RECTAL 11/29/17 17:45 UNV (Lactulose Liq) 30 ml DAILY PRN PO 11/29/17 17:45 UNV (Duoneb Neb) 1 ampule Q6HR NEB NEB 11/29/17 22:00 (Duoneb Neb) 1 ampule Q4HR NEB PRN NEB 11/29/17 17:45 Family History Denies any family history of lung cancer. Father with polio, age 55 Mother fairly healthy, age 92 Social History Tobacco: 1.5 PPD since he was 15yrs old, quit 08/17/17 Alcohol: denies Illicit drug use: Denies Physical Exam Vital Signs Vital Signs Date Time Temp Pulse Resp B/P (MAP) Pulse Ox O2 Delivery O2 Flow Rate FiO2 11/29/17 15:50 96 Nasal Cannula 4.00 11/29/17 15:50 96 Nasal Cannula 4.00 11/29/17 15:05 128 32 96 Nasal Cannula 4.00 11/29/17 15:01 98.0 133 20 113/74 (87) 89 Room Air 11/29/17 15:01 97.6 126 34 134/82 (99) 87 Physical Exam GENERAL: This is a well-nourished, well-developed patient, in no apparent distress. SKIN: No rashes, ecchymoses or lesions. Cool and dry. Right upper chest Infuse- a-Port. HEAD: Atraumatic. Normocephalic. No temporal or scalp tenderness. EYES: Pupils equal round and reactive. Extraocular motions intact. No scleral icterus. No injection or drainage. ENT: Nose without bleeding, purulent drainage or septal hematoma. Throat without erythema. Uvula midline. Airway patent. NECK: Trachea midline. No JVD. Supple, nontender. CARDIOVASCULAR: Sinus tachycardia without murmurs, gallops, or rubs. RESPIRATORY: Wheezing in bilateral lungs schmitz R>L, diminished in bilateral bases, no crackles or rails. GASTROINTESTINAL: Abdomen soft, non-tender, nondistended. No palpable masses. No guarding. MUSCULOSKELETAL: Extremities without clubbing, cyanosis, or edema. No joint tenderness, effusion, or edema noted. No calf tenderness. NEUROLOGICAL: Awake and alert, oriented x3. Cranial nerves II through XII intact. Motor and sensory grossly within normal limits. Five out of 5 muscle strength in all muscle groups. Normal speech, no facial droop. Laboratory Laboratory Tests Test 11/29/17 15:30 White Blood Count 22.8 Red Blood Count 4.98 Hemoglobin 14.2 Hematocrit 42.8 Mean Corpuscular Volume 86.0 Mean Corpuscular Hemoglobin 28.6 Mean Corpuscular Hemoglobin Concent 33.3 Red Cell Distribution Width 15.8 Platelet Count 355 Mean Platelet Volume 7.6 Neutrophils (%) (Auto) 86.6 Lymphocytes (%) (Auto) 5.4 Monocytes (%) (Auto) 6.6 Eosinophils (%) (Auto) 1.0 Basophils (%) (Auto) 0.4 Neutrophils # (Auto) 19.8 Lymphocytes # (Auto) 1.2 Monocytes # (Auto) 1.5 Eosinophils # (Auto) 0.2 Basophils # (Auto) 0.1 CBC Comment DIFF FINAL Differential Comment Prothrombin Time 10.8 Prothromb Time International Ratio 1.1 Activated Partial Thromboplast Time 24.9 Blood Urea Nitrogen 13 Creatinine 0.90 Random Glucose 108 Total Protein 6.6 Albumin 2.5 Calcium Level 8.4 Magnesium Level 2.0 Alkaline Phosphatase 81 Aspartate Amino Transf (AST/SGOT) 18 Alanine Aminotransferase (ALT/SGPT) 10 Total Bilirubin 0.5 Sodium Level 136 Potassium Level 3.7 Chloride Level 101 Carbon Dioxide Level 25.8 Anion Gap 9 Estimat Glomerular Filtration Rate 84 Total Creatine Kinase 29 Troponin I LESS THAN 0.02 Result Diagram: 11/29/17 1530 11/29/17 1530 Imaging Last Impressions Chest X-Ray 11/29/17 1523 Signed Impressions: Service Date/Time: Wednesday, November 29, 2017 15:42 - CONCLUSION: 1. Interval improvement in consolidation in the left lung. Diffuse infiltrates remain. 2. Large mass again noted the right hilar region. 3. Left effusion again noted. MD Lizbeth Chahal VTE Risk Assessment Lizbeth VTE Risk Assessment: Mod/High Risk (score >= 2) Caprini Risk Assessment Model Point Value = 1 Point Value = 2 Point Value = 3 Point Value = 5 Age 41-60 Minor surgery BMI > 25 kg/m2 Swollen legs Varicose veins or History of unexplained or recurrent spontaneous Oral contraceptives or hormone replacement Sepsis (< 1 month) Serious lung disease, including pneumonia (< 1 month) Abnormal pulmonary function Acute myocardial infarction Congestive heart failure (< 1 month) History of inflammatory bowel disease Medical patient at bed rest Age 61-74 Arthroscopic surgery Major open surgery (> 45 min) Laparoscopic surgery (> 45 min) Malignancy Confined to bed (> 72 hours) Immobilizing plaster cast Central venous access Age >= 75 History of VTE Family history of VTE Factor V Leiden Prothrombin [id number] Lupus anticoagulant Anticardiolipin antibodies Elevated serum homocysteine Heparin-induced thrombocytopenia Other congenital or acquired thrombophilia Stroke (< 1 month) Elective arthroplasty Hip, pelvis, or leg fracture Acute spinal cord injury (< 1 month) Prophylaxis Regimen Total Risk Factor Score Risk Level Prophylaxis Regimen 0-1 Low Early ambulation 2 Moderate Order ONE of the following: *Sequential Compression Device (SCD) *Heparin 5000 units SQ BID 3-4 Higher Order ONE of the following medications: *Heparin 5000 units SQ TID *Enoxaparin/Lovenox 40 mg SQ daily (WT < 150 kg, CrCl > 30 mL/min) *Enoxaparin/Lovenox 30 mg SQ daily (WT < 150 kg, CrCl > 10-29 mL/min) *Enoxaparin/Lovenox 30 mg SQ BID (WT < 150 kg, CrCl > 30 mL/min) AND/OR *Sequential Compression Device (SCD) 5 or more Highest Order ONE of the following medications: *Heparin 5000 units SQ TID (Preferred with Epidurals) *Enoxaparin/Lovenox 40 mg SQ daily (WT < 150 kg, CrCl > 30 mL/min) *Enoxaparin/Lovenox 30 mg SQ daily (WT < 150 kg, CrCl > 10-29 mL/min) *Enoxaparin/Lovenox 30 mg SQ BID (WT < 150 kg, CrCl > 30 mL/min) AND *Sequential Compression Device (SCD) Assessment and Plan Assessment and Plan 67-year-old male with past medical history of COPD/emphysema, stage IV non-small cell lung cancer on Keytruda, and recurrent pleural effusions. Patient presents to the emergency department with complaints of increasing shortness of breath since yesterday. Patient underwent right-sided thoracentesis with 300 mL fluid removal on 11/28/17. Non-small cell lung cancer stage IV - Patient recently received a third dose of Keytruda. He is followed by for oncology services. - Patient continues to have recurrent pleural effusions with most recent thoracentesis done yesterday. - Consider consulting oncology services depending on what CTA shows. Dyspnea COPD/emphysema -Patient originally presented to emergency department with oxygen saturation in the high 80s - Patient requiring 4 L oxygen nasal cannula to maintain oxygen saturation. - Chest x-ray completed and personally reviewed, showing interval improvement in consolidation in the left lung. Diffuse infiltrates remain. Large mass again noted in the right hilar region, left effusion noted again. - ? COPD exacerbation vs possible PE. Patient does have tachycardia at heart rate in the 120s at the time of my visit. Given the fact that he does have cancer poses risk for hypercoagulability. - Check stat CTA to rule out pulmonary embolism - Provide patient with duo nebs, resume Symbicort. - Solu-Medrol 40 mg every 8. - Admit to telemetry unit to monitor heart rate Leukocytosis with left shift - Looking back through patient's prior hospitalization and lab work it appears that leukocytosis is somewhat chronic possibly related to steroid use. - Pleural effusion Gram stain collected 11/28/17 with no growth in 24 hours - Lactic acid pending - Will continue Levaquin 750 mg IV every 24 hours - Monitor for fevers or possible source of infection Urinary hesitancy - Will obtain UA - Consider starting Flomax DVT prophylaxis - Subcutaneous Lovenox, SCDs Physician Certification 2 Midnight Certification Type: Admission for Inpatient Services Order for Inpatient Services The services are ordered in accordance with Medicare regulations or non- Medicare payer requirements, as applicable. In the case of services not specified as inpatient-only, they are appropriately provided as inpatient services in accordance with the 2-midnight benchmark. Estimated LOS (days): 5 days is the estimated time the patient will need to remain in the hospital, assuming treatment plan goals are met and no additional complications. Post-Hospital Plan: Not yet determined Problem Qualifiers (1) COPD (chronic obstructive pulmonary disease): Qualified Codes: J44.1 - Chronic obstructive pulmonary disease with (acute) exacerbation Ashley Campos Nov 29, 2017 17:32
[2017-11-29] MEDS ORDERED: BISACODYL 10 MG SUPP RECTAL PRN (17:45)
[2017-11-29] MEDS ORDERED: LACTULOSE SYRUP 20 GM/30 ML CUP PO PRN (17:45)
[2017-11-29] MEDS ORDERED: ACETAMINOPHEN 325 MG TAB PO PRN (17:45)
[2017-11-29] MEDS ORDERED: NALOXONE HCL 0.4 MG/ML AMP IV PUSH PRN (17:45)
[2017-11-29] MEDS ORDERED: SENNOSIDES 8.6 MG TAB PO PRN (17:45)
[2017-11-29] MEDS ORDERED: ONDANSETRON HCL 4 MG/2 ML VIAL IVP PRN (17:45)
[2017-11-29] MEDS ORDERED: MAGNESIUM HYDROXIDE SUSP 30 ML CUP PO PRN (17:45)
[2017-11-29] MEDS ORDERED: RESP: ALBUTEROL 2.5 MG/IPRATROPIUM 0.5 MG NEB (PRN) NEB (17:45)
[2017-11-29] MEDS: ENOXAPARIN SODIUM 40 MG/0.4 ML SYRINGE SQ SCH (18:32)
[2017-11-29] MEDS: RESP: ALBUTEROL 2.5 MG/IPRATROPIUM 0.5 MG NEB (SCH) NEB (19:03)
[2017-11-29] MEDS ORDERED: IOHEXOL 350 MG/ML 10 ML VIAL (for RAD DIAG) IVCONTRAST ONE (19:06)
--- NOTE | 2017-11-29 19:20 | RADRPT ---
EXAM DATE/TIME: 11/29/2017 18:43 [facility] COMPARISON: CT PULMONARY ANGIOGRAM, October 31, 2017, 13:51. INDICATIONS : Shortness of breath. IV CONTRAST: 60 cc Omnipaque 350 (iohexol) IV RADIATION DOSE: 7.29 CTDIvol (mGy) MEDICAL HISTORY : Carcinoma, lung. SURGICAL HISTORY : None. ENCOUNTER: Initial ACUITY: 1 day PAIN SCALE: 0/10 LOCATION: Bilateral chest TECHNIQUE: Volumetric scanning of the chest was performed using a pulmonary embolism protocol MIP images were re constructed. Using automated exposure control and adjustment of the mA and/or kV according to patien t size, radiation dose was kept as low as reasonably achievable to obtain optimal diagnostic quality images. DICOM format image data is available electronically for review and comparison. Follow-up recommendations for detected pulmonary nodules are based at a minimum on nodule size and pa tient risk factors according to Fleischner Society Guidelines. FINDINGS: Large central/perihilar mass is again noted on both sides, right worse than left and not significantl y changed. There are too numerous to count metastatic pulmonary nodules measuring up to 3 cm in size. Very small right pleural effusion, decreased in the interim. There is a moderate left pleural effusi on, similar to before. Large lymph node conglomerates of the mediastinum and bilateral amy are noted . There is encasement of the pulmonary arteries, right worse than left. The right upper lobe pulmonary artery is now completely blocked off. No pulmonary embolus. Small pericardial effusion, about the same. CONCLUSION: 1. Extensive primary and metastatic malignancy involving the chest as above. The masses are not signi ficantly changed in the interim. 2. Encasement of the pulmonary arteries, right worse than left. There is now complete obstruction of the right upper lobe pulmonary artery. Some attenuation of the other branches but they remain patent. There is no pulmonary embolus. 3. Small pericardial effusion and moderate left pleural effusion are not significantly changed. Right pleural effusion is smaller, now small. Onesimo Santiago MD on November 29, 2017 at 19:12 Board Certified Radiologist. This report was verified electronically.
[2017-11-29] MEDS: SODIUM CHLORIDE 0.9% FLUSH 10 ML FLUSH IV FLUSH SCH (20:30)
[2017-11-29] MEDS: DOCUSATE SODIUM 50 MG/SENNA 8.6 MG TAB PO SCH (20:30)
[2017-11-29] MEDS: BUDESONIDE-FORMOTEROL 160/4.5 MCG INHALER INH SCH (20:33)
[2017-11-29] MEDS: methylPREDNISolone SOD SUCC 40 MG/1 ML VIAL IV PUSH SCH (23:43)
[2017-11-29] MEDS: SODIUM CHLORIDE 0.9% FLUSH 10 ML FLUSH IV FLUSH PRN (23:44)
[2017-11-30] VITALS (9 sets, daily range): BP systolic 97–124; BP diastolic 54–70; PULSE 95–122; RESP 18–20; TEMP 97.4–98.1; O2SAT 92–98
[2017-11-30] MEDS: RESP: ALBUTEROL 2.5 MG/IPRATROPIUM 0.5 MG NEB (SCH) NEB ×4 (04:00→21:31)
[2017-11-30] MEDS: methylPREDNISolone SOD SUCC 40 MG/1 ML VIAL IV PUSH SCH ×3 (05:47→22:44)
[2017-11-30] MEDS: SODIUM CHLORIDE 0.9% FLUSH 10 ML FLUSH IV FLUSH PRN (05:48)
[2017-11-30 06:34] LABS: ALBUMIN 2.2 GM/DL (3.4-5.0); AST (GOT) 13 U/L (15-37); BICARBONATE 25.6 MEQ/L (21.0-32.0); BLOOD UREA NITROGEN 14 MG/DL (7-18); CALCIUM 8.1 MG/DL (8.5-10.1); CHLORIDE 100 MEQ/L (98-107); CREATININE 0.96 MG/DL (0.60-1.30); GLOMERULAR FILTRATION RATE 78 ML/MIN (>89); GLUCOSE,RANDOM 146 MG/DL (74-106); SODIUM (NA) 134 MEQ/L (136-145)
[2017-11-30 06:35] LABS: ALT (GPT) 11 U/L (12-78)
[2017-11-30 06:39] LABS: ALKALINE PHOSPHATASE 70 U/L (45-117); TOTAL BILIRUBIN ADULT 0.3 MG/DL (0.2-1.0); TOTAL PROTEIN 5.9 GM/DL (6.4-8.2)
[2017-11-30 06:46] LABS: BILIRUBIN, URINE NEG (NEG); BLOOD, URINE TRACE (NEG); GLUCOSE,URINE NEG (NEG); KETONE, URINE NEG (NEG); NITRITE,URINE NEG (NEG); PH, URINE 5.5 (5.0-8.5); SQUAMOUS EPITHELIAL CELL URINE <1 /hpf (0-5); URINE COLOR YELLOW (YELLW/STRAW); URINE LEUKOCYTE ESTERASE NEG (NEG)
[2017-11-30] MEDS: DOCUSATE SODIUM 50 MG/SENNA 8.6 MG TAB PO SCH ×2 (09:00→21:00)
[2017-11-30] MEDS: BUDESONIDE-FORMOTEROL 160/4.5 MCG INHALER INH SCH ×2 (10:05→22:45)
[2017-11-30] MEDS: SODIUM CHLORIDE 0.9% FLUSH 10 ML FLUSH IV FLUSH SCH ×2 (10:06→22:45)
--- NOTE | 2017-11-30 14:51 | HHI.PR ---
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 Patient reports that he recently underwent right-sided thoracentesis yesterday. He states that he went home and was feeling a little better, but then 1 hr later had SOB. Was not able to sleep due to SOB and this morning was not able to take more than two steps without having to stop due to severe SOB. Complains of cough but only in the morning, this is dry and non-productive. Cough only last momentarily in the morning and then clears throughout the day. Denies any fevers or chills. Denies any nausea, vomiting or diarrhea. Reports that he has been eating and drinking without any issues although does report some weight loss with's in appetite. He reports using duo nebs at home and does feel as that they will provide relief with breathing. He tells me that he has been on prednisone taper and today began day 1 out of 7 in his prednisone taper with 5 mg. Denies any chest pain, headaches, or heart palpitations. He also states that he has been on by mouth Levaquin basically following every thoracentesis. Patient also reports he has experienced some hesitancy with urination with weak flow. Denies any dysuria or hematuria. At the time of my examination patient is resting comfortably in bed and states that his shortness of breath is much improved with the use of oxygen. He states that he has been in the hospital multiple times but every time that he is discharged he does not qualify for home oxygen use. He is hoping that during this hospitalization he will be able to go home with oxygen. Currently he denies any chest pain, or heart palpitations. Review of EMR. Patient recently underwent right-sided thoracentesis yesterday 300 mL's of clear yellow fluid removed. Was seen in office by Dr. Willams on 10/31/17, patient had ongoing breathing problems then. It appears that Dr. Menjivar was thinking he might be having COPD exacerbation, versus progression of lung cancer versus Keytruda associated pneumonitis or effusion. During that visit oncology mentions the possibility of pulmonary embolism and does recommend patient get a CT scan of the chest for definitive cause of respiratory distress. CT of the chest was done here at [place] and did not show any sign of pulmonary embolism. It did show diffuse bilateral lung metastases disease with a large mass in the right hilar area. It also demonstrated diffuse mediastinal and hilar adenopathy, small bilateral effusions. Patient reports that he has received a total of 3 rounds of Keytruda. I discussed with patient that we will be admitting due to his requirements of oxygenation, we will also do a CT scan to rule out any kind of blood clot. We will continue his steroids along with Levaquin antibiotics, patient is agreeable to plan. 11-30 CONSULT PULMONARY AND ONCOLOGY STILL VERY SOB NOT ON OXYGEN AT HOME STATES DID NOT QUALIFY LAST TIME DW PATIENT AND RN Objective Vitals Vital Signs Date Time Temp Pulse Resp B/P (MAP) Pulse Ox O2 Delivery O2 Flow Rate FiO2 11/30/17 08:21 92 Nasal Cannula 3.00 11/30/17 08:00 122 11/30/17 04:00 97.4 96 18 98/54 (69) 92 11/30/17 04:00 Nasal Cannula 3.00 11/30/17 00:00 Nasal Cannula 3.00 11/29/17 23:39 97.8 106 16 93/60 (71) 94 11/29/17 23:38 Nasal Cannula 3.00 11/29/17 20:01 Nasal Cannula 3.00 11/29/17 20:01 98.5 118 16 95/54 (68) 94 11/29/17 19:16 11/29/17 19:10 118 18 108/68 (81) 96 Nasal Cannula 3.00 11/29/17 19:05 96 Nasal Cannula 3.00 11/29/17 18:02 118 26 104/75 (85) 96 Nasal Cannula 4.00 11/29/17 17:59 96 Nasal Cannula 3.00 11/29/17 15:50 96 Nasal Cannula 4.00 11/29/17 15:50 96 Nasal Cannula 4.00 11/29/17 15:05 128 32 96 Nasal Cannula 4.00 11/29/17 15:01 98.0 133 20 113/74 (87) 89 Room Air 11/29/17 15:01 97.6 126 34 134/82 (99) 87 I/O 1/13/18 1/13/18 1/13/18 1/14/18 1/14/18 1/14/18 07:00 15:00 23:00 07:00 15:00 23:00 Output Total 650 ml Balance -650 ml Output Urine Total 650 ml Result Diagram: 11/29/17 1530 11/30/17 0551 Other Results Laboratory Tests Test 11/29/17 15:30 11/29/17 17:58 11/30/17 05:16 11/30/17 05:51 White Blood Count 22.8 TH/MM3 Red Blood Count 4.98 MIL/MM3 Hemoglobin 14.2 GM/DL Hematocrit 42.8 % Mean Corpuscular Volume 86.0 FL Mean Corpuscular Hemoglobin 28.6 PG Mean Corpuscular Hemoglobin Concent 33.3 % Red Cell Distribution Width 15.8 % Platelet Count 355 TH/MM3 Mean Platelet Volume 7.6 FL Neutrophils (%) (Auto) 86.6 % Lymphocytes (%) (Auto) 5.4 % Monocytes (%) (Auto) 6.6 % Eosinophils (%) (Auto) 1.0 % Basophils (%) (Auto) 0.4 % Neutrophils # (Auto) 19.8 TH/MM3 Lymphocytes # (Auto) 1.2 TH/MM3 Monocytes # (Auto) 1.5 TH/MM3 Eosinophils # (Auto) 0.2 TH/MM3 Basophils # (Auto) 0.1 TH/MM3 CBC Comment DIFF FINAL Differential Comment Prothrombin Time 10.8 SEC Prothromb Time International Ratio 1.1 RATIO Activated Partial Thromboplast Time 24.9 SEC Blood Urea Nitrogen 13 MG/DL 14 MG/DL Creatinine 0.90 MG/DL 0.96 MG/DL Random Glucose 108 MG/DL 146 MG/DL Total Protein 6.6 GM/DL 5.9 GM/DL Albumin 2.5 GM/DL 2.2 GM/DL Calcium Level 8.4 MG/DL 8.1 MG/DL Magnesium Level 2.0 MG/DL Alkaline Phosphatase 81 U/L 70 U/L Aspartate Amino Transf (AST/SGOT) 18 U/L 13 U/L Alanine Aminotransferase (ALT/SGPT) 10 U/L 11 U/L Total Bilirubin 0.5 MG/DL 0.3 MG/DL Sodium Level 136 MEQ/L 134 MEQ/L Potassium Level 3.7 MEQ/L 4.1 MEQ/L Chloride Level 101 MEQ/L 100 MEQ/L Carbon Dioxide Level 25.8 MEQ/L 25.6 MEQ/L Anion Gap 9 MEQ/L 8 MEQ/L Estimat Glomerular Filtration Rate 84 ML/MIN 78 ML/MIN Total Creatine Kinase 29 U/L Troponin I LESS THAN 0.02 NG/ML Lactic Acid Level 2.9 mmol/L Urine Color YELLOW Urine Turbidity CLEAR Urine pH 5.5 Urine Specific [place] 1.023 Urine Protein TRACE mg/dL Urine Glucose (UA) NEG mg/dL Urine Ketones NEG mg/dL Urine Occult Blood TRACE Urine Nitrite NEG Urine Bilirubin NEG Urine Urobilinogen LESS THAN 2.0 MG/DL Urine Leukocyte Esterase NEG Urine RBC 1 /hpf Urine Squamous Epithelial Cells <1 /hpf Microscopic Urinalysis Comment CULT NOT INDICATED Imaging Last Impressions Chest X-Ray 11/29/17 1523 Signed Impressions: Service Date/Time: Wednesday, November 29, 2017 15:42 - CONCLUSION: 1. Interval improvement in consolidation in the left lung. Diffuse infiltrates remain. 2. Large mass again noted the right hilar region. 3. Left effusion again noted. Nithin Nolan MD CT Angiography 11/29/17 0000 Signed Impressions: Service Date/Time: Wednesday, November 29, 2017 18:43 - CONCLUSION: 1. Extensive primary and metastatic malignancy involving the chest as above. The masses are not significantly changed in the interim. 2. Encasement of the pulmonary arteries, right worse than left. There is now complete obstruction of the right upper lobe pulmonary artery. Some attenuation of the other branches but they remain patent. There is no pulmonary embolus. 3. Small pericardial effusion and moderate left pleural effusion are not significantly changed. Right pleural effusion is smaller, now small. Onesimo Santiago MD Objective Remarks GENERAL: Awake and alert oriented talkative and cooperative appears to be in moderate distress --he BEcomes easily winded on any major movement-cachectic in appearance SKIN: Warm and dry. HEAD: Atraumatic. Normocephalic. EYES: Pupils equal and round. No scleral icterus. No injection or drainage. Extractor muscles intact ENT: No nasal bleeding or discharge. Mucous membranes pink and moist. Tongue is midline NECK: Trachea midline. No JVD. Supple CARDIOVASCULAR: Regular rate and rhythm. S1 and S2 no S3 or S4 RESPIRATORY: No accessory muscle use. Rhonchi and wheezes throughout all lung schmitz except decreased lung sounds in the right upper lobe. Breath sounds equal bilaterally. GASTROINTESTINAL: Abdomen soft, non-tender, nondistended. Hepatic and splenic margins not palpable. MUSCULOSKELETAL: Extremities without clubbing, cyanosis, or edema. No obvious deformities. NEUROLOGICAL: Awake and alert. No obvious cranial nerve deficits. Motor grossly within normal limits. 4 out of 5 muscle strength in the arms and legs. Normal speech. PSYCHIATRIC: Appropriate mood and affect; insight and judgment normal. Medications and IVs Current Medications Methylprednisolone Sodium Succinate (SoluMEDROL INJ) 125 mg ONCE ONCE IV PUSH Last administered on 11/29/17at 18:02; Start 11/29/17 at 15:30; Stop 11/29/17 at 15:31; Status DC Albuterol Sulfate (Albuterol Neb) 2.5 mg Q15M INH Last administered on at 15:46; Start 11/29/17 at 15:30; Stop 11/29/17 at 15:46; Status DC Sodium Chloride 500 ml @ 500 mls/hr BOLUS ONCE IV Last administered on at 18:02; Start 11/29/17 at 15:30; Stop 11/29/17 at 16:29; Status DC Levofloxacin/ Dextrose 150 ml @ 100 mls/hr ONCE ONCE IV Last administered on 11/29/17at 18:31; Start 11/29/17 at 16:30; Stop 11/29/17 at 17:59; Status DC Sodium Chloride (NS Flush) 2 ml UNSCH PRN IV FLUSH FLUSH AFTER USING IV ACCESS Last administered on 11/30/17at 05:48; Start 11/29/17 at 17:45 Sodium Chloride (NS Flush) 2 ml BID IV FLUSH Last administered on 11/30/17at 10: 06; Start 11/29/17 at 21:00 Acetaminophen (Tylenol) 650 mg Q4H PRN PO TEMP > 100.4; Start 11/29/17 at 17:45 Ondansetron HCl (Zofran Inj) 4 mg Q6H PRN IVP NAUSEA OR VOMITING; Start at 17:45 Enoxaparin Sodium (Lovenox Inj) 40 mg Q24H SQ Last administered on 11/29/17at 18 :32; Start 11/29/17 at 18:00 Naloxone HCl (Narcan Inj) 0.4 mg UNSCH PRN IV PUSH SEE LABEL COMMENTS; Start at 17:45 Senna/Docusate Sodium (Abigail-Colace) 1 tab BID PO ; Start 11/29/17 at 21:00 Magnesium Hydroxide (Milk Of Magnesia Liq) 30 ml Q12H PRN PO Mild constipation ; Start 11/29/17 at 17:45 Sennosides (Senokot) 17.2 mg Q12H PRN PO Moderate constipation; Start 11/29/17 at 17:45 Bisacodyl (Dulcolax Supp) 10 mg DAILY PRN RECTAL SEVERE CONSITIPATION; Start at 17:45 Lactulose (Lactulose Liq) 30 ml DAILY PRN PO SEVERE CONSITIPATION; Start at 17:45 Levofloxacin/ Dextrose 150 ml @ 100 mls/hr Q24H IV ; Start 11/30/17 at 18:00 Albuterol/ Ipratropium (Duoneb Neb) 1 ampule Q6HR NEB NEB Last administered on 11/30/17at 08:20; Start 11/29/17 at 22:00 Albuterol/ Ipratropium (Duoneb Neb) 1 ampule Q4HR NEB PRN NEB SHORTNESS OF BREATH; Start 11/29/17 at 17:45 Methylprednisolone Sodium Succinate (SoluMEDROL INJ) 40 mg Q8HR IV PUSH Last administered on 11/30/17at 15:05; Start 11/29/17 at 23:00 Budesonide/ Formoterol Fumarate (Symbicort 160-4.5 Mcg Inh) 1 puff Q12HR INH Last administered on 11/30/17at 10:05; Start 11/29/17 at 21:00 Iohexol (Omnipaque 350 Inj) 60 ml STK-MED ONCE IVCONTRAST Last administered on 11/29/17at 19:06; Start 11/29/17 at 19:06; Stop 11/29/17 at 19:07; Status DC Guaifenesin (Mucinex Er) 600 mg BID PO Last administered on 11/30/17at 15:04; Start 11/30/17 at 15:00 A/P Problem List: (1) Dyspnea ICD Code: R06.00 - Dyspnea, unspecified (2) Leukocytosis ICD Code: D72.829 - Elevated white blood cell count, unspecified (3) COPD (chronic obstructive pulmonary disease) ICD Code: J44.9 - Chronic obstructive pulmonary disease, unspecified (4) Non-small cell carcinoma of lung, stage 4 ICD Code: C34.90 - Malignant neoplasm of unspecified part of unspecified bronchus or lung Assessment and Plan 67-year-old male with past medical history of COPD/emphysema, stage IV non-small cell lung cancer on Keytruda, and recurrent pleural effusions. Patient presents to the emergency department with complaints of increasing shortness of breath since yesterday. Patient underwent right-sided thoracentesis with 300 mL fluid removal on 11/28/17. Non-small cell lung cancer stage IV - Patient recently received a third dose of Keytruda. He is followed by for oncology services. - Patient continues to have recurrent pleural effusions with most recent thoracentesis done yesterday.- - We'll consult oncology Dyspnea COPD/emphysema -Patient originally presented to emergency department with oxygen saturation in the high 80s - Patient requiring 4 L oxygen nasal cannula to maintain oxygen saturation. - Chest x-ray completed and personally reviewed, showing interval improvement in consolidation in the left lung. Diffuse infiltrates remain. Large mass again noted in the right hilar region, left effusion noted again. - ? COPD exacerbation vs possible PE. Patient does have tachycardia at heart rate in the 120s at the time of my visit. Given the fact that he does have cancer poses risk for hypercoagulability. - Check stat CTA to rule out pulmonary embolism - Provide patient with duo nebs, resume Symbicort. - Solu-Medrol 40 mg every 8. - Admit to telemetry unit to monitor heart rate CONSULT PULMONARY Leukocytosis with left shift - Looking back through patient's prior hospitalization and lab work it appears that leukocytosis is somewhat chronic possibly related to steroid use. - Pleural effusion Gram stain collected 11/28/17 with no growth in 24 hours - Lactic acid pending - Will continue Levaquin 750 mg IV every 24 hours - Monitor for fevers or possible source of infection Urinary hesitancy - Will obtain UA - start Flomax DVT prophylaxis - Subcutaneous Lovenox, SCDs Problem Qualifiers (1) COPD (chronic obstructive pulmonary disease): Qualified Codes: J44.1 - Chronic obstructive pulmonary disease with (acute) exacerbation Leland Sarmiento DO Nov 30, 2017 14:51
[2017-11-30] MEDS: guaiFENesin E.R. 600 MG TAB PO SCH ×2 (15:04→22:44)
[2017-11-30] MEDS ORDERED: TAMSULOSIN HCL 0.4 MG CAP PO ONE (15:45)
--- NOTE | 2017-11-30 17:34 | EKG ---
Date Performed: 11/29/2017 Time Performed: 15:20:07 PTAGE: 67 years EKG: SINUS TACHYCARDIA LOW QRS VOLTAGE IN EXTREMITY LEADS ABNORMAL RHYTHM ECG INTERPRETATION BAS ED ON A DEFAULT AGE OF 40 YEARS PREVIOUS TRACING : 11/17/2017 11.01 Since previous tracing, no significant change noted DOCTOR: Francisco Jacob Interpretating Date/Time 11/30/2017 17:32:21
--- NOTE | 2017-11-30 17:41 | MB ---
cc: MARAL ALICIA DATE OF CONSULTATION: 11/30/2017. REASON FOR CONSULTATION: COPD. Metastatic lung cancer. HISTORY OF PRESENT ILLNESS: Mr. Silva is a 67-year-old male with stage IV metastatic lung cancer with known history of COPD admitted with increasing shortness of breath progressively worse. He did have a thoracentesis on the with some improvement; however, the shortness of breath has subsequently become progressively worse and he has an occasional cough with small amount of whitish sputum. He does have a history of bilateral pleural effusions as well. He has had multiple thoracenteses in the past, both right and left, and the last was on the right two days ago as mentioned above. PAST MEDICAL HISTORY: His past medical history is that of: 1. COPD. 2. Stage IV metastatic lung cancer, nonsmall cell. 3. Previous tonsillectomy and adenoidectomy. 4. Infus[address] in [address]. 5. Multiple thoracenteses. MEDICATIONS AT HOME: 1. Symbicort twice a day. 2. DuoNeb. 3. Albuterol PRN. PRESENTLY: 1. Symbicort. 2. Prednisone. ALLERGIES: NONE KNOWN TO MEDICATIONS: FAMILY HISTORY: Noncontributory. REVIEW OF SYSTEMS: A twelve-point review of systems is as per the history of present illness and past history, otherwise negative. PHYSICAL EXAMINATION: GENERAL: On exam, the patient is alert. VITAL SIGNS: Temperature 98, respirations 24, pulse 90, oxygen saturation 96% on four liters oxygen nasal cannula. HEAD, EYES, EARS, NOSE, THROAT: Unremarkable. Eyes without icterus. NECK: Without adenopathy, thyroid enlargement, central trachea. CHEST: Decreased breath sounds at the lung bases, more so on the left. CARDIAC: PMI not appreciated. S1-S2 audible. No murmur, no rub. ABDOMEN: Lax. Bowel sounds audible. EXTREMITIES: No cyanosis, clubbing or edema. SKIN: Normal. LYMPHATIC: No lymphadenopathy. LABORATORY DATA: White count 22,000, hemoglobin 14, hematocrit 42. Sodium 136, potassium 3.7, BUN 13, creatinine 0.9. IMAGING STUDIES: CT scan of the chest with bilateral effusions, widespread metastatic disease with pulmonary artery involvement with complete obstruction of the right upper lobe pulmonary artery bronchus; the others are narrowed but not occluded. There is no evidence of pulmonary embolization. The pleural effusion on the right is small and the one on the left is moderate. IMPRESSION: 1. COPD exacerbation. 2. Metastatic lung cancer. 3. Bilateral pleural effusions. PLAN: 1. The patient will be maintained on oxygen therapy as needed. 2. Bronchodilator therapy given. 3. Antibiotic therapy would be appropriate as well as IV steroids. Will follow the patient's course along with you. His prognosis is poor. He is known to Dr. Leland Bettencourt, who will follow the patient's care upon his return. I do thank you for asking me to partake in Ricardo's care. Maral Alicia MD WWW/FILEMON /4:42 PM /5:27 PM
[2017-11-30] MEDS: LEVOFLOXACIN 750 MG PREMIX INJ 150 ML IV SCH (18:48)
[2017-11-30] MEDS: ENOXAPARIN SODIUM 40 MG/0.4 ML SYRINGE SQ SCH (18:48)
[2017-12-01] VITALS (14 sets, daily range): BP systolic 76–105; BP diastolic 46–67; PULSE 90–157; RESP 17–23; TEMP 97.6–103.6; O2SAT 92–98
[2017-12-01] MEDS: RESP: ALBUTEROL 2.5 MG/IPRATROPIUM 0.5 MG NEB (SCH) NEB ×5 (04:00→22:01)
[2017-12-01] MEDS: methylPREDNISolone SOD SUCC 40 MG/1 ML VIAL IV PUSH SCH ×3 (05:55→21:20)
[2017-12-01 07:22] LABS: ALBUMIN 2.3 GM/DL (3.4-5.0); AST (GOT) 12 U/L (15-37); BLOOD UREA NITROGEN 19 MG/DL (7-18); CALCIUM 8.4 MG/DL (8.5-10.1); CHLORIDE 101 MEQ/L (98-107); CREATININE 0.99 MG/DL (0.60-1.30); GLOMERULAR FILTRATION RATE 75 ML/MIN (>89); GLUCOSE,RANDOM 155 MG/DL (74-106); MAGNESIUM 2.3 MG/DL (1.5-2.5); SODIUM (NA) 136 MEQ/L (136-145)
[2017-12-01 07:32] LABS: ALKALINE PHOSPHATASE 90 U/L (45-117); ALT (GPT) 10 U/L (12-78); FREE T4 1.24 NG/DL (0.76-1.46); PHOSPHORUS 2.8 MG/DL (2.5-4.9); TOTAL BILIRUBIN ADULT 0.2 MG/DL (0.2-1.0); TOTAL PROTEIN 5.9 GM/DL (6.4-8.2)
[2017-12-01 07:37] LABS: HEMATOCRIT 35.2 % (39.0-51.0); HEMOGLOBIN 11.8 GM/DL (13.0-17.0); MEAN CELL VOLUME 86.3 FL (80.0-100.0); MEAN CORPUSCULAR HGB CONC 33.6 % (32.0-36.0); MEAN PLATELET VOLUME 7.9 FL (7.0-11.0); PLATELET COUNT 287 TH/MM3 (150-450); RED BLOOD COUNT 4.08 MIL/MM3 (4.50-5.90); RED CELL DISTRIBUTION WIDTH 15.9 % (11.6-17.2); WHITE BLOOD COUNT 33.4 TH/MM3 (4.0-11.0)
[2017-12-01] MEDS: BUDESONIDE-FORMOTEROL 160/4.5 MCG INHALER INH SCH ×2 (09:00→21:19)
[2017-12-01 09:18] LABS: BANDS 17 % (0-6); LYMPHOCYTES 5 % (9-44); MONOCYTES 3 % (0-8); NEUTROPHIL # MANUAL DIFF 30.7 TH/MM3 (1.8-7.7); POLYS (SEG NEUTROPHILS) 75 % (16-70)
[2017-12-01 09:19] LABS: TOXIC GRANULATION 1+ (NORMAL)
[2017-12-01] MEDS: guaiFENesin E.R. 600 MG TAB PO SCH ×2 (10:20→21:20)
[2017-12-01] MEDS: DOCUSATE SODIUM 50 MG/SENNA 8.6 MG TAB PO SCH ×2 (10:20→21:19)
[2017-12-01] MEDS: TAMSULOSIN HCL 0.4 MG CAP PO SCH (10:21)
[2017-12-01] MEDS: SODIUM CHLORIDE 0.9% FLUSH 10 ML FLUSH IV FLUSH SCH ×2 (10:22→21:21)
--- NOTE | 2017-12-01 10:42 | HHI.PR ---
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 Patient reports that he recently underwent right-sided thoracentesis yesterday. He states that he went home and was feeling a little better, but then 1 hr later had SOB. Was not able to sleep due to SOB and this morning was not able to take more than two steps without having to stop due to severe SOB. Complains of cough but only in the morning, this is dry and non-productive. Cough only last momentarily in the morning and then clears throughout the day. Denies any fevers or chills. Denies any nausea, vomiting or diarrhea. Reports that he has been eating and drinking without any issues although does report some weight loss with's in appetite. He reports using duo nebs at home and does feel as that they will provide relief with breathing. He tells me that he has been on prednisone taper and today began day 1 out of 7 in his prednisone taper with 5 mg. Denies any chest pain, headaches, or heart palpitations. He also states that he has been on by mouth Levaquin basically following every thoracentesis. Patient also reports he has experienced some hesitancy with urination with weak flow. Denies any dysuria or hematuria. At the time of my examination patient is resting comfortably in bed and states that his shortness of breath is much improved with the use of oxygen. He states that he has been in the hospital multiple times but every time that he is discharged he does not qualify for home oxygen use. He is hoping that during this hospitalization he will be able to go home with oxygen. Currently he denies any chest pain, or heart palpitations. Review of EMR. Patient recently underwent right-sided thoracentesis yesterday 300 mL's of clear yellow fluid removed. Was seen in office by Dr. Willams on 10/31/17, patient had ongoing breathing problems then. It appears that Dr. Menjivar was thinking he might be having COPD exacerbation, versus progression of lung cancer versus Keytruda associated pneumonitis or effusion. During that visit oncology mentions the possibility of pulmonary embolism and does recommend patient get a CT scan of the chest for definitive cause of respiratory distress. CT of the chest was done here at [facility] and did not show any sign of pulmonary embolism. It did show diffuse bilateral lung metastases disease with a large mass in the right hilar area. It also demonstrated diffuse mediastinal and hilar adenopathy, small bilateral effusions. Patient reports that he has received a total of 3 rounds of Keytruda. I discussed with patient that we will be admitting due to his requirements of oxygenation, we will also do a CT scan to rule out any kind of blood clot. We will continue his steroids along with Levaquin antibiotics, patient is agreeable to plan. 11-30 CONSULT PULMONARY AND ONCOLOGY STILL VERY SOB NOT ON OXYGEN AT HOME STATES DID NOT QUALIFY LAST TIME DW PATIENT AND RN 12-01 WENT INTO AFIB CONSULT CARDIO ECHO TREND TROPONINS AND CARDIAC ENZYMES DW RN AND PT Objective Vitals Vital Signs Date Time Temp Pulse Resp B/P (MAP) Pulse Ox O2 Delivery O2 Flow Rate FiO2 12/01/17 08:45 157 12/01/17 08:17 97 Nasal Cannula 3.00 12/01/17 08:00 97.6 94 17 101/62 (75) 97 12/01/17 05:46 97.8 97 18 95/58 (70) 98 12/01/17 04:00 Nasal Cannula 3.00 12/01/17 03:49 90 12/01/17 00:40 97.7 99 18 105/67 (80) 95 12/01/17 00:00 Nasal Cannula 3.00 11/30/17 23:49 95 11/30/17 21:32 98 Nasal Cannula 3.00 11/30/17 20:00 Nasal Cannula 3.00 11/30/17 20:00 97.6 104 18 97/58 (71) 95 11/30/17 19:47 100 11/30/17 16:00 98.1 107 20 124/70 (88) 94 11/30/17 16:00 98 11/30/17 12:00 97.6 107 20 108/69 (82) 96 11/30/17 12:00 103 I/O 11/30/17 11/30/17 11/30/17 12/01/17 12/01/17 12/01/17 07:00 15:00 23:00 07:00 15:00 23:00 Intake Total 960 ml 480 ml Output Total 650 ml 450 ml Balance -650 ml 510 ml 480 ml Intake Oral 960 ml 480 ml Output Urine Total 650 ml 450 ml # Voids 6 # Bowel Movements 0 0 Result Diagram: 12/01/17 0600 12/01/17 0600 Other Results Laboratory Tests Test 11/29/17 15:30 11/29/17 17:58 11/30/17 05:16 11/30/17 05:51 White Blood Count 22.8 TH/MM3 Red Blood Count 4.98 MIL/MM3 Hemoglobin 14.2 GM/DL Hematocrit 42.8 % Mean Corpuscular Volume 86.0 FL Mean Corpuscular Hemoglobin 28.6 PG Mean Corpuscular Hemoglobin Concent 33.3 % Red Cell Distribution Width 15.8 % Platelet Count 355 TH/MM3 Mean Platelet Volume 7.6 FL Neutrophils (%) (Auto) 86.6 % Lymphocytes (%) (Auto) 5.4 % Monocytes (%) (Auto) 6.6 % Eosinophils (%) (Auto) 1.0 % Basophils (%) (Auto) 0.4 % Neutrophils # (Auto) 19.8 TH/MM3 Lymphocytes # (Auto) 1.2 TH/MM3 Monocytes # (Auto) 1.5 TH/MM3 Eosinophils # (Auto) 0.2 TH/MM3 Basophils # (Auto) 0.1 TH/MM3 CBC Comment DIFF FINAL Differential Comment Prothrombin Time 10.8 SEC Prothromb Time International Ratio 1.1 RATIO Activated Partial Thromboplast Time 24.9 SEC Blood Urea Nitrogen 13 MG/DL 14 MG/DL Creatinine 0.90 MG/DL 0.96 MG/DL Random Glucose 108 MG/DL 146 MG/DL Total Protein 6.6 GM/DL 5.9 GM/DL Albumin 2.5 GM/DL 2.2 GM/DL Calcium Level 8.4 MG/DL 8.1 MG/DL Magnesium Level 2.0 MG/DL Alkaline Phosphatase 81 U/L 70 U/L Aspartate Amino Transf (AST/SGOT) 18 U/L 13 U/L Alanine Aminotransferase (ALT/SGPT) 10 U/L 11 U/L Total Bilirubin 0.5 MG/DL 0.3 MG/DL Sodium Level 136 MEQ/L 134 MEQ/L Potassium Level 3.7 MEQ/L 4.1 MEQ/L Chloride Level 101 MEQ/L 100 MEQ/L Carbon Dioxide Level 25.8 MEQ/L 25.6 MEQ/L Anion Gap 9 MEQ/L 8 MEQ/L Estimat Glomerular Filtration Rate 84 ML/MIN 78 ML/MIN Total Creatine Kinase 29 U/L Troponin I LESS THAN 0.02 NG/ML Lactic Acid Level 2.9 mmol/L Urine Color YELLOW Urine Turbidity CLEAR Urine pH 5.5 Urine Specific [place] 1.023 Urine Protein TRACE mg/dL Urine Glucose (UA) NEG mg/dL Urine Ketones NEG mg/dL Urine Occult Blood TRACE Urine Nitrite NEG Urine Bilirubin NEG Urine Urobilinogen LESS THAN 2.0 MG/DL Urine Leukocyte Esterase NEG Urine RBC 1 /hpf Urine Squamous Epithelial Cells <1 /hpf Microscopic Urinalysis Comment CULT NOT INDICATED Test 12/01/17 06:00 White Blood Count 33.4 TH/MM3 Red Blood Count 4.08 MIL/MM3 Hemoglobin 11.8 GM/DL Hematocrit 35.2 % Mean Corpuscular Volume 86.3 FL Mean Corpuscular Hemoglobin 29.0 PG Mean Corpuscular Hemoglobin Concent 33.6 % Red Cell Distribution Width 15.9 % Platelet Count 287 TH/MM3 Mean Platelet Volume 7.9 FL CBC Comment AUTO DIFF Differential Total Cells Counted 100 Neutrophils % (Manual) 75 % Band Neutrophils % 17 % Lymphocytes % 5 % Monocytes % 3 % Neutrophils # (Manual) 30.7 TH/MM3 Differential Comment FINAL DIFF MANUAL Toxic Granulation 1+ Platelet Estimate NORMAL Platelet Morphology Comment NORMAL Blood Urea Nitrogen 19 MG/DL Creatinine 0.99 MG/DL Random Glucose 155 MG/DL Total Protein 5.9 GM/DL Albumin 2.3 GM/DL Calcium Level 8.4 MG/DL Phosphorus Level 2.8 MG/DL Magnesium Level 2.3 MG/DL Alkaline Phosphatase 90 U/L Aspartate Amino Transf (AST/SGOT) 12 U/L Alanine Aminotransferase (ALT/SGPT) 10 U/L Total Bilirubin 0.2 MG/DL Sodium Level 136 MEQ/L Potassium Level 3.8 MEQ/L Chloride Level 101 MEQ/L Carbon Dioxide Level 25.0 MEQ/L Anion Gap 10 MEQ/L Estimat Glomerular Filtration Rate 75 ML/MIN Free Thyroxine 1.24 NG/DL Thyroid Stimulating Hormone 3rd Gen 0.627 uIU/ML Imaging Last Impressions Chest X-Ray 11/29/17 1523 Signed Impressions: Service Date/Time: Wednesday, November 29, 2017 15:42 - CONCLUSION: 1. Interval improvement in consolidation in the left lung. Diffuse infiltrates remain. 2. Large mass again noted the right hilar region. 3. Left effusion again noted. Nithin Nolan MD CT Angiography 11/29/17 0000 Signed Impressions: Service Date/Time: Wednesday, November 29, 2017 18:43 - CONCLUSION: 1. Extensive primary and metastatic malignancy involving the chest as above. The masses are not significantly changed in the interim. 2. Encasement of the pulmonary arteries, right worse than left. There is now complete obstruction of the right upper lobe pulmonary artery. Some attenuation of the other branches but they remain patent. There is no pulmonary embolus. 3. Small pericardial effusion and moderate left pleural effusion are not significantly changed. Right pleural effusion is smaller, now small. Onesimo Santiago MD Objective Remarks GENERAL: Awake and alert oriented talkative and cooperative appears to be in MILD distress --he BEcomes easily winded on any major movement-cachectic in appearance SKIN: Warm and dry. HEAD: Atraumatic. Normocephalic. EYES: Pupils equal and round. No scleral icterus. No injection or drainage. Extractor muscles intact ENT: No nasal bleeding or discharge. Mucous membranes pink and moist. Tongue is midline NECK: Trachea midline. No JVD. Supple CARDIOVASCULAR: Regular rate and rhythm. S1 and S2 no S3 or S4 RESPIRATORY: No accessory muscle use. Rhonchi and wheezes throughout all lung schmitz except decreased lung sounds in the right upper lobe. Breath sounds equal bilaterally. GASTROINTESTINAL: Abdomen soft, non-tender, nondistended. Hepatic and splenic margins not palpable. MUSCULOSKELETAL: Extremities without clubbing, cyanosis, or edema. No obvious deformities. NEUROLOGICAL: Awake and alert. No obvious cranial nerve deficits. Motor grossly within normal limits. 4 out of 5 muscle strength in the arms and legs. Normal speech. PSYCHIATRIC: Appropriate mood and affect; insight and judgment normal. Medications and IVs Current Medications Methylprednisolone Sodium Succinate (SoluMEDROL INJ) 125 mg ONCE ONCE IV PUSH Last administered on 11/29/17at 18:02; Start 11/29/17 at 15:30; Stop 11/29/17 at 15:31; Status DC Albuterol Sulfate (Albuterol Neb) 2.5 mg Q15M INH Last administered on at 15:46; Start 11/29/17 at 15:30; Stop 11/29/17 at 15:46; Status DC Sodium Chloride 500 ml @ 500 mls/hr BOLUS ONCE IV Last administered on at 18:02; Start 11/29/17 at 15:30; Stop 11/29/17 at 16:29; Status DC Levofloxacin/ Dextrose 150 ml @ 100 mls/hr ONCE ONCE IV Last administered on 11/29/17at 18:31; Start 11/29/17 at 16:30; Stop 11/29/17 at 17:59; Status DC Sodium Chloride (NS Flush) 2 ml UNSCH PRN IV FLUSH FLUSH AFTER USING IV ACCESS Last administered on 11/30/17at 05:48; Start 11/29/17 at 17:45 Sodium Chloride (NS Flush) 2 ml BID IV FLUSH Last administered on 12/01/17at 10: 22; Start 11/29/17 at 21:00 Acetaminophen (Tylenol) 650 mg Q4H PRN PO TEMP > 100.4; Start 11/29/17 at 17:45 Ondansetron HCl (Zofran Inj) 4 mg Q6H PRN IVP NAUSEA OR VOMITING; Start at 17:45 Enoxaparin Sodium (Lovenox Inj) 40 mg Q24H SQ Last administered on 11/30/17at 18 :48; Start 11/29/17 at 18:00 Naloxone HCl (Narcan Inj) 0.4 mg UNSCH PRN IV PUSH SEE LABEL COMMENTS; Start at 17:45 Senna/Docusate Sodium (Abigail-Colace) 1 tab BID PO Last administered on at 10:20; Start 11/29/17 at 21:00 Magnesium Hydroxide (Milk Of Magnesia Liq) 30 ml Q12H PRN PO Mild constipation ; Start 11/29/17 at 17:45 Sennosides (Senokot) 17.2 mg Q12H PRN PO Moderate constipation; Start 11/29/17 at 17:45 Bisacodyl (Dulcolax Supp) 10 mg DAILY PRN RECTAL SEVERE CONSITIPATION; Start at 17:45 Lactulose (Lactulose Liq) 30 ml DAILY PRN PO SEVERE CONSITIPATION; Start at 17:45 Levofloxacin/ Dextrose 150 ml @ 100 mls/hr Q24H IV Last administered on at 18:48; Start 11/30/17 at 18:00 Albuterol/ Ipratropium (Duoneb Neb) 1 ampule Q6HR NEB NEB Last administered on 12/01/17at 10:33; Start 11/29/17 at 22:00 Albuterol/ Ipratropium (Duoneb Neb) 1 ampule Q4HR NEB PRN NEB SHORTNESS OF BREATH; Start 11/29/17 at 17:45 Methylprednisolone Sodium Succinate (SoluMEDROL INJ) 40 mg Q8HR IV PUSH Last administered on 12/01/17at 05:55; Start 11/29/17 at 23:00 Budesonide/ Formoterol Fumarate (Symbicort 160-4.5 Mcg Inh) 1 puff Q12HR INH Last administered on 12/01/17at 09:00; Start 11/29/17 at 21:00 Iohexol (Omnipaque 350 Inj) 60 ml STK-MED ONCE IVCONTRAST Last administered on 11/29/17at 19:06; Start 11/29/17 at 19:06; Stop 11/29/17 at 19:07; Status DC Guaifenesin (Mucinex Er) 600 mg BID PO Last administered on 12/01/17at 10:20; Start 11/30/17 at 15:00 Tamsulosin HCl (Flomax) 0.4 mg DAILY PO Last administered on 12/01/17at 10:21; Start 12/01/17 at 09:00 Tamsulosin HCl (Flomax) 0.4 mg ONCE ONCE PO Last administered on 11/30/17at 18: 49; Start 11/30/17 at 15:45; Stop 11/30/17 at 15:46; Status DC A/P Problem List: (1) Dyspnea ICD Code: R06.00 - Dyspnea, unspecified (2) Leukocytosis ICD Code: D72.829 - Elevated white blood cell count, unspecified (3) COPD (chronic obstructive pulmonary disease) ICD Code: J44.9 - Chronic obstructive pulmonary disease, unspecified (4) Non-small cell carcinoma of lung, stage 4 ICD Code: C34.90 - Malignant neoplasm of unspecified part of unspecified bronchus or lung (5) Atrial fibrillation ICD Code: I48.91 - Unspecified atrial fibrillation Assessment and Plan 67-year-old male with past medical history of COPD/emphysema, stage IV non-small cell lung cancer on Keytruda, and recurrent pleural effusions. Patient presents to the emergency department with complaints of increasing shortness of breath since yesterday. Patient underwent right-sided thoracentesis with 300 mL fluid removal on 11/28/17. Non-small cell lung cancer stage IV - Patient recently received a third dose of Keytruda. He is followed by for oncology services. - Patient continues to have recurrent pleural effusions with most recent thoracentesis done yesterday.11-28 - We'll consult oncology Dyspnea COPD/emphysema -Patient originally presented to emergency department with oxygen saturation in the high 80s - Patient requiring 4 L oxygen nasal cannula to maintain oxygen saturation. - Chest x-ray completed and personally reviewed, showing interval improvement in consolidation in the left lung. Diffuse infiltrates remain. Large mass again noted in the right hilar region, left effusion noted again. - ? COPD exacerbation vs possible PE. Patient does have tachycardia at heart rate in the 120s at the time of my visit. Given the fact that he does have cancer poses risk for hypercoagulability. - Check stat CTA to rule out pulmonary embolism - Provide patient with duo nebs, resume Symbicort. - Solu-Medrol 40 mg every 8. - Admit to telemetry unit to monitor heart rate CONSULT PULMONARY- SEEN BY PULMONARY Leukocytosis with left shift - Looking back through patient's prior hospitalization and lab work it appears that leukocytosis is somewhat chronic possibly related to steroid use. - Pleural effusion Gram stain collected 11/28/17 with no growth in 24 hours - Lactic acid pending - Will continue Levaquin 750 mg IV every 24 hours - Monitor for fevers or possible source of infection Urinary hesitancy - Will obtain UA - start Flomax DVT prophylaxis - Subcutaneous Lovenox, SCDs AFIB- WITH RVR- CONSULT CARDIOLOGY GET ECHO DW RN AND PT Discharge Planning AM LABS CONSULT CARDIOLOGY DW PATIENT AND RN Problem Qualifiers (1) COPD (chronic obstructive pulmonary disease): Qualified Codes: J44.1 - Chronic obstructive pulmonary disease with (acute) exacerbation Leland Sarmiento DO Dec 01, 2017 10:41
[2017-12-01] MEDS ORDERED: DILTIAZEM HCL 25 MG/5 ML VIAL IV ONE (11:00)
[2017-12-01] MEDS: ASPIRIN EC 325 MG TABEC PO SCH (11:01)
[2017-12-01] MEDS ORDERED: SODIUM CHLORID 0.9% 500 ML INJ 500 ML IV ONE ×3 (11:15→21:30)
[2017-12-01] MEDS ORDERED: DIGOXIN 0.5 MG/2 ML VIAL IV PUSH ONE ×2 (11:30→13:15)
--- NOTE | 2017-12-01 12:40 | PD.CONS ---
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 No previous hx of CAD. Last Echo 2016 showed preserved LV systolic function with a Pericardial Effusion. Patient went into Afib with RVR. cardiology consulted for further management and evaluation. He has been treated with digoxin IV due to Low BP. Review of Systems Consitutional: COMPLAINS OF: Fatigue, DENIES: Fever, Chills, Weight gain, Weight loss Eyes: DENIES: Amaurosis Fugax, Change in vision HEENT: DENIES: Lightheadedness, Change in hearing Respiratory: COMPLAINS OF: Shortness of breath, DENIES: See HPI, Cough, Snoring , Wheezing, Sputum production Cardiovascular: DENIES: See HPI, Chest pain, Palpitations, Syncope, Tachycardia Gastrointestinal: DENIES: Nausea, Vomiting, Change in bowel habits, Reflux, Bloody stools, Melena Genitourinary: DENIES: Urinary incontinence, Difficulty voiding Integumentary: DENIES: Rash Neurologic: DENIES: Tingling or numbness, Memory problems, Poor Balance, Stroke symptoms Musculoskeletal: DENIES: Joint pain, Muscle pain, Limited range of motion, Back pain Psychiatric: DENIES: Anxiety, Depression, Sleep disturbances Hematologic: DENIES: Bruising tendencies, Bleeding tendencies Endocrine: DENIES: Weight gain, Weight loss, Thyroid disease Past Family Social History Allergies: Coded Allergies: No Known Allergies (Verified Allergy, Unknown, 10/08/17) Past Medical History COPD Non-small cell lung cancer stage IV Past Surgical History Tonsillectomy Right upper chest Cavbed-k-Saia placement Lung biopsy Multiple thoracentesis Reported Medications Reported Meds & Active Scripts Active Prednisone 20 Mg Tab 20 Mg PO DIRECTED Take 40mg daily for 3 days, 20mg daily for 3 days, 10mg daily for 3 days, 5 mg daily for 3 days, then stop. Symbicort Inh (Budesonide/Formoterol Fumarate) 160-4.5 Mcg/Act Aero 1 Puff INH Q12HR Reported Duoneb (Ipratropium-Albuterol Neb) 0.5-2.5 Mg/3 Ml Neb 1 Nebule INH Q6HR NEB Ventolin Hfa 18 GM Inh (Albuterol Sulfate) 90 Mcg/Act Aer 2 Puff INH Q4-6H PRN Active Ordered Medications Current Medications Medications (Trade) Dose Ordered Sig/Gabriele Route Start Time Stop Time Status Last Admin (NS Flush) 2 ml UNSCH PRN IV FLUSH 11/29/17 17:45 11/30/17 05:48 (NS Flush) 2 ml BID IV FLUSH 11/29/17 21:00 12/01/17 10:22 (Tylenol) 650 mg Q4H PRN PO 11/29/17 17:45 (Zofran Inj) 4 mg Q6H PRN IVP 11/29/17 17:45 (Lovenox Inj) 40 mg Q24H SQ 11/29/17 18:00 11/30/17 18:48 (Narcan Inj) 0.4 mg UNSCH PRN IV PUSH 11/29/17 17:45 (Abigail-Colace) 1 tab BID PO 11/29/17 21:00 12/01/17 10:20 (Milk Of Magnesia Liq) 30 ml Q12H PRN PO 11/29/17 17:45 (Senokot) 17.2 mg Q12H PRN PO 11/29/17 17:45 (Dulcolax Supp) 10 mg DAILY PRN RECTAL 11/29/17 17:45 (Lactulose Liq) 30 ml DAILY PRN PO 11/29/17 17:45 Levofloxacin/ Dextrose 150 ml @ 100 mls/hr Q24H IV 11/30/17 18:00 11/30/17 18:48 (Duoneb Neb) 1 ampule Q6HR NEB NEB 11/29/17 22:00 12/01/17 10:33 (Duoneb Neb) 1 ampule Q4HR NEB PRN NEB 11/29/17 17:45 (SoluMEDROL INJ) 40 mg Q8HR IV PUSH 11/29/17 23:00 12/01/17 05:55 (Symbicort 160-4.5 Mcg Inh) 1 puff Q12HR INH 11/29/17 21:00 12/01/17 09:00 (Mucinex Er) 600 mg BID PO 11/30/17 15:00 12/01/17 10:20 (Flomax) 0.4 mg DAILY PO 12/01/17 09:00 12/01/17 10:21 (Ecotrin Ec) 325 mg DAILY PO 12/01/17 10:45 12/01/17 11:01 Family History Denies any family history of lung cancer. Father with polio, age 55 Mother fairly healthy, age 92 Social History Tobacco: 1.5 PPD since he was 15yrs old, quit 08/17/17 Alcohol: denies Illicit drug use: Denies Physical Exam Vital Signs Vital Signs Date Time Temp Pulse Resp B/P (MAP) Pulse Ox O2 Delivery O2 Flow Rate FiO2 12/01/17 12:00 155 98/61 (73) 12/01/17 11:20 148 78/52 (61) 12/01/17 08:45 157 12/01/17 08:17 97 Nasal Cannula 3.00 12/01/17 08:00 97.6 94 17 101/62 (75) 97 12/01/17 05:46 97.8 97 18 95/58 (70) 98 12/01/17 04:00 Nasal Cannula 3.00 12/01/17 03:49 90 12/01/17 00:40 97.7 99 18 105/67 (80) 95 12/01/17 00:00 Nasal Cannula 3.00 11/30/17 23:49 95 11/30/17 21:32 98 Nasal Cannula 3.00 11/30/17 20:00 Nasal Cannula 3.00 11/30/17 20:00 97.6 104 18 97/58 (71) 95 11/30/17 19:47 100 11/30/17 16:00 98.1 107 20 124/70 (88) 94 11/30/17 16:00 98 Physical Exam GENERAL: Well-nourished, well-developed patient. SKIN: Warm and dry. HEAD: Normocephalic. EYES: No scleral icterus. No injection or drainage. NECK: Supple, trachea midline. No JVD or lymphadenopathy. CARDIOVASCULAR: Irr Irr without murmurs, gallops, or rubs. RESPIRATORY: Poor inspiratory effort GASTROINTESTINAL: Abdomen soft, non-tender, nondistended. EXTREMITIES: No cyanosis, or edema. NEUROLOGICAL: Awake, alert, and oriented x 3. Non-focal. Laboratory Laboratory Tests Test 12/01/17 06:00 White Blood Count 33.4 Red Blood Count 4.08 Hemoglobin 11.8 Hematocrit 35.2 Mean Corpuscular Volume 86.3 Mean Corpuscular Hemoglobin 29.0 Mean Corpuscular Hemoglobin Concent 33.6 Red Cell Distribution Width 15.9 Platelet Count 287 Mean Platelet Volume 7.9 CBC Comment AUTO DIFF Differential Total Cells Counted 100 Neutrophils % (Manual) 75 Band Neutrophils % 17 Lymphocytes % 5 Monocytes % 3 Neutrophils # (Manual) 30.7 Differential Comment FINAL DIFF MANUAL Toxic Granulation 1+ Platelet Estimate NORMAL Platelet Morphology Comment NORMAL Blood Urea Nitrogen 19 Creatinine 0.99 Random Glucose 155 Total Protein 5.9 Albumin 2.3 Calcium Level 8.4 Phosphorus Level 2.8 Magnesium Level 2.3 Alkaline Phosphatase 90 Aspartate Amino Transf (AST/SGOT) 12 Alanine Aminotransferase (ALT/SGPT) 10 Total Bilirubin 0.2 Sodium Level 136 Potassium Level 3.8 Chloride Level 101 Carbon Dioxide Level 25.0 Anion Gap 10 Estimat Glomerular Filtration Rate 75 Free Thyroxine 1.24 Thyroid Stimulating Hormone 3rd Gen 0.627 Result Diagram: 12/01/17 0600 12/01/17 0600 Imaging Last Impressions Chest X-Ray 11/29/17 1523 Signed Impressions: Service Date/Time: Wednesday, November 29, 2017 15:42 - CONCLUSION: 1. Interval improvement in consolidation in the left lung. Diffuse infiltrates remain. 2. Large mass again noted the right hilar region. 3. Left effusion again noted. Nithin Nolan MD CT Angiography 11/29/17 0000 Signed Impressions: Service Date/Time: Wednesday, November 29, 2017 18:43 - CONCLUSION: 1. Extensive primary and metastatic malignancy involving the chest as above. The masses are not significantly changed in the interim. 2. Encasement of the pulmonary arteries, right worse than left. There is now complete obstruction of the right upper lobe pulmonary artery. Some attenuation of the other branches but they remain patent. There is no pulmonary embolus. 3. Small pericardial effusion and moderate left pleural effusion are not significantly changed. Right pleural effusion is smaller, now small. Onesimo Santiago MD Assessment and Plan Problem List: (1) Atrial fibrillation ICD Codes: I48.91 - Unspecified atrial fibrillation Plan: 67 y/o M with Stage IV Lung CA on immunotherapy, COPD consulted for new onset Afib. He denies chest pain but reports SOB at baseline. Last Echo showed preserved LV function however a large pericardial effusion. Currently he remains afebrile, low BP asymptomatic and with Afib with RVR. SOB at baseline. Patient converted to Sinus Tach. Recommendations: 1. Transfer to C 2. 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 STAT Echo 4. Consult disability program navigator 5. Hold Albuterol 6. Consider Palliative Care Consult 7. Cont Digoxin, add Lopressor 12.5mg PO BID (2) History of tobacco use ICD Codes: Z87.891 - Personal history of nicotine dependence (3) Lung metastasis ICD Codes: C78.00 - Secondary malignant neoplasm of unspecified lung (4) Non-small cell lung cancer (NSCLC) ICD Codes: C34.90 - Malignant neoplasm of unspecified part of unspecified bronchus or lung (5) COPD exacerbation ICD Codes: J44.1 - Chronic obstructive pulmonary disease with (acute) exacerbation Jona Seymour MD Dec 01, 2017 12:40
[2017-12-01 14:40] LABS: TROPONIN I LESS THAN 0.02 NG/ML (0.02-0.05)
[2017-12-01] MEDS: ENOXAPARIN SODIUM 40 MG/0.4 ML SYRINGE SQ SCH (16:58)
[2017-12-01] MEDS: LEVOFLOXACIN 750 MG PREMIX INJ 150 ML IV SCH (16:59)
--- NOTE | 2017-12-01 18:29 | HHI.PR ---
Subjective Remarks IN ICU FOR AFIB RVR NOW IN SINUS RYTHM ON O2 NO ACUTE DISTRESS Objective Vital Signs Date Time Temp Pulse Resp B/P (MAP) Pulse Ox O2 Delivery O2 Flow Rate FiO2 12/01/17 18:00 120 12/01/17 16:00 114 12/01/17 16:00 98.0 155 23 76/46 (56) 92 12/01/17 12:00 97.6 140 17 95 12/01/17 12:00 155 98/61 (73) 12/01/17 11:20 148 78/52 (61) 12/01/17 08:45 157 12/01/17 08:17 97 Nasal Cannula 3.00 12/01/17 08:00 96 Nasal Cannula 3.00 12/01/17 08:00 94 12/01/17 08:00 97.6 94 17 101/62 (75) 97 12/01/17 05:46 97.8 97 18 95/58 (70) 98 12/01/17 04:00 Nasal Cannula 3.00 12/01/17 03:49 90 12/01/17 00:40 97.7 99 18 105/67 (80) 95 12/01/17 00:00 Nasal Cannula 3.00 11/30/17 23:49 95 11/30/17 21:32 98 Nasal Cannula 3.00 11/30/17 20:00 Nasal Cannula 3.00 11/30/17 20:00 97.6 104 18 97/58 (71) 95 11/30/17 19:47 100 I/O 11/30/17 11/30/17 11/30/17 12/01/17 12/01/17 12/01/17 07:00 15:00 23:00 07:00 15:00 23:00 Intake Total 960 ml 480 ml 1000 ml Output Total 650 ml 450 ml Balance -650 ml 510 ml 480 ml 1000 ml Intake Oral 960 ml 480 ml IV Total 1000 ml Output Urine Total 650 ml 450 ml # Voids 6 # Bowel Movements 0 0 Result Diagram: 12/01/17 0600 12/01/17 0600 Objective Remarks GENERAL: SKIN: Warm and dry. HEAD: Atraumatic. Normocephalic. EYES: Pupils equal and round. No scleral icterus. No injection or drainage. ENT: No nasal bleeding or discharge. Mucous membranes pink and moist. NECK: Trachea midline. No JVD. CARDIOVASCULAR: Regular rate and rhythm. RESPIRATORY: No accessory muscle use. Clear to auscultation. Breath sounds equal bilaterally. GASTROINTESTINAL: Abdomen soft, non-tender, nondistended. Hepatic and splenic margins not palpable. MUSCULOSKELETAL: Extremities without clubbing, cyanosis, or edema. No obvious deformities. NEUROLOGICAL: Awake and alert. No obvious cranial nerve deficits. Motor grossly within normal limits. Five out of 5 muscle strength in the arms and legs. Normal speech. PSYCHIATRIC: Appropriate mood and affect; insight and judgment normal. Assessment and Plan Assessment and Plan COPD METASTATIC CA RESPIRATORY FAILURE PLAN O2 BRONCHODILATOR THERAPR OUTLOOK POOR Maral Alicia MD Dec 01, 2017 18:29
[2017-12-01] MEDS ORDERED: CHLORHEXIDINE GLUCONATE 2 % 1 PACK (2 CLOTHS)(extra cloths) TOPICAL PRN (21:15)
[2017-12-01 22:46] LABS: TROPONIN I 0.02 NG/ML (0.02-0.05)
[2017-12-02] VITALS (18 sets, daily range): BP systolic 87–118; BP diastolic 50–69; PULSE 81–101; RESP 13–24; TEMP 97.5–98.4; O2SAT 92–99
[2017-12-02] MEDS: RESP: ALBUTEROL 2.5 MG/IPRATROPIUM 0.5 MG NEB (SCH) NEB ×4 (03:59→21:43)
[2017-12-02] MEDS: CHLORHEXIDINE GLUCONATE 2 % 1 PACK (2 CLOTHS)(taper/protocol) TOPICAL SCH (04:00)
[2017-12-02] MEDS: methylPREDNISolone SOD SUCC 40 MG/1 ML VIAL IV PUSH SCH ×3 (06:00→21:56)
--- NOTE | 2017-12-02 07:55 | HHI.PR ---
Subjective Remarks IN ICU FOR AFIB RVR NOW IN SINUS RYTHM ON O2 NO ACUTE DISTRESS Objective Vital Signs Date Time Temp Pulse Resp B/P (MAP) Pulse Ox O2 Delivery O2 Flow Rate FiO2 12/02/17 06:43 97.7 89 24 104/55 96 12/02/17 06:28 97.6 85 23 104/58 97 12/02/17 06:00 87 12/02/17 04:00 97.5 88 19 92/58 (69) 96 12/02/17 04:00 88 12/02/17 03:46 97.5 88 24 89/53 94 12/02/17 03:31 97.6 88 18 87/50 96 12/02/17 02:00 92 12/02/17 00:00 98 12/02/17 00:00 98.4 98 13 98/66 (77) 99 12/01/17 23:00 98.2 12/01/17 22:02 97 Nasal Cannula 2.00 12/01/17 22:00 101 12/01/17 20:00 97.9 108 23 100/52 (68) 98 12/01/17 20:00 108 12/01/17 19:00 98 Nasal Cannula 3.00 12/01/17 18:00 120 12/01/17 16:00 114 12/01/17 16:00 98.0 155 23 76/46 (56) 92 12/01/17 12:00 97.6 140 17 95 12/01/17 12:00 155 98/61 (73) 12/01/17 11:20 148 78/52 (61) 12/01/17 08:45 157 12/01/17 08:17 97 Nasal Cannula 3.00 12/01/17 08:00 96 Nasal Cannula 3.00 12/01/17 08:00 94 12/01/17 08:00 97.6 94 17 101/62 (75) 97 I/O 12/01/17 12/01/17 12/01/17 12/02/17 12/02/17 12/02/17 07:00 15:00 23:00 07:00 15:00 23:00 Intake Total 480 ml 1000 ml 500 ml 640 ml Output Total 525 ml Balance 480 ml 1000 ml 500 ml 115 ml Intake Oral 480 ml 240 ml IV Total 1000 ml 500 ml Packed Cells 400 ml Output Urine Total 525 ml # Voids 6 # Bowel Movements 0 0 Result Diagram: 12/01/17 0600 12/01/17 06 Objective Remarks GENERAL: SKIN: Warm and dry. HEAD: Atraumatic. Normocephalic. EYES: Pupils equal and round. No scleral icterus. No injection or drainage. ENT: No nasal bleeding or discharge. Mucous membranes pink and moist. NECK: Trachea midline. No JVD. CARDIOVASCULAR: Regular rate and rhythm. RESPIRATORY: No accessory muscle use. Clear to auscultation. Breath sounds equal bilaterally. GASTROINTESTINAL: Abdomen soft, non-tender, nondistended. Hepatic and splenic margins not palpable. MUSCULOSKELETAL: Extremities without clubbing, cyanosis, or edema. No obvious deformities. NEUROLOGICAL: Awake and alert. No obvious cranial nerve deficits. Motor grossly within normal limits. Five out of 5 muscle strength in the arms and legs. Normal speech. PSYCHIATRIC: Appropriate mood and affect; insight and judgment normal. Assessment and Plan Assessment and Plan COPD METASTATIC CA RESPIRATORY FAILURE PLAN O2 BRONCHODILATOR THERAPR OUTLOOK POOR Maral Alicia MD Dec 02, 2017 07:55
[2017-12-02] MEDS: DOCUSATE SODIUM 50 MG/SENNA 8.6 MG TAB PO SCH ×2 (08:26→21:00)
[2017-12-02] MEDS: guaiFENesin E.R. 600 MG TAB PO SCH ×2 (08:26→21:56)
[2017-12-02] MEDS: ASPIRIN EC 325 MG TABEC PO SCH (08:26)
[2017-12-02] MEDS: TAMSULOSIN HCL 0.4 MG CAP PO SCH (08:26)
[2017-12-02] MEDS: BUDESONIDE-FORMOTEROL 160/4.5 MCG INHALER INH SCH ×2 (08:27→21:56)
[2017-12-02] MEDS: SODIUM CHLORIDE 0.9% FLUSH 10 ML FLUSH IV FLUSH SCH ×2 (08:27→21:56)
--- NOTE | 2017-12-02 10:11 | RADRPT ---
EXAM DATE/TIME: 12/02/2017 08:56 [facility] COMPARISON: CT PULMONARY ANGIOGRAM, November 29, 2017, 18:43. US CHEST LEFT, November 17, 2017, 14:58. INDICATIONS : Left pleural effusion. MEDICAL HISTORY : Carcinoma, lung. Hypercholesterolemia. Chronic obstructive pulmonary disease. Chemotherapy. SURGICAL HISTORY : Tonsillectomy. Right chest port. ENCOUNTER: Initial ACUITY: 1 day PAIN SCORE: 0/10 LOCATION: Left chest MEASUREMENTS: SKIN TO PARIETAL PLEURA: Inadequate fluid SKIN TO MAX SAFE DEPTH: Inadequate fluid ESTIMATED FLUID VOLUME: 478 cc FLUID COMPOSITION: complex FINDINGS: The patient's left chest was evaluated for possible thoracentesis. There is a small pleural effusion that contains multiple septations. CONCLUSION: Small left pleural effusion containing multiple septations. Therefore, thoracentesis was not performe d since it will likely be unsuccessful at removing most of the fluid. Onesimo Barrios MD on December 02, 2017 at 10:05 Board Certified Radiologist. This report was verified electronically.
[2017-12-02] MEDS: METOPROLOL TARTRATE 25 MG TAB PO SCH ×2 (10:15→21:00)
--- NOTE | 2017-12-02 10:16 | PD.CARD.PN ---
Subjective Subjective Remarks no CV complaints Telemetry SR Objective Medications Current Medications Medications (Trade) Dose Ordered Sig/Gabriele Route Start Time Stop Time Status Last Admin (NS Flush) 2 ml UNSCH PRN IV FLUSH 11/29/17 17:45 11/30/17 05:48 (NS Flush) 2 ml BID IV FLUSH 11/29/17 21:00 12/02/17 08:27 (Tylenol) 650 mg Q4H PRN PO 11/29/17 17:45 (Zofran Inj) 4 mg Q6H PRN IVP 11/29/17 17:45 (Lovenox Inj) 40 mg Q24H SQ 11/29/17 18:00 12/01/17 16:58 (Narcan Inj) 0.4 mg UNSCH PRN IV PUSH 11/29/17 17:45 (Abigail-Colace) 1 tab BID PO 11/29/17 21:00 12/02/17 08:26 (Milk Of Magnesia Liq) 30 ml Q12H PRN PO 11/29/17 17:45 (Senokot) 17.2 mg Q12H PRN PO 11/29/17 17:45 (Dulcolax Supp) 10 mg DAILY PRN RECTAL 11/29/17 17:45 (Lactulose Liq) 30 ml DAILY PRN PO 11/29/17 17:45 Levofloxacin/ Dextrose 150 ml @ 100 mls/hr Q24H IV 11/30/17 18:00 12/01/17 16:59 (Duoneb Neb) 1 ampule Q6HR NEB NEB 11/29/17 22:00 12/02/17 09:41 (Duoneb Neb) 1 ampule Q4HR NEB PRN NEB 11/29/17 17:45 (SoluMEDROL INJ) 40 mg Q8HR IV PUSH 11/29/17 23:00 12/01/17 21:20 (Symbicort 160-4.5 Mcg Inh) 1 puff Q12HR INH 11/29/17 21:00 12/02/17 08:27 (Mucinex Er) 600 mg BID PO 11/30/17 15:00 12/02/17 08:26 (Flomax) 0.4 mg DAILY PO 12/01/17 09:00 12/02/17 08:26 (Ecotrin Ec) 325 mg DAILY PO 12/01/17 10:45 12/02/17 08:26 (Chlorhexidine 2% Cloth) 3 pack DAILY@04 TOPICAL 12/02/17 04:00 12/06/17 04:01 12/02/17 04:00 (Chlorhexidine 2% Cloth) 3 pack UNSCH PRN TOPICAL 12/01/17 21:15 12/06/17 21:09 Miscellaneous Information Patient in critical care unit? Ass... Q361D .XX 12/01/17 21:30 12/01/17 21:30 Vital Signs / I&O Vital Signs Date Time Temp Pulse Resp B/P (MAP) Pulse Ox O2 Delivery O2 Flow Rate FiO2 12/02/17 09:42 92 Nasal Cannula 2.00 12/02/17 08:00 97.6 81 20 117/61 (79) 98 12/02/17 08:00 81 12/02/17 07:00 96 Nasal Cannula 2.00 12/02/17 06:43 97.7 89 24 104/55 96 12/02/17 06:28 97.6 85 23 104/58 97 12/02/17 06:00 87 12/02/17 04:00 97.5 88 19 92/58 (69) 96 12/02/17 04:00 88 12/02/17 03:46 97.5 88 24 89/53 94 12/02/17 03:31 97.6 88 18 87/50 96 12/02/17 02:00 92 12/02/17 00:00 98 12/02/17 00:00 98.4 98 13 98/66 (77) 99 12/01/17 23:00 98.2 12/01/17 22:02 97 Nasal Cannula 2.00 12/01/17 22:00 101 12/01/17 20:00 97.9 108 23 100/52 (68) 98 12/01/17 20:00 108 12/01/17 19:00 98 Nasal Cannula 3.00 12/01/17 18:00 120 12/01/17 16:00 114 12/01/17 16:00 98.0 155 23 76/46 (56) 92 12/01/17 12:00 97.6 140 17 95 12/01/17 12:00 155 98/61 (73) 12/01/17 11:20 148 78/52 (61) I/O 12/01/17 12/01/17 12/01/17 12/02/17 12/02/17 12/02/17 06:59 14:59 22:59 06:59 14:59 22:59 Intake Total 480 ml 1000 ml 500 ml 640 ml 410 ml Output Total 525 ml Balance 480 ml 1000 ml 500 ml 115 ml 410 ml Intake Oral 480 ml 240 ml IV Total 1000 ml 500 ml Packed Cells 400 ml 400 ml Blood Product IV Normal Saline Flush 10 ml Output Urine Total 525 ml # Voids 6 # Bowel Movements 0 0 Physical Exam GENERAL: Well-nourished, well-developed patient. SKIN: Warm and dry. HEAD: Normocephalic. EYES: No scleral icterus. No injection or drainage. NECK: Supple, trachea midline. No JVD or lymphadenopathy. CARDIOVASCULAR: Regular rate and rhythm without murmurs, gallops, or rubs. RESPIRATORY: Breath sounds equal bilaterally. No accessory muscle use. GASTROINTESTINAL: Abdomen soft, non-tender, nondistended. EXTREMITIES: No cyanosis, or edema. NEUROLOGICAL: Awake, alert, and oriented x 3. Non-focal. Laboratory Laboratory Tests Test 12/01/17 12:30 12/01/17 15:50 12/01/17 21:36 Total Creatine Kinase 20 U/L 21 U/L Troponin I LESS THAN 0.02 NG/ML 0.02 NG/ML Nasal Screen MRSA (PCR) MRSA NOT DETECTED Assessment and Plan Problem List: (1) Atrial fibrillation ICD Codes: I48.91 - Unspecified atrial fibrillation Plan: 67 y/o M with Stage IV Lung CA on immunotherapy, COPD consulted for new onset Afib, now back to . He denies chest pain or SOB. Echo unchanged from previous. Remains afebrile, hemodynamically stable. SOB at baseline. Recommendations: 1. monitoring engineer 2. Digoxin, add Lopressor 12.5mg PO BID Thank you for the opportunity to take part in the care of this patient, will be available on a PRN basis for any questions or concerns (2) History of tobacco use ICD Codes: Z87.891 - Personal history of nicotine dependence (3) Lung metastasis ICD Codes: C78.00 - Secondary malignant neoplasm of unspecified lung (4) Non-small cell lung cancer (NSCLC) ICD Codes: C34.90 - Malignant neoplasm of unspecified part of unspecified bronchus or lung (5) COPD exacerbation ICD Codes: J44.1 - Chronic obstructive pulmonary disease with (acute) exacerbation Jona Seymour MD Dec 02, 2017 10:16
[2017-12-02] MEDS ORDERED: PILL SPLITTER OTHER PRN (10:30)
[2017-12-02 11:09] LABS: AUTOMATED NEUTROPHIL # 24.7 TH/MM3 (1.8-7.7); BASOPHIL % 0.1 % (0.0-2.0); HEMATOCRIT 43.5 % (39.0-51.0); HEMOGLOBIN 14.4 GM/DL (13.0-17.0); LYMPH % 1.6 % (9.0-44.0); LYMPHOCYTE # 0.4 TH/MM3 (1.0-4.8); MEAN CELL VOLUME 88.2 FL (80.0-100.0); MEAN CORPUSCULAR HEMOGLOBIN 29.2 PG (27.0-34.0); MEAN CORPUSCULAR HGB CONC 33.1 % (32.0-36.0); MEAN PLATELET VOLUME 7.3 FL (7.0-11.0); MONO % 2.7 % (0.0-8.0); MONOCYTE # 0.7 TH/MM3 (0-0.9); NEUT % 95.6 % (16.0-70.0); PLATELET COUNT 249 TH/MM3 (150-450); RED BLOOD COUNT 4.93 MIL/MM3 (4.50-5.90); WHITE BLOOD COUNT 25.8 TH/MM3 (4.0-11.0)
[2017-12-02 11:22] LABS: ALBUMIN 2.5 GM/DL (3.4-5.0); ALT (GPT) 17 U/L (12-78); AST (GOT) 17 U/L (15-37); BICARBONATE 26.4 MEQ/L (21.0-32.0); BLOOD UREA NITROGEN 22 MG/DL (7-18); CALCIUM 8.8 MG/DL (8.5-10.1); CHLORIDE 103 MEQ/L (98-107); CREATININE 0.83 MG/DL (0.60-1.30); GLOMERULAR FILTRATION RATE 92 ML/MIN (>89); GLUCOSE,RANDOM 111 MG/DL (74-106); MAGNESIUM 2.3 MG/DL (1.5-2.5); PHOSPHORUS 2.8 MG/DL (2.5-4.9); SODIUM (NA) 139 MEQ/L (136-145)
[2017-12-02 11:27] LABS: ALKALINE PHOSPHATASE 93 U/L (45-117); TOTAL BILIRUBIN ADULT 0.6 MG/DL (0.2-1.0); TOTAL PROTEIN 6.2 GM/DL (6.4-8.2); TROPONIN I LESS THAN 0.02 NG/ML (0.02-0.05)
[2017-12-02 12:27] LABS: BANDS 3 % (0-6); LYMPHOCYTES 1 % (9-44); METAMYELOCYTES 2 % (0-1); MONOCYTES 2 % (0-8); POLYS (SEG NEUTROPHILS) 92 % (16-70); TOXIC GRANULATION 1+ (NORMAL)
--- NOTE | 2017-12-02 13:08 | PD.ONC.PN ---
Subjective Subjective Remarks Afebrile overnight. Late entry, patient seen at 1030AM. Patient resting in room, hoping to be able to go home if/when he gets home O2 approved. he gets short of breath with exertion. Objective Data Date Time Temp Pulse Resp B/P (MAP) Pulse Ox O2 Delivery O2 Flow Rate FiO2 12/02/17 12:00 92 12/02/17 12:00 97.6 92 19 116/66 (83) 96 12/02/17 10:00 96 12/02/17 09:42 92 Nasal Cannula 2.00 12/02/17 08:00 97.6 81 20 117/61 (79) 98 12/02/17 08:00 81 12/02/17 07:00 96 Nasal Cannula 2.00 12/02/17 06:43 97.7 89 24 104/55 96 12/02/17 06:28 97.6 85 23 104/58 97 12/02/17 06:00 87 12/02/17 04:00 97.5 88 19 92/58 (69) 96 12/02/17 04:00 88 12/02/17 03:46 97.5 88 24 89/53 94 12/02/17 03:31 97.6 88 18 87/50 96 12/02/17 02:00 92 12/02/17 00:00 98 12/02/17 00:00 98.4 98 13 98/66 (77) 99 12/01/17 23:00 98.2 12/01/17 22:02 97 Nasal Cannula 2.00 12/01/17 22:00 101 12/01/17 20:00 97.9 108 23 100/52 (68) 98 12/01/17 20:00 108 12/01/17 19:00 98 Nasal Cannula 3.00 12/01/17 18:00 120 12/01/17 16:00 114 12/01/17 16:00 98.0 155 23 76/46 (56) 92 12/02/17 12/02/17 12/02/17 07:00 15:00 23:00 Intake Total 640 ml 410 ml Output Total 525 ml Balance 115 ml 410 ml Result Diagram: 12/02/17 1005 12/02/17 1006 Laboratory Results Laboratory Tests Test 12/01/17 15:50 12/01/17 21:36 12/02/17 10:05 12/02/17 10:06 Nasal Screen MRSA (PCR) MRSA NOT DETECTED Total Creatine Kinase 21 U/L 28 U/L Troponin I 0.02 NG/ML LESS THAN 0.02 NG/ML White Blood Count 25.8 TH/MM3 Red Blood Count 4.93 MIL/MM3 Hemoglobin 14.4 GM/DL Hematocrit 43.5 % Mean Corpuscular Volume 88.2 FL Mean Corpuscular Hemoglobin 29.2 PG Mean Corpuscular Hemoglobin Concent 33.1 % Red Cell Distribution Width 16.0 % Platelet Count 249 TH/MM3 Mean Platelet Volume 7.3 FL Neutrophils (%) (Auto) 95.6 % Lymphocytes (%) (Auto) 1.6 % Monocytes (%) (Auto) 2.7 % Eosinophils (%) (Auto) 0.0 % Basophils (%) (Auto) 0.1 % Neutrophils # (Auto) 24.7 TH/MM3 Lymphocytes # (Auto) 0.4 TH/MM3 Monocytes # (Auto) 0.7 TH/MM3 Eosinophils # (Auto) 0.0 TH/MM3 Basophils # (Auto) 0.0 TH/MM3 CBC Comment DIFF FINAL Differential Total Cells Counted 100 Neutrophils % (Manual) 92 % Band Neutrophils % 3 % Lymphocytes % 1 % Monocytes % 2 % Neutrophils # (Manual) 25.0 TH/MM3 Metamyelocytes 2 % Differential Comment FINAL DIFF MANUAL Toxic Granulation 1+ Platelet Estimate NORMAL Platelet Morphology Comment NORMAL Blood Urea Nitrogen 22 MG/DL Creatinine 0.83 MG/DL Random Glucose 111 MG/DL Total Protein 6.2 GM/DL Albumin 2.5 GM/DL Calcium Level 8.8 MG/DL Phosphorus Level 2.8 MG/DL Magnesium Level 2.3 MG/DL Alkaline Phosphatase 93 U/L Aspartate Amino Transf (AST/SGOT) 17 U/L Alanine Aminotransferase (ALT/SGPT) 17 U/L Total Bilirubin 0.6 MG/DL Sodium Level 139 MEQ/L Potassium Level 3.8 MEQ/L Chloride Level 103 MEQ/L Carbon Dioxide Level 26.4 MEQ/L Anion Gap 10 MEQ/L Estimat Glomerular Filtration Rate 92 ML/MIN Imaging Studies Last 24 hours Impressions Chest Ultrasound 12/02/17 0000 Signed Impressions: Service Date/Time: Saturday, December 02, 2017 08:56 - CONCLUSION: Small left pleural effusion containing multiple septations. Therefore, thoracentesis was not performed since it will likely be unsuccessful at removing most of the fluid. Onesimo Barrios MD Administered Medications Medications (Trade) Dose Ordered Sig/Gabriele Route PRN Reason Start Time Stop Time Status Last Admin Dose Admin Sodium Chloride (NS Flush) 2 ml UNSCH PRN IV FLUSH FLUSH AFTER USING IV ACCESS 11/29/17 17:45 11/30/17 05:48 Sodium Chloride (NS Flush) 2 ml BID IV FLUSH 11/29/17 21:00 12/02/17 08:27 Enoxaparin Sodium (Lovenox Inj) 40 mg Q24H SQ 11/29/17 18:00 12/01/17 16:58 Senna/Docusate Sodium (Abigail-Colace) 1 tab BID PO 11/29/17 21:00 12/02/17 08:26 Levofloxacin/ Dextrose 150 ml @ 100 mls/hr Q24H IV 11/30/17 18:00 12/01/17 16:59 Albuterol/ Ipratropium (Duoneb Neb) 1 ampule Q6HR NEB NEB 11/29/17 22:00 12/02/17 09:41 Methylprednisolone Sodium Succinate (SoluMEDROL INJ) 40 mg Q8HR IV PUSH 11/29/17 23:00 12/01/17 21:20 Budesonide/ Formoterol Fumarate (Symbicort 160-4.5 Mcg Inh) 1 puff Q12HR INH 11/29/17 21:00 12/02/17 08:27 Guaifenesin (Mucinex Er) 600 mg BID PO 11/30/17 15:00 12/02/17 08:26 Tamsulosin HCl (Flomax) 0.4 mg DAILY PO 12/01/17 09:00 12/02/17 08:26 Aspirin (Ecotrin Ec) 325 mg DAILY PO 12/01/17 10:45 12/02/17 08:26 Chlorhexidine Gluconate (Chlorhexidine 2% Cloth) 3 pack DAILY@04 TOPICAL 12/02/17 04:00 12/06/17 04:01 12/02/17 04:00 Miscellaneous Information Patient in critical care unit? Ass... Q361D .XX 12/01/17 21:30 12/01/17 21:30 Objective Remarks GENERAL: chronically ill appearing male, sitting upright in bed. SKIN: Warm and dry. HEAD: Normocephalic. EYES: No injection or drainage. NECK: Supple, trachea midline. CARDIOVASCULAR: +S1/S2, tachy RESPIRATORY: diminished in left posterior lung schmitz. scattered rhonchi. on 2L O2 via [place] GASTROINTESTINAL: Abdomen soft, non-tender, nondistended. EXTREMITIES: No cyanosis, or edema. MUSCULOSKELETAL: Adequate muscle tone. NEUROLOGICAL: awake and alert, normal speech. Assessment/Plan Problem List: (1) Pleural effusion ICD Codes: J90 - Pleural effusion, not elsewhere classified Plan: 12/02: will not be able to have thoracentesis d/t loculated effusion. patient cleared for discharge from oncology perspective. follow up in clinic upon discharge. (2) Non-small cell lung cancer (NSCLC) ICD Codes: C34.90 - Malignant neoplasm of unspecified part of unspecified bronchus or lung Plan: ----recently received Keytruda in clinic Assessment 59y/o male with NSCLC admitted with dyspnea. Attending Statement The exam, history, and the medical decision-making described in the above note were completed with the assistance of the mid-level provider. I reviewed and agree with the findings presented. I attest that I had a [id number] encounter with the patient on the same day, and personally performed and documented my assessment and findings in the medical record. c/o SOB No CP or palpitations left PL effusion is loculated. No thoracentesis. will stop Keytruda and try chemo carbo / taxol as outpt. ok to d/c from my standpoint Marlys Sloan Dec 02, 2017 13:08 Sridhar Willams MD Dec 02, 2017 18:26
--- NOTE | 2017-12-02 14:19 | MB ---
cc: SCOTTIE JUAN M.D. DATE OF CONSULTATION 12/01/2017 REASON FOR CONSULTATION Consult requested by hospitalist for evaluation of non-small cell lung cancer. HISTORY OF PRESENT ILLNESS Onesimo is a 67-year-old male. He was diagnosed with non-small cell lung cancer Stage IV which is a PD-L1 positive. I have recommended Keytruda. So far he has had three Keytruda treatments. Every time he had Keytruda he developed shortness of breath and pleural effusion which required thoracentesis. He had the third treatment of Keytruda last week Friday. I had ordered the ultrasound of the lungs last week Friday which showed bilateral pleural effusion. The patient underwent diagnostic and therapeutic thoracentesis on the right side on Friday and he was discharged to home. The patient states that he did not feel any better compared to the last time when he had the thoracentesis. He was suffocating to breathe and he thought that he was dying. He decided to come to the emergency room. He had a CT angiogram of the chest which does not show any pulmonary embolism. It shows extensive primary and metastatic malignancy involving the chest. The masses are not significantly changed in the interim. Encasement of the pulmonary arteries right worse than left noted. There is now complete obstruction of the right upper lobe pulmonary artery. No pulmonary embolism noted. Small pericardial effusion and moderate left pleural effusion noted. The right pleural effusion is smaller. Dr. Aguilar was consulted. The patient is on oxygen and he feels much better with that. I have been asked to see him for further evaluation. The patient is complaining of shortness of breath. His breathing did not improve after the therapeutic thoracentesis on the right side. However, he states that he feels better with the oxygen. He denies any anorexia or weight loss. The rest of the review of systems is negative. PAST MEDICAL HISTORY COPD. PAST SURGICAL HISTORY 1. Tonsillectomy. 2. [id number] placement. ALLERGIES None. MEDICATIONS 1. Nebulizer treatment. 2. Ventolin inhaler. 3. Keytruda immunotherapy. FAMILY HISTORY The family history is not significant for any malignancy. SOCIAL HISTORY The patient recently quit smoking. He does not drink alcohol. PHYSICAL EXAMINATION GENERAL: This is a well-developed, well-nourished white male in mild distress. VITAL SIGNS: Temperature 97.6, heart rate is 110, blood pressure is 101/62. HEENT: PERRLA. EOMI. Anicteric. No oral lesions noted. NECK: No lymphadenopathy noted. LUNGS: Decreased breath sounds on both sides with scattered wheezing. HEART: Regular rate and rhythm. ABDOMEN: Soft, nontender. No hepatosplenomegaly. EXTREMITIES: No pedal edema. NEUROLOGY: Awake, alert, oriented x3. SKIN: No significant lesions noted. ASSESSMENT 1. Non-small cell lung cancer Stage IV, currently Keytruda. 2. Bilateral pleural effusion most likely due to Keytruda. 3. Severe COPD. PLAN I have discussed with the patient regarding his clinical situation. Every time he had Keytruda he had developed bilateral pleural effusion which required thoracentesis. I do not think the patient is able to tolerate Keytruda, therefore my recommendation is to stop the Keytruda. He had a thoracentesis on the right side then we will ask radiologist to do the thoracentesis on the left side. I have recommended to try chemotherapy such as carboplatin, Taxol. The patient agreed with that. Once the patient is discharged to home, then he will call our office to make an appointment and I will arrange for him to start the palliative chemotherapy. Thank you for asking my opinion. MD ALEXANDRA Mccormick/SSB /9:23 PM /7:33 AM
--- NOTE | 2017-12-02 14:36 | EKG ---
Date Performed: 12/01/2017 Time Performed: 08:55:30 PTAGE: 67 years EKG: Atrial fibrillation with rapid ventricular response Inferior ST-T changes are nonspecific L ow QRS voltages in limb leads Since previous tracing the sinus tachycardia has been replaced with new onset atrial fibrillation. There has been some variation in the ST T wave changes. Abnormal ECG PREVIOUS TRACING : 11/29/2017 15.20 DOCTOR: Camila Ann Interpretating Date/Time 12/02/2017 14:35:09
--- NOTE | 2017-12-02 14:37 | EKG ---
Date Performed: 12/01/2017 Time Performed: 21:32:23 PTAGE: 67 years EKG: SINUS TACHYCARDIA LOW QRS VOLTAGE IN EXTREMITY LEADS NONSPECIFIC T-WAVE ABNORMALITY ABNORMA L RHYTHM ECG Compared to PREVIOUS TRACING the atrial fibrillation has converted back to Sinus rhythm . There has been some variation in minimal change in the nonspecific ST T wave changes but no other s ignificant serial change PREVIOUS TRACIN12/01/2017 11.18 DOCTOR: Camila Ann Interpretating Date/Time 12/02/2017 14:36:13
--- NOTE | 2017-12-02 16:01 | EKG ---
Date Performed: 12/01/2017 Time Performed: 11:18:34 PTAGE: 67 years EKG: Atrial fibrillation with uncontrolled ventricular response. Inferior T wave changes are non specific Since previous tracing, no significant change noted Abnormal ECG PREVIOUS TRACING : 12/01/2017 08.55 DOCTOR: Camila Ann Interpretating Date/Time 12/02/2017 15:59:58
--- NOTE | 2017-12-02 16:09 | HHI.PR ---
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 Patient reports that he recently underwent right-sided thoracentesis yesterday. He states that he went home and was feeling a little better, but then 1 hr later had SOB. Was not able to sleep due to SOB and this morning was not able to take more than two steps without having to stop due to severe SOB. Complains of cough but only in the morning, this is dry and non-productive. Cough only last momentarily in the morning and then clears throughout the day. Denies any fevers or chills. Denies any nausea, vomiting or diarrhea. Reports that he has been eating and drinking without any issues although does report some weight loss with's in appetite. He reports using duo nebs at home and does feel as that they will provide relief with breathing. He tells me that he has been on prednisone taper and today began day 1 out of 7 in his prednisone taper with 5 mg. Denies any chest pain, headaches, or heart palpitations. He also states that he has been on by mouth Levaquin basically following every thoracentesis. Patient also reports he has experienced some hesitancy with urination with weak flow. Denies any dysuria or hematuria. At the time of my examination patient is resting comfortably in bed and states that his shortness of breath is much improved with the use of oxygen. He states that he has been in the hospital multiple times but every time that he is discharged he does not qualify for home oxygen use. He is hoping that during this hospitalization he will be able to go home with oxygen. Currently he denies any chest pain, or heart palpitations. Review of EMR. Patient recently underwent right-sided thoracentesis yesterday 300 mL's of clear yellow fluid removed. Was seen in office by Dr. Willams on 10/31/17, patient had ongoing breathing problems then. It appears that Dr. Menjivar was thinking he might be having COPD exacerbation, versus progression of lung cancer versus Keytruda associated pneumonitis or effusion. During that visit oncology mentions the possibility of pulmonary embolism and does recommend patient get a CT scan of the chest for definitive cause of respiratory distress. CT of the chest was done here at [place] and did not show any sign of pulmonary embolism. It did show diffuse bilateral lung metastases disease with a large mass in the right hilar area. It also demonstrated diffuse mediastinal and hilar adenopathy, small bilateral effusions. Patient reports that he has received a total of 3 rounds of Keytruda. I discussed with patient that we will be admitting due to his requirements of oxygenation, we will also do a CT scan to rule out any kind of blood clot. We will continue his steroids along with Levaquin antibiotics, patient is agreeable to plan. 11-30 CONSULT PULMONARY AND ONCOLOGY STILL VERY SOB NOT ON OXYGEN AT HOME STATES DID NOT QUALIFY LAST TIME DW PATIENT AND RN 12-01 WENT INTO AFIB CONSULT CARDIO ECHO TREND TROPONINS AND CARDIAC ENZYMES DW RN AND PT 12-02 now in SINUS RHYTHM DW RN AND PATIENT WILL DO REGULAR CHEMO AN OUTPT WILL GET A WALK TEST TODAY AND SET UP OXYGEN DW PT AND RN Objective Vitals Vital Signs Date Time Temp Pulse Resp B/P (MAP) Pulse Ox O2 Delivery O2 Flow Rate FiO2 12/02/17 14:00 95 12/02/17 12:00 92 12/02/17 12:00 97.6 92 19 116/66 (83) 96 12/02/17 10:00 96 12/02/17 09:42 92 Nasal Cannula 2.00 12/02/17 08:00 97.6 81 20 117/61 (79) 98 12/02/17 08:00 81 12/02/17 07:00 96 Nasal Cannula 2.00 12/02/17 06:43 97.7 89 24 104/55 96 12/02/17 06:28 97.6 85 23 104/58 97 12/02/17 06:00 87 12/02/17 04:00 97.5 88 19 92/58 (69) 96 12/02/17 04:00 88 12/02/17 03:46 97.5 88 24 89/53 94 12/02/17 03:31 97.6 88 18 87/50 96 12/02/17 02:00 92 12/02/17 00:00 98 12/02/17 00:00 98.4 98 13 98/66 (77) 99 12/01/17 23:00 98.2 12/01/17 22:02 97 Nasal Cannula 2.00 12/01/17 22:00 101 12/01/17 20:00 97.9 108 23 100/52 (68) 98 12/01/17 20:00 108 12/01/17 19:00 98 Nasal Cannula 3.00 12/01/17 18:00 120 I/O 12/01/17 12/01/17 12/01/17 12/02/17 12/02/17 12/02/17 07:00 15:00 23:00 07:00 15:00 23:00 Intake Total 480 ml 1000 ml 500 ml 640 ml 410 ml Output Total 525 ml Balance 480 ml 1000 ml 500 ml 115 ml 410 ml Intake Oral 480 ml 240 ml IV Total 1000 ml 500 ml Packed Cells 400 ml 400 ml Blood Product IV Normal Saline Flush 10 ml Output Urine Total 525 ml # Voids 6 # Bowel Movements 0 0 Result Diagram: 12/02/17 1005 12/02/17 1006 Other Results Laboratory Tests Test 11/29/17 17:58 11/30/17 05:16 11/30/17 05:51 12/01/17 06:00 Lactic Acid Level 2.9 mmol/L Urine Color YELLOW Urine Turbidity CLEAR Urine pH 5.5 Urine Specific [place] 1.023 Urine Protein TRACE mg/dL Urine Glucose (UA) NEG mg/dL Urine Ketones NEG mg/dL Urine Occult Blood TRACE Urine Nitrite NEG Urine Bilirubin NEG Urine Urobilinogen LESS THAN 2.0 MG/DL Urine Leukocyte Esterase NEG Urine RBC 1 /hpf Urine Squamous Epithelial Cells <1 /hpf Microscopic Urinalysis Comment CULT NOT INDICATED Blood Urea Nitrogen 14 MG/DL 19 MG/DL Creatinine 0.96 MG/DL 0.99 MG/DL Random Glucose 146 MG/DL 155 MG/DL Total Protein 5.9 GM/DL 5.9 GM/DL Albumin 2.2 GM/DL 2.3 GM/DL Calcium Level 8.1 MG/DL 8.4 MG/DL Alkaline Phosphatase 70 U/L 90 U/L Aspartate Amino Transf (AST/SGOT) 13 U/L 12 U/L Alanine Aminotransferase (ALT/SGPT) 11 U/L 10 U/L Total Bilirubin 0.3 MG/DL 0.2 MG/DL Sodium Level 134 MEQ/L 136 MEQ/L Potassium Level 4.1 MEQ/L 3.8 MEQ/L Chloride Level 100 MEQ/L 101 MEQ/L Carbon Dioxide Level 25.6 MEQ/L 25.0 MEQ/L Anion Gap 8 MEQ/L 10 MEQ/L Estimat Glomerular Filtration Rate 78 ML/MIN 75 ML/MIN White Blood Count 33.4 TH/MM3 Red Blood Count 4.08 MIL/MM3 Hemoglobin 11.8 GM/DL Hematocrit 35.2 % Mean Corpuscular Volume 86.3 FL Mean Corpuscular Hemoglobin 29.0 PG Mean Corpuscular Hemoglobin Concent 33.6 % Red Cell Distribution Width 15.9 % Platelet Count 287 TH/MM3 Mean Platelet Volume 7.9 FL CBC Comment AUTO DIFF Differential Total Cells Counted 100 Neutrophils % (Manual) 75 % Band Neutrophils % 17 % Lymphocytes % 5 % Monocytes % 3 % Neutrophils # (Manual) 30.7 TH/MM3 Differential Comment FINAL DIFF MANUAL Toxic Granulation 1+ Platelet Estimate NORMAL Platelet Morphology Comment NORMAL Phosphorus Level 2.8 MG/DL Magnesium Level 2.3 MG/DL Free Thyroxine 1.24 NG/DL Thyroid Stimulating Hormone 3rd Gen 0.627 uIU/ML Test 12/01/17 12:30 12/01/17 15:50 12/01/17 21:36 12/02/17 10:05 Total Creatine Kinase 20 U/L 21 U/L Troponin I LESS THAN 0.02 NG/ML 0.02 NG/ML Nasal Screen MRSA (PCR) MRSA NOT DETECTED White Blood Count 25.8 TH/MM3 Red Blood Count 4.93 MIL/MM3 Hemoglobin 14.4 GM/DL Hematocrit 43.5 % Mean Corpuscular Volume 88.2 FL Mean Corpuscular Hemoglobin 29.2 PG Mean Corpuscular Hemoglobin Concent 33.1 % Red Cell Distribution Width 16.0 % Platelet Count 249 TH/MM3 Mean Platelet Volume 7.3 FL Neutrophils (%) (Auto) 95.6 % Lymphocytes (%) (Auto) 1.6 % Monocytes (%) (Auto) 2.7 % Eosinophils (%) (Auto) 0.0 % Basophils (%) (Auto) 0.1 % Neutrophils # (Auto) 24.7 TH/MM3 Lymphocytes # (Auto) 0.4 TH/MM3 Monocytes # (Auto) 0.7 TH/MM3 Eosinophils # (Auto) 0.0 TH/MM3 Basophils # (Auto) 0.0 TH/MM3 CBC Comment DIFF FINAL Differential Total Cells Counted 100 Neutrophils % (Manual) 92 % Band Neutrophils % 3 % Lymphocytes % 1 % Monocytes % 2 % Neutrophils # (Manual) 25.0 TH/MM3 Metamyelocytes 2 % Differential Comment FINAL DIFF MANUAL Toxic Granulation 1+ Platelet Estimate NORMAL Platelet Morphology Comment NORMAL Test 12/02/17 10:06 Blood Urea Nitrogen 22 MG/DL Creatinine 0.83 MG/DL Random Glucose 111 MG/DL Total Protein 6.2 GM/DL Albumin 2.5 GM/DL Calcium Level 8.8 MG/DL Phosphorus Level 2.8 MG/DL Magnesium Level 2.3 MG/DL Alkaline Phosphatase 93 U/L Aspartate Amino Transf (AST/SGOT) 17 U/L Alanine Aminotransferase (ALT/SGPT) 17 U/L Total Bilirubin 0.6 MG/DL Sodium Level 139 MEQ/L Potassium Level 3.8 MEQ/L Chloride Level 103 MEQ/L Carbon Dioxide Level 26.4 MEQ/L Anion Gap 10 MEQ/L Estimat Glomerular Filtration Rate 92 ML/MIN Total Creatine Kinase 28 U/L Troponin I LESS THAN 0.02 NG/ML Imaging Last Impressions Chest Ultrasound 12/02/17 0000 Signed Impressions: Service Date/Time: Saturday, December 02, 2017 08:56 - CONCLUSION: Small left pleural effusion containing multiple septations. Therefore, thoracentesis was not performed since it will likely be unsuccessful at removing most of the fluid. Onesimo Barrios MD Chest X-Ray 11/29/17 1523 Signed Impressions: Service Date/Time: Wednesday, November 29, 2017 15:42 - CONCLUSION: 1. Interval improvement in consolidation in the left lung. Diffuse infiltrates remain. 2. Large mass again noted the right hilar region. 3. Left effusion again noted. Nithin Nolan MD CT Angiography 11/29/17 0000 Signed Impressions: Service Date/Time: Wednesday, November 29, 2017 18:43 - CONCLUSION: 1. Extensive primary and metastatic malignancy involving the chest as above. The masses are not significantly changed in the interim. 2. Encasement of the pulmonary arteries, right worse than left. There is now complete obstruction of the right upper lobe pulmonary artery. Some attenuation of the other branches but they remain patent. There is no pulmonary embolus. 3. Small pericardial effusion and moderate left pleural effusion are not significantly changed. Right pleural effusion is smaller, now small. Onesimo Santiago MD Objective Remarks GENERAL: Awake and alert oriented talkative and cooperative appears to be in MILD distress --he BEcomes easily winded on any major movement-cachectic in appearance SKIN: Warm and dry. HEAD: Atraumatic. Normocephalic. EYES: Pupils equal and round. No scleral icterus. No injection or drainage. Extractor muscles intact ENT: No nasal bleeding or discharge. Mucous membranes pink and moist. Tongue is midline NECK: Trachea midline. No JVD. Supple CARDIOVASCULAR: Regular rate and rhythm. S1 and S2 no S3 or S4 RESPIRATORY: No accessory muscle use. Rhonchi and wheezes throughout all lung schmitz except decreased lung sounds in the right upper lobe. Breath sounds equal bilaterally. GASTROINTESTINAL: Abdomen soft, non-tender, nondistended. Hepatic and splenic margins not palpable. MUSCULOSKELETAL: Extremities without clubbing, cyanosis, or edema. No obvious deformities. NEUROLOGICAL: Awake and alert. No obvious cranial nerve deficits. Motor grossly within normal limits. 4 out of 5 muscle strength in the arms and legs. Normal speech. PSYCHIATRIC: Appropriate mood and affect; insight and judgment normal. Procedures NONE Medications and IVs Current Medications Methylprednisolone Sodium Succinate (SoluMEDROL INJ) 125 mg ONCE ONCE IV PUSH Last administered on 11/29/17 18:02; Start 11/29/17 at 15:30; Stop 11/29/17 at 15:31; Status DC Albuterol Sulfate (Albuterol Neb) 2.5 mg Q15M INH Last administered on at 15:46; Start 11/29/17 at 15:30; Stop 11/29/17 at 15:46; Status DC Sodium Chloride 500 ml @ 500 mls/hr BOLUS ONCE IV Last administered on 18:02; Start 11/29/17 at 15:30; Stop 11/29/17 at 16:29; Status DC Levofloxacin/ Dextrose 150 ml @ 100 mls/hr ONCE ONCE IV Last administered on 11/29/17at 18:31; Start 11/29/17 at 16:30; Stop 11/29/17 at 17:59; Status DC Sodium Chloride (NS Flush) 2 ml UNSCH PRN IV FLUSH FLUSH AFTER USING IV ACCESS Last administered on 11/30/17at 05:48; Start 11/29/17 at 17:45 Sodium Chloride (NS Flush) 2 ml BID IV FLUSH Last administered on 12/02/17at 08: 27; Start 11/29/17 at 21:00 Acetaminophen (Tylenol) 650 mg Q4H PRN PO TEMP > 100.4; Start 11/29/17 at 17:45 Ondansetron HCl (Zofran Inj) 4 mg Q6H PRN IVP NAUSEA OR VOMITING; Start at 17:45 Enoxaparin Sodium (Lovenox Inj) 40 mg Q24H SQ Last administered on 12/01/17at 16 :58; Start 11/29/17 at 18:00 Naloxone HCl (Narcan Inj) 0.4 mg UNSCH PRN IV PUSH SEE LABEL COMMENTS; Start at 17:45 Senna/Docusate Sodium (Abigail-Colace) 1 tab BID PO Last administered on at 08:26; Start 11/29/17 at 21:00 Magnesium Hydroxide (Milk Of Magnesia Liq) 30 ml Q12H PRN PO Mild constipation ; Start 11/29/17 at 17:45 Sennosides (Senokot) 17.2 mg Q12H PRN PO Moderate constipation; Start 11/29/17 at 17:45 Bisacodyl (Dulcolax Supp) 10 mg DAILY PRN RECTAL SEVERE CONSITIPATION; Start at 17:45 Lactulose (Lactulose Liq) 30 ml DAILY PRN PO SEVERE CONSITIPATION; Start at 17:45 Levofloxacin/ Dextrose 150 ml @ 100 mls/hr Q24H IV Last administered on at 16:59; Start 11/30/17 at 18:00 Albuterol/ Ipratropium (Duoneb Neb) 1 ampule Q6HR NEB NEB Last administered on 12/02/17at 09:41; Start 11/29/17 at 22:00 Albuterol/ Ipratropium (Duoneb Neb) 1 ampule Q4HR NEB PRN NEB SHORTNESS OF BREATH; Start 11/29/17 at 17:45 Methylprednisolone Sodium Succinate (SoluMEDROL INJ) 40 mg Q8HR IV PUSH Last administered on 12/02/17at 14:26; Start 11/29/17 at 23:00 Budesonide/ Formoterol Fumarate (Symbicort 160-4.5 Mcg Inh) 1 puff Q12HR INH Last administered on 12/02/17at 08:27; Start 11/29/17 at 21:00 Iohexol (Omnipaque 350 Inj) 60 ml STK-MED ONCE IVCONTRAST Last administered on 11/29/17at 19:06; Start 11/29/17 at 19:06; Stop 11/29/17 at 19:07; Status DC Guaifenesin (Mucinex Er) 600 mg BID PO Last administered on 12/02/17at 08:26; Start 11/30/17 at 15:00 Tamsulosin HCl (Flomax) 0.4 mg DAILY PO Last administered on 12/02/17at 08:26; Start 12/01/17 at 09:00 Tamsulosin HCl (Flomax) 0.4 mg ONCE ONCE PO Last administered on 11/30/17at 18: 49; Start 11/30/17 at 15:45; Stop 11/30/17 at 15:46; Status DC Aspirin (Ecotrin Ec) 325 mg DAILY PO Last administered on 12/02/17at 08:26; Start 12/01/17 at 10:45 Diltiazem HCl (Cardizem Inj) 10 mg ONCE ONCE IV ; Start 12/01/17 at 11:00; Stop 12/01/17 at 11:28; Status DC Sodium Chloride 500 ml @ 500 mls/hr BOLUS ONCE IV Last administered on at 11:15; Start 12/01/17 at 11:15; Stop 12/01/17 at 12:14; Status DC Digoxin (Lanoxin Inj) 0.25 mg ONCE ONCE IV PUSH Last administered on at 11:52; Start 12/01/17 at 11:30; Stop 12/01/17 at 11:32; Status DC Digoxin (Lanoxin Inj) 0.25 mg ONCE ONCE IV PUSH Last administered on at 14:28; Start 12/01/17 at 13:15; Stop 12/01/17 at 13:16; Status DC Sodium Chloride 500 ml @ 500 mls/hr BOLUS ONCE IV Last administered on at 13:30; Start 12/01/17 at 13:30; Stop 12/01/17 at 14:29; Status DC Chlorhexidine Gluconate (Chlorhexidine 2% Cloth) 3 pack DAILY@04 TOPICAL Last administered on 12/02/17at 04:00; Start 12/02/17 at 04:00; Stop 12/06/17 at 04:01 Chlorhexidine Gluconate (Chlorhexidine 2% Cloth) 3 pack UNSCH PRN TOPICAL HYGIENIC CARE; Start 12/01/17 at 21:15; Stop 12/06/17 at 21:09 Sodium Chloride 500 ml @ 500 mls/hr BOLUS ONCE IV Last administered on at 21:35; Start 12/01/17 at 21:30; Stop 12/01/17 at 22:29; Status DC Miscellaneous Information Patient in critical care unit? Ass... [id number] Last administered on 12/01/17at 21:30; Start 12/01/17 at 21:30 Metoprolol Tartrate (Lopressor) 12.5 mg Q12HR PO ; Start 12/02/17 at 10:15 Miscellaneous (Pill Splitter) 1 ea UNSCH PRN OTHER SEE LABEL COMMENTS; Start at 10:30 A/P Problem List: (1) Dyspnea ICD Code: R06.00 - Dyspnea, unspecified (2) Leukocytosis ICD Code: D72.829 - Elevated white blood cell count, unspecified (3) COPD (chronic obstructive pulmonary disease) ICD Code: J44.9 - Chronic obstructive pulmonary disease, unspecified (4) Non-small cell carcinoma of lung, stage 4 ICD Code: C34.90 - Malignant neoplasm of unspecified part of unspecified bronchus or lung (5) Atrial fibrillation ICD Code: I48.91 - Unspecified atrial fibrillation Assessment and Plan 67-year-old male with past medical history of COPD/emphysema, stage IV non-small cell lung cancer on Keytruda, and recurrent pleural effusions. Patient presents to the emergency department with complaints of increasing shortness of breath since yesterday. Patient underwent right-sided thoracentesis with 300 mL fluid removal on 11/28/17. Non-small cell lung cancer stage IV - Patient recently received a third dose of Keytruda. He is followed by for oncology services. - Patient continues to have recurrent pleural effusions with most recent thoracentesis done yesterday.112 - We'll consult oncology Dyspnea COPD/emphysema -Patient originally presented to emergency department with oxygen saturation in the high 80s - Patient requiring 4 L oxygen nasal cannula to maintain oxygen saturation. - Chest x-ray completed and personally reviewed, showing interval improvement in consolidation in the left lung. Diffuse infiltrates remain. Large mass again noted in the right hilar region, left effusion noted again. - ? COPD exacerbation vs possible PE. Patient does have tachycardia at heart rate in the 120s at the time of my visit. Given the fact that he does have cancer poses risk for hypercoagulability. - Check stat CTA to rule out pulmonary embolism - Provide patient with duo nebs, resume Symbicort. - Solu-Medrol 40 mg every 8. - Admit to telemetry unit to monitor heart rate CONSULT PULMONARY- SEEN BY PULMONARY Leukocytosis with left shift - Looking back through patient's prior hospitalization and lab work it appears that leukocytosis is somewhat chronic possibly related to steroid use. - Pleural effusion Gram stain collected 11/28/17 with no growth in 24 hours - Lactic acid pending - Will continue Levaquin 750 mg IV every 24 hours - Monitor for fevers or possible source of infection Urinary hesitancy - Will obtain UA - start Flomax DVT prophylaxis - Subcutaneous Lovenox, SCDs AFIB- WITH RVR- CONSULT CARDIOLOGY GET ECHO DW RN AND PT DW RN AND PT WALK TEST Discharge Planning AM LABS WALK TEST DW PATIENT AND RN Problem Qualifiers (1) COPD (chronic obstructive pulmonary disease): Qualified Codes: J44.1 - Chronic obstructive pulmonary disease with (acute) exacerbation Leland Sarmiento DO Dec 02, 2017 16:09
[2017-12-02] MEDS: LEVOFLOXACIN 750 MG PREMIX INJ 150 ML IV SCH (17:34)
[2017-12-02] MEDS: ENOXAPARIN SODIUM 40 MG/0.4 ML SYRINGE SQ SCH (17:34)
[2017-12-02 18:16] LABS: HEMOGLOBIN A1C 5.6 % (4.3-6.0)
[2017-12-03] VITALS (11 sets, daily range): BP systolic 118–150; BP diastolic 68–84; PULSE 85–114; RESP 13–32; TEMP 97.7–98; O2SAT 89–98
[2017-12-03] MEDS: CHLORHEXIDINE GLUCONATE 2 % 1 PACK (2 CLOTHS)(taper/protocol) TOPICAL SCH (04:00)
[2017-12-03] MEDS: RESP: ALBUTEROL 2.5 MG/IPRATROPIUM 0.5 MG NEB (SCH) NEB ×2 (04:10→10:33)
[2017-12-03 04:31] LABS: AUTOMATED NEUTROPHIL # 18.5 TH/MM3 (1.8-7.7); BASOPHIL % 0.2 % (0.0-2.0); EOSINOPHIL % 0.1 % (0.0-4.0); HEMOGLOBIN 13.7 GM/DL (13.0-17.0); LYMPH % 1.4 % (9.0-44.0); LYMPHOCYTE # 0.3 TH/MM3 (1.0-4.8); MEAN CORPUSCULAR HEMOGLOBIN 28.7 PG (27.0-34.0); MEAN CORPUSCULAR HGB CONC 32.6 % (32.0-36.0); MEAN PLATELET VOLUME 7.5 FL (7.0-11.0); MONO % 1.9 % (0.0-8.0); MONOCYTE # 0.4 TH/MM3 (0-0.9); NEUT % 96.4 % (16.0-70.0); PLATELET COUNT 237 TH/MM3 (150-450); RED BLOOD COUNT 4.77 MIL/MM3 (4.50-5.90); RED CELL DISTRIBUTION WIDTH 16.1 % (11.6-17.2); WHITE BLOOD COUNT 19.2 TH/MM3 (4.0-11.0)
[2017-12-03 04:39] LABS: ALBUMIN 2.2 GM/DL (3.4-5.0); AST (GOT) 18 U/L (15-37); BICARBONATE 27.6 MEQ/L (21.0-32.0); BLOOD UREA NITROGEN 26 MG/DL (7-18); CALCIUM 8.1 MG/DL (8.5-10.1); CHLORIDE 104 MEQ/L (98-107); CREATININE 0.88 MG/DL (0.60-1.30); GLOMERULAR FILTRATION RATE 86 ML/MIN (>89); GLUCOSE,RANDOM 118 MG/DL (74-106); SODIUM (NA) 139 MEQ/L (136-145)
[2017-12-03 04:40] LABS: ALT (GPT) 19 U/L (12-78); PHOSPHORUS 2.6 MG/DL (2.5-4.9)
[2017-12-03 04:43] LABS: ALKALINE PHOSPHATASE 95 U/L (45-117); TOTAL BILIRUBIN ADULT 0.3 MG/DL (0.2-1.0); TOTAL PROTEIN 5.5 GM/DL (6.4-8.2)
[2017-12-03] MEDS: methylPREDNISolone SOD SUCC 40 MG/1 ML VIAL IV PUSH SCH ×2 (06:50→13:21)
--- NOTE | 2017-12-03 08:44 | HHI.PR ---
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 Patient reports that he recently underwent right-sided thoracentesis yesterday. He states that he went home and was feeling a little better, but then 1 hr later had SOB. Was not able to sleep due to SOB and this morning was not able to take more than two steps without having to stop due to severe SOB. Complains of cough but only in the morning, this is dry and non-productive. Cough only last momentarily in the morning and then clears throughout the day. Denies any fevers or chills. Denies any nausea, vomiting or diarrhea. Reports that he has been eating and drinking without any issues although does report some weight loss with's in appetite. He reports using duo nebs at home and does feel as that they will provide relief with breathing. He tells me that he has been on prednisone taper and today began day 1 out of 7 in his prednisone taper with 5 mg. Denies any chest pain, headaches, or heart palpitations. He also states that he has been on by mouth Levaquin basically following every thoracentesis. Patient also reports he has experienced some hesitancy with urination with weak flow. Denies any dysuria or hematuria. At the time of my examination patient is resting comfortably in bed and states that his shortness of breath is much improved with the use of oxygen. He states that he has been in the hospital multiple times but every time that he is discharged he does not qualify for home oxygen use. He is hoping that during this hospitalization he will be able to go home with oxygen. Currently he denies any chest pain, or heart palpitations. Review of EMR. Patient recently underwent right-sided thoracentesis yesterday 300 mL's of clear yellow fluid removed. Was seen in office by Dr. Willams on 10/31/17, patient had ongoing breathing problems then. It appears that Dr. Menjivar was thinking he might be having COPD exacerbation, versus progression of lung cancer versus Keytruda associated pneumonitis or effusion. During that visit oncology mentions the possibility of pulmonary embolism and does recommend patient get a CT scan of the chest for definitive cause of respiratory distress. CT of the chest was done here at [place] and did not show any sign of pulmonary embolism. It did show diffuse bilateral lung metastases disease with a large mass in the right hilar area. It also demonstrated diffuse mediastinal and hilar adenopathy, small bilateral effusions. Patient reports that he has received a total of 3 rounds of Keytruda. I discussed with patient that we will be admitting due to his requirements of oxygenation, we will also do a CT scan to rule out any kind of blood clot. We will continue his steroids along with Levaquin antibiotics, patient is agreeable to plan. 11-30 CONSULT PULMONARY AND ONCOLOGY STILL VERY SOB NOT ON OXYGEN AT HOME STATES DID NOT QUALIFY LAST TIME DW PATIENT AND RN 15 WENT INTO AFIB CONSULT CARDIO ECHO TREND TROPONINS AND CARDIAC ENZYMES DW RN AND PT 12-02 now in SINUS RHYTHM DW RN AND PATIENT WILL DO REGULAR CHEMO AN OUTPT WILL GET A WALK TEST TODAY AND SET UP OXYGEN DW PT AND RN 12-03 FAILED WALK TEST NEEDS HOME OXYGEN 2L BY NC DC TO HOME TODAY FOLLOW UP WITH ONCOLOGY AND PULMONOLOGY Objective Vitals Vital Signs Date Time Temp Pulse Resp B/P (MAP) Pulse Ox O2 Delivery O2 Flow Rate FiO2 12/03/17 06:00 93 12/03/17 04:00 98.0 88 20 126/84 (98) 92 12/03/17 04:00 88 12/03/17 02:00 87 12/03/17 00:00 90 13 118/73 (88) 92 12/03/17 00:00 90 12/02/17 22:00 100 12/02/17 21:53 96 Nasal Cannula 2.00 12/02/17 20:00 97.6 93 24 112/69 (83) 95 12/02/17 20:00 93 12/02/17 19:00 95 Nasal Cannula 2.00 12/02/17 18:00 101 12/02/17 17:37 2.00 12/02/17 16:00 92 12/02/17 16:00 97.7 92 23 118/64 (82) 96 12/02/17 14:00 95 12/02/17 12:00 92 12/02/17 12:00 97.6 92 19 116/66 (83) 96 12/02/17 10:00 96 12/02/17 09:42 92 Nasal Cannula 2.00 I/O 1/16/18 12/02/17 12/02/17 12/03/17 12/03/17 12/03/17 07:00 15:00 23:00 07:00 15:00 23:00 Intake Total 640 ml 410 ml 750 ml 0 ml Output Total 525 ml 450 ml 675 ml Balance 115 ml 410 ml 300 ml -675 ml Intake Oral 240 ml 750 ml IV Total 0 ml Packed Cells 400 ml 400 ml Blood Product IV Normal Saline Flush 10 ml Output Urine Total 525 ml 450 ml 675 ml # Bowel Movements 0 1 0 Result Diagram: 12/03/17 0320 12/03/17 0320 Other Results Laboratory Tests Test 12/01/17 06:00 12/01/17 12:30 12/01/17 15:50 12/01/17 21:36 White Blood Count 33.4 TH/MM3 Red Blood Count 4.08 MIL/MM3 Hemoglobin 11.8 GM/DL Hematocrit 35.2 % Mean Corpuscular Volume 86.3 FL Mean Corpuscular Hemoglobin 29.0 PG Mean Corpuscular Hemoglobin Concent 33.6 % Red Cell Distribution Width 15.9 % Platelet Count 287 TH/MM3 Mean Platelet Volume 7.9 FL CBC Comment AUTO DIFF Differential Total Cells Counted 100 Neutrophils % (Manual) 75 % Band Neutrophils % 17 % Lymphocytes % 5 % Monocytes % 3 % Neutrophils # (Manual) 30.7 TH/MM3 Differential Comment FINAL DIFF MANUAL Toxic Granulation 1+ Platelet Estimate NORMAL Platelet Morphology Comment NORMAL Blood Urea Nitrogen 19 MG/DL Creatinine 0.99 MG/DL Random Glucose 155 MG/DL Total Protein 5.9 GM/DL Albumin 2.3 GM/DL Calcium Level 8.4 MG/DL Phosphorus Level 2.8 MG/DL Magnesium Level 2.3 MG/DL Alkaline Phosphatase 90 U/L Aspartate Amino Transf (AST/SGOT) 12 U/L Alanine Aminotransferase (ALT/SGPT) 10 U/L Total Bilirubin 0.2 MG/DL Sodium Level 136 MEQ/L Potassium Level 3.8 MEQ/L Chloride Level 101 MEQ/L Carbon Dioxide Level 25.0 MEQ/L Anion Gap 10 MEQ/L Estimat Glomerular Filtration Rate 75 ML/MIN Hemoglobin A1c 5.6 % Free Thyroxine 1.24 NG/DL Thyroid Stimulating Hormone 3rd Gen 0.627 uIU/ML Total Creatine Kinase 20 U/L 21 U/L Troponin I LESS THAN 0.02 NG/ML 0.02 NG/ML Nasal Screen MRSA (PCR) MRSA NOT DETECTED Test 12/02/17 10:05 12/02/17 10:06 12/03/17 03:20 White Blood Count 25.8 TH/MM3 19.2 TH/MM3 Red Blood Count 4.93 MIL/MM3 4.77 MIL/MM3 Hemoglobin 14.4 GM/DL 13.7 GM/DL Hematocrit 43.5 % 42.0 % Mean Corpuscular Volume 88.2 FL 88.0 FL Mean Corpuscular Hemoglobin 29.2 PG 28.7 PG Mean Corpuscular Hemoglobin Concent 33.1 % 32.6 % Red Cell Distribution Width 16.0 % 16.1 % Platelet Count 249 TH/MM3 237 TH/MM3 Mean Platelet Volume 7.3 FL 7.5 FL Neutrophils (%) (Auto) 95.6 % 96.4 % Lymphocytes (%) (Auto) 1.6 % 1.4 % Monocytes (%) (Auto) 2.7 % 1.9 % Eosinophils (%) (Auto) 0.0 % 0.1 % Basophils (%) (Auto) 0.1 % 0.2 % Neutrophils # (Auto) 24.7 TH/MM3 18.5 TH/MM3 Lymphocytes # (Auto) 0.4 TH/MM3 0.3 TH/MM3 Monocytes # (Auto) 0.7 TH/MM3 0.4 TH/MM3 Eosinophils # (Auto) 0.0 TH/MM3 0.0 TH/MM3 Basophils # (Auto) 0.0 TH/MM3 0.0 TH/MM3 CBC Comment DIFF FINAL DIFF FINAL Differential Total Cells Counted 100 Neutrophils % (Manual) 92 % Band Neutrophils % 3 % Lymphocytes % 1 % Monocytes % 2 % Neutrophils # (Manual) 25.0 TH/MM3 Metamyelocytes 2 % Differential Comment FINAL DIFF MANUAL Toxic Granulation 1+ Platelet Estimate NORMAL Platelet Morphology Comment NORMAL Blood Urea Nitrogen 22 MG/DL 26 MG/DL Creatinine 0.83 MG/DL 0.88 MG/DL Random Glucose 111 MG/DL 118 MG/DL Total Protein 6.2 GM/DL 5.5 GM/DL Albumin 2.5 GM/DL 2.2 GM/DL Calcium Level 8.8 MG/DL 8.1 MG/DL Phosphorus Level 2.8 MG/DL 2.6 MG/DL Magnesium Level 2.3 MG/DL 2.0 MG/DL Alkaline Phosphatase 93 U/L 95 U/L Aspartate Amino Transf (AST/SGOT) 17 U/L 18 U/L Alanine Aminotransferase (ALT/SGPT) 17 U/L 19 U/L Total Bilirubin 0.6 MG/DL 0.3 MG/DL Sodium Level 139 MEQ/L 139 MEQ/L Potassium Level 3.8 MEQ/L 4.3 MEQ/L Chloride Level 103 MEQ/L 104 MEQ/L Carbon Dioxide Level 26.4 MEQ/L 27.6 MEQ/L Anion Gap 10 MEQ/L 7 MEQ/L Estimat Glomerular Filtration Rate 92 ML/MIN 86 ML/MIN Total Creatine Kinase 28 U/L Troponin I LESS THAN 0.02 NG/ML Imaging Last Impressions Chest Ultrasound 12/02/17 0000 Signed Impressions: Service Date/Time: Saturday, December 02, 2017 08:56 - CONCLUSION: Small left pleural effusion containing multiple septations. Therefore, thoracentesis was not performed since it will likely be unsuccessful at removing most of the fluid. Onesimo Barrios MD Chest X-Ray 11/29/17 1523 Signed Impressions: Service Date/Time: Wednesday, November 29, 2017 15:42 - CONCLUSION: 1. Interval improvement in consolidation in the left lung. Diffuse infiltrates remain. 2. Large mass again noted the right hilar region. 3. Left effusion again noted. Nithin Nolan MD CT Angiography 11/29/17 0000 Signed Impressions: Service Date/Time: Wednesday, November 29, 2017 18:43 - CONCLUSION: 1. Extensive primary and metastatic malignancy involving the chest as above. The masses are not significantly changed in the interim. 2. Encasement of the pulmonary arteries, right worse than left. There is now complete obstruction of the right upper lobe pulmonary artery. Some attenuation of the other branches but they remain patent. There is no pulmonary embolus. 3. Small pericardial effusion and moderate left pleural effusion are not significantly changed. Right pleural effusion is smaller, now small. Onesimo Santiago MD Objective Remarks GENERAL: Awake and alert oriented talkative and cooperative appears to be in MILD distress --he BEcomes easily winded on any major movement-cachectic in appearance SKIN: Warm and dry. HEAD: Atraumatic. Normocephalic. EYES: Pupils equal and round. No scleral icterus. No injection or drainage. Extractor muscles intact ENT: No nasal bleeding or discharge. Mucous membranes pink and moist. Tongue is midline NECK: Trachea midline. No JVD. Supple CARDIOVASCULAR: Regular rate and rhythm. S1 and S2 no S3 or S4 RESPIRATORY: No accessory muscle use. Rhonchi and wheezes throughout all lung schmitz except decreased lung sounds in the right upper lobe. Breath sounds equal bilaterally. GASTROINTESTINAL: Abdomen soft, non-tender, nondistended. Hepatic and splenic margins not palpable. MUSCULOSKELETAL: Extremities without clubbing, cyanosis, or edema. No obvious deformities. NEUROLOGICAL: Awake and alert. No obvious cranial nerve deficits. Motor grossly within normal limits. 4 out of 5 muscle strength in the arms and legs. Normal speech. PSYCHIATRIC: Appropriate mood and affect; insight and judgment normal. Procedures NONE Medications and IVs Current Medications Methylprednisolone Sodium Succinate (SoluMEDROL INJ) 125 mg ONCE ONCE IV PUSH Last administered on 11/29/17 18:02; Start 11/29/17 at 15:30; Stop 11/29/17 at 15:31; Status DC Albuterol Sulfate (Albuterol Neb) 2.5 mg Q15M INH Last administered on at 15:46; Start 11/29/17 at 15:30; Stop 11/29/17 at 15:46; Status DC Sodium Chloride 500 ml @ 500 mls/hr BOLUS ONCE IV Last administered on at 18:02; Start 11/29/17 at 15:30; Stop 11/29/17 at 16:29; Status DC Levofloxacin/ Dextrose 150 ml @ 100 mls/hr ONCE ONCE IV Last administered on 11/29/17at 18:31; Start 11/29/17 at 16:30; Stop 11/29/17 at 17:59; Status DC Sodium Chloride (NS Flush) 2 ml UNSCH PRN IV FLUSH FLUSH AFTER USING IV ACCESS Last administered on 11/30/17at 05:48; Start 11/29/17 at 17:45 Sodium Chloride (NS Flush) 2 ml BID IV FLUSH Last administered on 12/02/17at 21: 56; Start 11/29/17 at 21:00 Acetaminophen (Tylenol) 650 mg Q4H PRN PO TEMP > 100.4; Start 11/29/17 at 17:45 Ondansetron HCl (Zofran Inj) 4 mg Q6H PRN IVP NAUSEA OR VOMITING; Start at 17:45 Enoxaparin Sodium (Lovenox Inj) 40 mg Q24H SQ Last administered on 12/02/17at 17 :34; Start 11/29/17 at 18:00 Naloxone HCl (Narcan Inj) 0.4 mg UNSCH PRN IV PUSH SEE LABEL COMMENTS; Start at 17:45 Senna/Docusate Sodium (Abigail-Colace) 1 tab BID PO Last administered on at 08:26; Start 11/29/17 at 21:00 Magnesium Hydroxide (Milk Of Magnesia Liq) 30 ml Q12H PRN PO Mild constipation ; Start 11/29/17 at 17:45 Sennosides (Senokot) 17.2 mg Q12H PRN PO Moderate constipation; Start 11/29/17 at 17:45 Bisacodyl (Dulcolax Supp) 10 mg DAILY PRN RECTAL SEVERE CONSITIPATION; Start at 17:45 Lactulose (Lactulose Liq) 30 ml DAILY PRN PO SEVERE CONSITIPATION; Start at 17:45 Levofloxacin/ Dextrose 150 ml @ 100 mls/hr Q24H IV Last administered on at 17:34; Start 11/30/17 at 18:00 Albuterol/ Ipratropium (Duoneb Neb) 1 ampule Q6HR NEB NEB Last administered on 12/03/17at 04:10; Start 11/29/17 at 22:00 Albuterol/ Ipratropium (Duoneb Neb) 1 ampule Q4HR NEB PRN NEB SHORTNESS OF BREATH; Start 11/29/17 at 17:45 Methylprednisolone Sodium Succinate (SoluMEDROL INJ) 40 mg Q8HR IV PUSH Last administered on 12/03/17at 06:50; Start 11/29/17 at 23:00 Budesonide/ Formoterol Fumarate (Symbicort 160-4.5 Mcg Inh) 1 puff Q12HR INH Last administered on 12/02/17at 21:56; Start 11/29/17 at 21:00 Iohexol (Omnipaque 350 Inj) 60 ml STK-MED ONCE IVCONTRAST Last administered on 11/29/17at 19:06; Start 11/29/17 at 19:06; Stop 11/29/17 at 19:07; Status DC Guaifenesin (Mucinex Er) 600 mg BID PO Last administered on 12/02/17at 21:56; Start 11/30/17 at 15:00 Tamsulosin HCl (Flomax) 0.4 mg DAILY PO Last administered on 12/02/17at 08:26; Start 12/01/17 at 09:00 Tamsulosin HCl (Flomax) 0.4 mg ONCE ONCE PO Last administered on 11/30/17at 18: 49; Start 11/30/17 at 15:45; Stop 11/30/17 at 15:46; Status DC Aspirin (Ecotrin Ec) 325 mg DAILY PO Last administered on 12/02/17at 08:26; Start 12/01/17 at 10:45 Diltiazem HCl (Cardizem Inj) 10 mg ONCE ONCE IV ; Start 12/01/17 at 11:00; Stop 12/01/17 at 11:28; Status DC Sodium Chloride 500 ml @ 500 mls/hr BOLUS ONCE IV Last administered on at 11:15; Start 12/01/17 at 11:15; Stop 12/01/17 at 12:14; Status DC Digoxin (Lanoxin Inj) 0.25 mg ONCE ONCE IV PUSH Last administered on at 11:52; Start 12/01/17 at 11:30; Stop 12/01/17 at 11:32; Status DC Digoxin (Lanoxin Inj) 0.25 mg ONCE ONCE IV PUSH Last administered on at 14:28; Start 12/01/17 at 13:15; Stop 12/01/17 at 13:16; Status DC Sodium Chloride 500 ml @ 500 mls/hr BOLUS ONCE IV Last administered on at 13:30; Start 12/01/17 at 13:30; Stop 12/01/17 at 14:29; Status DC Chlorhexidine Gluconate (Chlorhexidine 2% Cloth) 3 pack DAILY@04 TOPICAL Last administered on 12/02/17at 04:00; Start 12/02/17 at 04:00; Stop 12/06/17 at 04:01 Chlorhexidine Gluconate (Chlorhexidine 2% Cloth) 3 pack UNSCH PRN TOPICAL HYGIENIC CARE; Start 1/15/18 at 21:15; Stop 12/06/17 at 21:09 Sodium Chloride 500 ml @ 500 mls/hr BOLUS ONCE IV Last administered on at 21:35; Start 12/01/17 at 21:30; Stop 12/01/17 at 22:29; Status DC Miscellaneous Information Patient in critical care unit? Ass... [id number] Last administered on 12/01/17at 21:30; Start 12/01/17 at 21:30 Metoprolol Tartrate (Lopressor) 12.5 mg Q12HR PO ; Start 12/02/17 at 10:15 Miscellaneous (Pill Splitter) 1 ea UNSCH PRN OTHER SEE LABEL COMMENTS; Start at 10:30 A/P Problem List: (1) Dyspnea ICD Code: R06.00 - Dyspnea, unspecified (2) Leukocytosis ICD Code: D72.829 - Elevated white blood cell count, unspecified (3) COPD (chronic obstructive pulmonary disease) ICD Code: J44.9 - Chronic obstructive pulmonary disease, unspecified (4) Non-small cell carcinoma of lung, stage 4 ICD Code: C34.90 - Malignant neoplasm of unspecified part of unspecified bronchus or lung (5) Atrial fibrillation ICD Code: I48.91 - Unspecified atrial fibrillation Assessment and Plan 67-year-old male with past medical history of COPD/emphysema, stage IV non-small cell lung cancer on Keytruda, and recurrent pleural effusions. Patient presents to the emergency department with complaints of increasing shortness of breath since yesterday. Patient underwent right-sided thoracentesis with 300 mL fluid removal on 11/28/17. Non-small cell lung cancer stage IV - Patient recently received a third dose of Keytruda. He is followed by for oncology services. - Patient continues to have recurrent pleural effusions with most recent thoracentesis done yesterday.- - We'll consult oncology MEDS ADJUSTED Dyspnea COPD/emphysema -Patient originally presented to emergency department with oxygen saturation in the high 80s - Patient requiring 4 L oxygen nasal cannula to maintain oxygen saturation. - Chest x-ray completed and personally reviewed, showing interval improvement in consolidation in the left lung. Diffuse infiltrates remain. Large mass again noted in the right hilar region, left effusion noted again. - ? COPD exacerbation vs possible PE. Patient does have tachycardia at heart rate in the 120s at the time of my visit. Given the fact that he does have cancer poses risk for hypercoagulability. - Check stat CTA to rule out pulmonary embolism - Provide patient with duo nebs, resume Symbicort. - Solu-Medrol 40 mg every 8. - Admit to telemetry unit to monitor heart rate CONSULT PULMONARY- SEEN BY PULMONARY Leukocytosis with left shift - Looking back through patient's prior hospitalization and lab work it appears that leukocytosis is somewhat chronic possibly related to steroid use. - Pleural effusion Gram stain collected 11/28/17 with no growth in 24 hours - Lactic acid pending - Will continue Levaquin 750 mg IV every 24 hours CHANGE TO PO - Monitor for fevers or possible source of infection Urinary hesitancy - Will obtain UA - start Flomax DVT prophylaxis - Subcutaneous Lovenox, SCDs AFIB- WITH RVR- CONSULT CARDIOLOGY GET ECHO DW RN AND PT DW RN AND PT WALK TEST FAILED DC ON HOME OXYGEN Discharge Planning DC TODAY PENDING CM SET UP FOR OXYGEN Problem Qualifiers (1) COPD (chronic obstructive pulmonary disease): Qualified Codes: J44.1 - Chronic obstructive pulmonary disease with (acute) exacerbation Leland Sarmiento DO Dec 03, 2017 08:44
[2017-12-03] MEDS ORDERED: PRED10PA2 PO (08:51)
[2017-12-03] MEDS ORDERED: guaiFENesin ER PO (08:51)
[2017-12-03] MEDS ORDERED: SYMB160A INH (08:51)
[2017-12-03] MEDS ORDERED: VENTAER INH (08:51)
[2017-12-03] MEDS ORDERED: ASPI325T33 PO (08:51)
[2017-12-03] MEDS ORDERED: LEVA750T9 PO (08:51)
[2017-12-03] MEDS ORDERED: Albuterol-Ipratropium Neb NEB (08:51)
[2017-12-03] MEDS ORDERED: TAMS5CAP PO (08:51)
[2017-12-03] MEDS ORDERED: METO25TA3 PO (08:51)
--- NOTE | 2017-12-03 08:52 | HHI.FF ---
Face to Face Verification Diagnosis: (1) Non-small cell lung cancer (NSCLC) (2) Pleural effusion (3) COPD exacerbation (4) History of tobacco use (5) Atrial fibrillation (6) Non-small cell carcinoma of lung, stage 4 (7) Debility (8) Fatigue Physical Therapy Order: Evaluate and Treat, Improve ambulation, Strength and gait training Occupational Therapy Order: Evaluate and Treat, Improve ADL, Gross motor coordination, Fine motor coordination Home Health Nursing Order: Signs/symptoms of disease process Nursing assessment with vital signs Home Health Aide Order: To Assist In: Bathing and personal care, cat hooker and meal prep I have seen patient Onesimo Silva on 12/03/17. My clinical findings support the need for the requested home health care services because: Patient has SOB Deconditioned w/ increased weakness I certify that my clinical findings support that this patient is homebound because: Hx COPD- exertion dyspnea/weakness Leland Sarmiento DO Dec 03, 2017 08:52
--- NOTE | 2017-12-03 08:56 | HHI.DS ---
Discharge Summary Admission Date Nov 29, 2017 at 17:24 Discharge Date: Dec 03, 2017 Admitting Diagnosis SOB, COPD, PNA, Pleural effusion (1) Dyspnea ICD Code: R06.00 - Dyspnea, unspecified Diagnosis: Principal (2) Leukocytosis ICD Code: D72.829 - Elevated white blood cell count, unspecified (3) COPD (chronic obstructive pulmonary disease) ICD Code: J44.9 - Chronic obstructive pulmonary disease, unspecified Diagnosis: Principal (4) Non-small cell carcinoma of lung, stage 4 ICD Code: C34.90 - Malignant neoplasm of unspecified part of unspecified bronchus or lung Diagnosis: Principal (5) Atrial fibrillation ICD Code: I48.91 - Unspecified atrial fibrillation Diagnosis: Principal Procedures NONE Brief History - From Admission 67-year-old male with past medical history significant for COPD emphysema, 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 Patient reports that he recently underwent right-sided thoracentesis yesterday. He states that he went home and was feeling a little better, but then 1 hr later had SOB. Was not able to sleep due to SOB and this morning was not able to take more than two steps without having to stop due to severe SOB. Complains of cough but only in the morning, this is dry and non-productive. Cough only last momentarily in the morning and then clears throughout the day. Denies any fevers or chills. Denies any nausea, vomiting or diarrhea. Reports that he has been eating and drinking without any issues although does report some weight loss with's in appetite. He reports using duo nebs at home and does feel as that they will provide relief with breathing. He tells me that he has been on prednisone taper and today began day 1 out of 7 in his prednisone taper with 5 mg. Denies any chest pain, headaches, or heart palpitations. He also states that he has been on by mouth Levaquin basically following every thoracentesis. Patient also reports he has experienced some hesitancy with urination with weak flow. Denies any dysuria or hematuria. At the time of my examination patient is resting comfortably in bed and states that his shortness of breath is much improved with the use of oxygen. He states that he has been in the hospital multiple times but every time that he is discharged he does not qualify for home oxygen use. He is hoping that during this hospitalization he will be able to go home with oxygen. Currently he denies any chest pain, or heart palpitations. Review of EMR. Patient recently underwent right-sided thoracentesis yesterday 300 mL's of clear yellow fluid removed. Was seen in office by Dr. Willams on 10/31/17, patient had ongoing breathing problems then. It appears that Dr. Menjivar was thinking he might be having COPD exacerbation, versus progression of lung cancer versus Keytruda associated pneumonitis or effusion. During that visit oncology mentions the possibility of pulmonary embolism and does recommend patient get a CT scan of the chest for definitive cause of respiratory distress. CT of the chest was done here at [facility] and did not show any sign of pulmonary embolism. It did show diffuse bilateral lung metastases disease with a large mass in the right hilar area. It also demonstrated diffuse mediastinal and hilar adenopathy, small bilateral effusions. Patient reports that he has received a total of 3 rounds of Keytruda. I discussed with patient that we will be admitting due to his requirements of oxygenation, we will also do a CT scan to rule out any kind of blood clot. We will continue his steroids along with Levaquin antibiotics, patient is agreeable to plan. CBC/BMP: 12/03/17 0320 12/03/17 0320 Significant Findings Laboratory Tests Test 12/01/17 06:00 12/01/17 12:30 12/01/17 15:50 12/01/17 21:36 White Blood Count 33.4 TH/MM3 (4.0-11.0) Red Blood Count 4.08 MIL/MM3 (4.50-5.90) Hemoglobin 11.8 GM/DL (13.0-17.0) Hematocrit 35.2 % (39.0-51.0) Neutrophils % (Manual) 75 % (16-70) Band Neutrophils % 17 % (0-6) Lymphocytes % 5 % (9-44) Neutrophils # (Manual) 30.7 TH/MM3 (1.8-7.7) Toxic Granulation 1+ (NORMAL) Blood Urea Nitrogen 19 MG/DL (7-18) Random Glucose 155 MG/DL (74-106) Total Protein 5.9 GM/DL (6.4-8.2) Albumin 2.3 GM/DL (3.4-5.0) Calcium Level 8.4 MG/DL (8.5-10.1) Aspartate Amino Transf (AST/SGOT) 12 U/L (15-37) Alanine Aminotransferase (ALT/SGPT) 10 U/L (12-78) Estimat Glomerular Filtration Rate 75 ML/MIN (>89) Total Creatine Kinase 20 U/L (39-308) 21 U/L (39-308) Troponin I LESS THAN 0.02 NG/ML Test 12/02/17 10:05 12/02/17 10:06 12/03/17 03:20 White Blood Count 25.8 TH/MM3 (4.0-11.0) 19.2 TH/MM3 (4.0-11.0) Neutrophils (%) (Auto) 95.6 % (16.0-70.0) 96.4 % (16.0-70.0) Lymphocytes (%) (Auto) 1.6 % (9.0-44.0) 1.4 % (9.0-44.0) Neutrophils # (Auto) 24.7 TH/MM3 (1.8-7.7) 18.5 TH/MM3 (1.8-7.7) Lymphocytes # (Auto) 0.4 TH/MM3 (1.0-4.8) 0.3 TH/MM3 (1.0-4.8) Neutrophils % (Manual) 92 % (16-70) Lymphocytes % 1 % (9-44) Neutrophils # (Manual) 25.0 TH/MM3 (1.8-7.7) Metamyelocytes 2 % (0-1) Toxic Granulation 1+ (NORMAL) Blood Urea Nitrogen 22 MG/DL (7-18) 26 MG/DL (7-18) Random Glucose 111 MG/DL (74-106) 118 MG/DL (74-106) Total Protein 6.2 GM/DL (6.4-8.2) 5.5 GM/DL (6.4-8.2) Albumin 2.5 GM/DL (3.4-5.0) 2.2 GM/DL (3.4-5.0) Total Creatine Kinase 28 U/L (39-308) Troponin I LESS THAN 0.02 NG/ML Calcium Level 8.1 MG/DL (8.5-10.1) Estimat Glomerular Filtration Rate 86 ML/MIN (>89) Imaging Last Impressions Chest Ultrasound 12/02/17 0000 Signed Impressions: Service Date/Time: Saturday, December 02, 2017 08:56 - CONCLUSION: Small left pleural effusion containing multiple septations. Therefore, thoracentesis was not performed since it will likely be unsuccessful at removing most of the fluid. Onesimo Barrios MD Chest X-Ray 11/29/17 1523 Signed Impressions: Service Date/Time: Wednesday, November 29, 2017 15:42 - CONCLUSION: 1. Interval improvement in consolidation in the left lung. Diffuse infiltrates remain. 2. Large mass again noted the right hilar region. 3. Left effusion again noted. Nithin Nolan MD CT Angiography 11/29/17 0000 Signed Impressions: Service Date/Time: Wednesday, November 29, 2017 18:43 - CONCLUSION: 1. Extensive primary and metastatic malignancy involving the chest as above. The masses are not significantly changed in the interim. 2. Encasement of the pulmonary arteries, right worse than left. There is now complete obstruction of the right upper lobe pulmonary artery. Some attenuation of the other branches but they remain patent. There is no pulmonary embolus. 3. Small pericardial effusion and moderate left pleural effusion are not significantly changed. Right pleural effusion is smaller, now small. Onesimo Santiago MD PE at Discharge GENERAL: Awake and alert oriented talkative and cooperative appears to be in MILD distress --he BEcomes easily winded on any major movement-cachectic in appearance SKIN: Warm and dry. HEAD: Atraumatic. Normocephalic. EYES: Pupils equal and round. No scleral icterus. No injection or drainage. Extractor muscles intact ENT: No nasal bleeding or discharge. Mucous membranes pink and moist. Tongue is midline NECK: Trachea midline. No JVD. Supple CARDIOVASCULAR: Regular rate and rhythm. S1 and S2 no S3 or S4 RESPIRATORY: No accessory muscle use. Rhonchi and wheezes throughout all lung schmitz except decreased lung sounds in the right upper lobe. Breath sounds equal bilaterally. GASTROINTESTINAL: Abdomen soft, non-tender, nondistended. Hepatic and splenic margins not palpable. MUSCULOSKELETAL: Extremities without clubbing, cyanosis, or edema. No obvious deformities. NEUROLOGICAL: Awake and alert. No obvious cranial nerve deficits. Motor grossly within normal limits. 4 out of 5 muscle strength in the arms and legs. Normal speech. PSYCHIATRIC: Appropriate mood and affect; insight and judgment normal. 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 Patient reports that he recently underwent right-sided thoracentesis yesterday. He states that he went home and was feeling a little better, but then 1 hr later had SOB. Was not able to sleep due to SOB and this morning was not able to take more than two steps without having to stop due to severe SOB. Complains of cough but only in the morning, this is dry and non-productive. Cough only last momentarily in the morning and then clears throughout the day. Denies any fevers or chills. Denies any nausea, vomiting or diarrhea. Reports that he has been eating and drinking without any issues although does report some weight loss with's in appetite. He reports using duo nebs at home and does feel as that they will provide relief with breathing. He tells me that he has been on prednisone taper and today began day 1 out of 7 in his prednisone taper with 5 mg. Denies any chest pain, headaches, or heart palpitations. He also states that he has been on by mouth Levaquin basically following every thoracentesis. Patient also reports he has experienced some hesitancy with urination with weak flow. Denies any dysuria or hematuria. At the time of my examination patient is resting comfortably in bed and states that his shortness of breath is much improved with the use of oxygen. He states that he has been in the hospital multiple times but every time that he is discharged he does not qualify for home oxygen use. He is hoping that during this hospitalization he will be able to go home with oxygen. Currently he denies any chest pain, or heart palpitations. Review of EMR. Patient recently underwent right-sided thoracentesis yesterday 300 mL's of clear yellow fluid removed. Was seen in office by Dr. Willams on 10/31/17, patient had ongoing breathing problems then. It appears that Dr. Menjivar was thinking he might be having COPD exacerbation, versus progression of lung cancer versus Keytruda associated pneumonitis or effusion. During that visit oncology mentions the possibility of pulmonary embolism and does recommend patient get a CT scan of the chest for definitive cause of respiratory distress. CT of the chest was done here at [facility] and did not show any sign of pulmonary embolism. It did show diffuse bilateral lung metastases disease with a large mass in the right hilar area. It also demonstrated diffuse mediastinal and hilar adenopathy, small bilateral effusions. Patient reports that he has received a total of 3 rounds of Keytruda. I discussed with patient that we will be admitting due to his requirements of oxygenation, we will also do a CT scan to rule out any kind of blood clot. We will continue his steroids along with Levaquin antibiotics, patient is agreeable to plan. 1-14 CONSULT PULMONARY AND ONCOLOGY STILL VERY SOB NOT ON OXYGEN AT HOME STATES DID NOT QUALIFY LAST TIME DW PATIENT AND RN 1-15 WENT INTO [facility] CONSULT CARDIO ECHO TREND TROPONINS AND CARDIAC ENZYMES DW RN AND PT 116 now in SINUS RHYTHM DW RN AND PATIENT WILL DO REGULAR CHEMO AN OUTPT WILL GET A WALK TEST TODAY AND SET UP OXYGEN DW PT AND RN 1-17 FAILED WALK TEST NEEDS HOME OXYGEN 2L BY CT DC TO HOME TODAY FOLLOW UP WITH ONCOLOGY AND PULMONOLOGY CHEMO TO BE ADJUSTED BY ONCOLOGY AN OUTPATIENT DC TO HOME ON HOME OXYGEN 2L BY CT Pt Condition on Discharge: Fair Discharge Disposition: Disch w/ Home Health Serv Discharge Time: > 30 minutes Discharge Instructions DIET: Follow Instructions for: Heart Healthy Diet, Diabetic Diet Speech Therapy-Diet Recommends: Regular Activities you can perform: Regular-No Restrictions Follow up Referrals: Oncology - 2-3 Days with Sridhar Willams MD PCP Follow-up - 1 Week Pulmonology - Today with Linda Bettencourt MD New Medications: Levofloxacin (Levaquin) 750 Mg Tablet 750 MG PO DAILY for Infection for 10 Days, #10 TAB 0 Refills Prednisone (48) 10 mg tab Dose Pack (Prednisone (48) 10 mg tab Dose Pack) 10 Mg Dspk 10 MG PO DIRECTED for Inflammation, #1 DSPK [address] (Aspirin EC) 325 Mg Tabdr 325 MG PO DAILY for Blood Clot Prevention, #30 TAB Metoprolol Tartrate (Metoprolol Tartrate) 25 Mg Tab 12.5 MG PO Q12HR for Blood Pressure Management, #60 TAB IF BLOOD PRESSURE OVER 120/80 AND HEART RATE ELEVATED ABOVE 110 Tamsulosin (Flomax) 0.4 Mg Cap 0.4 MG PO DAILY for BPH, #30 CAP [Albuterol-Ipratropium Neb] () 1 AMPULE NEBU 1 AMPULE NEB Q6HR NEB for Shortness of Breath, #180 AMPULE [guaiFENesin ER] () 600 MG TABCR 600 MG PO BID for Cough, #62 TAB Continued Medications: Albuterol 18 GM Inh (Ventolin Hfa 18 GM Inh) 90 Mcg/Act Aer 2 PUFF INH Q4-6H PRN for SHORTNESS OF BREATH, #1 INHALER 0 Refills (This prescription has been renewed) Budesonide-Formoterol Inh (Symbicort Inh) 160-4.5 Mcg/Act Aero 1 PUFF INH Q12HR for Shortness of Breath, #1 INHALER 0 Refills (This prescription has been renewed) Ipratropium-Albuterol Neb (Duoneb) 0.5-2.5 Mg/3 Ml Neb 1 NEBULE INH Q6HR NEB for Breathing Treatment, #120 NEBULE 0 Refills Discontinued Medications: Prednisone (Prednisone) 20 Mg Tab 20 MG PO DIRECTED for Inflammation, #15 TAB 0 Refills Take 40mg daily for 3 days, 20mg daily for 3 days, 10mg daily for 3 days, 5 mg daily for 3 days, then stop. Additional Information OXYGEN 2 LITERS BY NASAL CANNULA CONTINUOUSLY Leland Sarmiento DO Dec 03, 2017 08:55
[2017-12-03] MEDS ORDERED: OXYGENDME NAS.CANULA (08:59)
[2017-12-03] MEDS: DOCUSATE SODIUM 50 MG/SENNA 8.6 MG TAB PO SCH (09:00)
[2017-12-03] MEDS: METOPROLOL TARTRATE 25 MG TAB PO SCH ×2 (09:00→09:05)
[2017-12-03] MEDS: guaiFENesin E.R. 600 MG TAB PO SCH (09:05)
[2017-12-03] MEDS: BUDESONIDE-FORMOTEROL 160/4.5 MCG INHALER INH SCH (09:05)
[2017-12-03] MEDS: SODIUM CHLORIDE 0.9% FLUSH 10 ML FLUSH IV FLUSH SCH (09:05)
[2017-12-03] MEDS: ASPIRIN EC 325 MG TABEC PO SCH (09:05)
[2017-12-03] MEDS: TAMSULOSIN HCL 0.4 MG CAP PO SCH (09:06)
--- NOTE | 2017-12-03 09:42 | ECHRPT ---
Indication: CONCLUSIONS Normal left ventricular size and function Wall thickness is normal. The left ventricular systolic function is grossly normal on limited imaging. There is a small pericardial effusion present. No hemodynamically significant echocardiographic features were observed (no pre-tamponade physiology). BP: 101 / 62 HR: Rhythm: Atrial fibrillation, Atrial flut ter MEASUREMENTS (Male / Female) Normal Values Technical Quality:Fair 2D ECHO LV Diastolic Diameter PLAX 3.0 cm 4.2 - 5.9 / 3.9 - 5.3 cm LV Systolic Diameter PLAX 1.8 cm IVS Diastolic Thickness 0.9 cm 0.6 - 1.0 / 0.6 - 0.9 cm LVPW Diastolic Thickness 0.8 cm 0.6 - 1.0 / 0.6 - 0.9 cm LV Relative Wall Thickness 0.6 RV Internal Dim ED PLAX 2.8 cm LVOT Diameter 1.9 cm Aortic Root Diameter 3.3 cm LA Systolic Diameter LX 2.8 cm 3.0 - 4.0 / 2.7 - 3.8 cm M-MODE AV Cusp Separation MM 1.9 cm FINDINGS LEFT VENTRICLE Normal left ventricular size. Wall thickness is normal. The left ventricular systolic function is grossly normal on limited imaging. RIGHT VENTRICLE Normal right ventricular size and systolic function. LEFT ATRIUM The left atrial size is normal. RIGHT ATRIUM The right atrial size is normal. PERICARDIUM There is a small pericardial effusion present. No hemodynamically significant echocardiographic features were observed (no pre-tamponade physiology). Jona Seymour MD Edited by: [employer] Thermal C[employer] (Electronically Signed) Final Date:01 December 2017 16:53 Amended: 03 December 2017 09:41
--- NOTE | 2017-12-03 12:40 | PD.ONC.PN ---
Subjective Subjective Remarks Afebrile overnight Patient looking forward to discharge Reports his breathing is okay as long as he stays on the oxygen Objective Data Date Time Temp Pulse Resp B/P (MAP) Pulse Ox O2 Delivery O2 Flow Rate FiO2 12/03/17 10:34 96 Nasal Cannula 2.00 12/03/17 10:00 97 12/03/17 09:00 96 12/03/17 09:00 96 32 150/76 (100) 97 12/03/17 08:00 85 12/03/17 08:00 98 Nasal Cannula 3.00 12/03/17 08:00 97.8 85 24 137/72 (93) 98 12/03/17 07:00 88 28 136/76 (96) 89 12/03/17 06:00 93 12/03/17 04:00 98.0 88 20 126/84 (98) 92 12/03/17 04:00 88 12/03/17 02:00 87 12/03/17 00:00 90 13 118/73 (88) 92 12/03/17 00:00 90 12/02/17 22:00 100 12/02/17 21:53 96 Nasal Cannula 2.00 12/02/17 20:00 97.6 93 24 112/69 (83) 95 12/02/17 20:00 93 12/02/17 19:00 95 Nasal Cannula 2.00 12/02/17 18:00 101 12/02/17 17:37 2.00 12/02/17 16:00 92 12/02/17 16:00 97.7 92 23 118/64 (82) 96 12/02/17 14:00 95 12/03/17 12/03/17 12/03/17 07:00 15:00 23:00 Intake Total 0 ml Output Total 675 ml Balance -675 ml Result Diagram: 12/03/17 0320 12/03/17 0320 Laboratory Results Laboratory Tests Test 12/03/17 03:20 White Blood Count 19.2 TH/MM3 Red Blood Count 4.77 MIL/MM3 Hemoglobin 13.7 GM/DL Hematocrit 42.0 % Mean Corpuscular Volume 88.0 FL Mean Corpuscular Hemoglobin 28.7 PG Mean Corpuscular Hemoglobin Concent 32.6 % Red Cell Distribution Width 16.1 % Platelet Count 237 TH/MM3 Mean Platelet Volume 7.5 FL Neutrophils (%) (Auto) 96.4 % Lymphocytes (%) (Auto) 1.4 % Monocytes (%) (Auto) 1.9 % Eosinophils (%) (Auto) 0.1 % Basophils (%) (Auto) 0.2 % Neutrophils # (Auto) 18.5 TH/MM3 Lymphocytes # (Auto) 0.3 TH/MM3 Monocytes # (Auto) 0.4 TH/MM3 Eosinophils # (Auto) 0.0 TH/MM3 Basophils # (Auto) 0.0 TH/MM3 CBC Comment DIFF FINAL Differential Comment Blood Urea Nitrogen 26 MG/DL Creatinine 0.88 MG/DL Random Glucose 118 MG/DL Total Protein 5.5 GM/DL Albumin 2.2 GM/DL Calcium Level 8.1 MG/DL Phosphorus Level 2.6 MG/DL Magnesium Level 2.0 MG/DL Alkaline Phosphatase 95 U/L Aspartate Amino Transf (AST/SGOT) 18 U/L Alanine Aminotransferase (ALT/SGPT) 19 U/L Total Bilirubin 0.3 MG/DL Sodium Level 139 MEQ/L Potassium Level 4.3 MEQ/L Chloride Level 104 MEQ/L Carbon Dioxide Level 27.6 MEQ/L Anion Gap 7 MEQ/L Estimat Glomerular Filtration Rate 86 ML/MIN Administered Medications Medications (Trade) Dose Ordered Sig/Gabriele Route PRN Reason Start Time Stop Time Status Last Admin Dose Admin Sodium Chloride (NS Flush) 2 ml UNSCH PRN IV FLUSH FLUSH AFTER USING IV ACCESS 11/29/17 17:45 11/30/17 05:48 Sodium Chloride (NS Flush) 2 ml BID IV FLUSH 11/29/17 21:00 12/03/17 09:05 Enoxaparin Sodium (Lovenox Inj) 40 mg Q24H SQ 11/29/17 18:00 12/02/17 17:34 Senna/Docusate Sodium (Abigail-Colace) 1 tab BID PO 11/29/17 21:00 12/02/17 08:26 Levofloxacin/ Dextrose 150 ml @ 100 mls/hr Q24H IV 11/30/17 18:00 12/02/17 17:34 Albuterol/ Ipratropium (Duoneb Neb) 1 ampule Q6HR NEB NEB 11/29/17 22:00 12/03/17 10:33 Methylprednisolone Sodium Succinate (SoluMEDROL INJ) 40 mg Q8HR IV PUSH 1/13/18 23:00 12/03/17 06:50 Budesonide/ Formoterol Fumarate (Symbicort 160-4.5 Mcg Inh) 1 puff Q12HR INH 11/29/17 21:00 12/03/17 09:05 Guaifenesin (Mucinex Er) 600 mg BID PO 11/30/17 15:00 12/03/17 09:05 Tamsulosin HCl (Flomax) 0.4 mg DAILY PO 12/01/17 09:00 12/03/17 09:06 Aspirin (Ecotrin Ec) 325 mg DAILY PO 12/01/17 10:45 12/03/17 09:05 Chlorhexidine Gluconate (Chlorhexidine 2% Cloth) 3 pack DAILY@04 TOPICAL 12/02/17 04:00 12/06/17 04:01 12/02/17 04:00 Miscellaneous Information Patient in critical care unit? Ass... [id number] .XX 12/01/17 21:30 12/01/17 21:30 Objective Remarks GENERAL: Slightly disheveled older male resting in bed on laptop in no acute distress SKIN: Warm and dry. HEAD: Normocephalic. EYES: No injection or drainage. NECK: Supple, trachea midline. CARDIOVASCULAR: + S1/S2. Mild tachycardia in the low 100s RESPIRATORY: Clear to anterior left chest wall. Right lung has wheezing and scattered rhonchi GASTROINTESTINAL: Abdomen soft, non-tender, nondistended. EXTREMITIES: No cyanosis. SCDs to bilateral lower extremities MUSCULOSKELETAL: Adequate muscle tone. NEUROLOGICAL: No obvious focal deficit. Awake, alert, and oriented x3. Assessment/Plan Problem List: (1) Pleural effusion ICD Codes: J90 - Pleural effusion, not elsewhere classified Plan: 12/03: Patient to be discharged today on O2 therapy. He will return to clinic on 12/[address] Willams to begin chemotherapy (2) Non-small cell lung cancer (NSCLC) ICD Codes: C34.90 - Malignant neoplasm of unspecified part of unspecified bronchus or lung Plan: -- Status post 3 doses of Keytruda -- Patient persistent pleural effusions; likely treatment related Assessment 59y/o male with NSCLC admitted with dyspnea. Attending Statement The exam, history, and the medical decision-making described in the above note were completed with the assistance of the mid-level provider. I reviewed and agree with the findings presented. I attest that I had a [id number] encounter with the patient on the same day, and personally performed and documented my assessment and findings in the medical record. feels better with O2. He is going home with O2 cytology +ve for malignant cells. He has prog disease with Keytruda. I have recommended chemo avastin , carbo and taxol as out pt . He has appt with me for 12/15. Clear to d/c home. Problem Qualifiers (1) Non-small cell lung cancer (NSCLC): Qualified Codes: C34.90 - Malignant neoplasm of unspecified part of unspecified bronchus or lung Amna Gonsales Dec 03, 2017 12:40 Sridhar Willams MD Dec 03, 2017 17:27
== END 2017-12-03 14:09 | disposition home health service (06) | DRG 180 ==
LOC: NEPE 14:54 → NEDA 17:24 → N04B 19:27 → HIMN 12-01 15:42
PROVIDERS: ADMIT Hospitalist; ATTEND Hospitalist
PROC: 30233N1 Transfusion of Nonautologous Red Blood Cells into Peripheral Vein, Percutaneous Approach (ICD-10-PCS; principal; 2017-12-02)
DX: C34.90 Malignant neoplasm of unspecified part of unspecified bronchus or lung (principal); J96.90 Respiratory failure, unspecified, unspecified whether with hypoxia or hypercapnia; C78.01 Secondary malignant neoplasm of right lung; C78.02 Secondary malignant neoplasm of left lung; J90 Pleural effusion, not elsewhere classified; I31.3 Pericardial effusion (noninflammatory); I48.91 Unspecified atrial fibrillation; B95.7 Other staphylococcus as the cause of diseases classified elsewhere; J44.1 Chronic obstructive pulmonary disease with (acute) exacerbation; R39.11 Hesitancy of micturition; R59.0 Localized enlarged lymph nodes; R00.0 Tachycardia, unspecified; E78.00 Pure hypercholesterolemia, unspecified; H91.90 Unspecified hearing loss, unspecified ear; R63.4 Abnormal weight loss; Z87.891 Personal history of nicotine dependence; T45.1X5A Adverse effect of antineoplastic and immunosuppressive drugs, initial encounter
CPT/HCPCS: 36430; 71046; 71275; 76604; 80053; 81001; 82550; 83036; 83605; 83735; 84100; 84439; 84443; 84484; 85007; 85025; 85027; 85610; 85730; 86850; 86900; 86901; 86920; 87641; 93005; 93306; 94150; 94618; 94640; 94664; J1160; J1642; J1650; J1956; J2920; J2930; J7040; J7613; P9016; Q9967

== ENCOUNTER 2018-01-15 08:46 | Inpatient (IN) | payer MEDICARE, OTHER ==
[2018-01-15] VITALS (10 sets, daily range): BP systolic 87–100; BP diastolic 58–81; PULSE 90–111; RESP 16–30; TEMP 97.3–98.7; O2SAT 95–100
[~2018-01-15] VITALS: Ht 170.2 cm; Wt 57.0 kg
[~2018-01-15 08:46] MED LIST changes: +ASPI325T33 PO; +Albuterol-Ipratropium Neb NEB; -LEVA500T33 PO; +LEVA750T9 PO; +METO25TA3 PO; +PRED10PA2 PO; -PRED20 PO; +TAMS5CAP PO; +guaiFENesin ER PO
--- NOTE | 2018-01-15 09:39 | RADRPT ---
EXAM DATE/TIME: 01/15/2018 09:12 [facility] COMPARISON: CHEST SINGLE AP, November 17, 2017, 11:15. INDICATIONS : Shortness of breath. MEDICAL HISTORY : Carcinoma, lung. Hypercholesterolemia. Chronic obstructive pulmonary disease. SURGICAL HISTORY : [place] ENCOUNTER: Initial ACUITY: 1 day PAIN SCORE: 0/10 LOCATION: Bilateral chest FINDINGS: A single view of the chest demonstrates diffuse interstitial lung disease with bleb formation in both apices. There scarring in both lung bases right greater left. There may be a small right pleural eff usion. Right IJ Dnaolh-f-Ufry catheter in excellent position. The cardiomediastinal contours are unr emarkable. Osseous structures are intact. CONCLUSION: Diffuse interstitial lung disease. Small right pleural effusion. [id number] in good position. Jerzy Bach MD on January 15, 2018 at 9:37 Board Certified Radiologist. This report was verified electronically.
[2018-01-15 10:05] LABS: AUTOMATED NEUTROPHIL # 6.2 TH/MM3 (1.8-7.7); BASOPHIL # 0.1 TH/MM3 (0-0.2); BASOPHIL % 0.9 % (0.0-2.0); EOSINOPHIL # 0.1 TH/MM3 (0-0.4); EOSINOPHIL % 1.6 % (0.0-4.0); HEMATOCRIT 38.1 % (39.0-51.0); HEMOGLOBIN 13.3 GM/DL (13.0-17.0); LYMPH % 18.4 % (9.0-44.0); LYMPHOCYTE # 1.6 TH/MM3 (1.0-4.8); MEAN CELL VOLUME 85.7 FL (80.0-100.0); MEAN PLATELET VOLUME 7.3 FL (7.0-11.0); MONOCYTE # 0.8 TH/MM3 (0-0.9); NEUT % 70.1 % (16.0-70.0); PLATELET COUNT 307 TH/MM3 (150-450); RED BLOOD COUNT 4.44 MIL/MM3 (4.50-5.90); WHITE BLOOD COUNT 8.8 TH/MM3 (4.0-11.0)
[2018-01-15 10:20] LABS: BICARBONATE 23.9 MEQ/L (21.0-32.0); CREATININE 0.83 MG/DL (0.60-1.30)
--- NOTE | 2018-01-15 11:16 | PD ---
HPI Chief Complaint: Respiratory Symptoms Time Seen by Provider: 10:25 Travel History International Travel<30 days: No Contact w/Intl Traveler<30days: No Traveled to known affect area: No History of Present Illness HPI The patient 59 years old and arrives in the ER with shortness of breath. The patient has a history of lung cancer and has undergone 3 rounds of immunotherapy. He also underwent chemotherapy about 10 days prior. Since then he has had increasing shortness of breath. He reports he can no longer walk much further than a few feet before dyspnea overtakes him. No fever. No chest pain. Occasional cough is reported. The patient also has COPD and nebs have not been helpful. PFSH Past Medical History Asthma: No Autoimmune Disease: No Anxiety: No Depression: No Heart Rhythm Problems: No Cancer: Yes (STAGE 4 LUNG) Cardiovascular Problems: No High Cholesterol: Yes Chemotherapy: Yes (1 ROUND 10/13/17 - IMMUNOTHERAPY) Chest Pain: No Congestive Heart Failure: No COPD: Yes Diabetes: No Diminished Hearing: Yes Endocrine: No GERD: No Genitourinary: No Hiatal Hernia: No Immune Disorder: No Implanted Vascular Access Dvce: Yes (RIGHT CHEST PORT) Kidney Stones: No Musculoskeletal: No Neurologic: No Psychiatric: No Reproductive: No Respiratory: Yes Radiation Therapy: No Renal Failure: No Sickle Cell Disease: No Sleep Apnea: No Thyroid Disease: No Ulcer: No Influenza Vaccination: No Past Surgical History Abdominal Surgery: No AICD: No Body Medical Devices: port Cardiac Surgery: No Ear Surgery: No Endocrine Surgery: No Eye Surgery: No Genitourinary Surgery: No Gynecologic Surgery: No Joint Replacement: No Oral Surgery: Yes Pacemaker: No Thoracic Surgery: No Tonsillectomy: Yes Other Surgery: Yes ( port placement) Social History Alcohol Use: No Tobacco Use: No (QUITE JUL 2017) Substance Use: No Allergies-Medications (Allergen,Severity, Reaction): Coded Allergies: No Known Allergies (Verified Allergy, Unknown, 01/15/18) Reported Meds & Prescriptions Reported Meds & Active Scripts Active Oxygen (O2) Device Liter CELSO.CANULA CONTINUOUS Oxygen Concentrator Portable Gaseous 2 L/min via Nasal Canula Continuous For 99 months Ventolin Hfa 18 GM Inh (Albuterol Sulfate) 90 Mcg/Act Aer 2 Puff INH Q4-6H PRN Symbicort Inh (Budesonide/Formoterol Fumarate) 160-4.5 Mcg/Act Aero 1 Puff INH Q12HR Reported Duoneb (Ipratropium-Albuterol Neb) 0.5-2.5 Mg/3 Ml Neb 1 Nebule INH Q6HR NEB Review of Systems Except as stated in HPI: all other systems reviewed are Neg General / Constitutional: No: Fever Physical Exam Narrative GENERAL: 67 yo M, WNWD, speaking sentences Vital Signs Date Time Temp Pulse Resp B/P (MAP) Pulse Ox O2 Delivery O2 Flow Rate FiO2 01/15/18 09:34 92 30 96/81 (86) 100 Room Air 2.00 01/15/18 09:14 97 Nasal Cannula 2.00 3 09:14 100 Nasal Cannula 2.00 01/15/18 08:59 97.3 111 24 93/69 (77) 99 SKIN: Warm and dry. HEAD: Atraumatic. Normocephalic. EYES: Pupils equal and round. No scleral icterus. No injection or drainage. ENT: No nasal bleeding or discharge. Mucous membranes pink and moist. NECK: Trachea midline. No JVD. CARDIOVASCULAR: Tachycardic. Regular. RESPIRATORY: Occasional wheezing bilaterally. Speaking sentences. GASTROINTESTINAL: Abdomen soft, non-tender, nondistended. Hepatic and splenic margins not palpable. MUSCULOSKELETAL: Extremities without clubbing, cyanosis, or edema. No obvious deformities. NEUROLOGICAL: Awake and alert. No obvious cranial nerve deficits. Motor grossly within normal limits. Five out of 5 muscle strength in the arms and legs. Normal speech. PSYCHIATRIC: Appropriate mood and affect; insight and judgment normal. Data Data Last Documented VS Vital Signs Date Time Temp Pulse Resp B/P (MAP) Pulse Ox O2 Delivery O2 Flow Rate FiO2 01/15/18 09:34 92 30 96/81 (86) 100 Room Air 2.00 01/15/18 08:59 97.3 VS reviewed Orders Orders Complete Blood Count With Diff (01/15/18 09:04) Basic Metabolic Panel (Bmp) (01/15/18 09:04) Blood Culture (01/15/18 09:04) Iv Access Insert/Monitor (01/15/18 09:04) Ecg Monitoring (01/15/18 09:04) Oxygen Administration (01/15/18 09:04) Oximetry (01/15/18 09:04) Electrocardiogram (01/15/18 09:04) Chest, Single Ap (01/15/18 09:04) Sodium Chloride 0.9% Flush (Ns Flush) (01/15/18 11:30) Ceftriaxone Inj (Rocephin Inj) (01/15/18 11:30) Azithromycin Inj (Zithromax Inj) (01/15/18 11:30) Methylprednisolone So Succ Inj (Solumedr (01/15/18 11:30) Albuterol-Ipratropium Neb (Duoneb Neb) (01/15/18 11:30) Admit Order (Ed Use Only) (01/15/18 ) Medical Front Desk Coordinator / Telemetry ESTHELA.Q8H (01/15/18 12:24) Vital Signs (Adult) Q4H (01/15/18 12:24) Diet Heart Healthy (01/15/18 Lunch) Activity Bed Rest (01/15/18 12:24) Labs Laboratory Tests Test 01/15/18 09:29 White Blood Count 8.8 TH/MM3 Red Blood Count 4.44 MIL/MM3 Hemoglobin 13.3 GM/DL Hematocrit 38.1 % Mean Corpuscular Volume 85.7 FL Mean Corpuscular Hemoglobin 30.0 PG Mean Corpuscular Hemoglobin Concent 35.0 % Red Cell Distribution Width 16.0 % Platelet Count 307 TH/MM3 Mean Platelet Volume 7.3 FL Neutrophils (%) (Auto) 70.1 % Lymphocytes (%) (Auto) 18.4 % Monocytes (%) (Auto) 9.0 % Eosinophils (%) (Auto) 1.6 % Basophils (%) (Auto) 0.9 % Neutrophils # (Auto) 6.2 TH/MM3 Lymphocytes # (Auto) 1.6 TH/MM3 Monocytes # (Auto) 0.8 TH/MM3 Eosinophils # (Auto) 0.1 TH/MM3 Basophils # (Auto) 0.1 TH/MM3 CBC Comment DIFF FINAL Differential Comment Blood Urea Nitrogen 11 MG/DL Creatinine 0.83 MG/DL Random Glucose 120 MG/DL Calcium Level 9.0 MG/DL Sodium Level 139 MEQ/L Potassium Level 3.4 MEQ/L Chloride Level 103 MEQ/L Carbon Dioxide Level 23.9 MEQ/L Anion Gap 12 MEQ/L Estimat Glomerular Filtration Rate 92 ML/MIN MDM Medical Decision Making Medical Screen Exam Complete: Yes Emergency Medical Condition: Yes Medical Record Reviewed: Yes Differential Diagnosis Pneumonia, pleural effusion, anemia Narrative Course CBC & BMP Diagram 01/15/18 09:29 Calcium Level 9.0 Last Impressions Chest X-Ray 01/15/18 0904 Signed Impressions: Service Date/Time: January 09:12 - CONCLUSION: Diffuse interstitial lung disease. Small right pleural effusion. [id number] in good position. Jerzy Bach MD There is concern for diffuse infiltrates. Antibiotics started. Breathing treatments given. Admission for ongoing therapy. Diagnosis Primary Impression: Lung mass Additional Impressions: Pneumonia Qualified Codes: J18.9 - Pneumonia, unspecified organism Pleural effusion Admitting Information Admitting Physician Requests: Admit Benny Morocho MD Jan 15, 2018 11:16
[2018-01-15] MEDS ORDERED: AZITHROMYCIN INJ 500 MG in SODIUM CHLOR 0.9% 250 ML INJ 250 ML IV ONE (11:30)
[2018-01-15] MEDS ORDERED: cefTRIAXone INJ 1,000 MG in SODIUM CHLORIDE 0.9% INJ 100 ML IV ONE (11:30)
[2018-01-15] MEDS ORDERED: RESP: ALBUTEROL 2.5 MG/IPRATROPIUM 0.5 MG NEB (SCH) INH ONE (11:30)
[2018-01-15] MEDS ORDERED: SODIUM CHLORIDE 0.9% FLUSH 10 ML FLUSH IVF PRN (11:30)
[2018-01-15] MEDS ORDERED: methylPREDNISolone SOD SUCC 125 MG/2 ML VIAL IV PUSH ONE (11:30)
[2018-01-15] MEDS ORDERED: POTASSIUM CHLORIDE 20 MEQ CONTROLLED RELEASE TAB PO ONE (12:45)
[2018-01-15] MEDS ORDERED: SODIUM CHLORIDE 0.9% FLUSH 10 ML FLUSH IV FLUSH PRN (12:45)
[2018-01-15] MEDS ORDERED: RESP: ALBUTEROL 2.5 MG/3 ML NEB (PRN) INH (12:45)
[2018-01-15] MEDS ORDERED: HEPARIN SODIUM - SQ 10,000 UNITS/ML VIAL SQ SCH (13:00)
[2018-01-15] MEDS ORDERED: IOHEXOL 350 MG/ML 10 ML VIAL (for RAD DIAG) IVCONTRAST ONE (13:18)
--- NOTE | 2018-01-15 13:33 | RADRPT ---
EXAM DATE/TIME: 01/15/2018 13:10 [facility] COMPARISON: CT PULMONARY ANGIOGRAM, November 29, 2017, 18:43. INDICATIONS : Shortness of breath. IV CONTRAST: 75 cc Omnipaque 350 (iohexol) IV RADIATION DOSE: 8.3 CTDIvol (mGy) MEDICAL HISTORY : Chronic obstructive pulmonary disease. Carcinoma, lung. SURGICAL HISTORY : None. ENCOUNTER: Initial ACUITY: 1 week PAIN SCALE: 0/10 LOCATION: chest TECHNIQUE: Volumetric scanning of the chest was performed using a pulmonary embolism protocol MIP images were re constructed. Using automated exposure control and adjustment of the mA and/or kV according to patien t size, radiation dose was kept as low as reasonably achievable to obtain optimal diagnostic quality images. DICOM format image data is available electronically for review and comparison. Follow-up recommendations for detected pulmonary nodules are based at a minimum on nodule size and pa tient risk factors according to Fleischner Society Guidelines. FINDINGS: PULMONARY ARTERIES: Multiple filling defects are seen within the within the left upper lobe and left lower lobe pulmonary arteries. Similar changes are seen within the right lower lobe pulmonary arteries. LUNGS: The mass within the right upper lobe/perihilar region has decreased in size measuring 4.0 x 3.3 cm. T he scattered ill-defined parenchymal nodules have also decreased in size and number. Severe emphysema . PLEURAE: There is bilateral pleural thickening and small pleural effusions greater on the right. MEDIASTINUM: There is prominent mediastinal and right hilar adenopathy but decreased in prominence from previous s tudy. MUSCULOSKELETAL: Within normal limits for patient age. MISCELLANEOUS: The visualized upper abdominal organs demonstrate no acute abnormality. Right-sided port noted with t ip in the cavoatrial junction CONCLUSION: 1. Multifocal bilateral pulmonary emboli. 2. Right upper lobe mass and multiple bilateral nodules have significantly decreased in size and numb er from previous study. 3. Mediastinal and hilar adenopathy has also decreased in prominence. Clif Yun MD on January 15, 2018 at 13:25 Board Certified Radiologist. This report was verified electronically.
[2018-01-15] MEDS ORDERED: HEPARIN SODIUM - IV 10,000 UNITS/10 ML VIAL IV PUSH ONE (15:00)
[2018-01-15] MEDS: RESP: ALBUTEROL 2.5 MG/IPRATROPIUM 0.5 MG NEB (SCH) INH ×2 (15:19→19:16)
[2018-01-15 15:33] LABS: INTERNATIONAL NORMALIZED RATIO 1.1 RATIO; PROTHROMBIN TIME - PATIENT 10.8 SEC (9.8-11.6)
[2018-01-15] MEDS: HEPARIN-D5W 25,000 U/250 ML 250 ML IV PRN (16:12)
--- NOTE | 2018-01-15 16:59 | MB ---
cc: Linda Bettencourt MD DATE OF CONSULT: HISTORY OF PRESENT ILLNESS: Mr. Silva is a 59-year-old white male, known to me with stage IV lung cancer and significant underlying COPD, oxygen dependent. I have known him for several months. He has been in and out of the hospital with recurrent pleural effusion, exacerbations of his COPD and has been followed by Dr. Willams for his lung cancer. Recently treated with a new immune modulator and chemotherapy and apparently had been doing reasonably well. I saw him as an outpatient about a week ago with mild bronchitis, was treating him antibiotics and steroids and his bronchodilators but he called the office yesterday with increasing shortness of breath, fatigue, lightheadedness and failure to respond to what should have been adequate therapy. For that reason, I sent him in to the Emergency Room and a CTA on presentation revealed multifocal pulmonary emboli. He has been started on heparin. At the time of this consultation, 4:30 p.m., he is feeling better. Head is clear. Breathing is easier and O2 saturations are 97-100% on 2 liters. PAST MEDICAL HISTORY: Basically, as noted above, he is former smoker who developed metastatic lung cancer, has oxygen dependent COPD, no significant prior cardiovascular history. For further review, please refer to several recent notes in previous admissions. ALLERGIES: NONE KNOWN. MEDICATIONS: Reviewed in the EMR. He has been started on antibiotics, aerosolized bronchodilators, IV corticosteroids and IV heparin. PHYSICAL EXAMINATION: GENERAL: This white male, no distress at rest. VITAL SIGNS: Afebrile, blood pressure is 93/70, respirations are 18, pulse is 90. HEENT: Sclerae pale and icteric. Mucous membranes are moist. NECK: No neck pain distention. CHEST: Diminished but clear. No congestion or wheezing. HEART: Regular rhythm, no harsh murmur. ABDOMEN: Soft, no peripheral edema or cyanosis. No peripheral edema or cyanosis. CTA report is reviewed. He has no significant recurrence of his effusions and his nodules and right hilar mass have actually diminished in size in response to therapy. ASSESSMENT AND PLAN: Mr. Silva presents with bilateral pulmonary emboli. This is probably due to relative immobility due to recent frailty but also underlying malignancy predisposing him to this. He has been started on heparin. Dr. Willams has been consulted. I will defer to him as to the choice of oral therapy to continue him on. We will continue the current therapy for chronic obstructive pulmonary disease until tomorrow and if he is stable tomorrow, we could switch him over to oral therapy. Antibiotics will be continued today but if again status is stable tomorrow and blood cultures are negative, antibiotics could probably be discontinued. R. MD KYLE Mckeon/PETER , 04:30 PM , 04:57 PM
--- NOTE | 2018-01-15 17:55 | HHI.HP ---
HPI Service [facility] Primary Care Physician No Primary Care Physician Admission Diagnosis Dyspnea; Lung CA; L Pleural Effusion Diagnoses: Travel History International Travel<30 Days: No Contact w/Intl Traveler <30 Da: No Traveled to Known Affected Are: No History of Present Illness Patient is 59-year-old male with a history of stage IV lung cancer, COPD, currently undergoing chemotherapy with most recent dose 10 days ago. He presents with one-week history of worsening shortness of breath, dull substernal chest pain which is worse with a deep breath. he failed outpatient antibiotic and steroid course. He reports a nonproductive cough for the past week. Denies any fevers, chills. Review of Systems Performed and negative except for HPI and past medical history. Past Family Social History Past Medical History COPD Stage IV lung cancer. Follows with Dr. Екатерина BOOKER Past Surgical History Tonsillectomy Port placement Reported Medications Reported Meds & Active Scripts Active Oxygen (O2) Device Liter CELSO.CANULA CONTINUOUS Oxygen Concentrator Portable Gaseous 2 L/min via Nasal Canula Continuous For 99 months Ventolin Hfa 18 GM Inh (Albuterol Sulfate) 90 Mcg/Act Aer 2 Puff INH Q4-6H PRN Symbicort Inh (Budesonide/Formoterol Fumarate) 160-4.5 Mcg/Act Aero 1 Puff INH Q12HR Reported Duoneb (Ipratropium-Albuterol Neb) 0.5-2.5 Mg/3 Ml Neb 1 Nebule INH Q6HR NEB Allergies: Coded Allergies: No Known Allergies (Verified Allergy, Unknown, 01/15/18) Family History Family history reviewed with the patient and found to be currently noncontributory. Social History Patient reports smoking one half pack per day for 50 years, quit in August. Denies drinking. Denies illicit drugs. Physical Exam Vital Signs Vital Signs Date Time Temp Pulse Resp B/P (MAP) Pulse Ox O2 Delivery O2 Flow Rate FiO2 01/15/18 16:55 98.4 96 16 95/65 (75) 98 01/15/18 16:35 01/15/18 14:53 90 21 87/63 (71) 97 Nasal Cannula 2.00 01/15/18 09:34 92 30 96/81 (86) 100 Room Air 2.00 01/15/18 09:14 97 Nasal Cannula 2.00 01/15/18 09:14 100 Nasal Cannula 2.00 01/15/18 08:59 97.3 111 24 93/69 (77) 99 Physical Exam GENERAL: This is a well-nourished, well-developed patient, who appears moderately short of breath. Alert and oriented 3. SKIN: No rashes, ecchymoses or lesions. Cool and dry. HEAD: Atraumatic. Normocephalic. No temporal or scalp tenderness. EYES: Pupils equal round and reactive. Extraocular motions intact. No scleral icterus. No injection or drainage. ENT: Nose without bleeding, purulent drainage or septal hematoma. Throat without erythema, tonsillar hypertrophy or exudate. Uvula midline. Airway patent. NECK: Trachea midline. No JVD or lymphadenopathy. Supple, nontender, no meningeal signs. CARDIOVASCULAR: Regular rate and rhythm without murmurs, gallops, or rubs. RESPIRATORY: Clear to auscultation. Breath sounds equal bilaterally. No wheezes , rales, or rhonchi. GASTROINTESTINAL: Abdomen soft, non-tender, nondistended. No hepato-splenomegaly , or palpable masses. No guarding. MUSCULOSKELETAL: Extremities without clubbing, cyanosis, or edema. No joint tenderness, effusion, or edema noted. No calf tenderness. Negative Homans sign bilaterally. NEUROLOGICAL: Awake and alert. Cranial nerves II through XII intact. Motor and sensory grossly within normal limits. Five out of 5 muscle strength in all muscle groups. Normal speech. Laboratory Laboratory Tests Test 01/15/18 09:29 01/15/18 12:38 01/15/18 14:56 White Blood Count 8.8 Red Blood Count 4.44 Hemoglobin 13.3 Hematocrit 38.1 Mean Corpuscular Volume 85.7 Mean Corpuscular Hemoglobin 30.0 Mean Corpuscular Hemoglobin Concent 35.0 Red Cell Distribution Width 16.0 Platelet Count 307 Mean Platelet Volume 7.3 Neutrophils (%) (Auto) 70.1 Lymphocytes (%) (Auto) 18.4 Monocytes (%) (Auto) 9.0 Eosinophils (%) (Auto) 1.6 Basophils (%) (Auto) 0.9 Neutrophils # (Auto) 6.2 Lymphocytes # (Auto) 1.6 Monocytes # (Auto) 0.8 Eosinophils # (Auto) 0.1 Basophils # (Auto) 0.1 CBC Comment DIFF FINAL Differential Comment Blood Urea Nitrogen 11 Creatinine 0.83 Random Glucose 120 Calcium Level 9.0 Sodium Level 139 Potassium Level 3.4 Chloride Level 103 Carbon Dioxide Level 23.9 Anion Gap 12 Estimat Glomerular Filtration Rate 92 Blood Gas Puncture Site LT RADIAL Blood Gas Patient Temperature 98.6 Blood Gas HCO3 22 Blood Gas Base Excess -1.3 Blood Gas Oxygen Saturation 97 Arterial Blood pH 7.45 Arterial Blood Partial Pressure CO2 33 Arterial Blood Partial Pressure O2 124 Arterial Blood Oxygen Content 16.5 Arterial Blood Carboxyhemoglobin 0.9 Arterial Blood Methemoglobin 0.6 Blood Gas Hemoglobin 11.9 Oxygen Delivery Device NASAL CANNULA Blood Gas Liter Flow 2 Prothrombin Time 10.8 Prothromb Time International Ratio 1.1 Activated Partial Thromboplast Time 26.4 Date/Time Source Procedure Growth Status 01/15/18 09:35 Blood Peripheral Aerobic Blood Culture Pending Received 01/15/18 09:35 Blood Peripheral Anaerobic Blood Culture Pending Received Result Diagram: 01/15/1892801/15/18928 Caprini VTE Risk Assessment Caprini VTE Risk Assessment: Mod/High Risk (score >= 2) Caprini Risk Assessment Model Point Value = 1 Point Value = 2 Point Value = 3 Point Value = 5 Age 41-60 Minor surgery BMI > 25 kg/m2 Swollen legs Varicose veins or History of unexplained or recurrent spontaneous Oral contraceptives or hormone replacement Sepsis (< 1 month) Serious lung disease, including pneumonia (< 1 month) Abnormal pulmonary function Acute myocardial infarction Congestive heart failure (< 1 month) History of inflammatory bowel disease Medical patient at bed rest Age 61-74 Arthroscopic surgery Major open surgery (> 45 min) Laparoscopic surgery (> 45 min) Malignancy Confined to bed (> 72 hours) Immobilizing plaster cast Central venous access Age >= 75 History of VTE Family history of VTE Factor V Leiden Prothrombin [id number] Lupus anticoagulant Anticardiolipin antibodies Elevated serum homocysteine Heparin-induced thrombocytopenia Other congenital or acquired thrombophilia Stroke (< 1 month) Elective arthroplasty Hip, pelvis, or leg fracture Acute spinal cord injury (< 1 month) Prophylaxis Regimen Total Risk Factor Score Risk Level Prophylaxis Regimen 0-1 Low Early ambulation 2 Moderate Order ONE of the following: *Sequential Compression Device (SCD) *Heparin 5000 units SQ BID 3-4 Higher Order ONE of the following medications: *Heparin 5000 units SQ TID *Enoxaparin/Lovenox 40 mg SQ daily (WT < 150 kg, CrCl > 30 mL/min) *Enoxaparin/Lovenox 30 mg SQ daily (WT < 150 kg, CrCl > 10-29 mL/min) *Enoxaparin/Lovenox 30 mg SQ BID (WT < 150 kg, CrCl > 30 mL/min) AND/OR *Sequential Compression Device (SCD) 5 or more Highest Order ONE of the following medications: *Heparin 5000 units SQ TID (Preferred with Epidurals) *Enoxaparin/Lovenox 40 mg SQ daily (WT < 150 kg, CrCl > 30 mL/min) *Enoxaparin/Lovenox 30 mg SQ daily (WT < 150 kg, CrCl > 10-29 mL/min) *Enoxaparin/Lovenox 30 mg SQ BID (WT < 150 kg, CrCl > 30 mL/min) AND *Sequential Compression Device (SCD) Assessment and Plan Assessment and Plan //Acute bilateral pulmonary emboli = CT ordered, personally interpreted, which shows bilateral pulmonary emboli. = Start on heparin drip. Continue for 24 hours. Hematology will be following and can recommend anticoagulation to go forward. //COPD exacerbation -We will continue steroids, azithromycin, duo nebs. Patient feels better after steroids. Pulmonology following. Appreciate assistance. //Stage IV lung cancer. -We will consult patient's primary oncologist given ongoing chemotherapy. //Hypokalemia. Potassium 3.4. Mild. Replace. Discussed Condition With Patient, nurse, ED physician, Dr. Bettencourt Physician Certification 2 Midnight Certification Type: Admission for Inpatient Services Order for Inpatient Services The services are ordered in accordance with Medicare regulations or non- Medicare payer requirements, as applicable. In the case of services not specified as inpatient-only, they are appropriately provided as inpatient services in accordance with the 2-midnight benchmark. Estimated LOS (days): 3 days is the estimated time the patient will need to remain in the hospital, assuming treatment plan goals are met and no additional complications. Post-Hospital Plan: Not yet determined Phoenix Pang MD Jan 15, 2018 17:55
[2018-01-15] MEDS: methylPREDNISolone SOD SUCC 40 MG/1 ML VIAL IV PUSH SCH ×2 (18:46→23:54)
[2018-01-15] MEDS: BUDESONIDE-FORMOTEROL 160/4.5 MCG INHALER INH SCH (20:44)
[2018-01-15] MEDS: SODIUM CHLORIDE 0.9% FLUSH 10 ML FLUSH IV FLUSH SCH (20:47)
[2018-01-15 22:26] LABS: HEMATOCRIT 34.3 % (39.0-51.0); HEMOGLOBIN 11.6 GM/DL (13.0-17.0); MEAN CELL VOLUME 85.1 FL (80.0-100.0); MEAN CORPUSCULAR HEMOGLOBIN 28.9 PG (27.0-34.0); MEAN CORPUSCULAR HGB CONC 33.9 % (32.0-36.0); MEAN PLATELET VOLUME 7.3 FL (7.0-11.0); PLATELET COUNT 261 TH/MM3 (150-450); RED BLOOD COUNT 4.02 MIL/MM3 (4.50-5.90); RED CELL DISTRIBUTION WIDTH 16.4 % (11.6-17.2)
[2018-01-16] MEDS: RESP: ALBUTEROL 2.5 MG/IPRATROPIUM 0.5 MG NEB (SCH) INH ×4 (03:23→20:18)
[2018-01-16 03:38] VITALS: BP 93/57; PULSE 84; RESP 16; TEMP 97.5; O2SAT 97
[2018-01-16] MEDS: methylPREDNISolone SOD SUCC 40 MG/1 ML VIAL IV PUSH SCH (05:16)
[2018-01-16 07:23] LABS: BASOPHIL % 0.1 % (0.0-2.0); HEMATOCRIT 34.1 % (39.0-51.0); HEMOGLOBIN 11.5 GM/DL (13.0-17.0); LYMPH % 6.3 % (9.0-44.0); LYMPHOCYTE # 0.8 TH/MM3 (1.0-4.8); MEAN CELL VOLUME 86.3 FL (80.0-100.0); MEAN CORPUSCULAR HEMOGLOBIN 29.1 PG (27.0-34.0); MEAN CORPUSCULAR HGB CONC 33.8 % (32.0-36.0); MEAN PLATELET VOLUME 7.4 FL (7.0-11.0); MONOCYTE # 0.3 TH/MM3 (0-0.9); NEUT % 91.6 % (16.0-70.0); PLATELET COUNT 291 TH/MM3 (150-450); RED BLOOD COUNT 3.95 MIL/MM3 (4.50-5.90); RED CELL DISTRIBUTION WIDTH 16.3 % (11.6-17.2); WHITE BLOOD COUNT 13.1 TH/MM3 (4.0-11.0)
[2018-01-16 07:30] VITALS: PULSE 83
[2018-01-16 07:42] LABS: BICARBONATE 24.2 MEQ/L (21.0-32.0); CALCIUM 9.1 MG/DL (8.5-10.1); CREATININE 0.83 MG/DL (0.60-1.30)
[2018-01-16 07:56] VITALS: BP 97/59; PULSE 86; RESP 20; TEMP 97.9; O2SAT 98
--- NOTE | 2018-01-16 08:43 | HHI.PR ---
Subjective Remarks Patient seen around 7:30 AM. Says he is feeling all right. Says that shortness of breath is improving. Denies any chest pain currently. Feels as if he might be able to go home today. Objective Vital Signs Date Time Temp Pulse Resp B/P (MAP) Pulse Ox O2 Delivery O2 Flow Rate FiO2 01/16/18 07:56 97.9 86 20 97/59 (72) 98 01/16/18 03:38 97.5 84 16 93/57 (69) 97 01/15/18 23:47 98.3 92 16 100/65 (77) 99 01/15/18 23:00 95 01/15/18 20:25 98.7 100 20 91/58 (69) 98 01/15/18 19:16 95 Nasal Cannula 2.00 01/15/18 18:14 Nasal Cannula 2.00 01/15/18 17:41 95 01/15/18 16:55 98.4 96 16 95/65 (75) 98 01/15/18 16:35 01/15/18 14:53 90 21 87/63 (71) 97 Nasal Cannula 2.00 01/15/18 09:34 92 30 96/81 (86) 100 Room Air 2.00 01/15/18 09:14 97 Nasal Cannula 2.00 01/15/18 09:14 100 Nasal Cannula 2.00 01/15/18 08:59 97.3 111 24 93/69 (77) 99 I/O 01/15/18 01/15/18 01/15/18 01/16/18 01/16/18 01/16/18 07:00 15:00 23:00 07:00 15:00 23:00 Intake Total 350 ml 820 ml Output Total 200 ml Balance 350 ml 620 ml Intake Oral 820 ml IV Total 350 ml Output Urine Total 200 ml # Voids 1 Result Diagram: 01/16/18 0600 01/16/18 0600 Objective Remarks GENERAL: Patient lying in bed. Appears comfortable. Alert and oriented 3 SKIN: Warm and dry. HEAD: Normocephalic. EYES: No scleral icterus. No injection or drainage. NECK: Supple, trachea midline. No JVD. CARDIOVASCULAR: Regular rate and rhythm without murmurs, gallops, or rubs. RESPIRATORY: Breath sounds equal bilaterally. No accessory muscle use. Patient does have some mild wheezing bilaterally. GASTROINTESTINAL: Abdomen soft, non-tender, nondistended. MUSCULOSKELETAL: No cyanosis, or edema. BACK: Nontender without obvious deformity. No CVA tenderness. A/P Assessment and Plan //Acute bilateral pulmonary emboli = CT ordered, personally interpreted, which shows bilateral pulmonary emboli. = Start on heparin drip. Continue for 24 hours. Hematology will be following and can recommend anticoagulation to go forward. = Continues on heparin drip. Follow-up hematology recommendations. Appreciate assistance. //COPD exacerbation -We will continue steroids, azithromycin, duo nebs. Patient feels better after steroids. Pulmonology following. Appreciate assistance. = Taper steroids. //Stage IV lung cancer. -We will consult patient's primary oncologist given ongoing chemotherapy. //Leukocytosis of 13.1. Likely secondary to high-dose IV steroids. //Hypokalemia. Potassium 3.4. Mild. Replace. Discharge Planning Follow-up hematology recommendations. Phoenix Pang MD Jan 16, 2018 08:43
[2018-01-16 08:57] VITALS: O2SAT 98
--- NOTE | 2018-01-16 09:00 | EKG ---
Date Performed: 01/15/2018 Time Performed: 10:58:30 PTAGE: 67 years EKG: Sinus rhythm LOW QRS VOLTAGE IN EXTREMITY LEADS BORDERLINE ECG PREVIOUS TRACING : 12/01/2017 21.32 Since the prior tracing, there has been no significant zaman DOCTOR: Marci Brown Interpretating Date/Time 01/16/2018 08:59:20
[2018-01-16] MEDS: SODIUM CHLORIDE 0.9% FLUSH 10 ML FLUSH IV FLUSH SCH (10:03)
[2018-01-16] MEDS: BUDESONIDE-FORMOTEROL 160/4.5 MCG INHALER INH SCH (10:03)
[2018-01-16] MEDS ORDERED: predniSONE 20 MG TAB PO SCH (10:30)
[2018-01-16 11:46] VITALS: BP 92/62; PULSE 106; RESP 20; TEMP 98.7; O2SAT 97
[2018-01-16] MEDS ORDERED: FLUTICASONE PROPIONATE 50 MCG/ACT 16 GM NASAL SPRAY NASAL SCH (12:00)
[2018-01-16] MEDS ORDERED: cefTRIAXone INJ 1,000 MG in SODIUM CHLORIDE 0.9% INJ 100 ML IV SCH (12:00)
[2018-01-16] MEDS ORDERED: AZITHROMYCIN 250 MG TAB PO SCH (12:00)
[2018-01-16] MEDS: HEPARIN-D5W 25,000 U/250 ML 250 ML IV PRN (12:12)
[2018-01-16] MEDS ORDERED: OXYMETAZOLINE HCL 0.05% 15 ML NASAL SPRAY NASAL ONE (13:00)
[2018-01-16] MEDS ORDERED: APIX5TAB PO (14:01)
[2018-01-16] MEDS ORDERED: PRED5PAK PO (14:02)
--- NOTE | 2018-01-16 14:05 | HHI.DS ---
Discharge Summary Admission Date Jan 15, 2018 at 14:40 Discharge Date: Jan 16, 2018 Admitting Diagnosis Dyspnea; Lung CA; L Pleural Effusion (1) Pulmonary embolism ICD Code: I26.99 - Other pulmonary embolism without acute cor pulmonale (2) Non-small cell carcinoma of lung, stage 4 ICD Code: C34.90 - Malignant neoplasm of unspecified part of unspecified bronchus or lung Procedures No invasive procedures. Brief History - From Admission Patient is 59-year-old male with a history of stage IV lung cancer, COPD, currently undergoing chemotherapy with most recent dose 10 days ago. He presents with one-week history of worsening shortness of breath, dull substernal chest pain which is worse with a deep breath. he failed outpatient antibiotic and steroid course. He reports a nonproductive cough for the past week. Denies any fevers, chills. CBC/BMP: 01/16/18 0600 01/16/18 0600 Significant Findings Laboratory Tests Test 01/15/18 09:29 01/15/18 12:38 01/15/18 14:56 01/15/18 22:02 Red Blood Count 4.44 MIL/MM3 (4.50-5.90) 4.02 MIL/MM3 (4.50-5.90) Hematocrit 38.1 % (39.0-51.0) 34.3 % (39.0-51.0) Neutrophils (%) (Auto) 70.1 % (16.0-70.0) Monocytes (%) (Auto) 9.0 % (0.0-8.0) Random Glucose 120 MG/DL (74-106) Potassium Level 3.4 MEQ/L (3.5-5.1) Arterial Blood pH 7.45 (7.380-7.420) Arterial Blood Partial Pressure CO2 33 mmHg (38-42) Arterial Blood Partial Pressure O2 124 mmHG (61-120) Blood Gas Hemoglobin 11.9 G/DL (12.0-16.0) Hemoglobin 11.6 GM/DL (13.0-17.0) Test 01/15/18 22:30 01/16/18 04:25 01/16/18 06:00 Activated Partial Thromboplast Time 41.5 SEC (24.3-30.1) 44.3 SEC (24.3-30.1) White Blood Count 13.1 TH/MM3 (4.0-11.0) Red Blood Count 3.95 MIL/MM3 (4.50-5.90) Hemoglobin 11.5 GM/DL (13.0-17.0) Hematocrit 34.1 % (39.0-51.0) Neutrophils (%) (Auto) 91.6 % (16.0-70.0) Lymphocytes (%) (Auto) 6.3 % (9.0-44.0) Neutrophils # (Auto) 12.0 TH/MM3 (1.8-7.7) Lymphocytes # (Auto) 0.8 TH/MM3 (1.0-4.8) Random Glucose 148 MG/DL (74-106) Imaging Last Impressions Chest X-Ray 01/15/18903 Signed Impressions: Service Date/Time: January 09:12 - CONCLUSION: Diffuse interstitial lung disease. Small right pleural effusion. [id number] in good position. Jerzy Bach MD CT Angiography 01/15/18 0000 Signed Impressions: Service Date/Time: January 13:10 - CONCLUSION: 1. Multifocal bilateral pulmonary emboli. 2. Right upper lobe mass and multiple bilateral nodules have significantly decreased in size and number from previous study. 3. Mediastinal and hilar adenopathy has also decreased in prominence. Clif Yun MD PE at Discharge Last Impressions Chest X-Ray 01/15/18903 Signed Impressions: Service Date/Time: January 09:12 - CONCLUSION: Diffuse interstitial lung disease. Small right pleural effusion. [id number] in good position. Jerzy Bach MD CT Angiography 01/15/18 0000 Signed Impressions: Service Date/Time: January 13:10 - CONCLUSION: 1. Multifocal bilateral pulmonary emboli. 2. Right upper lobe mass and multiple bilateral nodules have significantly decreased in size and number from previous study. 3. Mediastinal and hilar adenopathy has also decreased in prominence. Clif Yun MD Hospital Course Chest x-ray as above with no acute abnormalities. CT pulmonary angiogram was performed which showed multifocal bilateral pulmonary emboli. Patient was started on heparin drip, with transition to Eliquis as per hematology. Pulmonology was consulted and followed during admission. Patient will discharge home. Follow-up with oncology, pulmonology, primary care. For problem based summary from most recent progress note, please see below //Acute bilateral pulmonary emboli = CT ordered, personally interpreted, which shows bilateral pulmonary emboli. = Start on heparin drip. Continue for 24 hours. Hematology will be following and can recommend anticoagulation to go forward. = Continues on heparin drip. Follow-up hematology recommendations. Appreciate assistance. //COPD exacerbation -We will continue steroids, azithromycin, duo nebs. Patient feels better after steroids. Pulmonology following. Appreciate assistance. = Taper steroids. //Stage IV lung cancer. -We will consult patient's primary oncologist given ongoing chemotherapy. //Leukocytosis of 13.1. Likely secondary to high-dose IV steroids. //Hypokalemia. Potassium 3.4. Mild. Replace. Pt Condition on Discharge: Good Discharge Disposition: Discharge Home Discharge Time: > 30 minutes Discharge Instructions DIET: Follow Instructions for: As Tolerated, No Restrictions Activities you can perform: Regular-No Restrictions Follow up Referrals: Oncology/Hematology - 1 Week with Sridhar Willams MD PCP Follow-up - 1 Week Pulmonology - 1 Week with Linda Bettencourt MD New Medications: Apixaban (Eliquis) 5 Mg Tab 5 MG PO BID for Blood Clot Prevention, #60 TAB 0 Refills Take course of 10mg twice daily for one week, then start this regimen which will continue indefinitely. Apixaban (Eliquis) 5 Mg Tab 10 MG PO BID for Blood Clot Prevention, #14 TAB 0 Refills Prednisone (21) 5 mg tab Dose Pack (Prednisone (21) 5 mg tab Dose Pack) 5 Mg Dspk 5 MG PO DIRECTED for Inflammation, #1 DSPK 0 Refills Continued Medications: Albuterol 18 GM Inh (Ventolin Hfa 18 GM Inh) 90 Mcg/Act Aer 2 PUFF INH Q4-6H PRN for SHORTNESS OF BREATH, #1 INHALER 0 Refills Budesonide-Formoterol Inh (Symbicort Inh) 160-4.5 Mcg/Act Aero 1 PUFF INH Q12HR for Shortness of Breath, #1 INHALER 0 Refills Ipratropium-Albuterol Neb (Duoneb) 0.5-2.5 Mg/3 Ml Neb 1 NEBULE INH Q6HR NEB for Breathing Treatment, #120 NEBULE 0 Refills Phoenix Pang MD Jan 16, 2018 14:05
[2018-01-16] MEDS ORDERED: APIXABAN 5 MG TABLET PO ONE (14:30)
[2018-01-16 15:04] VITALS: BP 92/59; PULSE 95; RESP 20; TEMP 98.3; O2SAT 97
--- NOTE | 2018-01-16 16:12 | HHI.FF ---
Face to Face Verification Diagnosis: (1) Non-small cell carcinoma of lung, stage 4 Physical Therapy Order: Evaluate and Treat Home Health Nursing Order: Nursing assessment with vital signs I have seen patient Onesimo Silva on 01/16/18. My clinical findings support the need for the requested home health care services because: Limited ability to care for self I certify that my clinical findings support that this patient is homebound because: Unsafe to leave home unassisted Phoenix Pang MD Jan 16, 2018 16:12
[2018-01-16] MEDS ORDERED: MISCMIS81 (16:13)
--- NOTE | 2018-01-16 18:20 | MB ---
cc: Dorian Willams MD DATE OF CONSULT: 01/16/2018 REASON FOR CONSULTATION: Consult requested by hospitalist for evaluation of new onset bilateral pulmonary embolism in a patient who has stage IV nonsmall cell lung cancer and he is been on chemotherapy. HISTORY OF PRESENT ILLNESS: Onesimo is 67-year-old pleasant male. He was diagnosed with nonsmall cell lung cancer, adenocarcinoma, PD-L1 positive in 08/2017. He was treated with Keytruda. After the third cycle, he was found to have progressive disease and he was also intolerant to it. The patient is now on second-line avastin, carboplatin and taxol chemotherapy, which was started on 12/15. So far he had 2 cycles of that and has tolerated it well. The patient had chemotherapy a week before this past Friday. He tolerated it well. Two days later, he was complaining of shortness of breath. He sent to see his child nutrition manager, Dr. Nahun Bettencourt. He was prescribed some antibiotics, which he took it for 1 week but his symptoms did not improve. He had called his child nutrition manager, who advised him to come to the emergency room. In the emergency room, the patient had a CT angiogram of the chest, which showed bilateral pulmonary embolism. The patient was started on heparin. I have been asked to see the patient for further evaluation. The patient states that his breathing has improved since he has been in the hospital. He is able to walk now with the assistance. Prior to that, he was so short of breath that he could hardly walk a few steps. His is present at the bedside. The patient wanted to go home. He does not want to stay in the hospital. He thinks that he is better and he will be better off at home. The rest of the review of systems is negative. PAST MEDICAL HISTORY: Nonsmall cell lung cancer, COPD. PAST SURGICAL HISTORY: Tonsillectomy, Infusaport placement. ALLERGIES: NONE. MEDICATIONS: Prior to coming to the hospital were Symbicort, tamsulosin, ipratropium, Lasix and chemotherapy with avastin, carboplatin and taxol. FAMILY HISTORY: Parents of natural causes. He has 1 sister, no brothers, 6 sons and 1 daughter. One of the sons from a motor vehicle accident. SOCIAL HISTORY: He is , lives with his . 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 He used to smoke cigarettes 1-1/2 pack a day for 50 years and quit recently. He used to drink alcohol heavily. PHYSICAL EXAMINATION: GENERAL: He is a well developed, well nourished white male and in no apparent distress. VITAL SIGNS: Temperature 98.7, heart rate is 106, blood pressure 92/62, O2 saturation 97%. HEENT: PERRLA, EOMI. Anicteric. No oral lesions noted. NECK: Supple. There is no cervical, supraclavicular or axillary lymphadenopathy noted. LUNGS: Decreased breath sounds on both sides. HEART: Tachycardic with no murmur. ABDOMEN: Soft, nontender, no hepatosplenomegaly. EXTREMITIES: No pedal edema. NEUROLOGIC: Awake, alert, oriented x 3. SKIN: No significant lesions noted. ASSESSMENT: 1, Bilateral pulmonary embolism, first episode unprovoked, currently on heparin. 2. Chronic obstructive pulmonary disease. 3. Nonsmall cell lung cancer, stage IV, currently on palliative chemotherapy. PLAN: I have reviewed his available records and I had an extensive discussion with the patient and his regarding the bilateral pulmonary embolism. This is most likely due to his sedentary lifestyle, as he was not feeling well and he was in the bed most of the time in the last 10 days or so. Also, he has hypercoagulable state from lung cancer, as well as possible avastin. He is currently on heparin. My recommendation is to start him on Eliquis 10 mg twice a day for 7 days and then change it to 5 mg twice a day. The patient agreed with that and he would like to go home as soon as possible. I have discussed the case with Dr. Pang and also patient's nurse and instructions were given for Eliquis. We also discussed the CAT scan results which showed that his tumor is responding to the current chemotherapy. Both and patient were delighted to know that the chemotherapy is working and the cancer is getting better. I will follow him in my office. His followup has already been scheduled. Thank you for asking my opinion. MD ANANTH Fatima/PETER , 01:10 PM , 06:19 PM
[2018-01-16] MEDS ORDERED: OXYMETAZOLINE HCL 0.05% 15 ML NASAL SPRAY NASAL SCH (21:00)
== END 2018-01-16 21:06 | disposition home health service (06) | DRG 176 ==
LOC: NEPE 08:46 → NEDA 12:27 → OBSVTOIN 14:40 → NEPGCP 16:45
PROVIDERS: ADMIT Internal Medicine; ATTEND Internal Medicine
DX: I26.99 Other pulmonary embolism without acute cor pulmonale (principal); Z99.81 Dependence on supplemental oxygen; C34.90 Malignant neoplasm of unspecified part of unspecified bronchus or lung; J44.1 Chronic obstructive pulmonary disease with (acute) exacerbation; E87.6 Hypokalemia; N40.0 Benign prostatic hyperplasia without lower urinary tract symptoms; Z92.21 Personal history of antineoplastic chemotherapy; Z87.891 Personal history of nicotine dependence
CPT/HCPCS: 36600; 71045; 71275; 80048; 82805; 85025; 85027; 85610; 85730; 87040; 93005; 94640; 94664; 96365; 96367; 96375; J0456; J0696; J1642; J1644; J2920; J2930; J7050; J7512; Q9967

== ENCOUNTER → 2018-01-29 | Outpatient (CLI) | payer MEDICARE, OTHER ==
[~2018-01-29] MED LIST changes: +APIX5TAB PO; -ASPI325T33 PO; -Albuterol-Ipratropium Neb NEB; -LEVA750T9 PO; -METO25TA3 PO; +MISCMIS81; -PRED10PA2 PO; +PRED5PAK PO; -TAMS5CAP PO; -guaiFENesin ER PO
[2018-01-29 11:44] LABS: BICARBONATE 28.4 MEQ/L (21.0-32.0); CALCIUM 8.8 MG/DL (8.5-10.1); CREATININE 0.86 MG/DL (0.60-1.30)
== END ==
LOC: CLAB 10:38
PROVIDERS: ATTEND Internal Medicine
DX: E27.40 Unspecified adrenocortical insufficiency (principal)
CPT/HCPCS: 36415; 80048; 82533